=== PATIENT | female | born 1965 | race African-American/Black ===

== ENCOUNTER 2019-04-13 20:08 | Emergency (ER) | payer SELFPAY ==
[~2019-04-13] VITALS: Ht 157.5 cm; Wt 64.0 kg
[2019-04-13] MEDS ORDERED: NESINA6.25 MG PO (20:21)
[2019-04-13] MEDS ORDERED: PROCARDIA XL60 MG ORAL (20:23)
--- NOTE | 2019-04-13 20:25 | NUR ---
ED Nurse Note: PT AMBULATED TO ED C/O RIGHT FOOT, FOURTH TOE SORE. PT HAS HX OF DM 2 WITH HX OF RIGHT FOOT 5TH TOE AMPUTATION. PT DENIES PAIN, LOSS OF SENSATION. BUT STATES A MILD TINGLING IS PRESENT ON RIGHT FOOT. Addendum: 04/13/19 at 2045 by PDELEON ED Nurse Note: PT AMBULATED TO ED C/O RIGHT FOOT, 3RD TOE, SORE. PT HAS HX OF DM 2 WITH HX OF RIGHT FOOT, 5TH TOE AMPUTATION. PT DENIES PAIN, LOSS OF SENSATION. BUT STATES A MILD TINGLING IS PRESENT ON RIGHT FOOT.
[2019-04-13 20:29] VITALS: BP 131/64
[2019-04-13] MEDS ORDERED: Bacitracin Oint UD TOPIC ONE ×2 (20:43→20:45)
--- NOTE | 2019-04-13 20:49 | Emergency Room Report ---
History of Present Illness General Chief Complaint: Skin Rash/Abscess Source: Patient Present Illness HPI Patient presents with an ulcer on her right third toe. She kicked a tree. She has been checking her feet. There is an ulcer that is there. Her sister noticed it. She has had a diabetic ulcer that led to an amputation of her fifth toe. She had no pain during that episode and still has no pain during this episode. She denies any fevers or chills. The patient has retinopathy, states that she has renal disease with her renal function is 17%. She is due to have her kidney function repeated next week. She prefer not to have labs done at this time. After the amputation, research & insights executive told her she could go back to wearing high heels. The patient has not had a tetanus shot but is refusing. The patient blood sugars of been in the 120s recently. She is anxious about the lesion and what it might mean for the viability of her foot. No dysuria, other rashes, headache, chest pain, dyspnea, change in bowels, abdominal pain, joint pain. 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 Last Menstrual Period: n/a Reviewed Nursing Documentation: PMH: Agreed; PSxH: Agreed Nursing Documentation-PMH Past Medical History: No History, Except For Hx Hypertension: Yes - HTN Hx Diabetes: Yes - DIABETES Review of Systems All Other Systems: negative except mentioned in HPI Physical Exam Vital Signs Date Time Temp Pulse Resp B/P (MAP) Pulse Ox O2 Delivery O2 Flow Rate FiO2 04/13/19 20:10 97.5 96 18 131/64 (86) 99 Room Air Sp02 EP Interpretation: reviewed, normal General Appearance: well appearing, no apparent distress, GCS 15 Head: normocephalic, atraumatic Eyes: bilateral eye normal inspection, bilateral eye PERRL ENT: hearing grossly normal, normal voice, moist mucus membranes Neck: full range of motion, supple Respiratory: lungs clear, no respiratory distress, speaking full sentences Cardiovascular #1: regular rate, rhythm, no edema Cardiovascular #2: 2+ radial (R), 2+ dorsalis pedis (R) Gastrointestinal: normal inspection Musculoskeletal: no calf tenderness, other - post amputation R lateral foot/ little toe Neurologic: alert, oriented x3, motor strength/tone normal, sensory deficit - peripheral neurolopathy Psychiatric: mood/affect normal - occasionally tearful Skin: warm/dry, other - diabetic ulcer, dry without erythema Medical Decision Making Diagnostic Impression: Primary Impression: Diabetic ulcer of toe Qualified Codes: E10.621 - Type 1 diabetes mellitus with foot ulcer; L97.511 - Non-pressure chronic ulcer of other part of right foot limited to breakdown of skin ER Course Diabetic patient presents with lesion on right third toe. Differential includes cornified skin, contusion, osteomyelitis, diabetic ulcer amongst others. X-rays are indicated. Patient is requesting her labs to be done at this time and reports that her blood sugars have been well controlled. She is afebrile and nontoxic. She is refusing tetanus. Bacitracin is applied. X-rays without osteomyelitis however bony changes in adjacent toe which appear to be chronic. No gas. At this time there is no evidence of cellulitis or systemic infection. Local care is indicated. Also close outpatient follow is essential. This was discussed with the patient. She understands. Patient stable for outpatient observation and treatment. Other X-Ray Diagnostic Results Other X-Ray Diagnostic Results : X-Ray ordered: L foot # of Views/Limited Vs Complete: 3 View Indication: Other EP Interpretation: Yes Interpretation: other - STS, no osteo, change of adjacent toe Impression: Other Electronically Signed by: Electronically signed by Miguel Cooper MD Last Vital Signs Date Time Temp Pulse Resp B/P (MAP) Pulse Ox O2 Delivery O2 Flow Rate FiO2 04/13/19 21:41 97.5 98 20 127/68 100 Room Air Status: improved Disposition: HOME, SELF-CARE Condition: Improved Scripts Bacitracin (Bacitracin) 28.4 Gm Oint...g. 1 APPLIC TOPIC BID, #20 GM Prov: Miguel Cooper MD 04/13/19 Miguel Cooper MD Apr 13, 2019 20:49
--- NOTE | 2019-04-13 21:29 | NUR ---
ED Nurse Note: Xray completed
[2019-04-13] MEDS ORDERED: BACITRACIN15 GM TOPIC (21:37)
[2019-04-13 21:41] VITALS: BP 127/68
--- NOTE | 2019-04-13 21:41 | NUR ---
ER DISCHARGE NOTE: Patient is cleared to be discharged per ERMD, pt is aox4, on room air, with stable vital signs. pt was given dc and prescription instructions, pt was able to verbalize understanding, pt id band removed. pt is able to ambulate with steady gait. pt took all belongings.
--- NOTE | 2019-04-14 15:41 | Diagnostic Imaging Report ---
Indication: Osteomyelitis Technique: 3 views right foot Comparison: none Findings: Patient is status post amputation of the fifth digit at the level the mid shaft metatarsal. There is absence of the head of the fourth proximal phalanx and of the base of the fourth middle phalanx. This may be postsurgical in nature. The bones appear subluxed as a result. No acute fractures. No definite osseous erosions. There is, however, evidence of tissue loss of the tip of the first digit. No definite underlying terminal tuft abnormality demonstrated. There is a punctate radiopaque foreign body within the first toe soft tissues on the plantar side below the interphalangeal joint. Slight irregularity of the base of the second metatarsal is probably degenerative in nature. Impression: Evidence of ulceration of the tip of the first toe. No definite plain radiographic evidence of underlying osteomyelitis. Note, however, limited sensitivity of plain radiographs for such. Consider MRI or bone scan for more sensitive and specific characterization as clinically indicated. Postsurgical changes, as described Slight irregularity of the base of the second metatarsal, suspect degenerative in nature, but underlying acute abnormality also possible. Correlate with clinical findings, and likewise consider MRI to better characterize if there is high clinical suspicion of pathology in this area.
== END 2019-04-13 21:41 | disposition home or self-care (01) ==
LOC: EMR 20:54
DX: E10.621 Type 1 diabetes mellitus with foot ulcer (principal); L97.511 Non-pressure chronic ulcer of other part of right foot limited to breakdown of skin; E11.319 Type 2 diabetes mellitus with unspecified diabetic retinopathy without macular edema; Z88.6 Allergy status to analgesic agent; I12.9 Hypertensive chronic kidney disease with stage 1 through stage 4 chronic kidney disease, or unspecified chronic kidney disease; E11.22 Type 2 diabetes mellitus with diabetic chronic kidney disease; N18.9 Chronic kidney disease, unspecified
CPT/HCPCS: 99283

== ENCOUNTER 2019-07-13 11:42 | Emergency (ER) | payer MEDICAID ==
[~2019-07-13] VITALS: Ht 157.5 cm; Wt 63.0 kg
[~2019-07-13 11:42] MED LIST: BACITRACIN15 GM TOPIC; NESINA6.25 MG PO; PROCARDIA XL60 MG ORAL
[2019-07-13 12:01] VITALS: BP 120/70
--- NOTE | 2019-07-13 12:11 | NUR ---
ED Nurse Note: Pt came in due to foot edema started sunday. Pt was seen at an urgent care and was told to take more water pills but states she was not prescribed with any medication. Noted right foot open sore with no drainage at this time and pitting edema. AAO x4 and ambulatory.
[2019-07-13 13:04] LABS: HEMATOCRIT 27.5 % (37.0-47.0); HEMOGLOBIN 8.5 G/DL (12.0-16.0); MEAN CORPUSCULAR VOLUME 88 FL (80-99); PLATELET COUNT 306 K/UL (150-450); RED BLOOD COUNT 3.12 M/UL (4.20-5.40); RED CELL DISTRIBUTION WIDTH 12.6 % (11.6-14.8)
[2019-07-13 13:14] LABS: ANION GAP 15 mmol/L (5-15); BLOOD UREA NITROGEN 68 mg/dL (7-18); CALCIUM 9.3 MG/DL (8.5-10.1); CARBON DIOXIDE 17 MMOL/L (21-32); CHLORIDE 103 MMOL/L (98-107); CREATININE 5.7 MG/DL (0.55-1.30); POTASSIUM 4.2 MMOL/L (3.5-5.1); SODIUM 135 MMOL/L (136-145)
--- NOTE | 2019-07-13 13:14 | NUR ---
ED Nurse Note: Pt still unable to provide urine at this time.
[2019-07-13 13:19] LABS: ALANINE AMINOTRANSFERASE 21 U/L (12-78); ALBUMIN 3.3 G/DL (3.4-5.0); ALBUMIN/GLOBULIN RATIO 0.6 (1.0-2.7); ALKALINE PHOSPHATASE 107 U/L (46-116); ASPARTATE AMINO TRANSFERASE 22 U/L (15-37); BILIRUBIN,TOTAL 0.3 MG/DL (0.2-1.0)
[2019-07-13] MEDS ORDERED: cefTRIAXone 2 GM in NS 110 ML IV SCH (13:30)
[2019-07-13] MEDS ORDERED: Vancomycin 1 GM in NS 275 ML IV ONE (13:30)
--- NOTE | 2019-07-13 13:44 | Emergency Room Report ---
History of Present Illness General Chief Complaint: Edema Source: Patient Present Illness HPI 53-year-old female with history of CKD, type 2 diabetes currently under treatment of field spec here complaining of pain and swelling as well as pus drainage in the right third toe. Patient reports that she went to an urgent care a few days ago and was told to increase her furosemide dosage. Patient has 1 amputation of the toe on the same foot. Patient has been to the hospital multiple times for similar issue. Denies any fever and chills, rating her pain 7 out of 10 without radiation. Denies tingling numbness. Patient also recently had a twisting eye surgery due to her retinopathy. Patient denies any chest pain, shortness of breath, palpitation, abdominal pain, nausea vomiting. Patient has an extensive list of medications however is not insulin-dependent. Denies any recent fall or injury. Diabetic foot ulcers noted in the right foot with scant amount of pus drainage. Patient has normal vital signs and in no apparent distress. Allergies: Coded Allergies: ASPIRIN (Verified Allergy, Unknown, 04/13/19) Patient History Past Medical History: see triage record Past Surgical History: unable to obtain Pertinent Family History: none Immunizations: UTD Reviewed Nursing Documentation: PMH: Agreed; PSxH: Agreed Nursing Documentation-PMH Past Medical History: No History, Except For Hx Hypertension: Yes Hx Diabetes: Yes Review of Systems All Other Systems: negative except mentioned in HPI Physical Exam Vital Signs Date Time Temp Pulse Resp B/P (MAP) Pulse Ox O2 Delivery O2 Flow Rate FiO2 07/13/19 12:01 98.8 94 20 120/70 97 Room Air Sp02 EP Interpretation: reviewed, normal General Appearance: no apparent distress, alert, GCS 15, non-toxic Head: normocephalic, atraumatic Eyes: bilateral eye normal inspection, bilateral eye PERRL ENT: hearing grossly normal, normal pharynx, no angioedema, normal voice Neck: full range of motion, supple/symm/no masses Respiratory: chest non-tender, lungs clear, normal breath sounds, speaking full sentences Cardiovascular #1: regular rate, rhythm, no edema Cardiovascular #2: 2+ dorsalis pedis (R), 2+ dorsalis pedis (L) Gastrointestinal: normal bowel sounds, non tender, soft, non-distended, no guarding, no rebound Genitourinary: normal inspection, no CVA tenderness Musculoskeletal: back normal, gait/station normal, normal range of motion, non- tender, no calf tenderness, other - Right fifth toe missing due to amputation, diabetic foot ulcer with pus drainage noted over the right third toe Neurologic: alert, oriented x3, responsive, motor strength/tone normal, sensory intact, speech normal Psychiatric: judgement/insight normal, memory normal, mood/affect normal, no suicidal/homicidal ideation Skin: no rash Lymphatic: no adenopathy Medical Decision Making PA Attestation All my diagnosis and treatment plans were reviewed ad discussed with my supervising physician Dr. Laguna Diagnostic Impression: Primary Impression: Diabetic ulcer of toe ER Course 53-year-old female with history of CKD, type 2 diabetes currently under treatment of field spec here complaining of pain and swelling as well as pus drainage in the right third toe. Patient reports that she went to an urgent care a few days ago and was told to increase her furosemide dosage. Patient has 1 amputation of the toe on the same foot. Patient has been to the hospital multiple times for similar issue. Denies any fever and chills, rating her pain 7 out of 10 without radiation. Denies tingling numbness. Patient also recently had a twisting eye surgery due to her retinopathy. Patient denies any chest pain, shortness of breath, palpitation, abdominal pain, nausea vomiting. Patient has an extensive list of medications however is not insulin-dependent. Denies any recent fall or injury. Diabetic foot ulcers noted in the right foot with scant amount of pus drainage. Patient has normal vital signs and in no apparent distress. Ddx considered but are not limited to : Cellulitis, DVT, superficial infection, abscess, diabetic foot ulcer, sepsis Vital signs: are WNL, pt. is afebrile H&PE are most consistent with:diabetic foot ulcer ORDERS:sepsis work up ED INTERVENTIONS: hugo recio Patient was admitted with diagnosis of diabetic foot ulcer to [facility] under supervision of : Luz Elena pt stable at time of admission EKG Diagnostic Results Rate: normal Rhythm: NSR ST Segments: no acute changes Other Impression No acute ST changes Chest X-Ray Diagnostic Results Chest X-Ray Diagnostic Results : Chest X-Ray Ordered: Yes # of Views/Limited/Complete: 1 View Indication: Other EP Interpretation: Yes PA Xray: Interpretation reviewed, by supervising MD, and agrees with findings. Interpretation: no consolidation, no effusion, no pneumothorax Impression: No acute disease Electronically Signed by: Paul Vanegas PA-C Other X-Ray Diagnostic Results Other X-Ray Diagnostic Results : X-Ray ordered: right foot # of Views/Limited Vs Complete: 3 View Indication: Pain EP Interpretation: Yes PA Xray: Interpretation reviewed, by supervising MD, and agrees with findings. Interpretation: no dislocation, no soft tissue swelling, no fractures Impression: No acute disease Electronically Signed by: Paul Vanegas PA-C Last Vital Signs Date Time Temp Pulse Resp B/P (MAP) Pulse Ox O2 Delivery O2 Flow Rate FiO2 07/13/19 12:11 89 16 Room Air 07/13/19 12:01 98.8 120/70 (87) 97 Disposition: XFER [facility] Condition: Stable Paul Laboy Jul 13, 2019 13:44
[2019-07-13 14:30] VITALS: BP 118/73
--- NOTE | 2019-07-13 14:40 | NUR ---
ED Nurse Note: Paul/TATIANA is okay not to collect a urine sample at this time. Will start antibiotics per PA order.
[2019-07-13 14:54] LABS: CKMB 0.9 NG/ML (0.0-3.6)
[2019-07-13] MEDS ORDERED: Piperacillin/Tazobactam 3.375 GM in NS 110 ML IVPB ONE (15:00)
--- NOTE | 2019-07-13 16:06 | NUR ---
ED Nurse Note: Report given to Christine LUTZ of [facility].
--- NOTE | 2019-07-13 16:20 | NUR ---
ED Nurse Note: Endorsed Zosyn 3.37g grm to [facility] per Paul/TATIANA order. Pt is stable for transfer and all belongings sent.
[2019-07-13 16:24] VITALS: BP 125/76
--- NOTE | 2019-07-14 11:31 | Diagnostic Imaging Report ---
Indication: Chest pain Comparison: None A single view chest radiograph was obtained. Findings: Cardiomediastinal appearance is within normal limits for age. The lungs are clear. Pulmonary vascularity is appropriate. The diaphragmatic contour is smooth and costophrenic angles are sharp. No pleural effusions are identified. The bones are unremarkable. Impression: No acute findings
--- NOTE | 2019-07-14 11:32 | Diagnostic Imaging Report ---
Indication: Foot Pain Comparison: None Findings: 3 views of the right foot were obtained. Amputation of the fifth toe at the mid metatarsal level noted. There is also been amputation of the distal part of the fourth proximal phalange. No acute erosive changes or periosteal reaction identified. No soft tissue air seen. There is generalized soft tissue swelling noted. Suggestion of a osteophytes involving the proximal metatarsals and tarsal bones indicative of arthritis. IMPRESSION: No acute findings appreciated
--- NOTE | 2019-07-14 18:38 | Cardiology Report ---
APPROVED REPORT EKG Measurement Heart [id number] Normal sinus rhythm Possible Left atrial enlargement Cannot rule out Anterior infarct, age undetermined Abnormal ECG
== END 2019-07-13 16:24 | disposition short-term general hospital (02) ==
LOC: EMR 13:00
DX: E11.621 Type 2 diabetes mellitus with foot ulcer (principal); L97.519 Non-pressure chronic ulcer of other part of right foot with unspecified severity; Z88.6 Allergy status to analgesic agent; Z89.421 Acquired absence of other right toe(s); I12.9 Hypertensive chronic kidney disease with stage 1 through stage 4 chronic kidney disease, or unspecified chronic kidney disease; E11.22 Type 2 diabetes mellitus with diabetic chronic kidney disease; N18.9 Chronic kidney disease, unspecified
CPT/HCPCS: 36415; 71045; 73630; 80053; 82550; 82553; 83605; 84484; 85007; 85025; 85610; 85730; 86850; 86900; 86901; 87040; 93005; 96365; 96366; 96368; J0696; J2543; J3370; J7050; Z7502; 99284

== ENCOUNTER 2019-11-25 15:14 | Inpatient (IN) | payer MEDICAID ==
[~2019-11-25] VITALS: Ht 160 cm; Wt 64.9 kg
[2019-11-25 15:44] VITALS: BP 148/90
--- NOTE | 2019-11-25 15:45 | NUR ---
ED Nurse Note: pt walked in to ed fpr c/o sob since 11/20/19. pt sp02 is 94 % in RA. pt is alert x4.
[2019-11-25] MEDS ORDERED: Nitroglycerin Subl 0.4mg tab SL ONE (15:54)
[2019-11-25] MEDS ORDERED: Nitroglycerin Subl 0.4mg tab SL PRN (16:00)
--- NOTE | 2019-11-25 16:13 | Emergency Room Report ---
History of Present Illness General Chief Complaint: Dyspnea/Respdistress Source: Patient (Kleber Zheng MD) Present Illness HPI Patient is a 54-year-old female presents after increased difficulty with breathing. Gradual onset of symptoms. She reports having recently missed dosages of her diuretics. Prior history of renal disease but is not currently on dialysis. She does currently make urine. She had been previously on Lasix 40 mg a day. Denies any recent fever. Did have some sick contacts at home. (Kleber Zheng MD) Allergies: Coded Allergies: ASPIRIN (Verified Allergy, Unknown, 04/13/19) Patient History Past Medical History: see triage record Last Menstrual Period: none Now: No Reviewed Nursing Documentation: PMH: Agreed; PSxH: Agreed (Kleber Zheng MD) Nursing Documentation-PMH Past Medical History: No History, Except For Hx Hypertension: Yes Hx Diabetes: Yes - renal failure (Kleber Zheng MD) Review of Systems All Other Systems: negative except mentioned in HPI (Kleber Zheng MD) Physical Exam Vital Signs Date Time Temp Pulse Resp B/P (MAP) Pulse Ox O2 Delivery O2 Flow Rate FiO2 11/25/19 15:38 98.1 86 28 150/85 (106) 92 Room Air 11/25/19 16:08 35 Sp02 EP Interpretation: reviewed, normal General Appearance: normal inspection, alert, GCS 15, Chronically Ill Head: atraumatic ENT: normal ENT inspection, hearing grossly normal, normal voice Neck: normal inspection, supple, no bony tend, limited range of motion Respiratory: respiratory distress, rales Cardiovascular #1: regular rate, rhythm, no edema Gastrointestinal: normal inspection, normal bowel sounds, non tender, soft, no guarding, no hernia Genitourinary: no CVA tenderness Musculoskeletal: back normal, other - right lower extremity ulcer Neurologic: alert, fusing machine tender III-XII nml as tested, oriented x3, responsive, speech normal, normal inspection Psychiatric: normal inspection, judgement/insight normal, mood/affect normal Skin: no rash, Decubitus/Ulcer - Ulcer to the foot, pallor (Kleber Zheng MD) Procedures Critical Care Time Critical Care Time Patient had a critical medical condition which untreated could potentially result in life or limb threatening injury. Total critical care time excluding procedures approximately 45 minutes. (Kleber Zheng MD) Medical Decision Making Diagnostic Impression: Primary Impression: Fluid overload Additional Impressions: Chronic renal disease Nonadherence to medication Non-STEMI (non-ST elevated myocardial infarction) ER Course Patient is a 54-year-old female presents for increased shortness of breath. Differential diagnosis include was not limited to congestive heart failure, myocardial infarction, pneumonia, bronchitis, fluid overload among others. EKG interpreted by me showed normal sinus rhythm with a rate of [address] or T wave changes. There is no QRS widening noted. T waves do not appear to be peaking Patient given Plavix as well as started on BiPAP due to some respiratory distress. She was also given IV antibiotics due to questionable infiltrates on chest x-ray. Chest x-ray read by radiology showed bilateral patchy infiltrates which may represent pulmonary edema. Laboratory testing was notable for elevated troponin as well as evidence of chronic renal failure. Patient was started on BiPAP and had market improvement in her respiratory status after BiPAP. Patient was additionally given IV Lasix due to fluid overload. She did have some improvement after medications. Dr. Partha Lee was contacted for inpatient management Labs Test 11/25/19 16:15 White Blood Count 16.8 K/UL (4.8-10.8) Red Blood Count 2.74 M/UL (4.20-5.40) Hemoglobin 7.6 G/DL (12.0-16.0) Hematocrit 23.7 % (37.0-47.0) Mean Corpuscular Volume 86 FL (80-99) Mean Corpuscular Hemoglobin 27.8 PG (27.0-31.0) Mean Corpuscular Hemoglobin Concent 32.2 G/DL (32.0-36.0) Red Cell Distribution Width 15.2 % (11.6-14.8) Platelet Count 212 K/UL (150-450) Mean Platelet Volume 7.8 FL (6.5-10.1) Neutrophils (%) (Auto) % (45.0-75.0) Lymphocytes (%) (Auto) % (20.0-45.0) Monocytes (%) (Auto) % (1.0-10.0) Eosinophils (%) (Auto) % (0.0-3.0) Basophils (%) (Auto) % (0.0-2.0) Differential Total Cells Counted 100 Neutrophils % (Manual) 78 % (45-75) Lymphocytes % (Manual) 18 % (20-45) Monocytes % (Manual) 4 % (1-10) Eosinophils % (Manual) 0 % (0-3) Basophils % (Manual) 0 % (0-2) Band Neutrophils 0 % (0-8) Platelet Estimate Adequate Platelet Morphology Normal Polychromasia 1+ Anisocytosis 1+ (Kleber Zheng MD) ER Course Please see above note. Patient examined by me at 2315. Some improvement with some diuresis. We will attempt Ventimask and off of BiPAP. Discussed need for dialysis with patient. She understands and is agreeable at this time. Patient stable on Ventimask, but states might be more comfortable on BiPAP. Improved. (Miguel Cooper MD) EKG Diagnostic Results Rate: normal Rhythm: NSR ST Segments: no acute changes (Kleber Zheng MD) Last Vital Signs Date Time Temp Pulse Resp B/P (MAP) Pulse Ox O2 Delivery O2 Flow Rate FiO2 11/25/19 16:08 90 34 100 Facial 35 11/25/19 15:38 98.1 150/85 (106) Status: improved (Kleber Zheng MD) Status: improved (Miguel Cooper MD) Disposition: ADMITTED INPATIENT Condition: Serious Kleber Zheng MD Nov 25, 2019 16:13 Miguel Cooper MD Nov 25, 2019 22:25
--- NOTE | 2019-11-25 16:15 | NUR ---
ED Nurse Note: x ray at bedside.
[2019-11-25] MEDS ORDERED: cefTRIAXone 1 GM in NS 55 ML IVPB ONE (16:30)
--- NOTE | 2019-11-25 16:31 | Diagnostic Imaging Report ---
Indication: Shortness of breath Technique: One view of the chest Comparison: 07/13/2019 Findings: The heart is upper limits normal in size. There is suggestion of small bilateral pleural effusions. There is bilateral interstitial and patchy and nodular airspace disease. Impression: Bilateral interstitial and airspace disease, as described. Most likely represents patchy pneumonia, pulmonary edema also possible. Also given the nodular appearance of some the opacities, the possibility of neoplasm cannot be completely ruled out, although less likely given normal fairly recent chest radiograph of 07/13/2019. Recommend follow-up to resolution. Small bilateral pleural effusions Findings discussed by phone with Dr. Zheng in the emergency room at the time of interpretation
--- NOTE | 2019-11-25 16:37 | NUR ---
ED Nurse Note: blood sent down to lab
[2019-11-25 16:53] LABS: HEMATOCRIT 23.7 % (37.0-47.0); HEMOGLOBIN 7.6 G/DL (12.0-16.0); MEAN CORPUSCULAR VOLUME 86 FL (80-99); PLATELET COUNT 212 K/UL (150-450); RED BLOOD COUNT 2.74 M/UL (4.20-5.40); RED CELL DISTRIBUTION WIDTH 15.2 % (11.6-14.8); WHITE BLOOD COUNT 16.8 K/UL (4.8-10.8)
[2019-11-25 17:26] LABS: ALANINE AMINOTRANSFERASE 223 U/L (12-78); ALBUMIN 2.9 G/DL (3.4-5.0); ALBUMIN/GLOBULIN RATIO 0.5 (1.0-2.7); ALKALINE PHOSPHATASE 111 U/L (46-116); ANION GAP 19 mmol/L (5-15); ASPARTATE AMINO TRANSFERASE 276 U/L (15-37); BILIRUBIN,TOTAL 0.4 MG/DL (0.2-1.0); BLOOD UREA NITROGEN 77 mg/dL (7-18); CALCIUM 8.8 MG/DL (8.5-10.1); CARBON DIOXIDE 14 MMOL/L (21-32); CHLORIDE 102 MMOL/L (98-107); CREATININE 5.2 MG/DL (0.55-1.30); POTASSIUM 5.9 MMOL/L (3.5-5.1); SODIUM 135 MMOL/L (136-145)
[2019-11-25] MEDS ORDERED: Sodium Polystyrene Sulfonate 15gm Powder ORAL ONE (17:45)
--- NOTE | 2019-11-25 18:22 | NUR ---
ED Nurse Note: PT IM BED RESTING, NO ACUTE DISTRESS IS NOTED. VSS.
[2019-11-25 18:23] VITALS: BP 150/84
--- NOTE | 2019-11-25 18:29 | Pulmonolgy Critical Care Note ---
Critical Care - Asmt/Plan Assessment/Plan: Pulmonary Critical Care Consultation HPI Patient is a 54-year-old woman with previous history of Chronic Kidney Disease, Diabetes, Hypertension, admitted with increased difficulty with breathing. Gradual onset of symptoms. Had previously missed her diuretic doses. Not currently on dialysis. Denies any recent fever, chest pain. Had sick contacts at home. Allergies: ASPIRIN Past Medical History: Chronic Kidney Disease, Diabetes, Hypertension All Other Systems: negative except mentioned in HPI Physical Exam Vital Signs Noted Date Time Temp Pulse Resp B/P (MAP) Pulse Ox O2 Delivery O2 Flow Rate FiO2 11/25/19 15:38 98.1 86 28 150/85 (106) 92 Room Air 11/25/19 16:08 35 General Appearance: normal inspection, well appearing, no apparent distress, alert, GCS 15 Head: atraumatic ENT: normal ENT inspection, hearing grossly normal, normal voice Neck: normal inspection, full range of motion, supple, no bony tend Respiratory: normal inspection, lungs clear, normal breath sounds, no respiratory distress, no retraction, no wheezing Cardiovascular: regular rate, rhythm, HS1, HS2 normal, no edema Gastrointestinal: normal inspection, normal bowel sounds, non tender, soft, no guarding, no hernia Genitourinary: no CVA tenderness Musculoskeletal: normal inspection, back normal, normal range of motion Neurologic: alert, oriented x3, responsive, speech normal, normal inspection Impression: Fluid overload Elevated Troponin Possible Pneumonia Chronic Kidney Disease Anemia Diabetes Hypertension Plan - Diurese - IV AB - Monitor labs - O2/Bipap PRN - PPX - HEALTH UNDERWRITER Medications - Kayexalate PRN - TFN PRN - Protonix EKG: Normal sinus rhythm with a rate of [address] or T wave changes. There is no QRS widening noted. CXR: Mild cardiomegaly, interstitial and patchy infiltrates, small effusions Labs Test 11/25/19 16:15 White Blood Count 16.8 K/UL (4.8-10.8) Red Blood Count 2.74 M/UL (4.20-5.40) Hemoglobin 7.6 G/DL (12.0-16.0) Hematocrit 23.7 % (37.0-47.0) Mean Corpuscular Volume 86 FL (80-99) Mean Corpuscular Hemoglobin 27.8 PG (27.0-31.0) Mean Corpuscular Hemoglobin Concent 32.2 G/DL (32.0-36.0) Red Cell Distribution Width 15.2 % (11.6-14.8) Platelet Count 212 K/UL (150-450) Mean Platelet Volume 7.8 FL (6.5-10.1) Neutrophils (%) (Auto) % (45.0-75.0) Lymphocytes (%) (Auto) % (20.0-45.0) Monocytes (%) (Auto) % (1.0-10.0) Eosinophils (%) (Auto) % (0.0-3.0) Basophils (%) (Auto) % (0.0-2.0) Differential Total Cells Counted 100 Neutrophils % (Manual) 78 % (45-75) Lymphocytes % (Manual) 18 % (20-45) Monocytes % (Manual) 4 % (1-10) Eosinophils % (Manual) 0 % (0-3) Basophils % (Manual) 0 % (0-2) Band Neutrophils 0 % (0-8) Platelet Estimate Adequate Platelet Morphology Normal Polychromasia 1+ Anisocytosis 1+ Critical Care - Objective Last 24 Hour Vital Signs Date Time Temp Pulse Resp B/P (MAP) Pulse Ox O2 Delivery O2 Flow Rate FiO2 11/25/19 17:21 96 31 96 Facial 35 11/25/19 16:24 148/84 11/25/19 16:08 90 34 100 Facial 35 11/25/19 15:44 98.1 88 28 148/90 94 Room Air 11/25/19 15:44 88 28 Room Air 11/25/19 15:38 98.1 86 28 150/85 (106) 92 Room Air Critical Care - Subjective ROS Limited/Unobtainable: No Condition: improving EKG Rhythm: Sinus Rhythm FI02: 35 Sputum Amount: None Miguel Hamm MD Nov 25, 2019 18:29
--- NOTE | 2019-11-25 19:04 | NUR ---
ED Nurse Note: report given to BOLIVAR Wise. endorsed plan of care.
--- NOTE | 2019-11-25 19:05 | NUR ---
ED Nurse Note: Received report from Hernandez LUTZ.
[2019-11-25 19:06] VITALS: BP 148/86
[2019-11-25] MEDS ORDERED: ATORVASTATIN CA20 MG ORAL (19:54)
[2019-11-25] MEDS ORDERED: LISINOPRIL20 MG ORAL (19:54)
[2019-11-25] MEDS ORDERED: FUROSEMIDE20 M1 ORAL (19:54)
[2019-11-25] MEDS ORDERED: FERROUS SULFAT325 MG ORAL (19:54)
--- NOTE | 2019-11-25 20:30 | NUR ---
ED Nurse Note: Pt awake and alert, verbally responsive. Not in any distress. On BIPAP, tolerating well.
--- NOTE | 2019-11-25 21:45 | NUR ---
ED Nurse Note: Pt able to walk with steady gait from bed to bedside commode. On BiPAP, tolertaing well. Not in any distress. Will cont to monitor.
[2019-11-25 21:46] VITALS: BP 160/90
[2019-11-25] MEDS ORDERED: CALCIUM ACETAT667 MG PO (22:12)
--- NOTE | 2019-11-25 22:55 | NUR ---
ED Nurse Note: Report given to Brennan LUTZ.
[2019-11-25 23:00] VITALS: BP 155/91
--- NOTE | 2019-11-25 23:00 | NUR ---
TRANSFER TO FLOOR: Patient transferred to SDU. Report given to BOLIVAR Amin. Pt alert and oriented, verbally responsive. Not in any distress. No SOB. Afebrile. Sinus rhythm. 100% RA. IV line on right forearm 22g patent and intact. Med recon done. No skin issues. All belongings given to the patient. Family member aware of the transfer.
--- NOTE | 2019-11-25 23:10 | NUR ---
NURSE NOTES: Received patient from BOLIVAR Scott. Patient is aaox4, vss, with no acute distress. Pt is cooperative and well groomed. Pt on needle bar molder. IV right forearm 22g and no skin issues. Patient is on 2L NC and saturating at 93%. Bed at its lowest position, call light in reach and x3 bed rails are up.
[2019-11-25] MEDS ORDERED: HydrALAZINE 25mg tab ORAL PRN (23:30)
[2019-11-26] VITALS (15 sets, daily range): BP systolic 92–139; BP diastolic 48–89
[2019-11-26] MEDS ORDERED: HydrALAZINE 25mg tab ORAL PRN ×2 (00:15→13:39)
[2019-11-26] MEDS ORDERED: Albuterol/Ipratropium 3ml neb HHN PRN ×2 (01:30→13:39)
[2019-11-26] MEDS ORDERED: Azithromycin 500 MG in D5W 275 ML IV SCH (02:30)
[2019-11-26 05:51] LABS: HEMATOCRIT 21.1 % (37.0-47.0); MEAN CORPUSCULAR VOLUME 85 FL (80-99); PLATELET COUNT 213 K/UL (150-450); RED BLOOD COUNT 2.48 M/UL (4.20-5.40); RED CELL DISTRIBUTION WIDTH 14.5 % (11.6-14.8); WHITE BLOOD COUNT 14.2 K/UL (4.8-10.8)
[2019-11-26 06:17] LABS: HEMOGLOBIN 6.9 G/DL (12.0-16.0)
[2019-11-26] MEDS ORDERED: NovoLOG Insulin Flexpen SUBQ SCH ×2 (06:30→16:30)
[2019-11-26 06:31] LABS: ALANINE AMINOTRANSFERASE 199 U/L (12-78); ALBUMIN 2.6 G/DL (3.4-5.0); ALBUMIN/GLOBULIN RATIO 0.5 (1.0-2.7); ALKALINE PHOSPHATASE 94 U/L (46-116); ANION GAP 18 mmol/L (5-15); ASPARTATE AMINO TRANSFERASE 156 U/L (15-37); BILIRUBIN,TOTAL 0.3 MG/DL (0.2-1.0); BLOOD UREA NITROGEN 87 mg/dL (7-18); CALCIUM 8.1 MG/DL (8.5-10.1); CARBON DIOXIDE 18 MMOL/L (21-32); CHLORIDE 102 MMOL/L (98-107); CHOLESTEROL 171 MG/DL (< 200); CREATINE KINASE 712 U/L (26-308); CREATININE 5.3 MG/DL (0.55-1.30); FERRITIN 1447 NG/ML (8-388); HDL CHOLESTEROL 106 MG/DL (40-60); POTASSIUM 3.7 MMOL/L (3.5-5.1); SODIUM 138 MMOL/L (136-145); TRIGLYCERIDES 56 MG/DL (30-150)
[2019-11-26] MEDS: NovoLOG Insulin Flexpen SUBQ SCH ×4 (06:44→21:35)
[2019-11-26 06:50] LABS: % IRON SATURATION 17 % (15-50); IRON 30 ug/dL (50-175); TOTAL IRON BINDING CAPACITY 177 ug/dL (250-450)
--- NOTE | 2019-11-26 07:15 | NUR ---
NURSE NOTES: Left a message for Dr. Keene regarding Hgb 6.9 and Lactic acid of 1.3. No call back yet.
[2019-11-26 07:19] LABS: PHOSPHORUS 6.4 MG/DL (2.5-4.9)
--- NOTE | 2019-11-26 07:30 | NUR ---
HAND-OFF: Report given to BOLIVAR Chavis.
[2019-11-26] MEDS: Docusate 100mg cap ORAL SCH ×3 (09:00→18:33)
[2019-11-26] MEDS ORDERED: Heparin 5000 units/ml inj SUBQ SCH (09:00)
--- NOTE | 2019-11-26 10:20 | NUR ---
NURSE NOTES: Dr. Keene called back nurse station. Dr. Keene made aware of elevated troponin level of 3.476 elevated from 2.010. No c/o chest pain, no SOB. Dr. Keene ordered Dr. Lacey for cardiology consult and transfer to ICU for ongoing [place] for close monitoring. Charge nurse made aware. Will continue to monitor patient.
--- NOTE | 2019-11-26 10:25 | NUR ---
NURSE NOTES: Called and spoke with Dr. Lacey via telephone, informed MD of elevated troponin 3.476 elevated from 2, no SOB, no c/o chest pain. Dr. Lacey ordered to transfer to ICU. Per Dr. Lacey, Dr. Motley is covering him. Dr. Lacey gave no new orders at this time. Charge nurse made aware.
--- NOTE | 2019-11-26 12:00 | Diagnostic Imaging Report ---
Indication: Acute renal failure, abnormal renal function tests Technique: Grayscale and duplex images of the kidneys, retroperitoneum, and bladder were obtained. Comparison: none Findings: Right kidney measures 9.8 cm in length. Left kidney measures 9.7 cm in length. Both kidneys demonstrate slightly increased echogenicity. No hydronephrosis. No focal abnormality. Normal inferior vena cava. Bladder is normal. Impression: Negative for hydronephrosis Slightly increased renal echogenicity, may indicate medical renal disease.
--- NOTE | 2019-11-26 12:04 | Diagnostic Imaging Report ---
Indication: Leg pain and shortness of breath Technique: Grayscale and duplex images of the bilateral lower extremity veins Comparison: none Findings: Bilaterally, grayscale and duplex images demonstrate no evidence of intraluminal thrombus. Normal phasic Doppler waveforms, demonstrating normal augmentation response and no evidence of valvular insufficiency. Greater saphenous veins and tibial veins are patent bilaterally. Normal compressibility Impression: Negative for evidence of lower extremity deep venous thrombosis
--- NOTE | 2019-11-26 12:47 | NUR ---
TRANSFER TO FLOOR: Patient transferred to ICU [id number], per Dr. Keene. Report given to BOLIVAR lAmanza . Belongings and medications given to BOLIVAR Almanza. Family informed of transfer.
--- NOTE | 2019-11-26 13:00 | NUR ---
NURSE NOTES: PT TRANSFERRED FROM SDU REGARDING ELEVATED TROPIN. PT IN BED, CONNECTED TO MONITOR. VSS. NO C/O PAIN, SOB. A/0 X4. SR. 4L NC SATING 98%. PRN BIPAP 08/02 35%. DIET DM, RENAL REGULAR. LAST BM 11/24/2019. BG 138. SKIN- SEE ASSESSMENT. IV ACCESS RFA 22G. PT AMBULATES. STANDARD PRECAUTIONS IN PLACE. ORIENTED TO UNIT. CALL LIGHT IN REACH, BED LOCKED, IN LOW POSITION.
[2019-11-26] MEDS ORDERED: Albuterol/Ipratropium 3ml neb INH PRN (13:30)
[2019-11-26] MEDS ORDERED: Zolpidem 5mg tab ORAL PRN (13:30)
--- NOTE | 2019-11-26 14:21 | Consultation ---
Consult Note Consult Note Asked to eval for renal failure Patient is a 54-year-old female presents after increased difficulty with breathing. Gradual onset of symptoms. She reports having recently missed dosages of her diuretics. Prior history of renal disease but is not currently on dialysis. She does currently make urine. She had been previously on Lasix 40 mg a day. Denies any recent fever. Did have some sick contacts at home. Coded Allergies: ASPIRIN (Verified Allergy, Unknown, 04/13/19) Past Medical History: No History, Except For Hx Hypertension: Yes Hx Diabetes: Yes - renal failure interviewed examined data reviewed . Assessment/Plan underlying CKD ? Superimposed Acute Anemia of CKD Cardiomyopathy- 40% EjFx DM Low Folate elevated troponin- CAD Asa Allergy change diet transfuse PO folate Plavix Coreg- Norvasc- Hydralazine Joao Garcia MD Nov 26, 2019 14:21
[2019-11-26] MEDS ORDERED: Carvedilol 6.25mg Tab ORAL SCH (14:30)
--- NOTE | 2019-11-26 14:44 | Cardiac Electrophysiology PN ---
Subjective Subjective [id number] Objective Last 24 Hour Vital Signs Date Time Temp Pulse Resp B/P (MAP) Pulse Ox O2 Delivery O2 Flow Rate FiO2 11/26/19 12:00 4.0 11/26/19 12:00 96 11/26/19 12:00 98.4 94 16 133/73 (93) 95 11/26/19 12:00 Bi-pap 11/26/19 09:42 88 117/78 11/26/19 09:21 88 18 98 Full Face 35 11/26/19 08:00 98.7 92 16 117/78 (91) 100 11/26/19 08:00 4.0 11/26/19 08:00 82 11/26/19 08:00 Bi-pap 11/26/19 07:00 76 13 97 Full Face 35 11/26/19 05:05 80 21 98 Full Face 35 11/26/19 04:00 35 11/26/19 04:00 Bi-pap 11/26/19 04:00 98.5 91 24 139/89 (106) 96 11/26/19 03:00 75 20 99 Full Face 35 11/26/19 01:36 Bi-pap 11/26/19 01:28 80 20 100 Full Face 35 11/26/19 00:00 95 11/26/19 00:00 98.3 100 24 137/87 (104) 94 11/25/19 23:45 87 24 96 Full Face 35 11/25/19 23:45 78 18 Bi-Pap 35 11/25/19 23:00 98.5 97 23 155/91 100 Room Air 11/25/19 23:00 98.5 97 23 155/91 100 Room Air 11/25/19 21:53 69 33 98 Facial 35 11/25/19 21:46 98.0 86 23 160/90 99 Bi-pap 35 11/25/19 19:36 96 31 96 Facial 35 11/25/19 19:06 98.2 78 20 148/86 100 Bi-pap 35 11/25/19 18:23 98.3 85 22 150/84 99 Room Air 11/25/19 17:21 96 31 96 Facial 35 11/25/19 16:24 148/84 11/25/19 16:08 90 34 100 Facial 35 11/25/19 15:44 98.1 88 28 148/90 94 Room Air 11/25/19 15:44 88 28 Room Air 11/25/19 15:38 98.1 86 28 150/85 (106) 92 Room Air Intake and Output 11/25/19 11/26/19 19:00 07:00 Intake Total 55 ml 240 ml Balance 55 ml 240 ml Intake Oral 240 ml IV Total 55 ml # Voids 1 Laboratory Tests Test 11/25/19 16:15 11/26/19 04:50 White Blood Count 16.8 K/UL (4.8-10.8) H 14.2 K/UL (4.8-10.8) H Red Blood Count 2.74 M/UL (4.20-5.40) L 2.48 M/UL (4.20-5.40) L Hemoglobin 7.6 G/DL (12.0-16.0) L 6.9 G/DL (12.0-16.0) *L Hematocrit 23.7 % (37.0-47.0) L 21.1 % (37.0-47.0) L Mean Corpuscular Volume 86 FL (80-99) 85 FL (80-99) Mean Corpuscular Hemoglobin 27.8 PG (27.0-31.0) 27.7 PG (27.0-31.0) Mean Corpuscular Hemoglobin Concent 32.2 G/DL (32.0-36.0) 32.7 G/DL (32.0-36.0) Red Cell Distribution Width 15.2 % (11.6-14.8) H 14.5 % (11.6-14.8) Platelet Count 212 K/UL (150-450) 213 K/UL (150-450) Mean Platelet Volume 7.8 FL (6.5-10.1) 7.6 FL (6.5-10.1) Neutrophils (%) (Auto) % (45.0-75.0) % (45.0-75.0) Lymphocytes (%) (Auto) % (20.0-45.0) % (20.0-45.0) Monocytes (%) (Auto) % (1.0-10.0) % (1.0-10.0) Eosinophils (%) (Auto) % (0.0-3.0) % (0.0-3.0) Basophils (%) (Auto) % (0.0-2.0) % (0.0-2.0) Differential Total Cells Counted 100 100 Neutrophils % (Manual) 78 % (45-75) H 73 % (45-75) Lymphocytes % (Manual) 18 % (20-45) L 13 % (20-45) L Monocytes % (Manual) 4 % (1-10) 13 % (1-10) H Eosinophils % (Manual) 0 % (0-3) 1 % (0-3) Basophils % (Manual) 0 % (0-2) 0 % (0-2) Band Neutrophils 0 % (0-8) 0 % (0-8) Platelet Estimate Adequate Adequate Platelet Morphology Normal Normal Polychromasia 1+ Anisocytosis 1+ 1+ Sodium Level 135 MMOL/L (136-145) L 138 MMOL/L (136-145) Potassium Level 5.9 MMOL/L (3.5-5.1) H 3.7 MMOL/L (3.5-5.1) Chloride Level 102 MMOL/L (98-107) 102 MMOL/L (98-107) Carbon Dioxide Level 14 MMOL/L (21-32) L 18 MMOL/L (21-32) L Anion Gap 19 mmol/L (5-15) H 18 mmol/L (5-15) H Blood Urea Nitrogen 77 mg/dL (7-18) H 87 mg/dL (7-18) H Creatinine 5.2 MG/DL (0.55-1.30) H 5.3 MG/DL (0.55-1.30) H Estimat Glomerular Filtration Rate 10.3 mL/min (>60) 10.2 mL/min (>60) Glucose Level 239 MG/DL (74-106) H 203 MG/DL (74-106) H Calcium Level 8.8 MG/DL (8.5-10.1) 8.1 MG/DL (8.5-10.1) L Total Bilirubin 0.4 MG/DL (0.2-1.0) 0.3 MG/DL (0.2-1.0) Aspartate Amino Transf (AST/SGOT) 276 U/L (15-37) H 156 U/L (15-37) H Alanine Aminotransferase (ALT/SGPT) 223 U/L (12-78) H 199 U/L (12-78) H Alkaline Phosphatase 111 U/L (46-116) 94 U/L (46-116) Troponin I 2.011 ng/mL (0.000-0.056) 3.476 ng/mL (0.000-0.056) Pro-B-Type Natriuretic Peptide > 67579 pg/mL (0-125) H > 81217 pg/mL (0-125) H Total Protein 8.7 G/DL (6.4-8.2) H 7.7 G/DL (6.4-8.2) Albumin 2.9 G/DL (3.4-5.0) L 2.6 G/DL (3.4-5.0) L Globulin 5.8 g/dL 5.1 g/dL Albumin/Globulin Ratio 0.5 (1.0-2.7) L 0.5 (1.0-2.7) L Lipase 103 U/L (73-393) 110 U/L (73-393) Hypochromasia 1+ Hemoglobin A1c 6.8 % (4.3-6.0) H Lactic Acid Level 1.30 mmol/L (0.4-2.0) Uric Acid 9.8 MG/DL (2.6-7.2) H Phosphorus Level 6.4 MG/DL (2.5-4.9) H Magnesium Level 1.6 MG/DL (1.8-2.4) L Iron Level 30 ug/dL (50-175) L Total Iron Binding Capacity 177 ug/dL (250-450) L Percent Iron Saturation 17 % (15-50) Unsaturated Iron Binding 147 ug/dL (112-346) Ferritin 1447 NG/ML (8-388) H Total Creatine Kinase 712 U/L (26-308) H C-Reactive Protein, Quantitative 22.1 mg/dL (0.00-0.90) H Triglycerides Level 56 MG/DL (30-150) Cholesterol Level 171 MG/DL (< 200) LDL Cholesterol 45 mg/dL (<100) HDL Cholesterol 106 MG/DL (40-60) H Cholesterol/HDL Ratio 1.6 (3.3-4.4) L Vitamin B12 Level 1859 PG/ML (193-986) H Folate 6.8 NG/ML (8.6-58.9) L Thyroid Stimulating Hormone (TSH) 1.064 uiU/mL (0.358-3.740) Hepatitis A IgM Antibody Pending Hepatitis B Surface Antigen Pending Hepatitis B Core IgM Antibody Pending Hepatitis C Antibody Pending Jeremiah Motley MD Nov 26, 2019 14:43
--- NOTE | 2019-11-26 15:19 | Diagnostic Imaging Report ---
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 There is evidence of prior osteotomy of the fourth proximal and middle phalanges. There is evidence of prior amputation of the third distal phalanx. No acute fractures. No dislocations. No osseous erosions. The joint spaces are preserved. There is hammertoe deformity of the second through fifth digits. Impression: Postsurgical changes, as described No definite acute bony trauma graft no plain radiographic evidence of acute osseous myelitis. Note, however, limited sensitivity of plain radiographs for such. Consider MRI or bone scan for more sensitive characterization.
--- NOTE | 2019-11-26 15:47 | NUR ---
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 98.0 HR 86 RR 28 B/P 150/85 BIPAP 10/5 FIO2 30% WBC 16.8 H/H 7.6/23.7 K 5.9 IS: LASIX IV ROCEPHIN IV PLAVIX ADMITTED TO ICU ICU STATUS DCP PENDING HOSPITAL STAY
[2019-11-26] MEDS: cefTRIAXone 1 GM in D5W 55 ML IVPB SCH (15:50)
[2019-11-26] MEDS ORDERED: cefTRIAXone 1 GM in D5W 55 ML IVPB SCH (16:00)
--- NOTE | 2019-11-26 16:00 | NUR ---
NURSE NOTES: LATE ENTRY: MD FLORES HERE TO SEE PT. INFORMED OF BEDSIDE EKG AND TROPONIN 3.4. PT HAS NO C/O CHEST PAIN OR SOB AT THIS TIME. MD WILL PLACE OWN ORDERS.
--- NOTE | 2019-11-26 16:04 | Diagnostic Imaging Report ---
. Indication: Nonhealing ulcer in the right foot Technique: Grayscale duplex images of the bilateral extremity arteries Comparison: none Findings: On the right, Doppler waveforms are biphasic or triphasic with sharp systolic peaks at the level of the common femoral, profunda femoral, proximal superficial femoral arteries. In the proximal superficial femoral artery, there is sonographically visible atherosclerotic plaquing with flow velocity elevation up to 269 cm/s. There is slight dampening of the waveforms distal to this, although waveforms remain triphasic to the level of the proximal tibial vessels. The distal tibial vessel waveforms are monophasic at the level of the posterior tibial artery, but biphasic and the distal peroneal and dorsalis pedis arteries. On the left, Doppler waveforms are triphasic at all levels including distally. Systolic peaks are sharp and flow velocities are within normal limits. Impression: Borderline significant stenosis of the right proximal superficial femoral artery Negative for evidence of significant left lower extremity. Serial insufficiency.
--- NOTE | 2019-11-26 16:47 | Consultation ---
History of Present Illness General Chief Complaint: Dyspnea/Respdistress Present Illness Allergies: Coded Allergies: ASPIRIN (Verified Allergy, Unknown, 04/13/19) Medication History Scheduled Atorvastatin Calcium* (Atorvastatin Calcium*), 20 MG ORAL BEDTIME, (Reported) Bacitracin (Bacitracin), 1 APPLIC TOPIC BID Ferrous Sulfate* (Ferrous Sulfate*), 325 MG ORAL DAILY, (Reported) Furosemide* (Lasix*), 20 MG ORAL DAILY, (Reported) Lisinopril (Lisinopril*), 25 MG ORAL DAILY, (Reported) Nifedipine (Procardia Xl), 60 MG ORAL DAILY, (Reported) Miscellaneous Medications Alogliptin Benzoate (Nesina), 6.25 MG PO, (Reported) Calcium Acetate (Calcium Acetate), 667 MG PO, (Reported) Patient History Healthcare decision maker Resuscitation status Full Code Advanced Directive on File No Physical Exam Last 24 Hour Vital Signs Date Time Temp Pulse Resp B/P (MAP) Pulse Ox O2 Delivery O2 Flow Rate FiO2 11/26/19 15:48 96 133/84 11/26/19 12:00 4.0 11/26/19 12:00 96 11/26/19 12:00 98.4 94 16 133/73 (93) 95 11/26/19 12:00 Bi-pap 11/26/19 09:42 88 117/78 11/26/19 09:21 88 18 98 Full Face 35 11/26/19 08:00 98.7 92 16 117/78 (91) 100 11/26/19 08:00 4.0 11/26/19 08:00 82 11/26/19 08:00 Bi-pap 11/26/19 07:00 76 13 97 Full Face 35 11/26/19 05:05 80 21 98 Full Face 35 11/26/19 04:00 35 11/26/19 04:00 Bi-pap 11/26/19 04:00 98.5 91 24 139/89 (106) 96 11/26/19 03:00 75 20 99 Full Face 35 11/26/19 01:36 Bi-pap 11/26/19 01:28 80 20 100 Full Face 35 11/26/19 00:00 95 11/26/19 00:00 98.3 100 24 137/87 (104) 94 11/25/19 23:45 87 24 96 Full Face 35 11/25/19 23:45 78 18 Bi-Pap 35 11/25/19 23:00 98.5 97 23 155/91 100 Room Air 11/25/19 23:00 98.5 97 23 155/91 100 Room Air 11/25/19 21:53 69 33 98 Facial 35 11/25/19 21:46 98.0 86 23 160/90 99 Bi-pap 35 11/25/19 19:36 96 31 96 Facial 35 11/25/19 19:06 98.2 78 20 148/86 100 Bi-pap 35 11/25/19 18:23 98.3 85 22 150/84 99 Room Air 11/25/19 17:21 96 31 96 Facial 35 Intake and Output 11/25/19 11/26/19 19:00 07:00 Intake Total 55 ml 240 ml Balance 55 ml 240 ml Intake Oral 240 ml IV Total 55 ml # Voids 1 Laboratory Tests Test 11/26/19 04:50 White Blood Count 14.2 K/UL (4.8-10.8) H Red Blood Count 2.48 M/UL (4.20-5.40) L Hemoglobin 6.9 G/DL (12.0-16.0) *L Hematocrit 21.1 % (37.0-47.0) L Mean Corpuscular Volume 85 FL (80-99) Mean Corpuscular Hemoglobin 27.7 PG (27.0-31.0) Mean Corpuscular Hemoglobin Concent 32.7 G/DL (32.0-36.0) Red Cell Distribution Width 14.5 % (11.6-14.8) Platelet Count 213 K/UL (150-450) Mean Platelet Volume 7.6 FL (6.5-10.1) Neutrophils (%) (Auto) % (45.0-75.0) Lymphocytes (%) (Auto) % (20.0-45.0) Monocytes (%) (Auto) % (1.0-10.0) Eosinophils (%) (Auto) % (0.0-3.0) Basophils (%) (Auto) % (0.0-2.0) Differential Total Cells Counted 100 Neutrophils % (Manual) 73 % (45-75) Lymphocytes % (Manual) 13 % (20-45) L Monocytes % (Manual) 13 % (1-10) H Eosinophils % (Manual) 1 % (0-3) Basophils % (Manual) 0 % (0-2) Band Neutrophils 0 % (0-8) Platelet Estimate Adequate Platelet Morphology Normal Hypochromasia 1+ Anisocytosis 1+ Sodium Level 138 MMOL/L (136-145) Potassium Level 3.7 MMOL/L (3.5-5.1) Chloride Level 102 MMOL/L (98-107) Carbon Dioxide Level 18 MMOL/L (21-32) L Anion Gap 18 mmol/L (5-15) H Blood Urea Nitrogen 87 mg/dL (7-18) H Creatinine 5.3 MG/DL (0.55-1.30) H Estimat Glomerular Filtration Rate 10.2 mL/min (>60) Glucose Level 203 MG/DL (74-106) H Hemoglobin A1c 6.8 % (4.3-6.0) H Lactic Acid Level 1.30 mmol/L (0.4-2.0) Uric Acid 9.8 MG/DL (2.6-7.2) H Calcium Level 8.1 MG/DL (8.5-10.1) L Phosphorus Level 6.4 MG/DL (2.5-4.9) H Magnesium Level 1.6 MG/DL (1.8-2.4) L Iron Level 30 ug/dL (50-175) L Total Iron Binding Capacity 177 ug/dL (250-450) L Percent Iron Saturation 17 % (15-50) Unsaturated Iron Binding 147 ug/dL (112-346) Ferritin 1447 NG/ML (8-388) H Total Bilirubin 0.3 MG/DL (0.2-1.0) Aspartate Amino Transf (AST/SGOT) 156 U/L (15-37) H Alanine Aminotransferase (ALT/SGPT) 199 U/L (12-78) H Alkaline Phosphatase 94 U/L (46-116) Total Creatine Kinase 712 U/L (26-308) H Troponin I 3.476 ng/mL (0.000-0.056) C-Reactive Protein, Quantitative 22.1 mg/dL (0.00-0.90) H Pro-B-Type Natriuretic Peptide > 19454 pg/mL (0-125) H Total Protein 7.7 G/DL (6.4-8.2) Albumin 2.6 G/DL (3.4-5.0) L Globulin 5.1 g/dL Albumin/Globulin Ratio 0.5 (1.0-2.7) L Triglycerides Level 56 MG/DL (30-150) Cholesterol Level 171 MG/DL (< 200) LDL Cholesterol 45 mg/dL (<100) HDL Cholesterol 106 MG/DL (40-60) H Cholesterol/HDL Ratio 1.6 (3.3-4.4) L Lipase 110 U/L (73-393) Vitamin B12 Level 1859 PG/ML (193-986) H Folate 6.8 NG/ML (8.6-58.9) L Thyroid Stimulating Hormone (TSH) 1.064 uiU/mL (0.358-3.740) Hepatitis A IgM Antibody Pending Hepatitis B Surface Antigen Pending Hepatitis B Core IgM Antibody Pending Hepatitis C Antibody Pending Height (Feet): 5 Height (Inches): 3.00 Weight (Pounds): 140 Medications Current Medications Medications (Trade) Dose Ordered Sig/Yeny Route PRN Reason Start Time Stop Time Status Last Admin Dose Admin Acetaminophen (Tylenol) 500 mg Q4H PRN ORAL Mild Pain/Temp > 100.5 11/26/19 13:30 12/26/19 13:29 Albuterol/ Ipratropium (Albuterol/ Ipratropium) 3 ml Q4H PRN HHN Shortness of Breath 11/26/19 13:39 12/01/19 13:38 Amlodipine Besylate (Norvasc) 5 mg DAILY ORAL 11/27/19 09:00 12/27/19 08:59 Carvedilol (Coreg) 6.25 mg EVERY 12 HOURS ORAL 11/26/19 21:00 12/26/19 20:59 Ceftriaxone Sodium 1 gm/ Dextrose 55 ml @ 110 mls/hr Q24H IVPB 11/26/19 16:00 12/03/19 15:59 11/26/19 15:50 Clopidogrel Bisulfate (Plavix) 75 mg DAILY ORAL 11/27/19 09:00 12/26/19 08:59 Dextrose (Dextrose 50%) 25 ml Q30M PRN IV Hypoglycemia 11/26/19 14:00 12/26/19 01:29 Dextrose (Dextrose 50%) 50 ml Q30M PRN IV Hypoglycemia 11/26/19 14:00 12/26/19 01:29 Docusate Sodium (Colace) 100 mg THREE TIMES A DAY ORAL 11/26/19 18:00 12/26/19 08:59 Epoetin Jensen (Epoetin Jensen-EPBX(NON ESRD)) 10,000 unit MON-WED-SUN SUBQ 11/26/19 21:00 12/26/19 20:59 Folic Acid (Folate) 3 mg DAILY ORAL 11/26/19 14:30 12/26/19 14:29 11/26/19 15:47 Heparin Sodium (Porcine) (Heparin 5000 units/ml) 5,000 units EVERY 12 HOURS SUBQ 11/26/19 21:00 12/26/19 08:59 Hydralazine HCl (Apresoline) 10 mg Q6HR ORAL 11/26/19 18:00 12/26/19 17:59 Hydralazine HCl (Apresoline) 25 mg Q4H PRN ORAL bp over 160 syst 11/26/19 13:39 12/26/19 13:38 Insulin Aspart (NovoLOG) BEFORE MEALS AND HS SUBQ 11/26/19 16:30 12/26/19 06:29 Isosorbide Dinitrate (Isordil) 10 mg Q6HR ORAL 11/26/19 18:00 12/26/19 17:59 Metolazone (Zaroxolyn) 5 mg DAILY ORAL 11/27/19 09:00 12/27/19 08:59 Pantoprazole (Protonix) 40 mg EVERY 12 HOURS ORAL 11/26/19 21:00 12/26/19 20:59 Vancomycin HCl (Vanco rx to dose) 1 ea DAILY PRN MISC Per rx protocol 11/26/19 13:45 12/26/19 13:44 Vancomycin/Sodium Chloride 275 ml @ 137.5 mls/ hr ONCE IVPB 11/26/19 17:00 11/26/19 19:00 Zolpidem Tartrate (Ambien) 5 mg HSPRN PRN ORAL Insomnia 11/26/19 13:30 12/03/19 13:29 Assessment/Plan Assessment/Plan: Hematology Consultation REQ MD: Partha Lee RFC: Severe anemia DOS: 11/26/2019 HPI Patient is a 54-year-old female presents after increased difficulty with breathing. Gradual onset of symptoms. She reports having recently missed dosages of her diuretics. Prior history of renal disease but is not currently on dialysis. She does currently make urine. She had been previously on Lasix 40 mg a day. Denies any recent fever. Did have some sick contacts at home. Has been seen by renal, pending further workup, hgb 6.9, given blood bernice Chavis the Rn, consent to be obtained, no family noted. Transfusion pending. Seen also by cards. Allergies: Coded Allergies: ASPIRIN (Verified Allergy, Unknown, 04/13/19) Patient History Past Medical History: see triage record Last Menstrual Period: none Now: No Surgeries: 1st toe R amputation Social hx: single, 1 kid, works in [employer], hx of tobacco use but no etoh or hard drugs Review of Systems All Other Systems: negative except mentioned in HPI Physical Exam: Vitals: reviewed General Appearance: NAD HEENT: normocephalic, atraumatic Neck: non-tender, normal alignment Respiratory/Chest: normal breath sounds bilaterally Cardiovascular/Chest: normal peripheral pulses, normal rate Abdomen: normal bowel sounds, soft, nontender Extremities: normal range of motion Labs: noted Imaging: reviewed Assessment / recs: # Anemia of chronic disease due to underlying chronic medical issues, multifactorial v Gi bleed --> in this case likely kidney disease --> Anemia workup has been ordered, rule out gi bleed --> No evidence of hemolysis is noted, peripheral smear has been reviewed. --> Hgb goal >7. Transfuse prn. --> Low threshold for epogen as ferritin >1000, and severe kidney disease --> Medications have been reviewed --> low threshold for gi evaluation in case has occult + --> bone marrow biopsy is not indicated given the other more likely causes # Anemia of folic acid deficiency --> started on folate as per renal # Leukocytosis likely reactive v infection --> as per id --> trend 16-->14 --> hold off flow # Fluid overload --> diuresis as per cards/renal --> echo 2d # ИВАН on CKD --> per renal # Noncompliance # Shortness of breath # Elevated troponin --> w/u as per cards BERNICE Rn and appreciate consultation. Barber Overton MD Nov 26, 2019 16:47
[2019-11-26] MEDS ORDERED: Vancomycin 1.5gm/NS Premix q24h IVPB SCH (17:00)
--- NOTE | 2019-11-26 17:14 | Consultation ---
History of Present Illness General Date patient seen: Nov 26, 2019 Reason for Hospitalization: Dyspnea/Respdistress Present Illness HPI Patient is a 54-year-old female presents after increased difficulty with breathing. Gradual onset of symptoms. She reports having recently missed dosages of her diuretics. Prior history of renal disease but is not currently on dialysis. She does currently make urine. She had been previously on Lasix 40 mg a day. Denies any recent fever. Did have some sick contacts at home. On admission patient transferred to the intensive care unit for elevated troponins. Labs identified leukocytosis, abnormal labs, elevated LFTs. Surgery called to evaluate and assist with care. Patient seen, patient evaluated, chart reviewed. Allergies: Coded Allergies: ASPIRIN (Verified Allergy, Unknown, 04/13/19) Medication History Scheduled Atorvastatin Calcium* (Atorvastatin Calcium*), 20 MG ORAL BEDTIME, (Reported) Bacitracin (Bacitracin), 1 APPLIC TOPIC BID Ferrous Sulfate* (Ferrous Sulfate*), 325 MG ORAL DAILY, (Reported) Furosemide* (Lasix*), 20 MG ORAL DAILY, (Reported) Lisinopril (Lisinopril*), 25 MG ORAL DAILY, (Reported) Nifedipine (Procardia Xl), 60 MG ORAL DAILY, (Reported) Miscellaneous Medications Alogliptin Benzoate (Nesina), 6.25 MG PO, (Reported) Calcium Acetate (Calcium Acetate), 667 MG PO, (Reported) Patient History Healthcare decision maker Resuscitation status Full Code Advanced Directive on File No Past Medical/Surgical History Past Medical/Surgical History: (1) Fluid overload (2) Chronic renal disease (3) Nonadherence to medication (4) SOB (shortness of breath) (5) Diabetic ulcer of toe Review of Systems Review of Symptoms General ROS: no weight loss or fever Psychological ROS: no depression or mood changes, no memory loss Ophthalmic ROS: no visual changes or eye irritation ENT ROS: no nasal congestion, hearing loss, dizziness Allergy and Immunology ROS: no allergic symptoms or urticaria Hematological and Lymphatic ROS: no swollen glands, unusual bleeding or bruising Endocrine ROS: no polyuria, polydipsia, weight changes, temperature intolerance Respiratory ROS: no cough, shortness of breath, or wheezing Cardiovascular ROS: no chest pain or dyspnea on exertion Gastrointestinal ROS: denies abdominal pain, bright red blood in stool. Musculoskeletal ROS: no myalgias or arthralgias Neurological ROS: no TIA or stroke symptoms Dermatological ROS: no new or changing skin lesions, rashes or pruritis Physical Exam Physical Exam General appearance: alert, cooperative, no distress, appears stated age Head: Normocephalic, without obvious abnormality, atraumatic Eyes: conjunctivae/corneas clear. PERRL, EOM's intact. Fundi benign Throat: Lips, mucosa, and tongue normal. Teeth and gums normal Neck: supple, symmetrical, trachea midline, no adenopathy, thyroid: not enlarged, symmetric, no tenderness/mass/nodules, no carotid bruit and no JVD Lungs: clear to auscultation bilaterally Heart: regular rate and rhythm, S1, S2 normal, no murmur, click, rub or gallop Abdomen: soft, non-tender. Bowel sounds normal. No masses, no organomegaly Extremities: extremities see below Pulses: 2+ and symmetric Skin: Skin color, texture, turgor normal. No rashes or lesions Neurologic: Grossly normal Last 24 Hour Vital Signs Date Time Temp Pulse Resp B/P (MAP) Pulse Ox O2 Delivery O2 Flow Rate FiO2 11/26/19 15:48 96 133/84 11/26/19 12:00 4.0 11/26/19 12:00 96 11/26/19 12:00 98.4 94 16 133/73 (93) 95 11/26/19 12:00 Bi-pap 11/26/19 09:42 88 117/78 11/26/19 09:21 88 18 98 Full Face 35 11/26/19 08:00 98.7 92 16 117/78 (91) 100 11/26/19 08:00 4.0 11/26/19 08:00 82 11/26/19 08:00 Bi-pap 11/26/19 07:00 76 13 97 Full Face 35 11/26/19 05:05 80 21 98 Full Face 35 11/26/19 04:00 35 11/26/19 04:00 Bi-pap 11/26/19 04:00 98.5 91 24 139/89 (106) 96 11/26/19 03:00 75 20 99 Full Face 35 11/26/19 01:36 Bi-pap 11/26/19 01:28 80 20 100 Full Face 35 11/26/19 00:00 95 11/26/19 00:00 98.3 100 24 137/87 (104) 94 11/25/19 23:45 87 24 96 Full Face 35 11/25/19 23:45 78 18 Bi-Pap 35 11/25/19 23:00 98.5 97 23 155/91 100 Room Air 11/25/19 23:00 98.5 97 23 155/91 100 Room Air 11/25/19 21:53 69 33 98 Facial 35 11/25/19 21:46 98.0 86 23 160/90 99 Bi-pap 35 11/25/19 19:36 96 31 96 Facial 35 11/25/19 19:06 98.2 78 20 148/86 100 Bi-pap 35 11/25/19 18:23 98.3 85 22 150/84 99 Room Air 11/25/19 17:21 96 31 96 Facial 35 Intake and Output 11/25/19 11/26/19 19:00 07:00 Intake Total 55 ml 240 ml Balance 55 ml 240 ml Intake Oral 240 ml IV Total 55 ml # Voids 1 Laboratory Tests Test 11/26/19 04:50 White Blood Count 14.2 K/UL (4.8-10.8) H Red Blood Count 2.48 M/UL (4.20-5.40) L Hemoglobin 6.9 G/DL (12.0-16.0) *L Hematocrit 21.1 % (37.0-47.0) L Mean Corpuscular Volume 85 FL (80-99) Mean Corpuscular Hemoglobin 27.7 PG (27.0-31.0) Mean Corpuscular Hemoglobin Concent 32.7 G/DL (32.0-36.0) Red Cell Distribution Width 14.5 % (11.6-14.8) Platelet Count 213 K/UL (150-450) Mean Platelet Volume 7.6 FL (6.5-10.1) Neutrophils (%) (Auto) % (45.0-75.0) Lymphocytes (%) (Auto) % (20.0-45.0) Monocytes (%) (Auto) % (1.0-10.0) Eosinophils (%) (Auto) % (0.0-3.0) Basophils (%) (Auto) % (0.0-2.0) Differential Total Cells Counted 100 Neutrophils % (Manual) 73 % (45-75) Lymphocytes % (Manual) 13 % (20-45) L Monocytes % (Manual) 13 % (1-10) H Eosinophils % (Manual) 1 % (0-3) Basophils % (Manual) 0 % (0-2) Band Neutrophils 0 % (0-8) Platelet Estimate Adequate Platelet Morphology Normal Hypochromasia 1+ Anisocytosis 1+ Sodium Level 138 MMOL/L (136-145) Potassium Level 3.7 MMOL/L (3.5-5.1) Chloride Level 102 MMOL/L (98-107) Carbon Dioxide Level 18 MMOL/L (21-32) L Anion Gap 18 mmol/L (5-15) H Blood Urea Nitrogen 87 mg/dL (7-18) H Creatinine 5.3 MG/DL (0.55-1.30) H Estimat Glomerular Filtration Rate 10.2 mL/min (>60) Glucose Level 203 MG/DL (74-106) H Hemoglobin A1c 6.8 % (4.3-6.0) H Lactic Acid Level 1.30 mmol/L (0.4-2.0) Uric Acid 9.8 MG/DL (2.6-7.2) H Calcium Level 8.1 MG/DL (8.5-10.1) L Phosphorus Level 6.4 MG/DL (2.5-4.9) H Magnesium Level 1.6 MG/DL (1.8-2.4) L Iron Level 30 ug/dL (50-175) L Total Iron Binding Capacity 177 ug/dL (250-450) L Percent Iron Saturation 17 % (15-50) Unsaturated Iron Binding 147 ug/dL (112-346) Ferritin 1447 NG/ML (8-388) H Total Bilirubin 0.3 MG/DL (0.2-1.0) Aspartate Amino Transf (AST/SGOT) 156 U/L (15-37) H Alanine Aminotransferase (ALT/SGPT) 199 U/L (12-78) H Alkaline Phosphatase 94 U/L (46-116) Total Creatine Kinase 712 U/L (26-308) H Troponin I 3.476 ng/mL (0.000-0.056) C-Reactive Protein, Quantitative 22.1 mg/dL (0.00-0.90) H Pro-B-Type Natriuretic Peptide > 09619 pg/mL (0-125) H Total Protein 7.7 G/DL (6.4-8.2) Albumin 2.6 G/DL (3.4-5.0) L Globulin 5.1 g/dL Albumin/Globulin Ratio 0.5 (1.0-2.7) L Triglycerides Level 56 MG/DL (30-150) Cholesterol Level 171 MG/DL (< 200) LDL Cholesterol 45 mg/dL (<100) HDL Cholesterol 106 MG/DL (40-60) H Cholesterol/HDL Ratio 1.6 (3.3-4.4) L Lipase 110 U/L (73-393) Vitamin B12 Level 1859 PG/ML (193-986) H Folate 6.8 NG/ML (8.6-58.9) L Thyroid Stimulating Hormone (TSH) 1.064 uiU/mL (0.358-3.740) Hepatitis A IgM Antibody Pending Hepatitis B Surface Antigen Pending Hepatitis B Core IgM Antibody Pending Hepatitis C Antibody Pending Height (Feet): 5 Height (Inches): 3.00 Weight (Pounds): 140 Medications Current Medications Medications (Trade) Dose Ordered Sig/Yeny Route PRN Reason Start Time Stop Time Status Last Admin Dose Admin Acetaminophen (Tylenol) 500 mg Q4H PRN ORAL Mild Pain/Temp > 100.5 11/26/19 13:30 12/26/19 13:29 Albuterol/ Ipratropium (Albuterol/ Ipratropium) 3 ml Q4H PRN HHN Shortness of Breath 11/26/19 13:39 12/01/19 13:38 Amlodipine Besylate (Norvasc) 5 mg DAILY ORAL 11/27/19 09:00 12/27/19 08:59 Carvedilol (Coreg) 6.25 mg EVERY 12 HOURS ORAL 11/26/19 21:00 12/26/19 20:59 Ceftriaxone Sodium 1 gm/ Dextrose 55 ml @ 110 mls/hr Q24H IVPB 11/26/19 16:00 12/03/19 15:59 11/26/19 15:50 Clopidogrel Bisulfate (Plavix) 75 mg DAILY ORAL 11/27/19 09:00 12/26/19 08:59 Dextrose (Dextrose 50%) 25 ml Q30M PRN IV Hypoglycemia 11/26/19 14:00 12/26/19 01:29 Dextrose (Dextrose 50%) 50 ml Q30M PRN IV Hypoglycemia 11/26/19 14:00 12/26/19 01:29 Docusate Sodium (Colace) 100 mg THREE TIMES A DAY ORAL 11/26/19 18:00 12/26/19 08:59 Epoetin Jensen (Epoetin Jensen-EPBX(NON ESRD)) 10,000 unit SUN-SUN-SUN SUBQ 11/26/19 21:00 12/26/19 20:59 Folic Acid (Folate) 3 mg DAILY ORAL 11/26/19 14:30 12/26/19 14:29 11/26/19 15:47 Heparin Sodium (Porcine) (Heparin 5000 units/ml) 5,000 units EVERY 12 HOURS SUBQ 11/26/19 21:00 12/26/19 08:59 Hydralazine HCl (Apresoline) 10 mg Q6HR ORAL 11/26/19 18:00 12/26/19 17:59 Hydralazine HCl (Apresoline) 25 mg Q4H PRN ORAL bp over 160 syst 11/26/19 13:39 12/26/19 13:38 Insulin Aspart (NovoLOG) BEFORE MEALS AND HS SUBQ 11/26/19 16:30 12/26/19 06:29 11/26/19 16:59 Isosorbide Dinitrate (Isordil) 10 mg Q6HR ORAL 11/26/19 18:00 12/26/19 17:59 Metolazone (Zaroxolyn) 5 mg DAILY ORAL 11/27/19 09:00 12/27/19 08:59 Pantoprazole (Protonix) 40 mg EVERY 12 HOURS ORAL 11/26/19 21:00 12/26/19 20:59 Vancomycin HCl (Vanco rx to dose) 1 ea DAILY PRN MISC Per rx protocol 11/26/19 13:45 12/26/19 13:44 Vancomycin/Sodium Chloride 275 ml @ 137.5 mls/ hr ONCE IVPB 11/26/19 17:00 11/26/19 19:00 11/26/19 16:55 Zolpidem Tartrate (Ambien) 5 mg HSPRN PRN ORAL Insomnia 11/26/19 13:30 12/03/19 13:29 Assessment/Plan Problem List: (1) Diabetic ulcer of toe Assessment & Plan: Findings: 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 There is evidence of prior osteotomy of the fourth proximal and middle phalanges. There is evidence of prior amputation of the third distal phalanx. No acute fractures. No dislocations. No osseous erosions. The joint spaces are preserved. There is hammertoe deformity of the second through fifth digits. Impression: Postsurgical changes, as described No definite acute bony trauma graft no plain radiographic evidence of acute osseous myelitis. Note, however, limited sensitivity of plain radiographs for such. Consider MRI or bone scan for more sensitive characterization. Findings: On the right, Doppler waveforms are biphasic or triphasic with sharp systolic peaks at the level of the common femoral, profunda femoral, proximal superficial femoral arteries. In the proximal superficial femoral artery, there is sonographically visible atherosclerotic plaquing with flow velocity elevation up to 269 cm/s. There is slight dampening of the waveforms distal to this, although waveforms remain triphasic to the level of the proximal tibial vessels. The distal tibial vessel waveforms are monophasic at the level of the posterior tibial artery, but biphasic and the distal peroneal and dorsalis pedis arteries. On the left, Doppler waveforms are triphasic at all levels including distally. Systolic peaks are sharp and flow velocities are within normal limits. Impression: Borderline significant stenosis of the right proximal superficial femoral artery Negative for evidence of significant left lower extremity. Serial insufficiency. Findings: Bilaterally, grayscale and duplex images demonstrate no evidence of intraluminal thrombus. Normal phasic Doppler waveforms, demonstrating normal augmentation response and no evidence of valvular insufficiency. Greater saphenous veins and tibial veins are patent bilaterally. Normal compressibility Impression: Negative for evidence of lower extremity deep venous thrombosis ICD Codes: E11.621 - Type 2 diabetes mellitus with foot ulcer; L97.509 - Non- pressure chronic ulcer of other part of unspecified foot with unspecified severity SNOMED: 22900078, [id number], [id number] (2) SOB (shortness of breath) ICD Codes: R06.02 - Shortness of breath SNOMED: 807548153 (3) Abnormal LFTs Assessment & Plan: 54-year-old female with leukocytosis, abnormalities, anemia , diabetic toe, elevated troponins. Patient ICU currently undergoing medical care and management. Etiology of elevated LFTs and leukocytosis unknown. Ultrasound abdomen ordered Trend labs No acute surgical invention planned We will monitor and follow with serial exams Thank you let me participate in his care will follow the recommendations ICD Codes: R94.5 - Abnormal results of liver function studies SNOMED: 731018713 Wilberto Jiménez Nov 26, 2019 17:14
--- NOTE | 2019-11-26 18:00 | NUR ---
NURSE NOTES: LATE ENTRY: PT RECEIVING 1/2 UNITS PRBC. VS: 98.5 AX, 81, 111/62. EDUCATED PT ON S./S TO REPORT FOR REACTION. PT STATES UNDERSTANDING.
--- NOTE | 2019-11-26 18:15 | NUR ---
NURSE NOTES: LATE ENTRY: PT NO C/O REACTION. VS: 98.8 AX, BP 104/64, HR 84. WILL CONTINUE TO MONITOR CLOSELY.
[2019-11-26] MEDS: HydrALAZINE 10mg Tab ORAL SCH (18:33)
--- NOTE | 2019-11-26 20:10 | NUR ---
HAND-OFF: Report given to JACKEL[facility] [employer] PRBC. SNACK FOR ZEFERINO
--- NOTE | 2019-11-26 20:11 | NUR ---
NURSE NOTES: Received patient from BOLIVAR Almanza. Patient is aaox4, vss, with no acute distress. Patient is cooperative , well groomed and on air sampling and monitoring. Patient is on 3L NC. IV site is on the right forearm 20g running 1 unit PRBC at 90mL/hr and lt forearm 22g TKO. Troponin elevated and MD notified by previous RN. Bed at its lowest position, call light in reach and x3 bed rails are up. Will continue to monitor.
--- NOTE | 2019-11-26 20:30 | Consultation ---
DATE OF CONSULTATION: 11/26/2019 CARDIOLOGY CONSULTATION CONSULTING PHYSICIAN: Jeremiah Motley M.D. REFERRING PHYSICIAN: Partha Keene M.D. REASON FOR CONSULTATION: Elevated troponin and congestive heart failure. HISTORY OF PRESENT ILLNESS: The patient is a 54-year-old lady with history of hypertension, diabetes, and congestive heart failure with EF of 40%, as well as history of chronic kidney disease, who has not been dialyzed came to the emergency room with increasing shortness of breath. The patient was previously on Lasix 40 mg daily. The patient denies any coronary artery disease or prior myocardial infarction. The patient's initial troponin was 2, did increase to 3 and a Cardiology consultation was requested for further evaluation and management. The echocardiogram on this admission also showed EF of only 40%. REVIEW OF SYSTEMS: Review of systems was performed and was negative other than what was mentioned in the history of present illness. PAST MEDICAL HISTORY: As mentioned above. FAMILY HISTORY: Noncontributory. SOCIAL HISTORY: She lives at home. Does not smoke or drink alcohol. PHYSICAL EXAMINATION: VITAL SIGNS: Show blood pressure 132/73, pulse 94, respirations 18, and temperature 98.4. HEAD AND NECK: Shows mild JVD. LUNGS: Decreased breath sounds. CARDIOVASCULAR: Shows regular S1 and S2 with no gallop. ABDOMEN: Soft. EXTREMITIES: No pitting edema. She has a chronic right toe ulcer. LABORATORY AND DIAGNOSTIC DATA: Her EKG shows sinus rhythm with acute ST-T wave abnormality suggestive of lateral ischemia. Labs show white count of 14.2, hemoglobin of 6.9, hematocrit 21, and platelet count is 213. Sodium 138, potassium 3.7, BUN of 37, creatinine 5.3, and glucose of 203. Troponin is initially 2 and now 3.4. BNP is more than 35,000. ASSESSMENT AND PLAN: 1. Pjp-IS-[id number] myocardial infarction with elevated troponin to 3.4 and lateral ischemia on the EKG and epigastric pain. The troponin elevation however could be partially related to the patient's renal failure. Repeat EKG and repeat cardiac enzymes, and keep the patient on aspirin and beta-idalia and statin. 2. Volume overload due to renal failure. The patient may need hemodialysis under management of Dr. Garcia. 3. Hypertension, currently on Zaroxolyn 5 mg daily, Norvasc 5 daily, Coreg 6.25 mg b.i.d., and Isordil 10 mg every six hours. 4. End-stage renal disease, likely need hemodialysis. Further evaluation by Dr. Garcia. 5. Diabetes. Thank you very much for allowing me to participate in the care of this patient. Please do not hesitate to contact me for any questions regarding my evaluation. Jeremiah Motley M.D. DR: MIMI JOB#: [id number] CC:
[2019-11-26] MEDS ORDERED: Epoetin Alfa-EPBX (NON ESRD)10,000 unit/ml vial SUBQ SCH ×2 (21:00)
[2019-11-26] MEDS: Carvedilol 6.25mg Tab ORAL SCH (21:00)
--- NOTE | 2019-11-26 21:07 | Pulmonolgy Critical Care Note ---
Critical Care - Asmt/Plan Assessment/Plan: Pulmonary Critical Care Progress Note HPI Patient is a 54-year-old woman with previous history of Chronic Kidney Disease, Diabetes, Hypertension, admitted with increased difficulty with breathing. Gradual onset of symptoms. Had previously missed her diuretic doses. Not currently on dialysis. Denies any recent fever, chest pain. Had sick contacts at home. Anemia s/p Transfusion, Renal US negative for hydronephrosis Elevated Troponin Allergies: ASPIRIN Past Medical History: Chronic Kidney Disease, Diabetes, Hypertension All Other Systems: negative except mentioned in HPI Physical Exam Vital Signs Noted General Appearance: normal inspection, well appearing, no apparent distress, alert, GCS 15 Head: atraumatic ENT: normal ENT inspection, hearing grossly normal, normal voice Neck: normal inspection, full range of motion, supple, no bony tend Respiratory: normal inspection, lungs clear, normal breath sounds, no respiratory distress, no retraction, no wheezing Cardiovascular: regular rate, rhythm, HS1, HS2 normal, no edema Gastrointestinal: normal inspection, normal bowel sounds, non tender, soft, no guarding, no hernia Genitourinary: no CVA tenderness Musculoskeletal: normal inspection, back normal, normal range of motion Neurologic: alert, oriented x3, responsive, speech normal, normal inspection Impression: Fluid overload Elevated Troponin Possible Pneumonia Chronic Kidney Disease Anemia Diabetes Hypertension Plan - Diurese - Plavix - Cardiology following - IV AB - Monitor labs - Transfuse PRN - O2/Bipap PRN - PPX - RN OTOLARYNGOLOGY Medications - Kayexalate PRN - TFN PRN - Protonix EKG: Normal sinus rhythm with a rate of [address] or T wave changes. There is no QRS widening noted. CXR: Mild cardiomegaly, interstitial and patchy infiltrates, small effusions LE Dupplex:Negative for DVT Labs Noted Test 11/25/19 16:15 White Blood Count 16.8 K/UL (4.8-10.8) Red Blood Count 2.74 M/UL (4.20-5.40) Hemoglobin 7.6 G/DL (12.0-16.0) Hematocrit 23.7 % (37.0-47.0) Mean Corpuscular Volume 86 FL (80-99) Mean Corpuscular Hemoglobin 27.8 PG (27.0-31.0) Mean Corpuscular Hemoglobin Concent 32.2 G/DL (32.0-36.0) Red Cell Distribution Width 15.2 % (11.6-14.8) Platelet Count 212 K/UL (150-450) Mean Platelet Volume 7.8 FL (6.5-10.1) Neutrophils (%) (Auto) % (45.0-75.0) Lymphocytes (%) (Auto) % (20.0-45.0) Monocytes (%) (Auto) % (1.0-10.0) Eosinophils (%) (Auto) % (0.0-3.0) Basophils (%) (Auto) % (0.0-2.0) Differential Total Cells Counted 100 Neutrophils % (Manual) 78 % (45-75) Lymphocytes % (Manual) 18 % (20-45) Monocytes % (Manual) 4 % (1-10) Eosinophils % (Manual) 0 % (0-3) Basophils % (Manual) 0 % (0-2) Band Neutrophils 0 % (0-8) Platelet Estimate Adequate Platelet Morphology Normal Polychromasia 1+ Anisocytosis 1+ Critical Care - Objective Last 24 Hour Vital Signs Date Time Temp Pulse Resp B/P (MAP) Pulse Ox O2 Delivery O2 Flow Rate FiO2 11/26/19 20:00 Nasal Cannula 4.0 11/26/19 18:33 104/64 11/26/19 18:33 104/64 11/26/19 17:00 98.0 80 17 92/68 (76) 96 11/26/19 16:00 79 11/26/19 16:00 4.0 11/26/19 16:00 81 20 121/60 (80) 96 11/26/19 16:00 Nasal Cannula 4.0 11/26/19 15:48 96 133/84 11/26/19 15:00 96 21 133/84 (100) 99 11/26/19 14:00 97 21 122/59 (80) 93 11/26/19 13:00 96 20 128/64 (85) 93 11/26/19 12:00 4.0 11/26/19 12:00 96 11/26/19 12:00 98.4 94 16 133/73 (93) 95 11/26/19 12:00 Bi-pap 11/26/19 09:42 88 117/78 11/26/19 09:21 88 18 98 Full Face 35 11/26/19 08:00 98.7 92 16 117/78 (91) 100 11/26/19 08:00 4.0 11/26/19 08:00 82 11/26/19 08:00 Bi-pap 11/26/19 07:00 76 13 97 Full Face 35 11/26/19 05:05 80 21 98 Full Face 35 11/26/19 04:00 35 11/26/19 04:00 Bi-pap 11/26/19 04:00 98.5 91 24 139/89 (106) 96 11/26/19 03:00 75 20 99 Full Face 35 11/26/19 01:36 Bi-pap 11/26/19 01:28 80 20 100 Full Face 35 11/26/19 00:00 95 11/26/19 00:00 98.3 100 24 137/87 (104) 94 11/25/19 23:45 87 24 96 Full Face 35 11/25/19 23:45 78 18 Bi-Pap 35 11/25/19 23:00 98.5 97 23 155/91 100 Room Air 11/25/19 23:00 98.5 97 23 155/91 100 Room Air 11/25/19 21:53 69 33 98 Facial 35 11/25/19 21:46 98.0 86 23 160/90 99 Bi-pap 35 Micro: Microbiology Date/Time Source Procedure Growth Status 11/26/19 17:30 Nasal Nares - Final Complete 11/26/19 17:30 Nasal Nares - Final Complete Accucheck: 244 Critical Care - Subjective ROS Limited/Unobtainable: No FI02: 35 Vent Support Mode: BiLevel Sputum Amount: None I&O: Intake and Output 11/25/19 11/26/19 19:00 07:00 Intake Total 55 ml 240 ml Balance 55 ml 240 ml Intake Oral 240 ml IV Total 55 ml # Voids 1 Miguel Hamm MD Nov 26, 2019 21:07
[2019-11-26] MEDS: Heparin 5000 units/ml inj SUBQ SCH (21:34)
--- NOTE | 2019-11-26 22:38 | NUR ---
NURSE NOTES: Second unit of blood stared at 2222 with no adverse reaction observed. Fist unit stopped before 2158.
--- NOTE | 2019-11-26 23:30 | Consultation ---
DATE OF CONSULTATION: 11/26/2019 INFECTIOUS DISEASES CONSULTATION CONSULTING PHYSICIAN: Tip Ashford M.D. PRIMARY ATTENDING PHYSICIAN: Partha Keene M.D. REASON FOR CONSULTATION: Pneumonia and right third toe infection. HISTORY OF PRESENT ILLNESS: The patient is a 54-year-old female, admitted yesterday complaining of difficulty of breathing. She has history of chronic kidney disease and noncompliance with diuretic treatment. She was supposed to get Lasix 40 mg a day. Denies fever or any other symptoms. She has chronic ulceration in right third toe, present at least from August of last year. 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 ALLERGIES: Allergic to aspirin. MEDICATIONS: Getting Epogen, ceftriaxone, nifedipine, Lasix, heparin, Plavix, insulin, erythromycin, albuterol and ipratropium inhaler, Zofran, and hydralazine. SOCIAL HISTORY: Single. Denies alcohol, drug abuse, or smoking. REVIEW OF SYSTEMS: No fever. No chills. No shortness of breath at present time. No coughing. No nausea. No vomiting. No dysuria. No edema. PHYSICAL EXAMINATION: VITAL SIGNS: Temperature 98.4, pulse 94, and blood pressure 133/70. GENERAL APPEARANCE: Seems to be thin. HEAD AND NECK: Poor dentition. No oral lesion. HEART: Normal rate. LUNGS: Clear. Getting oxygen by nasal cannula. ABDOMEN: Soft and nontender. EXTREMITIES: No edema. SKIN: Third toe tip ulceration seems to be chronic at the present time. No discharge. Some discoloration of skin in the third toe. LABORATORY AND DIAGNOSTIC DATA: WBC at the time of admission 16.8, currently is 14.1. Hemoglobin was 7.6, currently 6.9. Hematocrit is 21.1. Platelets 213,000. Sodium 138, potassium 3.7, chloride 102, bicarb 18, BUN 87, creatinine 5.6, glucose 203. Lactic acid 6.8. AST and ALT are elevated. AST is 156, ALT 199. Troponin is elevated at 3.47. BNP is more than 35,000. Folate is low. CK level is elevated 712. Chest x-ray showed bilateral interstitial and airspace disease, most likely patchy pneumonia or pulmonary edema, some areas are nodular. Venous duplex showed no DVT of legs. Renal ultrasound showed increased renal echogenicity, may indicate medical renal disease. IMPRESSION: Pneumonia or pulmonary edema; the patient has third toe ulcer, we will try to rule out osteomyelitis; leukocytosis; severe anemia; acidosis; folate deficiency; chronic kidney disease, likely end-stage renal disease; elevated troponin; elevated transaminase; and acidosis. RECOMMENDATION: Continue with ceftriaxone, Zithromax ordered by finisher tailor apprentice. We will add IV vancomycin. We will follow up the foot x-ray. Follow up with podiatry evaluation. At the end of my exam, I thank Dr. Keene for involving me in the care of this patient. Tip Ashford M.D. DR: Crissy JOB#: [id number] CC: LAKIA
--- NOTE | 2019-11-26 23:50 | NUR ---
NURSE NOTES: RT Berhane attempted to provide Bipai tx to patient and she refused tx. Patient was educated on the Bipap and states that she understood.
[2019-11-27] VITALS (25 sets, daily range): BP systolic 95–134; BP diastolic 56–86
--- NOTE | 2019-11-27 00:15 | Consultation ---
DATE OF CONSULTATION: 11/26/2019 GASTROENTEROLOGY CONSULTATION CONSULTING PHYSICIAN: Kacie Butler M.D. REFERRING PHYSICIAN: Partha Keene M.D. CHIEF COMPLAINT: I was asked to see this patient by Dr. Partha Keene for evaluation of anemia. HISTORY OF PRESENT ILLNESS: The patient is a pleasant 54-year-old woman who was admitted to the hospital and subsequently transferred to the ICU. She was brought to the hospital due to shortness of breath. Her troponins are positive. Of note, she also has significant anemia and also has elevated transaminases. She does have a history of renal failure, followed by an outside orthodontic assistant. She states she never had an endoscopy or colonoscopy. She denies any abdominal pain or hematochezia. PAST MEDICAL HISTORY: History of renal failure, anemia, diabetes, hypertension. MEDICATIONS: See the chart list for details. FAMILY HISTORY: Negative for malignancy. SOCIAL HISTORY: The patient does not smoke, but she drinks occasionally. She is single. REVIEW OF SYSTEMS: Otherwise negative. PHYSICAL EXAMINATION: GENERAL: A pleasant woman, seen in her room. HEENT: Normocephalic and atraumatic. Sclerae anicteric. Oropharynx clear. NECK: Supple. CHEST: Clear to auscultation. CARDIOVASCULAR: Revealed regular rate. ABDOMEN: Soft, nontender. EXTREMITIES: No edema. LABORATORY DATA: Noted. ASSESSMENT: This patient presents with myocardial infarction, which is being evaluated separately by Cardiology. Her abnormal liver tests may be possibly due to infarction. She also has some degree of rhabdomyolysis with an elevated creatinine clearance. I would follow liver tests for now and hepatitis serologies have already been ordered. An abdominal ultrasound can be considered to evaluate the liver to rule out any mass, lesions. In addition, the patient has significant degree of anemia, but this could be mainly due to her renal failure. The patient should undergo an endoscopy and colonoscopy at some point in the future, but at this time since she is having significant medical problems, she can receive intravenous iron, but I will defer this to Hematology service if needed. Stool occult blood can also be checked. RECOMMENDATIONS: Per above discussion and per orders written in the chart. Thank you for asking me to participate in the care of this patient. Kacie Butler M.D. DR: ANDRA JOB#: [id number] CC: LAKIA
[2019-11-27] MEDS: HydrALAZINE 10mg Tab ORAL SCH ×4 (00:32→18:10)
--- NOTE | 2019-11-27 00:45 | Consultation ---
DATE OF CONSULTATION: 11/26/2019 VASCULAR SURGERY CONSULTATION CONSULTING PHYSICIAN: Kain Mitchell M.D. REFERRING PHYSICIAN: Partha Keene M.D. REASON FOR CONSULTATION: Right toe necrosis. HISTORY OF PRESENT ILLNESS: This is a 54-year-old female who is currently in [facility], presented with heartburn. The patient was found to have worsening troponin leak and possible myocardial infarction. Vascular Surgery was consulted for further evaluation of her lower extremities. The patient was found to have right toe ulceration. The patient currently has no other complaints. No chest pain or shortness of breath. PAST MEDICAL HISTORY: As above. History of diabetes mellitus and hypertension.. MEDICATIONS: See attached MAR. ALLERGIES: No known drug allergies. SOCIAL HISTORY: History of smoking. No alcohol or drug abuse. FAMILY HISTORY: Unremarkable. SYSTEM REVIEW: CARDIOVASCULAR: No history of chest pain or palpitations. PULMONARY: No cough or hemoptysis. GASTROINTESTINAL: No history of abdominal pain, constipation, or diarrhea. GENITOURINARY: No dysuria, frequency, or urgency. NEUROLOGICAL: No history of strokes or seizures. PHYSICAL EXAMINATION: VITAL SIGNS: The patient is afebrile 97 heart rate 80, blood pressure 116/70, and respirations 16. HEAD AND NECK: The patient has palpable radial pulses. No evidence of carotid bruit. LUNGS: Clear to auscultation. HEART: Regular rate and rhythm. ABDOMEN: Soft and nontender. EXTREMITIES: Palpable femoral pulses. Palpable popliteal. Dorsalis pedis and posterior tibial pulses are palpable. Feet are warm. Previously, she had toe amputations which are healed and there is now ulcerations wounds on right remaining toe IMPRESSION: 1. Right toe necrosis and ulceration. 2. Palpable pedal pulses with no significant arterial insufficiency. 3. Diabetes mellitus. 4. Hypertension. 5. Smoking history. 6. Troponin leak, rule out myocardial infarction. PLAN AND RECOMMENDATIONS: 1. Noninvasive duplex imaging. 2. Antibiotics per ID service. 3. Toe amputation with podiatry once cleared by Cardiology service. 4. Troponin leak and myocardial infarction per cardiology .The patient may need a cardiac catheterization. Kain Mitchell M.D. DR: ANA JOB#: [id number] CC: LAKIA
--- NOTE | 2019-11-27 01:15 | Consultation ---
DATE OF CONSULTATION: 11/26/2019 NEPHROLOGY CONSULTATION CONSULTING PHYSICIAN: Robert Pierce M.D. REFERRING PHYSICIAN: Partha Keene M.D. REASON FOR CONSULTATION: Diabetes management. HISTORY OF PRESENT ILLNESS: The patient is a 54-year-old female with history of diabetes and renal failure who presented to the hospital with increased difficulty breathing. The patient has missed doses of diuretics. The patient is not on dialysis, but currently making some urine. Previously, on Lasix 40 mg a day. Glucose was elevated. Endocrinology was consulted to be involved. PAST MEDICAL HISTORY: 1. Diabetes. 2. Chronic kidney disease. 3. Hypertension. PAST SURGICAL HISTORY: As listed. MEDICATIONS: Reviewed and reconciled. ALLERGIES TO MEDICATION: Aspirin. FAMILY HISTORY: Noncontributory. SOCIAL HISTORY: No smoking, alcohol, or drug use. PHYSICAL EXAMINATION: GENERAL: She is awake and alert. VITAL SIGNS: Blood pressure is 92/68, heart rate 80, temperature of 98, and respiratory rate 18. HEENT: Pupils are equal and reactive to light. Sclerae are anicteric. NECK: No JVD. HEART: Regular. LUNGS: Crackles. ABDOMEN: Positive bowel sounds. Soft. EXTREMITIES: No clubbing or cyanosis. Positive for edema. LABORATORY DATA: Sodium 138, potassium 3.7, chloride 102, bicarb 18, BUN 87, creatinine 5.3, and glucose of 203. A1c of 6.8. DIAGNOSES: 1. Volume overload. 2. Chronic kidney disease. 3. Diabetes. PLAN: 1. The patient is on Nesina 6.25 mg as an outpatient, which is not in formulary at [facility]. I will start the patient on Januvia 25 mg daily. 2. NovoLog sliding scale before meals and at bedtime has been ordered. 3. Diet should be a renal diabetic. 4. Further adjustment according to blood glucose values. Thank you, Dr. Keene, for the courtesy of this consultation. Robert Pierce M.D. DR: JANNETH JOB#: [id number] CC: LAKIA
--- NOTE | 2019-11-27 01:25 | NUR ---
NURSE NOTES: Patient voided and cleaned herself. Patient stated that she will bath herself.
--- NOTE | 2019-11-27 03:29 | NUR ---
NURSE NOTES: Patient completed her own bed bath and is resting comfortably with no signs of distress.
[2019-11-27 05:40] LABS: BASOPHILS % (AUTO) 0.4 % (0.0-2.0); EOSINOPHILS % (AUTO) 0.1 % (0.0-3.0); LYMPHOCYTES % (AUTO) 20.1 % (20.0-45.0); MEAN CORPUSCULAR VOLUME 84 FL (80-99); MONOCYTES % (AUTO) 10.9 % (1.0-10.0); NEUTROPHILS % (AUTO) 68.4 % (45.0-75.0); PLATELET COUNT 199 K/UL (150-450); RED CELL DISTRIBUTION WIDTH 13.2 % (11.6-14.8); WHITE BLOOD COUNT 10.8 K/UL (4.8-10.8)
[2019-11-27 05:56] LABS: ALANINE AMINOTRANSFERASE 177 U/L (12-78); ALBUMIN 2.5 G/DL (3.4-5.0); ALBUMIN/GLOBULIN RATIO 0.5 (1.0-2.7); ALKALINE PHOSPHATASE 91 U/L (46-116); ANION GAP 18 mmol/L (5-15); ASPARTATE AMINO TRANSFERASE 108 U/L (15-37); BILIRUBIN,TOTAL 0.4 MG/DL (0.2-1.0); BLOOD UREA NITROGEN 87 mg/dL (7-18); CALCIUM 7.3 MG/DL (8.5-10.1); CARBON DIOXIDE 18 MMOL/L (21-32); CHLORIDE 102 MMOL/L (98-107); CREATININE 5.6 MG/DL (0.55-1.30); POTASSIUM 2.9 MMOL/L (3.5-5.1); SODIUM 138 MMOL/L (136-145)
[2019-11-27 06:23] LABS: CHOLESTEROL 159 MG/DL (< 200); HDL CHOLESTEROL 92 MG/DL (40-60); TRIGLYCERIDES 62 MG/DL (30-150)
[2019-11-27] MEDS: NovoLOG Insulin Flexpen SUBQ SCH ×4 (06:30→20:48)
[2019-11-27] MEDS: sitaGLIPtin 25mg tab ORAL SCH (06:33)
--- NOTE | 2019-11-27 06:47 | NUR ---
NURSE NOTES: Left a message with Dr. Garcia regarding potassium 2.9. No call back yet.
--- NOTE | 2019-11-27 06:51 | General Progress Note ---
Assessment/Plan Problem List: (1) Diabetes mellitus out of control ICD Codes: E11.65 - Type 2 diabetes mellitus with hyperglycemia SNOMED: 52089877, 101529040 (2) Fluid overload ICD Codes: E87.70 - Fluid overload, unspecified SNOMED: 09035041 (3) Chronic renal disease ICD Codes: N18.9 - Chronic kidney disease, unspecified SNOMED: 038122363 (4) Nonadherence to medication ICD Codes: Z91.14 - Patient's other noncompliance with medication regimen SNOMED: 727669240 (5) Diabetic ulcer of toe ICD Codes: E11.621 - Type 2 diabetes mellitus with foot ulcer; L97.509 - Non- pressure chronic ulcer of other part of unspecified foot with unspecified severity SNOMED: 70874940, 365341919, 390354046 Assessment/Plan: continue Januvia 25 mg daily - Nesina in non formulary at [facility] continue NISS ac / hs Subjective Allergies: Coded Allergies: ASPIRIN (Verified Allergy, Unknown, 04/13/19) All Systems: reviewed and negative except above Subjective events noted Item Value Date Time Bedside Blood Glucose 244 mg/dl H 11/26/19 1659 Bedside Blood Glucose 138 mg/dl H 11/26/19 1130 Bedside Blood Glucose 153 mg/dl H 11/26/19 0644 Bedside Blood Glucose 122 mg/dl H 11/27/19 0630 Bedside Blood Glucose 228 mg/dl H 11/26/19 2135 Objective Last 24 Hour Vital Signs Date Time Temp Pulse Resp B/P (MAP) Pulse Ox O2 Delivery O2 Flow Rate FiO2 11/27/19 06:33 109/56 11/27/19 06:33 109/56 11/27/19 06:00 98.5 77 14 109/56 (73) 98 11/27/19 05:00 75 23 108/61 (77) 100 11/27/19 04:00 Nasal Cannula 2.0 11/27/19 04:00 2.0 11/27/19 04:00 98.8 77 12 124/70 (88) 99 11/27/19 04:00 98.6 77 12 99 11/27/19 04:00 78 11/27/19 03:00 79 21 126/71 (89) 99 11/27/19 02:00 98.0 81 23 110/86 (94) 99 11/27/19 01:00 77 18 114/64 (81) 98 11/27/19 00:32 125/67 11/27/19 00:32 125/67 11/27/19 00:00 98.0 77 24 125/67 (86) 100 11/27/19 00:00 Nasal Cannula 2.0 11/27/19 00:00 2.0 11/27/19 00:00 77 11/26/19 23:00 78 13 111/62 (78) 100 11/26/19 22:16 98.2 80 18 111/54 (73) 98 11/26/19 22:00 82 24 102/48 (66) 99 11/26/19 21:00 84 98/50 11/26/19 21:00 98.6 84 23 98/50 (66) 99 11/26/19 20:00 Nasal Cannula 2.0 11/26/19 20:00 84 17 121/69 (86) 99 11/26/19 20:00 Nasal Cannula 4.0 11/26/19 20:00 2.0 11/26/19 20:00 84 11/26/19 19:00 87 19 108/67 (81) 99 11/26/19 18:33 104/64 11/26/19 18:33 104/64 11/26/19 17:00 98.0 80 17 92/68 (76) 96 11/26/19 16:00 79 11/26/19 16:00 4.0 11/26/19 16:00 81 20 121/60 (80) 96 11/26/19 16:00 Nasal Cannula 4.0 11/26/19 15:48 96 133/84 11/26/19 15:00 96 21 133/84 (100) 99 11/26/19 14:00 97 21 122/59 (80) 93 11/26/19 13:00 96 20 128/64 (85) 93 11/26/19 12:00 4.0 11/26/19 12:00 96 11/26/19 12:00 98.4 94 16 133/73 (93) 95 11/26/19 12:00 Bi-pap 11/26/19 09:42 88 117/78 11/26/19 09:21 88 18 98 Full Face 35 1/29/20 08:00 98.7 92 16 117/78 (91) 100 11/26/19 08:00 4.0 11/26/19 08:00 82 11/26/19 08:00 Bi-pap 11/26/19 07:00 76 13 97 Full Face 35 Intake and Output 11/26/19 11/27/19 19:00 07:00 Intake Total 200 ml 975 ml Output Total 300 ml Balance 200 ml 675 ml Intake Oral 200 ml 475 ml Blood Product 500 ml Output Urine Total 300 ml # Voids 2 1 Laboratory Tests 11/27/19 03:10: White Blood Count 10.8, Red Blood Count 3.10L, Hemoglobin 9.0#L, Hematocrit 26.0L, Mean Corpuscular Volume 84, Mean Corpuscular Hemoglobin 29.0, Mean Corpuscular Hemoglobin Concent 34.5, Red Cell Distribution Width 13.2, Platelet Count 199, Mean Platelet Volume 8.1, Neutrophils (%) (Auto) 68.4, Lymphocytes (% ) (Auto) 20.1, Monocytes (%) (Auto) 10.9H, Eosinophils (%) (Auto) 0.1, Basophils (%) (Auto) 0.4, Sodium Level 138, Potassium Level 2.9L, Chloride Level 102, Carbon Dioxide Level 18L, Anion Gap 18H, Blood Urea Nitrogen 87H, Creatinine 5.6H, Estimat Glomerular Filtration Rate 9.6, Glucose Level 137H, Uric Acid 10.0H, Calcium Level 7.3L, Phosphorus Level 5.0H, Magnesium Level 1.6L , Total Bilirubin 0.4, Aspartate Amino Transf (AST/SGOT) 108H, Alanine Aminotransferase (ALT/SGPT) 177H, Alkaline Phosphatase 91, Troponin I 1.813H, C- Reactive Protein, Quantitative 28.7H, Pro-B-Type Natriuretic Peptide > 06003G, Total Protein 7.5, Albumin 2.5L, Globulin 5.0, Albumin/Globulin Ratio 0.5L, Triglycerides Level 62, Cholesterol Level 159, LDL Cholesterol 46, HDL Cholesterol 92H, Cholesterol/HDL Ratio 1.7L, Random Vancomycin Level 43.4 11/27/19 03:45: Urine Eosinophils None seen Height (Feet): 5 Height (Inches): 3.00 Weight (Pounds): 138 General Appearance: no apparent distress Neck: normal alignment Cardiovascular: regular rhythm Respiratory/Chest: decreased breath sounds Abdomen: normal bowel sounds Objective Current Medications Medications (Trade) Dose Ordered Sig/Yeny Route PRN Reason Start Time Stop Time Status Last Admin Dose Admin Acetaminophen (Tylenol) 500 mg Q4H PRN ORAL Mild Pain/Temp > 100.5 11/26/19 13:30 12/26/19 13:29 Albuterol/ Ipratropium (Albuterol/ Ipratropium) 3 ml Q4H PRN HHN Shortness of Breath 11/26/19 13:39 12/01/19 13:38 Amlodipine Besylate (Norvasc) 5 mg DAILY ORAL 11/27/19 09:00 12/27/19 08:59 Carvedilol (Coreg) 6.25 mg EVERY 12 HOURS ORAL 11/26/19 21:00 12/26/19 20:59 Ceftriaxone Sodium 1 gm/ Dextrose 55 ml @ 110 mls/hr Q24H IVPB 11/26/19 16:00 12/03/19 15:59 11/26/19 15:50 Clopidogrel Bisulfate (Plavix) 75 mg DAILY ORAL 11/27/19 09:00 12/26/19 08:59 Dextrose (Dextrose 50%) 25 ml Q30M PRN IV Hypoglycemia 11/26/19 14:00 12/26/19 01:29 Dextrose (Dextrose 50%) 50 ml Q30M PRN IV Hypoglycemia 11/26/19 14:00 12/26/19 01:29 Docusate Sodium (Colace) 100 mg THREE TIMES A DAY ORAL 11/26/19 18:00 12/26/19 08:59 11/26/19 18:33 Epoetin Jensen (Epoetin Jensen-EPBX(NON ESRD)) 10,000 unit SUN-WED-SUN SUBQ 11/26/19 21:00 12/26/19 20:59 11/26/19 21:37 Folic Acid (Folate) 3 mg DAILY ORAL 11/26/19 14:30 12/26/19 14:29 11/26/19 15:47 Heparin Sodium (Porcine) (Heparin 5000 units/ml) 5,000 units EVERY 12 HOURS SUBQ 11/26/19 21:00 12/26/19 08:59 11/26/19 21:34 Hydralazine HCl (Apresoline) 10 mg Q6HR ORAL 11/26/19 18:00 12/26/19 17:59 11/27/19 06:33 Hydralazine HCl (Apresoline) 25 mg Q4H PRN ORAL bp over 160 syst 11/26/19 13:39 12/26/19 13:38 Insulin Aspart (NovoLOG) BEFORE MEALS AND HS SUBQ 11/26/19 16:30 12/26/19 06:29 11/26/19 21:35 Isosorbide Dinitrate (Isordil) 10 mg Q6HR ORAL 11/26/19 18:00 12/26/19 17:59 11/27/19 06:33 Metolazone (Zaroxolyn) 5 mg DAILY ORAL 11/27/19 09:00 12/27/19 08:59 Pantoprazole (Protonix) 40 mg EVERY 12 HOURS ORAL 11/26/19 21:00 12/26/19 20:59 11/26/19 21:32 Sitagliptin Phosphate (Januvia) 25 mg ACBREAKFAST ORAL 11/27/19 06:30 12/27/19 06:29 11/27/19 06:33 Vancomycin HCl (Vanco rx to dose) 1 ea DAILY PRN MISC Per rx protocol 11/26/19 13:45 12/26/19 13:44 Zolpidem Tartrate (Ambien) 5 mg HSPRN PRN ORAL Insomnia 11/26/19 13:30 12/03/19 13:29 Robert Pierce MD Nov 27, 2019 06:51
--- NOTE | 2019-11-27 07:16 | NUR ---
HAND-OFF: Report given to BOLIVAR Almanza.
--- NOTE | 2019-11-27 07:23 | CDS Physician Query ---
Clarification is required for compliance, coding accuracy, and to reflect severity of illness for this patient Dear Dr. Tip Ashford M.D. Date: 11/27/2019 CDS: Steven Ponce The patient is a 54-year-old female, admitted yesterday complaining of difficulty of breathing. She has history of chronic kidney disease and noncompliance with diuretic treatment. She was supposed to get Lasix 40 mg a day. Denies fever or any other symptoms. She has chronic ulceration in right third toe, present at least from August of last year. IMPRESSION: Pneumonia or pulmonary edema; the patient has third toe ulcer, we will try to rule out osteomyelitis; leukocytosis WBC: 16.8--->14.2; Tx: IV VANCOMYCIN; IV CEFTRIAXONE; IV AZITHROMYCIN According to the clinical indications above, please indicate below the condition PHYSICIAN RESPONSE: Sepsis SIRS SIRS with organ dysfunction Septic Shock Not applicable Other: Present on Admission: Yes No Clinically Undetermined Physician signature Date Please also document in your Progress Notes and/or Discharge Summary and indicate if the condition was present on admission. LAKIA
[2019-11-27] MEDS: Sodium Citrate 30ml ORAL SCH ×3 (08:27→20:43)
--- NOTE | 2019-11-27 08:30 | History and Physical Report ---
DATE OF ADMISSION: 11/25/2019 HISTORY OF PRESENT ILLNESS: The patient is admitted initially to the [facility] and I transferred the patient to the ICU after I saw the patient and found that troponin was going up. The patient also has right fourth toe gangrene. She has also been complaining of shortness of breath for the past couple of days and is very weak and has severe reflux and has been admitted for acute DE and fluid overload with chronic renal insufficiency. The patient feels very weak as well. PAST MEDICAL HISTORY: Significant for hyperlipidemia, iron deficiency anemia, hypertension, chronic renal insufficiency, and GERD. PAST SURGICAL HISTORY: , right shoulder surgery, and right toe amputation. SOCIAL HISTORY: History of smoking. Denies history of drug and alcohol abuse. ALLERGIES: Aspirin. FAMILY HISTORY: Noncontributory. REVIEW OF SYSTEMS: HEENT: Denies headaches. RESPIRATORY: Denies shortness of breath. Denies cough. CARDIOVASCULAR: Denies chest pain. GASTROINTESTINAL: Denies nausea, vomiting, or diarrhea. Does have heartburn. EXTREMITIES: Denies pain. CENTRAL NERVOUS SYSTEM: Denies changes in speech pattern. Feels weak. PHYSICAL EXAMINATION: VITAL SIGNS: Temperature is 98, pulse is 80, and blood pressure is 110/60. HEENT: PERRLA. NECK: Supple. No lymphadenopathy. CHEST: Clear to auscultation. CARDIOVASCULAR: Regular rate and rhythm. No murmurs or extra sounds. GASTROINTESTINAL: Soft, nontender, and nondistended. No organomegaly. EXTREMITIES: No edema. . Reflexes on both sides. Moves all four extremities. LABORATORY DATA: WBC of 16.8, hemoglobin 7.6, and platelets of 212,000. Basically, sodium 138, potassium 3.7, BUN of 87, and creatinine 4.3. ASSESSMENT AND PLAN: DE, shortness of breath, leukocytosis, anemia, elevated LFTs, and elevated troponin, rule out DE, most likely ruled in for DE. I have asked Dr. Lacey, Dr. Mitchell, Dr. Tip Ashford, and Dr. Mendez if needed. I have asked to see the patient for the above-mentioned diagnoses and treatment. the record on the patient. Ali Sonya Keene DR: Nan JOB#: [id number] CC:
[2019-11-27] MEDS: Docusate 100mg cap ORAL SCH ×3 (08:36→18:09)
[2019-11-27] MEDS: Carvedilol 6.25mg Tab ORAL SCH (08:38)
[2019-11-27] MEDS: Heparin 5000 units/ml inj SUBQ SCH ×2 (08:44→20:47)
--- NOTE | 2019-11-27 08:50 | NUR ---
NURSE NOTES: LATE ENTRY: MD Arash KENNEDY HERE TO SEE PT. INFORMED OF WBC 10.8, TEMP 99 ORAL. NO NEW ORDERS AT THIS TIME.
--- NOTE | 2019-11-27 08:50 | Infectious Diseases Prog Note ---
Assessment/Plan Assessment/Plan IMPRESSION: Pneumonia third toe ulcer likely osteomyelitis; leukocytosis; severe anemia; acidosis; folate deficiency; chronic kidney disease, likely end-stage renal disease; Non ST elevation VA elevated transaminase DM with hyperglycemia Hyperuricemia Hypokalemia RECOMMENDATION: Continue with ceftriaxone, Zithromax & IV vancomycin. will f/u cultures Subjective ROS Limited/Unobtainable: No Constitutional: Reports: no symptoms HEENT: Reports: no symptoms Cardiovascular: Reports: no symptoms Gastrointestinal/Abdominal: Reports: no symptoms Genitourinary: Reports: no symptoms Allergies: Coded Allergies: ASPIRIN (Verified Allergy, Unknown, 04/13/19) Objective Vital Signs Last 24 Hour Vital Signs Date Time Temp Pulse Resp B/P (MAP) Pulse Ox O2 Delivery O2 Flow Rate FiO2 11/27/19 08:05 99 Nasal Cannula 3.0 32 11/27/19 07:00 77 14 113/67 (82) 100 11/27/19 06:33 109/56 11/27/19 06:33 109/56 11/27/19 06:00 98.5 77 14 109/56 (73) 98 11/27/19 05:00 75 23 108/61 (77) 100 11/27/19 04:00 Nasal Cannula 2.0 11/27/19 04:00 2.0 11/27/19 04:00 98.8 77 12 124/70 (88) 99 11/27/19 04:00 98.6 77 12 99 11/27/19 04:00 78 11/27/19 03:00 79 21 126/71 (89) 99 11/27/19 02:00 98.0 81 23 110/86 (94) 99 11/27/19 01:00 77 18 114/64 (81) 98 11/27/19 00:32 125/67 11/27/19 00:32 125/67 11/27/19 00:00 98.0 77 24 125/67 (86) 100 11/27/19 00:00 Nasal Cannula 2.0 11/27/19 00:00 2.0 11/27/19 00:00 77 11/26/19 23:00 78 13 111/62 (78) 100 11/26/19 22:16 98.2 80 18 111/54 (73) 98 11/26/19 22:00 82 24 102/48 (66) 99 11/26/19 21:00 84 98/50 11/26/19 21:00 98.6 84 23 98/50 (66) 99 11/26/19 20:00 Nasal Cannula 2.0 11/26/19 20:00 84 17 121/69 (86) 99 11/26/19 20:00 Nasal Cannula 4.0 11/26/19 20:00 2.0 11/26/19 20:00 84 11/26/19 19:00 87 19 108/67 (81) 99 11/26/19 18:33 104/64 11/26/19 18:33 104/64 11/26/19 17:00 98.0 80 17 92/68 (76) 96 11/26/19 16:00 79 11/26/19 16:00 4.0 11/26/19 16:00 81 20 121/60 (80) 96 11/26/19 16:00 Nasal Cannula 4.0 11/26/19 15:48 96 133/84 11/26/19 15:00 96 21 133/84 (100) 99 11/26/19 14:00 97 21 122/59 (80) 93 11/26/19 13:00 96 20 128/64 (85) 93 11/26/19 12:00 4.0 11/26/19 12:00 96 11/26/19 12:00 98.4 94 16 133/73 (93) 95 11/26/19 12:00 Bi-pap 11/26/19 09:42 88 117/78 11/26/19 09:21 88 18 98 Full Face 35 Height (Feet): 5 Height (Inches): 3.00 Weight (Pounds): 138 General Appearance: no acute distress HEENT: mucous membranes moist Respiratory/Chest: lungs clear Cardiovascular: normal rate Abdomen: soft, non tender Extremities: no edema Skin: ulcers, other - third toe in right side Neurologic/Psychiatric: alert, oriented x 3, responsive Microbiology Date/Time Source Procedure Growth Status 11/25/19 16:15 Blood Blood Culture - Preliminary NO GROWTH AFTER 24 HOURS Resulted 11/25/19 16:10 Blood Blood Culture - Preliminary NO GROWTH AFTER 24 HOURS Resulted 11/26/19 17:30 Nasal Nares - Final Complete 11/26/19 17:30 Nasal Nares - Final Complete Laboratory Tests Test 11/27/19 03:10 11/27/19 03:45 White Blood Count 10.8 K/UL (4.8-10.8) Red Blood Count 3.10 M/UL (4.20-5.40) L Hemoglobin 9.0 G/DL (12.0-16.0) #L Hematocrit 26.0 % (37.0-47.0) L Mean Corpuscular Volume 84 FL (80-99) Mean Corpuscular Hemoglobin 29.0 PG (27.0-31.0) Mean Corpuscular Hemoglobin Concent 34.5 G/DL (32.0-36.0) Red Cell Distribution Width 13.2 % (11.6-14.8) Platelet Count 199 K/UL (150-450) Mean Platelet Volume 8.1 FL (6.5-10.1) Neutrophils (%) (Auto) 68.4 % (45.0-75.0) Lymphocytes (%) (Auto) 20.1 % (20.0-45.0) Monocytes (%) (Auto) 10.9 % (1.0-10.0) H Eosinophils (%) (Auto) 0.1 % (0.0-3.0) Basophils (%) (Auto) 0.4 % (0.0-2.0) Sodium Level 138 MMOL/L (136-145) Potassium Level 2.9 MMOL/L (3.5-5.1) L Chloride Level 102 MMOL/L (98-107) Carbon Dioxide Level 18 MMOL/L (21-32) L Anion Gap 18 mmol/L (5-15) H Blood Urea Nitrogen 87 mg/dL (7-18) H Creatinine 5.6 MG/DL (0.55-1.30) H Estimat Glomerular Filtration Rate 9.6 mL/min (>60) Glucose Level 137 MG/DL (74-106) H Uric Acid 10.0 MG/DL (2.6-7.2) H Calcium Level 7.3 MG/DL (8.5-10.1) L Phosphorus Level 5.0 MG/DL (2.5-4.9) H Magnesium Level 1.6 MG/DL (1.8-2.4) L Total Bilirubin 0.4 MG/DL (0.2-1.0) Aspartate Amino Transf (AST/SGOT) 108 U/L (15-37) H Alanine Aminotransferase (ALT/SGPT) 177 U/L (12-78) H Alkaline Phosphatase 91 U/L (46-116) Troponin I 1.813 ng/mL (0.000-0.056) C-Reactive Protein, Quantitative 28.7 mg/dL (0.00-0.90) H Pro-B-Type Natriuretic Peptide > 66294 pg/mL (0-125) H Total Protein 7.5 G/DL (6.4-8.2) Albumin 2.5 G/DL (3.4-5.0) L Globulin 5.0 g/dL Albumin/Globulin Ratio 0.5 (1.0-2.7) L Triglycerides Level 62 MG/DL (30-150) Cholesterol Level 159 MG/DL (< 200) LDL Cholesterol 46 mg/dL (<100) HDL Cholesterol 92 MG/DL (40-60) H Cholesterol/HDL Ratio 1.7 (3.3-4.4) L Random Vancomycin Level 43.4 ug/mL Urine Eosinophils None seen (NONE SEEN) Current Medications Medications (Trade) Dose Ordered Sig/Yeny Route PRN Reason Start Time Stop Time Status Last Admin Dose Admin Acetaminophen (Tylenol) 500 mg Q4H PRN ORAL Mild Pain/Temp > 100.5 11/26/19 13:30 12/26/19 13:29 Albuterol/ Ipratropium (Albuterol/ Ipratropium) 3 ml Q4H PRN HHN Shortness of Breath 11/26/19 13:39 12/01/19 13:38 Allopurinol (allopurinoL) 300 mg DAILY ORAL 11/27/19 09:00 12/27/19 08:59 Amlodipine Besylate (Norvasc) 5 mg DAILY ORAL 11/27/19 09:00 12/27/19 08:59 Carvedilol (Coreg) 6.25 mg EVERY 12 HOURS ORAL 11/26/19 21:00 12/26/19 20:59 Ceftriaxone Sodium 1 gm/ Dextrose 55 ml @ 110 mls/hr Q24H IVPB 11/26/19 16:00 12/03/19 15:59 11/26/19 15:50 Clopidogrel Bisulfate (Plavix) 75 mg DAILY ORAL 11/27/19 09:00 12/26/19 08:59 Dextrose (Dextrose 50%) 25 ml Q30M PRN IV Hypoglycemia 11/26/19 14:00 12/26/19 01:29 Dextrose (Dextrose 50%) 50 ml Q30M PRN IV Hypoglycemia 11/26/19 14:00 12/26/19 01:29 Docusate Sodium (Colace) 100 mg THREE TIMES A DAY ORAL 11/26/19 18:00 12/26/19 08:59 11/26/19 18:33 Epoetin Jensen (Epoetin Jensen-EPBX(NON ESRD)) 10,000 unit SUN-SUN-SUN SUBQ 11/26/19 21:00 12/26/19 20:59 11/26/19 21:37 Folic Acid (Folate) 3 mg DAILY ORAL 11/26/19 14:30 12/26/19 14:29 11/26/19 15:47 Heparin Sodium (Porcine) (Heparin 5000 units/ml) 5,000 units EVERY 12 HOURS SUBQ 11/26/19 21:00 12/26/19 08:59 11/26/19 21:34 Hydralazine HCl (Apresoline) 10 mg Q6HR ORAL 11/26/19 18:00 12/26/19 17:59 11/27/19 06:33 Hydralazine HCl (Apresoline) 25 mg Q4H PRN ORAL bp over 160 syst 11/26/19 13:39 12/26/19 13:38 Insulin Aspart (NovoLOG) BEFORE MEALS AND HS SUBQ 11/26/19 16:30 12/26/19 06:29 11/26/19 21:35 Isosorbide Dinitrate (Isordil) 10 mg Q6HR ORAL 11/26/19 18:00 12/26/19 17:59 11/27/19 06:33 Magnesium Sulfate 100 ml @ 100 mls/hr Q1H IVPB 11/27/19 08:00 11/27/19 09:59 Metolazone (Zaroxolyn) 5 mg DAILY ORAL 11/27/19 09:00 12/27/19 08:59 Pantoprazole (Protonix) 40 mg EVERY 12 HOURS ORAL 11/26/19 21:00 12/26/19 20:59 11/26/19 21:32 Potassium Chloride (K-Dur) 40 meq ONCE ORAL 11/27/19 08:00 11/27/19 09:30 Sitagliptin Phosphate (Januvia) 25 mg ACBREAKFAST ORAL 11/27/19 06:30 12/27/19 06:29 11/27/19 06:33 Sodium Citrate (Bicitra) 30 ml Q6H ORAL 11/27/19 08:00 12/27/19 07:59 Vancomycin HCl (Vanco rx to dose) 1 ea DAILY PRN MISC Per rx protocol 11/26/19 13:45 12/26/19 13:44 Zolpidem Tartrate (Ambien) 5 mg HSPRN PRN ORAL Insomnia 11/26/19 13:30 12/03/19 13:29 Tip Ashford MD Nov 27, 2019 08:50
[2019-11-27] MEDS ORDERED: Pantoprazole Inj IV SCH (09:00)
--- NOTE | 2019-11-27 09:25 | NUR ---
NURSE NOTES: LATE ENTRY: MD SKINNER HERE TO SE PT. INFORMED OF K 2.9, MG 1.6, URIC ACID 10. PT VOIDS, PT ON HEPARIN SUBCUT. IN SR WITH OCCASIONAL PVC. WILL PLACE OWN ORDERS.
--- NOTE | 2019-11-27 09:28 | Nephrology Progress Note ---
Assessment/Plan Problem List: (1) Renal failure (ARF), acute on chronic (2) Cardiomyopathy (3) Anemia in chronic kidney disease (CKD) (4) Non-STEMI (non-ST elevated myocardial infarction) (5) Diabetic nephropathy (6) Diabetes mellitus out of control Assessment underlying CKD ? Superimposed Acute Anemia of CKD Cardiomyopathy- 40% EjFx DM Low Folate elevated troponin- CAD Asa Allergy Plan change diet transfuse PO folate Plavix Coreg- Norvasc- Hydralazine monitor renal parameters Subjective ROS Limited/Unobtainable: No Constitutional: Reports: other - feels better Objective Objective Last 24 Hour Vital Signs Date Time Temp Pulse Resp B/P (MAP) Pulse Ox O2 Delivery O2 Flow Rate FiO2 11/27/19 08:39 84 115/66 11/27/19 08:38 85 115/66 11/27/19 08:05 99 Nasal Cannula 3.0 32 11/27/19 07:00 77 14 113/67 (82) 100 11/27/19 06:33 109/56 11/27/19 06:33 109/56 11/27/19 06:00 98.5 77 14 109/56 (73) 98 11/27/19 05:00 75 23 108/61 (77) 100 11/27/19 04:00 Nasal Cannula 2.0 11/27/19 04:00 2.0 11/27/19 04:00 98.8 77 12 124/70 (88) 99 11/27/19 04:00 98.6 77 12 99 11/27/19 04:00 78 11/27/19 03:00 79 21 126/71 (89) 99 11/27/19 02:00 98.0 81 23 110/86 (94) 99 11/27/19 01:00 77 18 114/64 (81) 98 11/27/19 00:32 125/67 11/27/19 00:32 125/67 11/27/19 00:00 98.0 77 24 125/67 (86) 100 11/27/19 00:00 Nasal Cannula 2.0 11/27/19 00:00 2.0 11/27/19 00:00 77 11/26/19 23:00 78 13 111/62 (78) 100 11/26/19 22:16 98.2 80 18 111/54 (73) 98 11/26/19 22:00 82 24 102/48 (66) 99 11/26/19 21:00 84 98/50 11/26/19 21:00 98.6 84 23 98/50 (66) 99 11/26/19 20:00 Nasal Cannula 2.0 11/26/19 20:00 84 17 121/69 (86) 99 11/26/19 20:00 Nasal Cannula 4.0 11/26/19 20:00 2.0 11/26/19 20:00 84 11/26/19 19:00 87 19 108/67 (81) 99 11/26/19 18:33 104/64 11/26/19 18:33 104/64 11/26/19 17:00 98.0 80 17 92/68 (76) 96 11/26/19 16:00 79 11/26/19 16:00 4.0 11/26/19 16:00 81 20 121/60 (80) 96 11/26/19 16:00 Nasal Cannula 4.0 11/26/19 15:48 96 133/84 11/26/19 15:00 96 21 133/84 (100) 99 11/26/19 14:00 97 21 122/59 (80) 93 11/26/19 13:00 96 20 128/64 (85) 93 11/26/19 12:00 4.0 11/26/19 12:00 96 11/26/19 12:00 98.4 94 16 133/73 (93) 95 11/26/19 12:00 Bi-pap 11/26/19 09:42 88 117/78 Intake and Output 11/26/19 11/27/19 19:00 07:00 Intake Total 200 ml 975 ml Output Total 300 ml Balance 200 ml 675 ml Intake Oral 200 ml 475 ml Blood Product 500 ml Output Urine Total 300 ml # Voids 2 1 Laboratory Tests 11/27/19 03:10: White Blood Count 10.8, Red Blood Count 3.10L, Hemoglobin 9.0#L, Hematocrit 26.0L, Mean Corpuscular Volume 84, Mean Corpuscular Hemoglobin 29.0, Mean Corpuscular Hemoglobin Concent 34.5, Red Cell Distribution Width 13.2, Platelet Count 199, Mean Platelet Volume 8.1, Neutrophils (%) (Auto) 68.4, Lymphocytes (% ) (Auto) 20.1, Monocytes (%) (Auto) 10.9H, Eosinophils (%) (Auto) 0.1, Basophils (%) (Auto) 0.4, Sodium Level 138, Potassium Level 2.9L, Chloride Level 102, Carbon Dioxide Level 18L, Anion Gap 18H, Blood Urea Nitrogen 87H, Creatinine 5.6H, Estimat Glomerular Filtration Rate 9.6, Glucose Level 137H, Uric Acid 10.0H, Calcium Level 7.3L, Phosphorus Level 5.0H, Magnesium Level 1.6L , Total Bilirubin 0.4, Aspartate Amino Transf (AST/SGOT) 108H, Alanine Aminotransferase (ALT/SGPT) 177H, Alkaline Phosphatase 91, Troponin I 1.813H, C- Reactive Protein, Quantitative 28.7H, Pro-B-Type Natriuretic Peptide > 14732J, Total Protein 7.5, Albumin 2.5L, Globulin 5.0, Albumin/Globulin Ratio 0.5L, Triglycerides Level 62, Cholesterol Level 159, LDL Cholesterol 46, HDL Cholesterol 92H, Cholesterol/HDL Ratio 1.7L, Random Vancomycin Level 43.4 11/27/19 03:45: Urine Eosinophils None seen Height (Feet): 5 Height (Inches): 3.00 Weight (Pounds): 138 General Appearance: no apparent distress Cardiovascular: normal rate Respiratory/Chest: decreased breath sounds Abdomen: distended Joao Garcia MD Nov 27, 2019 09:28
--- NOTE | 2019-11-27 09:31 | NUR ---
NURSE NOTES: LATE ENTRY: MD AUSTIN HERE TO SEE PT. NO C/O SOB, SATING 100% ON 2LNC. RECEIVED ORDER TO WEAN OFF O2.
--- NOTE | 2019-11-27 09:31 | Pulmonolgy Critical Care Note ---
Critical Care - Asmt/Plan Assessment/Plan: Pulmonary Critical Care Progress Note HPI Patient is a 54-year-old woman with previous history of Chronic Kidney Disease, Diabetes, Hypertension, admitted with increased difficulty with breathing. Noted to be fluid overloaded, increased Troponin. Not currently on dialysis. Denies any recent fever, chest pain. Had sick contacts at home. Anemia s/p Transfusion, Hb stable, Renal US negative for hydronephrosis Elevated Troponin downtrending Allergies: ASPIRIN Past Medical History: Chronic Kidney Disease, Diabetes, Hypertension All Other Systems: negative except mentioned in HPI Physical Exam Vital Signs Noted General Appearance: normal inspection, well appearing, no apparent distress, alert, GCS 15 Head: atraumatic ENT: normal ENT inspection, hearing grossly normal, normal voice Neck: normal inspection, full range of motion, supple, no bony tend Respiratory: normal inspection, lungs clear, normal breath sounds, no respiratory distress, no retraction, no wheezing Cardiovascular: regular rate, rhythm, HS1, HS2 normal, no edema Gastrointestinal: normal inspection, normal bowel sounds, non tender, soft, no guarding, no hernia Genitourinary: no CVA tenderness Musculoskeletal: normal inspection, back normal, normal range of motion Neurologic: alert, oriented x3, responsive, speech normal, normal inspection Impression: Fluid overload Elevated Troponin downtrending Pneumonia Chronic Kidney Disease Anemia Diabetes Hypertension Plan - Renal following - Plavix - Cardiology following - IV AB per ID - Monitor labs - Transfuse PRN - O2/Bipap PRN - PPX - LACE [employer]ER Medications - Kayexalate PRN - TFN PRN - Protonix EKG: Normal sinus rhythm with a rate of [address] or T wave changes. There is no QRS widening noted. CXR: Mild cardiomegaly, interstitial and patchy infiltrates, small effusions LE Dupplex:Negative for DVT Labs Noted Critical Care - Objective Last 24 Hour Vital Signs Date Time Temp Pulse Resp B/P (MAP) Pulse Ox O2 Delivery O2 Flow Rate FiO2 11/27/19 08:39 84 115/66 11/27/19 08:38 85 115/66 11/27/19 08:05 99 Nasal Cannula 3.0 32 11/27/19 07:00 77 14 113/67 (82) 100 11/27/19 06:33 109/56 11/27/19 06:33 109/56 11/27/19 06:00 98.5 77 14 109/56 (73) 98 11/27/19 05:00 75 23 108/61 (77) 100 11/27/19 04:00 Nasal Cannula 2.0 11/27/19 04:00 2.0 11/27/19 04:00 98.8 77 12 124/70 (88) 99 11/27/19 04:00 98.6 77 12 99 11/27/19 04:00 78 11/27/19 03:00 79 21 126/71 (89) 99 11/27/19 02:00 98.0 81 23 110/86 (94) 99 11/27/19 01:00 77 18 114/64 (81) 98 11/27/19 00:32 125/67 11/27/19 00:32 125/67 11/27/19 00:00 98.0 77 24 125/67 (86) 100 11/27/19 00:00 Nasal Cannula 2.0 11/27/19 00:00 2.0 11/27/19 00:00 77 11/26/19 23:00 78 13 111/62 (78) 100 11/26/19 22:16 98.2 80 18 111/54 (73) 98 11/26/19 22:00 82 24 102/48 (66) 99 11/26/19 21:00 84 98/50 11/26/19 21:00 98.6 84 23 98/50 (66) 99 11/26/19 20:00 Nasal Cannula 2.0 11/26/19 20:00 84 17 121/69 (86) 99 11/26/19 20:00 Nasal Cannula 4.0 11/26/19 20:00 2.0 11/26/19 20:00 84 11/26/19 19:00 87 19 108/67 (81) 99 11/26/19 18:33 104/64 11/26/19 18:33 104/64 11/26/19 17:00 98.0 80 17 92/68 (76) 96 11/26/19 16:00 79 11/26/19 16:00 4.0 11/26/19 16:00 81 20 121/60 (80) 96 11/26/19 16:00 Nasal Cannula 4.0 11/26/19 15:48 96 133/84 11/26/19 15:00 96 21 133/84 (100) 99 11/26/19 14:00 97 21 122/59 (80) 93 11/26/19 13:00 96 20 128/64 (85) 93 11/26/19 12:00 4.0 11/26/19 12:00 96 11/26/19 12:00 98.4 94 16 133/73 (93) 95 11/26/19 12:00 Bi-pap 11/26/19 09:42 88 117/78 Micro: Microbiology Date/Time Source Procedure Growth Status 11/25/19 16:15 Blood Blood Culture - Preliminary NO GROWTH AFTER 24 HOURS Resulted 11/25/19 16:10 Blood Blood Culture - Preliminary NO GROWTH AFTER 24 HOURS Resulted 11/26/19 17:30 Nasal Nares - Final Complete 11/26/19 17:30 Nasal Nares - Final Complete Accucheck: 122 Critical Care - Subjective ROS Limited/Unobtainable: No FI02: 32 Vent Support Mode: BiLevel Sputum Amount: None I&O: Intake and Output 11/26/19 11/27/19 19:00 07:00 Intake Total 200 ml 975 ml Output Total 300 ml Balance 200 ml 675 ml Intake Oral 200 ml 475 ml Blood Product 500 ml Output Urine Total 300 ml # Voids 2 1 Miguel Hamm MD Nov 27, 2019 09:31
--- NOTE | 2019-11-27 10:54 | NUR ---
NURSE NOTES: MD WALTERS HERE TO SEE PT. WOUND ASSESSED AND DRESSING APPLIED BY WOUND NURSE. REVIEWED FOOT EXAM , RECEIVED ORDER TO PLACE FOR MRI OF FOOT.
--- NOTE | 2019-11-27 10:54 | NUR ---
RD ASSESSMENT & RECOMMENDATIONS SEE CARE ACTIVITY FOR COMPLETE ASSESSMENT DAILY ESTIMATED NEEDS: Needs based on Renal, DM, ulcer 60kg 25-35 kcals/kg 8868-2014 total kcals .8-1.25 g protein/kg 48-75 g total protein Fluid per MD, on diuretics NUTRITION DIAGNOSIS: Altered nutrition related lab values r/t renal dysfucntion and clinical status as evidenced by elev BUN/ creat (87/5.6), elev Phos (5.0), elev BNP, elev trop 1. CURRENT DIET: Renal/ cardiac/ [facility] MED PO DIET RECOMMENDATIONS: RENAL/ [facility] MED ADDITIONAL RECOMMENDATIONS: 1) Obtain a standing weight as able 2) Monitor lytes daily/ on diuretics 3) Wound care: add NIR BID + NEPHROVITE qdaily Rec Vit C, 250 mg daily
--- NOTE | 2019-11-27 12:00 | NUR ---
NURSE NOTES: LATE ENTRY: PT IN BED, CONNECTED TO MONITOR. VSS. NO C/O PAIN, SOB. A/0 X4. SR. DIET DM, RENAL REGULAR. BG 170. SKIN- SEE ASSESSMENT. IV ACCESS RFA 22G REPLACED. PT AMBULATES, BSC. STANDARD PRECAUTIONS IN PLACE. CALL LIGHT IN REACH, BED LOCKED, IN LOW POSITION.
--- NOTE | 2019-11-27 12:58 | NUR ---
[employer]OUCH[employer] SI: FLUID OVERLOAD,ESRD T. 99.0 HR 85 RR 18 B/P 117/66 NC 2L 99% K 2.9 TROP 1.813 BNP >3500 MG 1.6 IS: MAGNESIUM IV CEFTRIAXONE IV K-DUR PO ICU STATUS
--- NOTE | 2019-11-27 12:59 | Surgery Progress Note ---
Surgery Progress Note Subjective Symptoms: improved Additional Comments leukocytosis improved anemia improved exam stable Objective Last 24 Hour Vital Signs Date Time Temp Pulse Resp B/P (MAP) Pulse Ox O2 Delivery O2 Flow Rate FiO2 11/27/19 12:00 71 11/27/19 11:50 100/71 11/27/19 11:49 100/73 11/27/19 11:00 73 11 100/73 (82) 98 11/27/19 10:00 83 14 134/83 (100) 99 11/27/19 09:00 84 22 98 11/27/19 08:39 84 115/66 11/27/19 08:38 85 115/66 11/27/19 08:22 84 16 115/66 (82) 99 11/27/19 08:05 99 Nasal Cannula 3.0 32 11/27/19 08:00 Nasal Cannula 2.0 11/27/19 08:00 2.0 11/27/19 08:00 99.0 85 18 117/66 (83) 97 11/27/19 08:00 73 11/27/19 07:00 77 14 113/67 (82) 100 11/27/19 06:33 109/56 11/27/19 06:33 109/56 11/27/19 06:00 98.5 77 14 109/56 (73) 98 11/27/19 05:00 75 23 108/61 (77) 100 11/27/19 04:00 Nasal Cannula 2.0 11/27/19 04:00 2.0 11/27/19 04:00 98.8 77 12 124/70 (88) 99 11/27/19 04:00 98.6 77 12 99 11/27/19 04:00 78 11/27/19 03:00 79 21 126/71 (89) 99 11/27/19 02:00 98.0 81 23 110/86 (94) 99 11/27/19 01:00 77 18 114/64 (81) 98 11/27/19 00:32 125/67 11/27/19 00:32 125/67 11/27/19 00:00 98.0 77 24 125/67 (86) 100 11/27/19 00:00 Nasal Cannula 2.0 11/27/19 00:00 2.0 11/27/19 00:00 77 11/26/19 23:00 78 13 111/62 (78) 100 11/26/19 22:16 98.2 80 18 111/54 (73) 98 11/26/19 22:00 82 24 102/48 (66) 99 11/26/19 21:00 84 98/50 11/26/19 21:00 98.6 84 23 98/50 (66) 99 11/26/19 20:00 Nasal Cannula 2.0 11/26/19 20:00 84 17 121/69 (86) 99 11/26/19 20:00 Nasal Cannula 4.0 11/26/19 20:00 2.0 11/26/19 20:00 84 11/26/19 19:00 87 19 108/67 (81) 99 11/26/19 18:33 104/64 11/26/19 18:33 104/64 11/26/19 17:00 98.0 80 17 92/68 (76) 96 11/26/19 16:00 79 11/26/19 16:00 4.0 11/26/19 16:00 81 20 121/60 (80) 96 11/26/19 16:00 Nasal Cannula 4.0 11/26/19 15:48 96 133/84 11/26/19 15:00 96 21 133/84 (100) 99 11/26/19 14:00 97 21 122/59 (80) 93 11/26/19 13:00 96 20 128/64 (85) 93 I&O Intake and Output 11/26/19 11/27/19 18:59 06:59 Intake Total 170 ml 1005 ml Output Total 300 ml Balance 170 ml 705 ml Intake Oral 170 ml 505 ml Blood Product 500 ml Output Urine Total 300 ml # Voids 2 1 Dressing: other Wound: other Drains: other Cardiovascular: RSR Respiratory: decreased breath sounds Abdomen: soft, present bowel sounds Extremities: no cyanosis Laboratory Tests Test 11/27/19 03:10 11/27/19 03:45 White Blood Count 10.8 K/UL (4.8-10.8) Red Blood Count 3.10 M/UL (4.20-5.40) L Hemoglobin 9.0 G/DL (12.0-16.0) #L Hematocrit 26.0 % (37.0-47.0) L Mean Corpuscular Volume 84 FL (80-99) Mean Corpuscular Hemoglobin 29.0 PG (27.0-31.0) Mean Corpuscular Hemoglobin Concent 34.5 G/DL (32.0-36.0) Red Cell Distribution Width 13.2 % (11.6-14.8) Platelet Count 199 K/UL (150-450) Mean Platelet Volume 8.1 FL (6.5-10.1) Neutrophils (%) (Auto) 68.4 % (45.0-75.0) Lymphocytes (%) (Auto) 20.1 % (20.0-45.0) Monocytes (%) (Auto) 10.9 % (1.0-10.0) H Eosinophils (%) (Auto) 0.1 % (0.0-3.0) Basophils (%) (Auto) 0.4 % (0.0-2.0) Sodium Level 138 MMOL/L (136-145) Potassium Level 2.9 MMOL/L (3.5-5.1) L Chloride Level 102 MMOL/L (98-107) Carbon Dioxide Level 18 MMOL/L (21-32) L Anion Gap 18 mmol/L (5-15) H Blood Urea Nitrogen 87 mg/dL (7-18) H Creatinine 5.6 MG/DL (0.55-1.30) H Estimat Glomerular Filtration Rate 9.6 mL/min (>60) Glucose Level 137 MG/DL (74-106) H Uric Acid 10.0 MG/DL (2.6-7.2) H Calcium Level 7.3 MG/DL (8.5-10.1) L Phosphorus Level 5.0 MG/DL (2.5-4.9) H Magnesium Level 1.6 MG/DL (1.8-2.4) L Total Bilirubin 0.4 MG/DL (0.2-1.0) Aspartate Amino Transf (AST/SGOT) 108 U/L (15-37) H Alanine Aminotransferase (ALT/SGPT) 177 U/L (12-78) H Alkaline Phosphatase 91 U/L (46-116) Troponin I 1.813 ng/mL (0.000-0.056) C-Reactive Protein, Quantitative 28.7 mg/dL (0.00-0.90) H Pro-B-Type Natriuretic Peptide > 86403 pg/mL (0-125) H Total Protein 7.5 G/DL (6.4-8.2) Albumin 2.5 G/DL (3.4-5.0) L Globulin 5.0 g/dL Albumin/Globulin Ratio 0.5 (1.0-2.7) L Triglycerides Level 62 MG/DL (30-150) Cholesterol Level 159 MG/DL (< 200) LDL Cholesterol 46 mg/dL (<100) HDL Cholesterol 92 MG/DL (40-60) H Cholesterol/HDL Ratio 1.7 (3.3-4.4) L Random Vancomycin Level 43.4 ug/mL Urine Eosinophils None seen (NONE SEEN) Plan Problems: (1) Diabetic ulcer of toe Assessment & Plan: Findings: 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 There is evidence of prior osteotomy of the fourth proximal and middle phalanges. There is evidence of prior amputation of the third distal phalanx. No acute fractures. No dislocations. No osseous erosions. The joint spaces are preserved. There is hammertoe deformity of the second through fifth digits. Impression: Postsurgical changes, as described No definite acute bony trauma graft no plain radiographic evidence of acute osseous myelitis. Note, however, limited sensitivity of plain radiographs for such. Consider MRI or bone scan for more sensitive characterization. Findings: On the right, Doppler waveforms are biphasic or triphasic with sharp systolic peaks at the level of the common femoral, profunda femoral, proximal superficial femoral arteries. In the proximal superficial femoral artery, there is sonographically visible atherosclerotic plaquing with flow velocity elevation up to 269 cm/s. There is slight dampening of the waveforms distal to this, although waveforms remain triphasic to the level of the proximal tibial vessels. The distal tibial vessel waveforms are monophasic at the level of the posterior tibial artery, but biphasic and the distal peroneal and dorsalis pedis arteries. On the left, Doppler waveforms are triphasic at all levels including distally. Systolic peaks are sharp and flow velocities are within normal limits. Impression: Borderline significant stenosis of the right proximal superficial femoral artery Negative for evidence of significant left lower extremity. Serial insufficiency. Findings: Bilaterally, grayscale and duplex images demonstrate no evidence of intraluminal thrombus. Normal phasic Doppler waveforms, demonstrating normal augmentation response and no evidence of valvular insufficiency. Greater saphenous veins and tibial veins are patent bilaterally. Normal compressibility Impression: Negative for evidence of lower extremity deep venous thrombosis vascular input appreciated (2) SOB (shortness of breath) (3) Abnormal LFTs Assessment & Plan: 54-year-old female with leukocytosis, abnormalities, anemia , diabetic toe, elevated troponins. Patient ICU currently undergoing medical care and management. Etiology of elevated LFTs and leukocytosis unknown. Ultrasound abdomen ordered Trend labs No acute surgical invention planned We will monitor and follow with serial exams Thank you let me participate in his care will follow the recommendations Wilberto Jiménez Nov 27, 2019 12:59
[2019-11-27] MEDS ORDERED: D5W 275ml ONE (15:06)
--- NOTE | 2019-11-27 15:43 | Hematology/Onc Progress Note ---
Assessment/Plan Assessment/Plan Assessment / recs: # Anemia of chronic disease due to underlying chronic medical issues, multifactorial v Gi bleed --> in this case likely kidney disease --> Anemia workup has been ordered, rule out gi bleed --> No evidence of hemolysis is noted, peripheral smear has been reviewed. --> Hgb goal >7. Transfuse prn. --> Low threshold for epogen as ferritin >1000, and severe kidney disease --> Medications have been reviewed --> low threshold for gi evaluation in case has occult + --> bone marrow biopsy is not indicated given the other more likely causes --> hgb trend: 6.9-->9 --> blood: 2 units prbc 11/27, # Anemia of folic acid deficiency --> started on folate as per renal # Leukocytosis likely reactive v infection --> monitor for improvement --> as per id --> trend 16-->14-->10.8 --> hold off flow --> abx: vanc # Fluid overload --> diuresis as per cards/renal --> echo 2d # ИВАН on CKD --> per renal # Noncompliance # Shortness of breath # Elevated troponin --> w/u as per cards DW Rn and appreciate consultation. Subjective Allergies: Coded Allergies: ASPIRIN (Verified Allergy, Unknown, 04/13/19) Subjective 11/27: icu, s/p 2 units prbc, hgb improved to 9, on abx Objective Objective Current Medications Medications (Trade) Dose Ordered Sig/Yeny Route PRN Reason Start Time Stop Time Status Last Admin Dose Admin Acetaminophen (Tylenol) 500 mg Q4H PRN ORAL Mild Pain/Temp > 100.5 11/26/19 13:30 12/26/19 13:29 Albuterol/ Ipratropium (Albuterol/ Ipratropium) 3 ml Q4H PRN HHN Shortness of Breath 11/26/19 13:39 12/01/19 13:38 Allopurinol (allopurinoL) 300 mg DAILY ORAL 11/27/19 09:00 12/27/19 08:59 11/27/19 08:36 Amlodipine Besylate (Norvasc) 5 mg DAILY ORAL 11/27/19 09:00 12/27/19 08:59 11/27/19 08:39 Carvedilol (Coreg) 6.25 mg EVERY 12 HOURS ORAL 11/26/19 21:00 12/26/19 20:59 11/27/19 08:38 Ceftriaxone Sodium 1 gm/ Dextrose 55 ml @ 110 mls/hr Q24H IVPB 11/26/19 16:00 12/03/19 15:59 11/26/19 15:50 Clopidogrel Bisulfate (Plavix) 75 mg DAILY ORAL 11/27/19 09:00 12/26/19 08:59 11/27/19 08:40 Dextrose (Dextrose 50%) 25 ml Q30M PRN IV Hypoglycemia 11/26/19 14:00 12/26/19 01:29 Dextrose (Dextrose 50%) 50 ml Q30M PRN IV Hypoglycemia 11/26/19 14:00 12/26/19 01:29 Docusate Sodium (Colace) 100 mg THREE TIMES A DAY ORAL 11/26/19 18:00 12/26/19 08:59 11/27/19 14:53 Epoetin Jensen (Epoetin Jensen-EPBX(NON ESRD)) 10,000 unit SUN-SUN-SUN SUBQ 11/26/19 21:00 12/26/19 20:59 11/26/19 21:37 Folic Acid (Folate) 3 mg DAILY ORAL 11/26/19 14:30 12/26/19 14:29 11/27/19 08:36 Heparin Sodium (Porcine) (Heparin 5000 units/ml) 5,000 units EVERY 12 HOURS SUBQ 11/26/19 21:00 12/26/19 08:59 11/27/19 08:44 Hydralazine HCl (Apresoline) 10 mg Q6HR ORAL 11/26/19 18:00 12/26/19 17:59 11/27/19 11:49 Hydralazine HCl (Apresoline) 25 mg Q4H PRN ORAL bp over 160 syst 11/26/19 13:39 12/26/19 13:38 Insulin Aspart (NovoLOG) BEFORE MEALS AND HS SUBQ 11/26/19 16:30 12/26/19 06:29 11/27/19 11:53 Isosorbide Dinitrate (Isordil) 10 mg Q6HR ORAL 11/26/19 18:00 12/26/19 17:59 11/27/19 11:50 Metolazone (Zaroxolyn) 5 mg DAILY ORAL 11/27/19 09:00 12/27/19 08:59 11/27/19 08:37 Pantoprazole (Protonix) 40 mg EVERY 12 HOURS ORAL 11/26/19 21:00 12/26/19 20:59 11/27/19 08:37 Potassium Chloride (K-Dur) 40 meq ONCE ORAL 11/27/19 17:00 11/27/19 18:30 Sitagliptin Phosphate (Januvia) 25 mg ACBREAKFAST ORAL 11/27/19 06:30 12/27/19 06:29 11/27/19 06:33 Sodium Citrate (Bicitra) 30 ml Q6H ORAL 11/27/19 08:00 12/27/19 07:59 11/27/19 14:53 Vancomycin HCl (Vanco rx to dose) 1 ea DAILY PRN MISC Per rx protocol 11/26/19 13:45 12/26/19 13:44 Zolpidem Tartrate (Ambien) 5 mg HSPRN PRN ORAL Insomnia 11/26/19 13:30 12/03/19 13:29 Last 24 Hour Vital Signs Date Time Temp Pulse Resp B/P (MAP) Pulse Ox O2 Delivery O2 Flow Rate FiO2 11/27/19 15:00 75 19 109/59 (76) 93 11/27/19 14:00 76 18 104/64 (77) 95 11/27/19 13:00 74 18 105/72 (83) 100 11/27/19 12:00 97.7 71 12 110/66 (81) 100 11/27/19 12:00 71 11/27/19 11:50 100/71 11/27/19 11:49 100/73 11/27/19 11:00 73 11 100/73 (82) 98 11/27/19 10:00 83 14 134/83 (100) 99 11/27/19 09:00 84 22 98 11/27/19 08:39 84 115/66 11/27/19 08:38 85 115/66 11/27/19 08:22 84 16 115/66 (82) 99 11/27/19 08:05 99 Nasal Cannula 3.0 32 11/27/19 08:00 Nasal Cannula 2.0 11/27/19 08:00 2.0 11/27/19 08:00 99.0 85 18 117/66 (83) 97 11/27/19 08:00 73 11/27/19 07:00 77 14 113/67 (82) 100 11/27/19 06:33 109/56 11/27/19 06:33 109/56 11/27/19 06:00 98.5 77 14 109/56 (73) 98 11/27/19 05:00 75 23 108/61 (77) 100 11/27/19 04:00 Nasal Cannula 2.0 11/27/19 04:00 2.0 11/27/19 04:00 98.8 77 12 124/70 (88) 99 11/27/19 04:00 98.6 77 12 99 11/27/19 04:00 78 11/27/19 03:00 79 21 126/71 (89) 99 11/27/19 02:00 98.0 81 23 110/86 (94) 99 11/27/19 01:00 77 18 114/64 (81) 98 11/27/19 00:32 125/67 11/27/19 00:32 125/67 11/27/19 00:00 98.0 77 24 125/67 (86) 100 11/27/19 00:00 Nasal Cannula 2.0 11/27/19 00:00 2.0 11/27/19 00:00 77 11/26/19 23:00 78 13 111/62 (78) 100 11/26/19 22:16 98.2 80 18 111/54 (73) 98 11/26/19 22:00 82 24 102/48 (66) 99 11/26/19 21:00 84 98/50 11/26/19 21:00 98.6 84 23 98/50 (66) 99 11/26/19 20:00 Nasal Cannula 2.0 11/26/19 20:00 84 17 121/69 (86) 99 11/26/19 20:00 Nasal Cannula 4.0 11/26/19 20:00 2.0 11/26/19 20:00 84 11/26/19 19:00 87 19 108/67 (81) 99 11/26/19 18:33 104/64 11/26/19 18:33 104/64 11/26/19 17:00 98.0 80 17 92/68 (76) 96 11/26/19 16:00 79 11/26/19 16:00 4.0 11/26/19 16:00 81 20 121/60 (80) 96 11/26/19 16:00 Nasal Cannula 4.0 11/26/19 15:48 96 133/84 11/26/19 15:00 96 21 133/84 (100) 99 11/26/19 14:00 97 21 122/59 (80) 93 11/26/19 13:00 96 20 128/64 (85) 93 11/26/19 12:00 4.0 11/26/19 12:00 96 11/26/19 12:00 98.4 94 16 133/73 (93) 95 11/26/19 12:00 Bi-pap 11/26/19 09:42 88 117/78 11/26/19 09:21 88 18 98 Full Face 35 11/26/19 08:00 98.7 92 16 117/78 (91) 100 11/26/19 08:00 4.0 11/26/19 08:00 82 11/26/19 08:00 Bi-pap 11/26/19 07:00 76 13 97 Full Face 35 11/26/19 05:05 80 21 98 Full Face 35 11/26/19 04:00 35 11/26/19 04:00 Bi-pap 11/26/19 04:00 98.5 91 24 139/89 (106) 96 11/26/19 03:00 75 20 99 Full Face 35 11/26/19 01:36 Bi-pap 11/26/19 01:28 80 20 100 Full Face 35 11/26/19 00:00 95 11/26/19 00:00 98.3 100 24 137/87 (104) 94 11/25/19 23:45 87 24 96 Full Face 35 11/25/19 23:45 78 18 Bi-Pap 35 11/25/19 23:00 98.5 97 23 155/91 100 Room Air 11/25/19 23:00 98.5 97 23 155/91 100 Room Air 11/25/19 21:53 69 33 98 Facial 35 11/25/19 21:46 98.0 86 23 160/90 99 Bi-pap 35 11/25/19 19:36 96 31 96 Facial 35 11/25/19 19:06 98.2 78 20 148/86 100 Bi-pap 35 11/25/19 18:23 98.3 85 22 150/84 99 Room Air 11/25/19 17:21 96 31 96 Facial 35 11/25/19 16:24 148/84 11/25/19 16:08 90 34 100 Facial 35 11/25/19 15:44 98.1 88 28 148/90 94 Room Air 11/25/19 15:44 88 28 Room Air Intake and Output 11/26/19 11/27/19 19:00 07:00 Intake Total 200 ml 975 ml Output Total 300 ml Balance 200 ml 675 ml Intake Oral 200 ml 475 ml Blood Product 500 ml Output Urine Total 300 ml # Voids 2 1 Labs Test 11/25/19 16:15 11/26/19 04:50 11/27/19 03:10 11/27/19 03:45 White Blood Count 16.8 K/UL (4.8-10.8) 14.2 K/UL (4.8-10.8) 10.8 K/UL (4.8-10.8) Red Blood Count 2.74 M/UL (4.20-5.40) 2.48 M/UL (4.20-5.40) 3.10 M/UL (4.20-5.40) Hemoglobin 7.6 G/DL (12.0-16.0) 6.9 G/DL (12.0-16.0) 9.0 G/DL (12.0-16.0) Hematocrit 23.7 % (37.0-47.0) 21.1 % (37.0-47.0) 26.0 % (37.0-47.0) Mean Corpuscular Volume 86 FL (80-99) 85 FL (80-99) 84 FL (80-99) Mean Corpuscular Hemoglobin 27.8 PG (27.0-31.0) 27.7 PG (27.0-31.0) 29.0 PG (27.0-31.0) Mean Corpuscular Hemoglobin Concent 32.2 G/DL (32.0-36.0) 32.7 G/DL (32.0-36.0) 34.5 G/DL (32.0-36.0) Red Cell Distribution Width 15.2 % (11.6-14.8) 14.5 % (11.6-14.8) 13.2 % (11.6-14.8) Platelet Count 212 K/UL (150-450) 213 K/UL (150-450) 199 K/UL (150-450) Mean Platelet Volume 7.8 FL (6.5-10.1) 7.6 FL (6.5-10.1) 8.1 FL (6.5-10.1) Neutrophils (%) (Auto) % (45.0-75.0) % (45.0-75.0) 68.4 % (45.0-75.0) Lymphocytes (%) (Auto) % (20.0-45.0) % (20.0-45.0) 20.1 % (20.0-45.0) Monocytes (%) (Auto) % (1.0-10.0) % (1.0-10.0) 10.9 % (1.0-10.0) Eosinophils (%) (Auto) % (0.0-3.0) % (0.0-3.0) 0.1 % (0.0-3.0) Basophils (%) (Auto) % (0.0-2.0) % (0.0-2.0) 0.4 % (0.0-2.0) Differential Total Cells Counted 100 100 Neutrophils % (Manual) 78 % (45-75) 73 % (45-75) Lymphocytes % (Manual) 18 % (20-45) 13 % (20-45) Monocytes % (Manual) 4 % (1-10) 13 % (1-10) Eosinophils % (Manual) 0 % (0-3) 1 % (0-3) Basophils % (Manual) 0 % (0-2) 0 % (0-2) Band Neutrophils 0 % (0-8) 0 % (0-8) Platelet Estimate Adequate Adequate Platelet Morphology Normal Normal Polychromasia 1+ Anisocytosis 1+ 1+ Sodium Level 135 MMOL/L (136-145) 138 MMOL/L (136-145) 138 MMOL/L (136-145) Potassium Level 5.9 MMOL/L (3.5-5.1) 3.7 MMOL/L (3.5-5.1) 2.9 MMOL/L (3.5-5.1) Chloride Level 102 MMOL/L (98-107) 102 MMOL/L (98-107) 102 MMOL/L (98-107) Carbon Dioxide Level 14 MMOL/L (21-32) 18 MMOL/L (21-32) 18 MMOL/L (21-32) Anion Gap 19 mmol/L (5-15) 18 mmol/L (5-15) 18 mmol/L (5-15) Blood Urea Nitrogen 77 mg/dL (7-18) 87 mg/dL (7-18) 87 mg/dL (7-18) Creatinine 5.2 MG/DL (0.55-1.30) 5.3 MG/DL (0.55-1.30) 5.6 MG/DL (0.55-1.30) Estimat Glomerular Filtration Rate 10.3 mL/min (>60) 10.2 mL/min (>60) 9.6 mL/min (>60) Glucose Level 239 MG/DL (74-106) 203 MG/DL (74-106) 137 MG/DL (74-106) Calcium Level 8.8 MG/DL (8.5-10.1) 8.1 MG/DL (8.5-10.1) 7.3 MG/DL (8.5-10.1) Total Bilirubin 0.4 MG/DL (0.2-1.0) 0.3 MG/DL (0.2-1.0) 0.4 MG/DL (0.2-1.0) Aspartate Amino Transf (AST/SGOT) 276 U/L (15-37) 156 U/L (15-37) 108 U/L (15-37) Alanine Aminotransferase (ALT/SGPT) 223 U/L (12-78) 199 U/L (12-78) 177 U/L (12-78) Alkaline Phosphatase 111 U/L (46-116) 94 U/L (46-116) 91 U/L (46-116) Troponin I 2.011 ng/mL (0.000-0.056) 3.476 ng/mL (0.000-0.056) 1.813 ng/mL (0.000-0.056) Pro-B-Type Natriuretic Peptide > 35864 pg/mL (0-125) > 56734 pg/mL (0-125) > 55915 pg/mL (0-125) Total Protein 8.7 G/DL (6.4-8.2) 7.7 G/DL (6.4-8.2) 7.5 G/DL (6.4-8.2) Albumin 2.9 G/DL (3.4-5.0) 2.6 G/DL (3.4-5.0) 2.5 G/DL (3.4-5.0) Globulin 5.8 g/dL 5.1 g/dL 5.0 g/dL Albumin/Globulin Ratio 0.5 (1.0-2.7) 0.5 (1.0-2.7) 0.5 (1.0-2.7) Lipase 103 U/L (73-393) 110 U/L (73-393) Hypochromasia 1+ Hemoglobin A1c 6.8 % (4.3-6.0) Lactic Acid Level 1.30 mmol/L (0.4-2.0) Uric Acid 9.8 MG/DL (2.6-7.2) 10.0 MG/DL (2.6-7.2) Phosphorus Level 6.4 MG/DL (2.5-4.9) 5.0 MG/DL (2.5-4.9) Magnesium Level 1.6 MG/DL (1.8-2.4) 1.6 MG/DL (1.8-2.4) Iron Level 30 ug/dL (50-175) Total Iron Binding Capacity 177 ug/dL (250-450) Percent Iron Saturation 17 % (15-50) Unsaturated Iron Binding 147 ug/dL (112-346) Ferritin 1447 NG/ML (8-388) Total Creatine Kinase 712 U/L (26-308) C-Reactive Protein, Quantitative 22.1 mg/dL (0.00-0.90) 28.7 mg/dL (0.00-0.90) Triglycerides Level 56 MG/DL (30-150) 62 MG/DL (30-150) Cholesterol Level 171 MG/DL (< 200) 159 MG/DL (< 200) LDL Cholesterol 45 mg/dL (<100) 46 mg/dL (<100) HDL Cholesterol 106 MG/DL (40-60) 92 MG/DL (40-60) Cholesterol/HDL Ratio 1.6 (3.3-4.4) 1.7 (3.3-4.4) Vitamin B12 Level 1859 PG/ML (193-986) Folate 6.8 NG/ML (8.6-58.9) Thyroid Stimulating Hormone (TSH) 1.064 uiU/mL (0.358-3.740) Hepatitis A IgM Antibody Negative (Negative) Hepatitis B Surface Antigen Negative (Negative) Hepatitis B Core IgM Antibody Negative (Negative) Hepatitis C Antibody 0.1 s/co ratio (0.0-0.9) Random Vancomycin Level 43.4 ug/mL Urine Eosinophils None seen (NONE SEEN) Micro Microbiology Date/Time Source Procedure Growth Status 11/26/19 17:30 Nasal Nares - Final Complete 11/26/19 17:30 Nasal Nares - Final Complete Height (Feet): 5 Height (Inches): 3.00 Weight (Pounds): 138 Objective Physical Exam: Vitals: reviewed General Appearance: NAD HEENT: normocephalic, atraumatic Neck: non-tender, normal alignment Respiratory/Chest: normal breath sounds bilaterally Cardiovascular/Chest: normal peripheral pulses, normal rate Abdomen: normal bowel sounds, soft, nontender Extremities: normal range of motion Barber Overton MD Nov 27, 2019 15:43
--- NOTE | 2019-11-27 17:02 | Cardiac Electrophysiology PN ---
Assessment/Plan Assessment/Plan 1. [id number] myocardial infarction with elevated troponin to 3.4 and lateral ischemia on the EKG and epigastric pain. The troponin elevation however could be partially related to the patient's renal failure. Troponin is down to 1.8 and no CP. Continue on aspirin and beta- idalia and statin. 2. Volume overload due to renal failure and CHF EF 40%. The patient may need hemodialysis under management of Dr. Garcia. 3. Hypertension, currently on Zaroxolyn 5 mg daily. DC Norvasc Coreg 6.25 mg b.i.d., Hydralazine 10 q 6 and Isordil 10 mg every six hours. Increase Coreg to 12.5 bid 4. End-stage renal disease, likely need hemodialysis. Further evaluation by Dr. Garcia. 5. Diabetes. Subjective Subjective Alert in NAD. No CP or SOB in ICU. Objective Last 24 Hour Vital Signs Date Time Temp Pulse Resp B/P (MAP) Pulse Ox O2 Delivery O2 Flow Rate FiO2 11/27/19 16:00 80 11/27/19 15:00 75 19 109/59 (76) 93 11/27/19 14:00 76 18 104/64 (77) 95 11/27/19 13:00 74 18 105/72 (83) 100 11/27/19 12:00 97.7 71 12 110/66 (81) 100 11/27/19 12:00 71 11/27/19 11:50 100/71 11/27/19 11:49 100/73 11/27/19 11:00 73 11 100/73 (82) 98 11/27/19 10:00 83 14 134/83 (100) 99 11/27/19 09:00 84 22 98 11/27/19 08:39 84 115/66 11/27/19 08:38 85 115/66 11/27/19 08:22 84 16 115/66 (82) 99 11/27/19 08:05 99 Nasal Cannula 3.0 32 11/27/19 08:00 Nasal Cannula 2.0 11/27/19 08:00 2.0 11/27/19 08:00 99.0 85 18 117/66 (83) 97 11/27/19 08:00 73 11/27/19 07:00 77 14 113/67 (82) 100 11/27/19 06:33 109/56 11/27/19 06:33 109/56 11/27/19 06:00 98.5 77 14 109/56 (73) 98 11/27/19 05:00 75 23 108/61 (77) 100 11/27/19 04:00 Nasal Cannula 2.0 11/27/19 04:00 2.0 11/27/19 04:00 98.8 77 12 124/70 (88) 99 11/27/19 04:00 98.6 77 12 99 11/27/19 04:00 78 11/27/19 03:00 79 21 126/71 (89) 99 11/27/19 02:00 98.0 81 23 110/86 (94) 99 11/27/19 01:00 77 18 114/64 (81) 98 11/27/19 00:32 125/67 11/27/19 00:32 125/67 11/27/19 00:00 98.0 77 24 125/67 (86) 100 11/27/19 00:00 Nasal Cannula 2.0 11/27/19 00:00 2.0 11/27/19 00:00 77 11/26/19 23:00 78 13 111/62 (78) 100 11/26/19 22:16 98.2 80 18 111/54 (73) 98 11/26/19 22:00 82 24 102/48 (66) 99 11/26/19 21:00 84 98/50 11/26/19 21:00 98.6 84 23 98/50 (66) 99 11/26/19 20:00 Nasal Cannula 2.0 11/26/19 20:00 84 17 121/69 (86) 99 11/26/19 20:00 Nasal Cannula 4.0 11/26/19 20:00 2.0 11/26/19 20:00 84 11/26/19 19:00 87 19 108/67 (81) 99 11/26/19 18:33 104/64 11/26/19 18:33 104/64 11/26/19 17:00 98.0 80 17 92/68 (76) 96 Intake and Output 11/26/19 11/27/19 19:00 07:00 Intake Total 200 ml 975 ml Output Total 300 ml Balance 200 ml 675 ml Intake Oral 200 ml 475 ml Blood Product 500 ml Output Urine Total 300 ml # Voids 2 1 Laboratory Tests Test 11/27/19 03:10 11/27/19 03:45 White Blood Count 10.8 K/UL (4.8-10.8) Red Blood Count 3.10 M/UL (4.20-5.40) L Hemoglobin 9.0 G/DL (12.0-16.0) #L Hematocrit 26.0 % (37.0-47.0) L Mean Corpuscular Volume 84 FL (80-99) Mean Corpuscular Hemoglobin 29.0 PG (27.0-31.0) Mean Corpuscular Hemoglobin Concent 34.5 G/DL (32.0-36.0) Red Cell Distribution Width 13.2 % (11.6-14.8) Platelet Count 199 K/UL (150-450) Mean Platelet Volume 8.1 FL (6.5-10.1) Neutrophils (%) (Auto) 68.4 % (45.0-75.0) Lymphocytes (%) (Auto) 20.1 % (20.0-45.0) Monocytes (%) (Auto) 10.9 % (1.0-10.0) H Eosinophils (%) (Auto) 0.1 % (0.0-3.0) Basophils (%) (Auto) 0.4 % (0.0-2.0) Sodium Level 138 MMOL/L (136-145) Potassium Level 2.9 MMOL/L (3.5-5.1) L Chloride Level 102 MMOL/L (98-107) Carbon Dioxide Level 18 MMOL/L (21-32) L Anion Gap 18 mmol/L (5-15) H Blood Urea Nitrogen 87 mg/dL (7-18) H Creatinine 5.6 MG/DL (0.55-1.30) H Estimat Glomerular Filtration Rate 9.6 mL/min (>60) Glucose Level 137 MG/DL (74-106) H Uric Acid 10.0 MG/DL (2.6-7.2) H Calcium Level 7.3 MG/DL (8.5-10.1) L Phosphorus Level 5.0 MG/DL (2.5-4.9) H Magnesium Level 1.6 MG/DL (1.8-2.4) L Total Bilirubin 0.4 MG/DL (0.2-1.0) Aspartate Amino Transf (AST/SGOT) 108 U/L (15-37) H Alanine Aminotransferase (ALT/SGPT) 177 U/L (12-78) H Alkaline Phosphatase 91 U/L (46-116) Troponin I 1.813 ng/mL (0.000-0.056) C-Reactive Protein, Quantitative 28.7 mg/dL (0.00-0.90) H Pro-B-Type Natriuretic Peptide > 30463 pg/mL (0-125) H Total Protein 7.5 G/DL (6.4-8.2) Albumin 2.5 G/DL (3.4-5.0) L Globulin 5.0 g/dL Albumin/Globulin Ratio 0.5 (1.0-2.7) L Triglycerides Level 62 MG/DL (30-150) Cholesterol Level 159 MG/DL (< 200) LDL Cholesterol 46 mg/dL (<100) HDL Cholesterol 92 MG/DL (40-60) H Cholesterol/HDL Ratio 1.7 (3.3-4.4) L Random Vancomycin Level 43.4 ug/mL Urine Eosinophils None seen (NONE SEEN) Microbiology Date/Time Source Procedure Growth Status 11/25/19 16:15 Blood Blood Culture - Preliminary NO GROWTH AFTER 24 HOURS Resulted 11/25/19 16:10 Blood Blood Culture - Preliminary NO GROWTH AFTER 24 HOURS Resulted 11/26/19 17:30 Nasal Nares - Final Complete 11/26/19 17:30 Nasal Nares - Final Complete Objective HEAD AND NECK: Shows mild JVD. LUNGS: Decreased breath sounds. CARDIOVASCULAR: Shows regular S1 and S2 with no gallop. ABDOMEN: Soft. EXTREMITIES: No pitting edema. She has a chronic right toe ulcer. Jeremiah Motley MD Nov 27, 2019 17:02
--- NOTE | 2019-11-27 17:07 | NUR ---
NURSE NOTES: LATE ENTRY: MD FLORES HERE TO SEE PT. INFORMED K 2.9, MG 1.6 REPLACEMENTS GIVEN. SR W/ OCCASIONAL PVC'S, BP WNL
[2019-11-27] MEDS: cefTRIAXone 1 GM in D5W 55 ML IVPB SCH (17:21)
--- NOTE | 2019-11-27 19:30 | NUR ---
NURSE NOTES: Received report from Joel RN. patient in bed awake,alert oriented x4. able to verbalize needs to staff. No fever. no n/v. no SOB. satting 96% room air. Instructed patient to use call light for assistance. bed alarm on. bed lock and in low position. will continue plan of care.
--- NOTE | 2019-11-27 19:37 | NUR ---
HAND-OFF: Report given to EMILY Fortune PT IN NO ACUTE DISTRESS.
[2019-11-27] MEDS: Carvedilol 12.5mg tab ORAL SCH (20:44)
--- NOTE | 2019-11-27 21:14 | General Progress Note ---
Assessment/Plan Assessment/Plan: Assessment - Anemia - Renal failure - NSTEMI - abnormal LFT - possibly due to IN, Hep serologies neg, will check US - DM - HTN Recommendations - Monitor CBC - check OB - follow LFT - Check CPK - abdominal ultrasound - Eventual EGD / Colon at later date Subjective Allergies: Coded Allergies: ASPIRIN (Verified Allergy, Unknown, 04/13/19) Subjective Above noted seen in ICU no abdominal complaints Objective Last 24 Hour Vital Signs Date Time Temp Pulse Resp B/P (MAP) Pulse Ox O2 Delivery O2 Flow Rate FiO2 11/27/19 20:44 82 120/71 11/27/19 20:42 85 18 120/71 (87) 99 11/27/19 20:00 98.0 82 18 119/64 (82) 98 11/27/19 20:00 Room Air 11/27/19 19:32 95 Room Air 21 11/27/19 19:00 80 21 95/77 (83) 94 11/27/19 18:10 114/70 11/27/19 18:09 114/70 11/27/19 18:00 83 18 114/70 (85) 93 11/27/19 17:00 79 20 116/57 (76) 95 11/27/19 16:00 Room Air 11/27/19 16:00 97.9 80 23 113/67 (82) 95 11/27/19 16:00 80 11/27/19 15:00 75 19 109/59 (76) 93 11/27/19 14:00 76 18 104/64 (77) 95 11/27/19 13:00 74 18 105/72 (83) 100 11/27/19 12:00 Room Air 11/27/19 12:00 97.7 71 12 110/66 (81) 100 11/27/19 12:00 71 11/27/19 11:50 100/71 11/27/19 11:49 100/73 11/27/19 11:00 73 11 100/73 (82) 98 11/27/19 10:00 83 14 134/83 (100) 99 11/27/19 09:00 84 22 98 11/27/19 08:39 84 115/66 11/27/19 08:38 85 115/66 11/27/19 08:22 84 16 115/66 (82) 99 11/27/19 08:05 99 Nasal Cannula 3.0 32 11/27/19 08:00 Nasal Cannula 2.0 11/27/19 08:00 2.0 11/27/19 08:00 99.0 85 18 117/66 (83) 97 11/27/19 08:00 73 11/27/19 07:00 77 14 113/67 (82) 100 11/27/19 06:33 109/56 11/27/19 06:33 109/56 11/27/19 06:00 98.5 77 14 109/56 (73) 98 11/27/19 05:00 75 23 108/61 (77) 100 11/27/19 04:00 Nasal Cannula 2.0 11/27/19 04:00 2.0 11/27/19 04:00 98.8 77 12 124/70 (88) 99 11/27/19 04:00 98.6 77 12 99 11/27/19 04:00 78 11/27/19 03:00 79 21 126/71 (89) 99 11/27/19 02:00 98.0 81 23 110/86 (94) 99 11/27/19 01:00 77 18 114/64 (81) 98 11/27/19 00:32 125/67 11/27/19 00:32 125/67 11/27/19 00:00 98.0 77 24 125/67 (86) 100 11/27/19 00:00 Nasal Cannula 2.0 11/27/19 00:00 2.0 11/27/19 00:00 77 11/26/19 23:00 78 13 111/62 (78) 100 11/26/19 22:16 98.2 80 18 111/54 (73) 98 11/26/19 22:00 82 24 102/48 (66) 99 Intake and Output 11/26/19 11/27/19 19:00 07:00 Intake Total 200 ml 975 ml Output Total 300 ml Balance 200 ml 675 ml Intake Oral 200 ml 475 ml Blood Product 500 ml Output Urine Total 300 ml # Voids 2 1 Laboratory Tests 11/27/19 03:10: White Blood Count 10.8, Red Blood Count 3.10L, Hemoglobin 9.0#L, Hematocrit 26.0L, Mean Corpuscular Volume 84, Mean Corpuscular Hemoglobin 29.0, Mean Corpuscular Hemoglobin Concent 34.5, Red Cell Distribution Width 13.2, Platelet Count 199, Mean Platelet Volume 8.1, Neutrophils (%) (Auto) 68.4, Lymphocytes (% ) (Auto) 20.1, Monocytes (%) (Auto) 10.9H, Eosinophils (%) (Auto) 0.1, Basophils (%) (Auto) 0.4, Sodium Level 138, Potassium Level 2.9L, Chloride Level 102, Carbon Dioxide Level 18L, Anion Gap 18H, Blood Urea Nitrogen 87H, Creatinine 5.6H, Estimat Glomerular Filtration Rate 9.6, Glucose Level 137H, Uric Acid 10.0H, Calcium Level 7.3L, Phosphorus Level 5.0H, Magnesium Level 1.6L , Total Bilirubin 0.4, Aspartate Amino Transf (AST/SGOT) 108H, Alanine Aminotransferase (ALT/SGPT) 177H, Alkaline Phosphatase 91, Troponin I 1.813H, C- Reactive Protein, Quantitative 28.7H, Pro-B-Type Natriuretic Peptide > 22410F, Total Protein 7.5, Albumin 2.5L, Globulin 5.0, Albumin/Globulin Ratio 0.5L, Triglycerides Level 62, Cholesterol Level 159, LDL Cholesterol 46, HDL Cholesterol 92H, Cholesterol/HDL Ratio 1.7L, Random Vancomycin Level 43.4 11/27/19 03:45: Urine Eosinophils None seen Height (Feet): 5 Height (Inches): 3.00 Weight (Pounds): 138 Objective WDWN AA woman NCAT supple CTA RRR Abd soft NT ND no edema Kacie Butler MD Nov 27, 2019 21:14
--- NOTE | 2019-11-27 21:30 | NUR ---
NURSE NOTES: Son at bedside.
--- NOTE | 2019-11-27 21:45 | General Progress Note ---
Assessment/Plan Problem List: (1) Non-STEMI (non-ST elevated myocardial infarction) ICD Codes: I21.4 - Non-ST elevation (NSTEMI) myocardial infarction SNOMED: 10444736 (2) Abnormal LFTs ICD Codes: R94.5 - Abnormal results of liver function studies SNOMED: 235641302 (3) Diabetic ulcer of toe ICD Codes: E11.621 - Type 2 diabetes mellitus with foot ulcer; L97.509 - Non- pressure chronic ulcer of other part of unspecified foot with unspecified severity SNOMED: 99788352, 799606648, 014815726 (4) Chronic renal disease ICD Codes: N18.9 - Chronic kidney disease, unspecified SNOMED: 345405130 (5) Nonadherence to medication ICD Codes: Z91.14 - Patient's other noncompliance with medication regimen SNOMED: 941462131 (6) Diabetes mellitus out of control ICD Codes: E11.65 - Type 2 diabetes mellitus with hyperglycemia SNOMED: 96123746, 080940837 (7) Diabetic nephropathy ICD Codes: E11.21 - Type 2 diabetes mellitus with diabetic nephropathy SNOMED: 514873747 (8) Renal failure (ARF), acute on chronic ICD Codes: N17.9 - Acute kidney failure, unspecified; N18.9 - Chronic kidney disease, unspecified SNOMED: 116964980 (9) Anemia in chronic kidney disease (CKD) ICD Codes: N18.9 - Chronic kidney disease, unspecified; D63.1 - Anemia in chronic kidney disease SNOMED: 535477766 Status: unchanged Assessment/Plan: anemia increasing trop niddm elevated sugar nephrobapthy arf as well due to hypotension Subjective ROS Limited/Unobtainable: Yes Allergies: Coded Allergies: ASPIRIN (Verified Allergy, Unknown, 04/13/19) Objective Last 24 Hour Vital Signs Date Time Temp Pulse Resp B/P (MAP) Pulse Ox O2 Delivery O2 Flow Rate FiO2 11/27/19 20:44 82 120/71 11/27/19 20:42 85 18 120/71 (87) 99 11/27/19 20:00 98.0 82 18 119/64 (82) 98 11/27/19 20:00 Room Air 11/27/19 19:32 95 Room Air 21 11/27/19 19:00 80 21 95/77 (83) 94 11/27/19 18:10 114/70 11/27/19 18:09 114/70 11/27/19 18:00 83 18 114/70 (85) 93 11/27/19 17:00 79 20 116/57 (76) 95 11/27/19 16:00 Room Air 11/27/19 16:00 97.9 80 23 113/67 (82) 95 11/27/19 16:00 80 11/27/19 15:00 75 19 109/59 (76) 93 11/27/19 14:00 76 18 104/64 (77) 95 11/27/19 13:00 74 18 105/72 (83) 100 11/27/19 12:00 Room Air 11/27/19 12:00 97.7 71 12 110/66 (81) 100 11/27/19 12:00 71 11/27/19 11:50 100/71 11/27/19 11:49 100/73 11/27/19 11:00 73 11 100/73 (82) 98 11/27/19 10:00 83 14 134/83 (100) 99 11/27/19 09:00 84 22 98 11/27/19 08:39 84 115/66 11/27/19 08:38 85 115/66 11/27/19 08:22 84 16 115/66 (82) 99 11/27/19 08:05 99 Nasal Cannula 3.0 32 11/27/19 08:00 Nasal Cannula 2.0 11/27/19 08:00 2.0 11/27/19 08:00 99.0 85 18 117/66 (83) 97 11/27/19 08:00 73 11/27/19 07:00 77 14 113/67 (82) 100 11/27/19 06:33 109/56 11/27/19 06:33 109/56 11/27/19 06:00 98.5 77 14 109/56 (73) 98 11/27/19 05:00 75 23 108/61 (77) 100 11/27/19 04:00 Nasal Cannula 2.0 11/27/19 04:00 2.0 11/27/19 04:00 98.8 77 12 124/70 (88) 99 11/27/19 04:00 98.6 77 12 99 11/27/19 04:00 78 1/30/20 03:00 79 21 126/71 (89) 99 11/27/19 02:00 98.0 81 23 110/86 (94) 99 11/27/19 01:00 77 18 114/64 (81) 98 11/27/19 00:32 125/67 11/27/19 00:32 125/67 11/27/19 00:00 98.0 77 24 125/67 (86) 100 11/27/19 00:00 Nasal Cannula 2.0 11/27/19 00:00 2.0 11/27/19 00:00 77 11/26/19 23:00 78 13 111/62 (78) 100 11/26/19 22:16 98.2 80 18 111/54 (73) 98 11/26/19 22:00 82 24 102/48 (66) 99 Intake and Output 11/26/19 11/27/19 19:00 07:00 Intake Total 200 ml 975 ml Output Total 300 ml Balance 200 ml 675 ml Intake Oral 200 ml 475 ml Blood Product 500 ml Output Urine Total 300 ml # Voids 2 1 Laboratory Tests 11/27/19 03:10: White Blood Count 10.8, Red Blood Count 3.10L, Hemoglobin 9.0#L, Hematocrit 26.0L, Mean Corpuscular Volume 84, Mean Corpuscular Hemoglobin 29.0, Mean Corpuscular Hemoglobin Concent 34.5, Red Cell Distribution Width 13.2, Platelet Count 199, Mean Platelet Volume 8.1, Neutrophils (%) (Auto) 68.4, Lymphocytes (% ) (Auto) 20.1, Monocytes (%) (Auto) 10.9H, Eosinophils (%) (Auto) 0.1, Basophils (%) (Auto) 0.4, Sodium Level 138, Potassium Level 2.9L, Chloride Level 102, Carbon Dioxide Level 18L, Anion Gap 18H, Blood Urea Nitrogen 87H, Creatinine 5.6H, Estimat Glomerular Filtration Rate 9.6, Glucose Level 137H, Uric Acid 10.0H, Calcium Level 7.3L, Phosphorus Level 5.0H, Magnesium Level 1.6L , Total Bilirubin 0.4, Aspartate Amino Transf (AST/SGOT) 108H, Alanine Aminotransferase (ALT/SGPT) 177H, Alkaline Phosphatase 91, Troponin I 1.813H, C- Reactive Protein, Quantitative 28.7H, Pro-B-Type Natriuretic Peptide > 99462C, Total Protein 7.5, Albumin 2.5L, Globulin 5.0, Albumin/Globulin Ratio 0.5L, Triglycerides Level 62, Cholesterol Level 159, LDL Cholesterol 46, HDL Cholesterol 92H, Cholesterol/HDL Ratio 1.7L, Random Vancomycin Level 43.4 11/27/19 03:45: Urine Eosinophils None seen Height (Feet): 5 Height (Inches): 3.00 Weight (Pounds): 138 Neck: supple Cardiovascular: normal rate Respiratory/Chest: lungs clear Abdomen: soft Partha Keene MD Nov 27, 2019 21:45
--- NOTE | 2019-11-27 22:15 | Consultation ---
DATE OF CONSULTATION: 11/27/2019 CONSULTING PHYSICIAN: Partha Keene M.D. REASON FOR CONSULTATION: Ulceration to the right foot. HISTORY OF PRESENT ILLNESS: This is a 54-year-old patient who was seen in the ICU with ulceration to the right toe. The patient was admitted to [facility] for evaluation and treatment. At this time, the patient is in ICU for management. PAST MEDICAL HISTORY: Per Dr. Keene. PODIATRY EXAMINATION: VASCULAR: Dorsalis pedis and posterior tibial artery are nonpalpable. Capillary refilling time is noted to be 5 seconds. There is edema to the right foot. NEUROLOGICAL: Sharp and dull proprioception, protected threshold noted to be diminished consistent with peripheral neuropathy. MUSCULOSKELETAL: There is an amputation site to the right fifth toe area from previous amputation of the fifth toe. The surgical site is noted to be well healed. DERMATOLOGICAL: Attention was directed to the right third digit. The ulceration is noted at the tip of the toe. The toe is noted to be swollen open wound probing to bone. No drainage or discharge can be appreciated. No purulent matter. Clinically, it is noted to be consistent with underlying osteomyelitis. ASSESSMENT AND PLAN: The patient with peripheral neuropathy and ulceration to the right third toe with clinical osteomyelitis. X-ray is negative for bone erosion. Order was written for MRI of the right foot to rule out osteomyelitis of the third toe. Continue application of Xeroform daily. The patient will be followed. Miguel Mendez D.P.M DR: Lori JOB#: [id number] CC: LAKIA
--- NOTE | 2019-11-27 23:30 | NUR ---
NURSE NOTES: Patient assisted to bedside commode. patient able to clean self. patient able to verbalize needs to staff. Denies any pain or discomfort at this time. no s/s of acute distress noted. SR with PVC HR 80. no s/s of hypo/hyperglycemia. call light within easy reach.
[2019-11-28] VITALS (20 sets, daily range): BP systolic 100–159; BP diastolic 46–120
[2019-11-28] MEDS: Acetaminophen 500mg (ES) tab ORAL PRN ×2 (00:24→11:00)
[2019-11-28] MEDS: HydrALAZINE 10mg Tab ORAL SCH ×4 (00:25→18:10)
--- NOTE | 2019-11-28 01:30 | NUR ---
NURSE NOTES: Patient complain of 5/10 back pain repositioned in bed, talk therapy provided and pillow support not effective Tylenol given effective. will continue plan of care.
[2019-11-28] MEDS: Sodium Citrate 30ml ORAL SCH ×4 (02:59→18:09)
--- NOTE | 2019-11-28 03:30 | NUR ---
NURSE NOTES: Patient in bed sleeping comfortably. denies any pain or discomfort. no s/s of hypo/hyperglycemia. bed alarm on. bed lock and in low position. will continue plan of care.
--- NOTE | 2019-11-28 05:30 | NUR ---
NURSE NOTES: AM care done. all linen changed. pt assisted to bedside commode urinate 300cc. kept clean and dry. blood glucose 110mg/dl.
[2019-11-28] MEDS: sitaGLIPtin 25mg tab ORAL SCH (05:58)
[2019-11-28] MEDS: NovoLOG Insulin Flexpen SUBQ SCH ×4 (05:59→21:00)
[2019-11-28 06:10] LABS: HEMATOCRIT 25.6 % (37.0-47.0); HEMOGLOBIN 8.6 G/DL (12.0-16.0); LYMPHOCYTES % (AUTO) 23.4 % (20.0-45.0); MEAN CORPUSCULAR VOLUME 84 FL (80-99); MONOCYTES % (AUTO) 12.4 % (1.0-10.0); NEUTROPHILS % (AUTO) 62.2 % (45.0-75.0); PLATELET COUNT 202 K/UL (150-450); RED BLOOD COUNT 3.04 M/UL (4.20-5.40); RED CELL DISTRIBUTION WIDTH 13.1 % (11.6-14.8); WHITE BLOOD COUNT 9.6 K/UL (4.8-10.8)
[2019-11-28 06:29] LABS: CREATINE KINASE 214 U/L (26-308)
[2019-11-28 06:30] LABS: ALANINE AMINOTRANSFERASE 133 U/L (12-78); ALBUMIN 2.3 G/DL (3.4-5.0); ALBUMIN/GLOBULIN RATIO 0.5 (1.0-2.7); ALKALINE PHOSPHATASE 88 U/L (46-116); ANION GAP 14 mmol/L (5-15); ASPARTATE AMINO TRANSFERASE 48 U/L (15-37); BILIRUBIN,TOTAL 0.2 MG/DL (0.2-1.0); BLOOD UREA NITROGEN 85 mg/dL (7-18); CALCIUM 7.3 MG/DL (8.5-10.1); CARBON DIOXIDE 21 MMOL/L (21-32); CHLORIDE 105 MMOL/L (98-107); POTASSIUM 3.3 MMOL/L (3.5-5.1); SODIUM 140 MMOL/L (136-145)
--- NOTE | 2019-11-28 06:31 | Hematology/Onc Progress Note ---
Assessment/Plan Assessment/Plan Assessment / recs: # Anemia of chronic disease due to underlying chronic medical issues, multifactorial v Gi bleed --> in this case likely kidney disease --> Anemia workup has been ordered, rule out gi bleed --> No evidence of hemolysis is noted, peripheral smear has been reviewed. --> Hgb goal >7. Transfuse prn. --> Low threshold for epogen as ferritin >1000, and severe kidney disease --> Medications have been reviewed --> low threshold for gi evaluation in case has occult + --> bone marrow biopsy is not indicated given the other more likely causes --> hgb trend: 6.9-->9 --> blood: 2 units prbc 11/27, # Anemia of folic acid deficiency --> started on folate as per renal --> trend h/h as needed # Leukocytosis likely reactive v infection --> monitor for improvement --> as per id --> trend 16-->14-->10.8 --> hold off flow --> abx: vanc # Fluid overload --> diuresis as per cards/renal --> echo 2d # ИВАН on CKD --> per renal # Noncompliance # Shortness of breath # Elevated troponin --> w/u as per cards DW Rn and appreciate consultation. Subjective Constitutional: Denies: no symptoms, chills, fever, malaise, weakness, other HEENT: Denies: no symptoms, eye pain, blurred vision, tearing, double vision, ear pain, ear discharge, nose pain, nose congestion, throat pain, throat swelling, mouth pain, mouth swelling, other Cardiovascular: Denies: no symptoms, chest pain, edema, irregular heart rate, lightheadedness, palpitations, syncope, other Respiratory: Denies: no symptoms, cough, shortness of breath, SOB with excertion, SOB at rest, sputum, wheezing, other Gastrointestinal/Abdominal: Denies: no symptoms, abdomen distended, abdominal pain, black stools, tarry stools, blood in stool, constipated, diarrhea, difficulty swallowing, nausea, poor appetite, poor fluid intake, rectal bleeding , vomiting, other Genitourinary: Denies: no symptoms, burning, discharge, frequency, flank pain, hematuria, incontinence, pain, urgency, other Neurologic/Psychiatric: Denies: no symptoms, anxiety, depressed, emotional problems, headache, numbness, paresthesia, pre-existing deficit, seizure, tingling, tremors, weakness, other Allergies: Coded Allergies: ASPIRIN (Verified Allergy, Unknown, 04/13/19) Subjective 11/27: icu, s/p 2 units prbc, hgb improved to 9, on abx 11/28: complaining of back pain, with 3rd toe osteo, no bleeding or chills Objective Objective Current Medications Medications (Trade) Dose Ordered Sig/Yeny Route PRN Reason Start Time Stop Time Status Last Admin Dose Admin Acetaminophen (Tylenol) 500 mg Q4H PRN ORAL Mild Pain/Temp > 100.5 11/26/19 13:30 12/26/19 13:29 11/28/19 00:24 Albuterol/ Ipratropium (Albuterol/ Ipratropium) 3 ml Q4H PRN HHN Shortness of Breath 11/26/19 13:39 12/01/19 13:38 Allopurinol (allopurinoL) 300 mg DAILY ORAL 11/27/19 09:00 12/27/19 08:59 11/27/19 08:36 Carvedilol (Coreg) 12.5 mg EVERY 12 HOURS ORAL 11/27/19 21:00 12/26/19 20:59 11/27/19 20:44 Ceftriaxone Sodium 1 gm/ Dextrose 55 ml @ 110 mls/hr Q24H IVPB 11/26/19 16:00 12/03/19 15:59 11/27/19 17:21 Clopidogrel Bisulfate (Plavix) 75 mg DAILY ORAL 11/27/19 09:00 12/26/19 08:59 11/27/19 08:40 Dextrose (Dextrose 50%) 25 ml Q30M PRN IV Hypoglycemia 11/26/19 14:00 12/26/19 01:29 Dextrose (Dextrose 50%) 50 ml Q30M PRN IV Hypoglycemia 11/26/19 14:00 12/26/19 01:29 Docusate Sodium (Colace) 100 mg THREE TIMES A DAY ORAL 11/26/19 18:00 12/26/19 08:59 11/27/19 18:09 Epoetin Jensen (Epoetin Jensen-EPBX(NON ESRD)) 10,000 unit SUN-SUN-FRI SUBQ 11/26/19 21:00 12/26/19 20:59 11/26/19 21:37 Folic Acid (Folate) 3 mg DAILY ORAL 11/26/19 14:30 12/26/19 14:29 11/27/19 08:36 Heparin Sodium (Porcine) (Heparin 5000 units/ml) 5,000 units EVERY 12 HOURS SUBQ 11/26/19 21:00 12/26/19 08:59 11/27/19 20:47 Hydralazine HCl (Apresoline) 10 mg Q6HR ORAL 11/26/19 18:00 12/26/19 17:59 11/28/19 05:59 Hydralazine HCl (Apresoline) 25 mg Q4H PRN ORAL bp over 160 syst 11/26/19 13:39 12/26/19 13:38 Insulin Aspart (NovoLOG) BEFORE MEALS AND HS SUBQ 11/26/19 16:30 12/26/19 06:29 11/27/19 20:48 Isosorbide Dinitrate (Isordil) 10 mg Q6HR ORAL 11/26/19 18:00 12/26/19 17:59 11/28/19 05:59 Metolazone (Zaroxolyn) 5 mg DAILY ORAL 11/27/19 09:00 12/27/19 08:59 11/27/19 08:37 Pantoprazole (Protonix) 40 mg EVERY 12 HOURS ORAL 11/26/19 21:00 12/26/19 20:59 11/27/19 20:44 Sitagliptin Phosphate (Januvia) 25 mg ACBREAKFAST ORAL 11/27/19 06:30 12/27/19 06:29 11/28/19 05:58 Sodium Citrate (Bicitra) 30 ml Q6H ORAL 11/27/19 08:00 12/27/19 07:59 11/28/19 02:59 Vancomycin HCl (Vanco rx to dose) 1 ea DAILY PRN MISC Per rx protocol 11/26/19 13:45 12/26/19 13:44 Zolpidem Tartrate (Ambien) 5 mg HSPRN PRN ORAL Insomnia 11/26/19 13:30 12/03/19 13:29 Last 24 Hour Vital Signs Date Time Temp Pulse Resp B/P (MAP) Pulse Ox O2 Delivery O2 Flow Rate FiO2 11/28/19 05:59 122/70 11/28/19 05:59 122/70 11/28/19 05:00 70 11 122/70 (87) 96 11/28/19 04:00 Room Air 11/28/19 04:00 98.0 71 12 110/62 (78) 96 11/28/19 04:00 71 11/28/19 03:00 76 15 113/69 (84) 96 11/28/19 02:00 72 11 114/66 (82) 98 11/28/19 01:00 75 16 100/46 (64) 96 11/28/19 00:54 98.0 11/28/19 00:25 121/69 11/28/19 00:23 121/69 11/28/19 00:18 79 18 121/69 (86) 94 11/28/19 00:00 78 11/28/19 00:00 Room Air 11/28/19 00:00 97.9 80 20 109/70 (83) 93 11/27/19 23:00 82 18 117/65 (82) 97 11/27/19 22:00 85 19 119/71 (87) 99 11/27/19 21:00 87 14 122/64 (83) 96 11/27/19 20:44 82 120/71 11/27/19 20:42 85 18 120/71 (87) 99 11/27/19 20:00 80 11/27/19 20:00 98.0 82 18 119/64 (82) 98 11/27/19 20:00 Room Air 11/27/19 19:32 95 Room Air 21 11/27/19 19:00 80 21 95/77 (83) 94 11/27/19 18:10 114/70 11/27/19 18:09 114/70 11/27/19 18:00 83 18 114/70 (85) 93 11/27/19 17:00 79 20 116/57 (76) 95 11/27/19 16:00 Room Air 11/27/19 16:00 97.9 80 23 113/67 (82) 95 11/27/19 16:00 80 11/27/19 15:00 75 19 109/59 (76) 93 11/27/19 14:00 76 18 104/64 (77) 95 11/27/19 13:00 74 18 105/72 (83) 100 11/27/19 12:00 Room Air 11/27/19 12:00 97.7 71 12 110/66 (81) 100 11/27/19 12:00 71 11/27/19 11:50 100/71 11/27/19 11:49 100/73 11/27/19 11:00 73 11 100/73 (82) 98 11/27/19 10:00 83 14 134/83 (100) 99 11/27/19 09:00 84 22 98 11/27/19 08:39 84 115/66 11/27/19 08:38 85 115/66 11/27/19 08:22 84 16 115/66 (82) 99 11/27/19 08:05 99 Nasal Cannula 3.0 32 11/27/19 08:00 Nasal Cannula 2.0 11/27/19 08:00 2.0 11/27/19 08:00 99.0 85 18 117/66 (83) 97 11/27/19 08:00 73 11/27/19 07:00 77 14 113/67 (82) 100 11/27/19 06:33 109/56 11/27/19 06:33 109/56 11/27/19 06:00 98.5 77 14 109/56 (73) 98 11/27/19 05:00 75 23 108/61 (77) 100 11/27/19 04:00 Nasal Cannula 2.0 11/27/19 04:00 2.0 11/27/19 04:00 98.8 77 12 124/70 (88) 99 11/27/19 04:00 98.6 77 12 99 11/27/19 04:00 78 11/27/19 03:00 79 21 126/71 (89) 99 11/27/19 02:00 98.0 81 23 110/86 (94) 99 11/27/19 01:00 77 18 114/64 (81) 98 11/27/19 00:32 125/67 11/27/19 00:32 125/67 11/27/19 00:00 98.0 77 24 125/67 (86) 100 11/27/19 00:00 Nasal Cannula 2.0 11/27/19 00:00 2.0 11/27/19 00:00 77 11/26/19 23:00 78 13 111/62 (78) 100 11/26/19 22:16 98.2 80 18 111/54 (73) 98 11/26/19 22:00 82 24 102/48 (66) 99 11/26/19 21:00 84 98/50 11/26/19 21:00 98.6 84 23 98/50 (66) 99 11/26/19 20:00 Nasal Cannula 2.0 11/26/19 20:00 84 17 121/69 (86) 99 11/26/19 20:00 Nasal Cannula 4.0 11/26/19 20:00 2.0 11/26/19 20:00 84 11/26/19 19:00 87 19 108/67 (81) 99 11/26/19 18:33 104/64 11/26/19 18:33 104/64 11/26/19 17:00 98.0 80 17 92/68 (76) 96 11/26/19 16:00 79 11/26/19 16:00 4.0 11/26/19 16:00 81 20 121/60 (80) 96 11/26/19 16:00 Nasal Cannula 4.0 11/26/19 15:48 96 133/84 11/26/19 15:00 96 21 133/84 (100) 99 11/26/19 14:00 97 21 122/59 (80) 93 11/26/19 13:00 96 20 128/64 (85) 93 11/26/19 12:00 4.0 11/26/19 12:00 96 11/26/19 12:00 98.4 94 16 133/73 (93) 95 11/26/19 12:00 Bi-pap 11/26/19 09:42 88 117/78 11/26/19 09:21 88 18 98 Full Face 35 11/26/19 08:00 98.7 92 16 117/78 (91) 100 11/26/19 08:00 4.0 11/26/19 08:00 82 11/26/19 08:00 Bi-pap 11/26/19 07:00 76 13 97 Full Face 35 Intake and Output 11/27/19 11/28/19 19:00 07:00 Intake Total 410 ml 250 ml Output Total 1 ml Balance 409 ml 250 ml Intake Oral 300 ml 250 ml IV Total 110 ml Output Urine Total 1 ml # Voids 3 2 # Bowel Movements 2 Labs Test 11/25/19 16:15 11/26/19 04:50 11/27/19 03:10 11/27/19 03:45 White Blood Count 16.8 K/UL (4.8-10.8) 14.2 K/UL (4.8-10.8) 10.8 K/UL (4.8-10.8) Red Blood Count 2.74 M/UL (4.20-5.40) 2.48 M/UL (4.20-5.40) 3.10 M/UL (4.20-5.40) Hemoglobin 7.6 G/DL (12.0-16.0) 6.9 G/DL (12.0-16.0) 9.0 G/DL (12.0-16.0) Hematocrit 23.7 % (37.0-47.0) 21.1 % (37.0-47.0) 26.0 % (37.0-47.0) Mean Corpuscular Volume 86 FL (80-99) 85 FL (80-99) 84 FL (80-99) Mean Corpuscular Hemoglobin 27.8 PG (27.0-31.0) 27.7 PG (27.0-31.0) 29.0 PG (27.0-31.0) Mean Corpuscular Hemoglobin Concent 32.2 G/DL (32.0-36.0) 32.7 G/DL (32.0-36.0) 34.5 G/DL (32.0-36.0) Red Cell Distribution Width 15.2 % (11.6-14.8) 14.5 % (11.6-14.8) 13.2 % (11.6-14.8) Platelet Count 212 K/UL (150-450) 213 K/UL (150-450) 199 K/UL (150-450) Mean Platelet Volume 7.8 FL (6.5-10.1) 7.6 FL (6.5-10.1) 8.1 FL (6.5-10.1) Neutrophils (%) (Auto) % (45.0-75.0) % (45.0-75.0) 68.4 % (45.0-75.0) Lymphocytes (%) (Auto) % (20.0-45.0) % (20.0-45.0) 20.1 % (20.0-45.0) Monocytes (%) (Auto) % (1.0-10.0) % (1.0-10.0) 10.9 % (1.0-10.0) Eosinophils (%) (Auto) % (0.0-3.0) % (0.0-3.0) 0.1 % (0.0-3.0) Basophils (%) (Auto) % (0.0-2.0) % (0.0-2.0) 0.4 % (0.0-2.0) Differential Total Cells Counted 100 100 Neutrophils % (Manual) 78 % (45-75) 73 % (45-75) Lymphocytes % (Manual) 18 % (20-45) 13 % (20-45) Monocytes % (Manual) 4 % (1-10) 13 % (1-10) Eosinophils % (Manual) 0 % (0-3) 1 % (0-3) Basophils % (Manual) 0 % (0-2) 0 % (0-2) Band Neutrophils 0 % (0-8) 0 % (0-8) Platelet Estimate Adequate Adequate Platelet Morphology Normal Normal Polychromasia 1+ Anisocytosis 1+ 1+ Sodium Level 135 MMOL/L (136-145) 138 MMOL/L (136-145) 138 MMOL/L (136-145) Potassium Level 5.9 MMOL/L (3.5-5.1) 3.7 MMOL/L (3.5-5.1) 2.9 MMOL/L (3.5-5.1) Chloride Level 102 MMOL/L (98-107) 102 MMOL/L (98-107) 102 MMOL/L (98-107) Carbon Dioxide Level 14 MMOL/L (21-32) 18 MMOL/L (21-32) 18 MMOL/L (21-32) Anion Gap 19 mmol/L (5-15) 18 mmol/L (5-15) 18 mmol/L (5-15) Blood Urea Nitrogen 77 mg/dL (7-18) 87 mg/dL (7-18) 87 mg/dL (7-18) Creatinine 5.2 MG/DL (0.55-1.30) 5.3 MG/DL (0.55-1.30) 5.6 MG/DL (0.55-1.30) Estimat Glomerular Filtration Rate 10.3 mL/min (>60) 10.2 mL/min (>60) 9.6 mL/min (>60) Glucose Level 239 MG/DL (74-106) 203 MG/DL (74-106) 137 MG/DL (74-106) Calcium Level 8.8 MG/DL (8.5-10.1) 8.1 MG/DL (8.5-10.1) 7.3 MG/DL (8.5-10.1) Total Bilirubin 0.4 MG/DL (0.2-1.0) 0.3 MG/DL (0.2-1.0) 0.4 MG/DL (0.2-1.0) Aspartate Amino Transf (AST/SGOT) 276 U/L (15-37) 156 U/L (15-37) 108 U/L (15-37) Alanine Aminotransferase (ALT/SGPT) 223 U/L (12-78) 199 U/L (12-78) 177 U/L (12-78) Alkaline Phosphatase 111 U/L (46-116) 94 U/L (46-116) 91 U/L (46-116) Troponin I 2.011 ng/mL (0.000-0.056) 3.476 ng/mL (0.000-0.056) 1.813 ng/mL (0.000-0.056) Pro-B-Type Natriuretic Peptide > 25919 pg/mL (0-125) > 85843 pg/mL (0-125) > 17472 pg/mL (0-125) Total Protein 8.7 G/DL (6.4-8.2) 7.7 G/DL (6.4-8.2) 7.5 G/DL (6.4-8.2) Albumin 2.9 G/DL (3.4-5.0) 2.6 G/DL (3.4-5.0) 2.5 G/DL (3.4-5.0) Globulin 5.8 g/dL 5.1 g/dL 5.0 g/dL Albumin/Globulin Ratio 0.5 (1.0-2.7) 0.5 (1.0-2.7) 0.5 (1.0-2.7) Lipase 103 U/L (73-393) 110 U/L (73-393) Hypochromasia 1+ Hemoglobin A1c 6.8 % (4.3-6.0) Lactic Acid Level 1.30 mmol/L (0.4-2.0) Uric Acid 9.8 MG/DL (2.6-7.2) 10.0 MG/DL (2.6-7.2) Phosphorus Level 6.4 MG/DL (2.5-4.9) 5.0 MG/DL (2.5-4.9) Magnesium Level 1.6 MG/DL (1.8-2.4) 1.6 MG/DL (1.8-2.4) Iron Level 30 ug/dL (50-175) Total Iron Binding Capacity 177 ug/dL (250-450) Percent Iron Saturation 17 % (15-50) Unsaturated Iron Binding 147 ug/dL (112-346) Ferritin 1447 NG/ML (8-388) Total Creatine Kinase 712 U/L (26-308) C-Reactive Protein, Quantitative 22.1 mg/dL (0.00-0.90) 28.7 mg/dL (0.00-0.90) Triglycerides Level 56 MG/DL (30-150) 62 MG/DL (30-150) Cholesterol Level 171 MG/DL (< 200) 159 MG/DL (< 200) LDL Cholesterol 45 mg/dL (<100) 46 mg/dL (<100) HDL Cholesterol 106 MG/DL (40-60) 92 MG/DL (40-60) Cholesterol/HDL Ratio 1.6 (3.3-4.4) 1.7 (3.3-4.4) Vitamin B12 Level 1859 PG/ML (193-986) Folate 6.8 NG/ML (8.6-58.9) Thyroid Stimulating Hormone (TSH) 1.064 uiU/mL (0.358-3.740) Hepatitis A IgM Antibody Negative (Negative) Hepatitis B Surface Antigen Negative (Negative) Hepatitis B Core IgM Antibody Negative (Negative) Hepatitis C Antibody 0.1 s/co ratio (0.0-0.9) Random Vancomycin Level 43.4 ug/mL Urine Eosinophils None seen (NONE SEEN) Test 11/28/19 03:00 11/28/19 05:25 White Blood Count 9.6 K/UL (4.8-10.8) Red Blood Count 3.04 M/UL (4.20-5.40) Hemoglobin 8.6 G/DL (12.0-16.0) Hematocrit 25.6 % (37.0-47.0) Mean Corpuscular Volume 84 FL (80-99) Mean Corpuscular Hemoglobin 28.2 PG (27.0-31.0) Mean Corpuscular Hemoglobin Concent 33.5 G/DL (32.0-36.0) Red Cell Distribution Width 13.1 % (11.6-14.8) Platelet Count 202 K/UL (150-450) Mean Platelet Volume 7.5 FL (6.5-10.1) Neutrophils (%) (Auto) 62.2 % (45.0-75.0) Lymphocytes (%) (Auto) 23.4 % (20.0-45.0) Monocytes (%) (Auto) 12.4 % (1.0-10.0) Eosinophils (%) (Auto) 1.0 % (0.0-3.0) Basophils (%) (Auto) 1.0 % (0.0-2.0) Height (Feet): 5 Height (Inches): 3.00 Weight (Pounds): 138 Objective Physical Exam: Vitals: reviewed General Appearance: NAD HEENT: normocephalic, atraumatic Neck: non-tender, normal alignment Respiratory/Chest: normal breath sounds bilaterally Cardiovascular/Chest: normal peripheral pulses, normal rate Abdomen: normal bowel sounds, soft, nontender Extremities: normal range of motion Barber Overton MD Nov 28, 2019 06:31
[2019-11-28 06:40] LABS: PHOSPHORUS 4.1 MG/DL (2.5-4.9)
--- NOTE | 2019-11-28 07:03 | General Progress Note ---
Assessment/Plan Problem List: (1) Diabetes mellitus out of control ICD Codes: E11.65 - Type 2 diabetes mellitus with hyperglycemia SNOMED: 34506268, 835846051 (2) Fluid overload ICD Codes: E87.70 - Fluid overload, unspecified SNOMED: 51124414 (3) Chronic renal disease ICD Codes: N18.9 - Chronic kidney disease, unspecified SNOMED: 968144491 (4) Nonadherence to medication ICD Codes: Z91.14 - Patient's other noncompliance with medication regimen SNOMED: 129684136 (5) Diabetic ulcer of toe ICD Codes: E11.621 - Type 2 diabetes mellitus with foot ulcer; L97.509 - Non- pressure chronic ulcer of other part of unspecified foot with unspecified severity SNOMED: 79815581, 319167854, 453581638 Status: unchanged Assessment/Plan: continue Januvia 25 mg daily - N[place] in non formulary at [facility] continue NISS ac / hs Subjective Allergies: Coded Allergies: ASPIRIN (Verified Allergy, Unknown, 04/13/19) Subjective events noted glucose values are stable Item Value Date Time Bedside Blood Glucose 110 mg/dl 11/28/19 0559 Bedside Blood Glucose 155 mg/dl H 11/27/19 2048 Bedside Blood Glucose 160 mg/dl H 11/27/19 1721 Bedside Blood Glucose 170 mg/dl H 11/27/19 1153 Bedside Blood Glucose 122 mg/dl H 11/27/19 0630 Objective Last 24 Hour Vital Signs Date Time Temp Pulse Resp B/P (MAP) Pulse Ox O2 Delivery O2 Flow Rate FiO2 11/28/19 05:59 122/70 11/28/19 05:59 122/70 11/28/19 05:00 70 11 122/70 (87) 96 11/28/19 04:00 Room Air 11/28/19 04:00 98.0 71 12 110/62 (78) 96 11/28/19 04:00 71 11/28/19 03:00 76 15 113/69 (84) 96 11/28/19 02:00 72 11 114/66 (82) 98 11/28/19 01:00 75 16 100/46 (64) 96 11/28/19 00:54 98.0 11/28/19 00:25 121/69 11/28/19 00:23 121/69 11/28/19 00:18 79 18 121/69 (86) 94 11/28/19 00:00 78 11/28/19 00:00 Room Air 11/28/19 00:00 97.9 80 20 109/70 (83) 93 11/27/19 23:00 82 18 117/65 (82) 97 11/27/19 22:00 85 19 119/71 (87) 99 11/27/19 21:00 87 14 122/64 (83) 96 11/27/19 20:44 82 120/71 11/27/19 20:42 85 18 120/71 (87) 99 11/27/19 20:00 80 11/27/19 20:00 98.0 82 18 119/64 (82) 98 11/27/19 20:00 Room Air 11/27/19 19:32 95 Room Air 21 11/27/19 19:00 80 21 95/77 (83) 94 11/27/19 18:10 114/70 11/27/19 18:09 114/70 11/27/19 18:00 83 18 114/70 (85) 93 11/27/19 17:00 79 20 116/57 (76) 95 11/27/19 16:00 Room Air 11/27/19 16:00 97.9 80 23 113/67 (82) 95 11/27/19 16:00 80 11/27/19 15:00 75 19 109/59 (76) 93 11/27/19 14:00 76 18 104/64 (77) 95 11/27/19 13:00 74 18 105/72 (83) 100 11/27/19 12:00 Room Air 11/27/19 12:00 97.7 71 12 110/66 (81) 100 11/27/19 12:00 71 11/27/19 11:50 100/71 11/27/19 11:49 100/73 11/27/19 11:00 73 11 100/73 (82) 98 11/27/19 10:00 83 14 134/83 (100) 99 11/27/19 09:00 84 22 98 11/27/19 08:39 84 115/66 11/27/19 08:38 85 115/66 11/27/19 08:22 84 16 115/66 (82) 99 11/27/19 08:05 99 Nasal Cannula 3.0 32 11/27/19 08:00 Nasal Cannula 2.0 11/27/19 08:00 2.0 11/27/19 08:00 99.0 85 18 117/66 (83) 97 11/27/19 08:00 73 Intake and Output 11/27/19 11/28/19 19:00 07:00 Intake Total 410 ml 250 ml Output Total 1 ml Balance 409 ml 250 ml Intake Oral 300 ml 250 ml IV Total 110 ml Output Urine Total 1 ml # Voids 3 2 # Bowel Movements 2 Laboratory Tests 11/28/19 03:00: Stool Occult Blood [Pending] 11/28/19 05:25: White Blood Count 9.6, Red Blood Count 3.04L, Hemoglobin 8.6L, Hematocrit 25.6L , Mean Corpuscular Volume 84, Mean Corpuscular Hemoglobin 28.2, Mean Corpuscular Hemoglobin Concent 33.5, Red Cell Distribution Width 13.1, Platelet Count 202, Mean Platelet Volume 7.5, Neutrophils (%) (Auto) 62.2, Lymphocytes (% ) (Auto) 23.4, Monocytes (%) (Auto) 12.4H, Eosinophils (%) (Auto) 1.0, Basophils (%) (Auto) 1.0, Sodium Level 140, Potassium Level 3.3L, Chloride Level 105, Carbon Dioxide Level 21, Anion Gap 14, Blood Urea Nitrogen 85H, Creatinine 6.0H, Estimat Glomerular Filtration Rate 8.8, Glucose Level 119H, Uric Acid 9.8H, Calcium Level 7.3L, Phosphorus Level 4.1, Magnesium Level 2.3, Total Bilirubin 0.2, Aspartate Amino Transf (AST/SGOT) 48H, Alanine Aminotransferase (ALT/SGPT) 133H, Alkaline Phosphatase 88, Total Creatine Kinase 214, C-Reactive Protein, Quantitative 15.6H, Pro-B-Type Natriuretic Peptide > 77553R, Total Protein 7.2, Albumin 2.3L, Globulin 4.9, Albumin/ Globulin Ratio 0.5L, Random Vancomycin Level 21.2 Height (Feet): 5 Height (Inches): 3.00 Weight (Pounds): 138 General Appearance: no apparent distress Neck: normal alignment Cardiovascular: normal rate Respiratory/Chest: lungs clear Objective Current Medications Medications (Trade) Dose Ordered Sig/Yeny Route PRN Reason Start Time Stop Time Status Last Admin Dose Admin Acetaminophen (Tylenol) 500 mg Q4H PRN ORAL Mild Pain/Temp > 100.5 11/26/19 13:30 12/26/19 13:29 11/28/19 00:24 Albuterol/ Ipratropium (Albuterol/ Ipratropium) 3 ml Q4H PRN HHN Shortness of Breath 11/26/19 13:39 12/01/19 13:38 Allopurinol (allopurinoL) 300 mg DAILY ORAL 11/27/19 09:00 12/27/19 08:59 11/27/19 08:36 Carvedilol (Coreg) 12.5 mg EVERY 12 HOURS ORAL 11/27/19 21:00 12/26/19 20:59 11/27/19 20:44 Ceftriaxone Sodium 1 gm/ Dextrose 55 ml @ 110 mls/hr Q24H IVPB 11/26/19 16:00 12/03/19 15:59 11/27/19 17:21 Clopidogrel Bisulfate (Plavix) 75 mg DAILY ORAL 11/27/19 09:00 12/26/19 08:59 11/27/19 08:40 Dextrose (Dextrose 50%) 25 ml Q30M PRN IV Hypoglycemia 11/26/19 14:00 12/26/19 01:29 Dextrose (Dextrose 50%) 50 ml Q30M PRN IV Hypoglycemia 11/26/19 14:00 12/26/19 01:29 Docusate Sodium (Colace) 100 mg THREE TIMES A DAY ORAL 11/26/19 18:00 12/26/19 08:59 11/27/19 18:09 Epoetin Jensen (Epoetin Jensen-EPBX(NON ESRD)) 10,000 unit SUN-SUN-SUN SUBQ 11/26/19 21:00 12/26/19 20:59 11/26/19 21:37 Folic Acid (Folate) 3 mg DAILY ORAL 11/26/19 14:30 12/26/19 14:29 11/27/19 08:36 Heparin Sodium (Porcine) (Heparin 5000 units/ml) 5,000 units EVERY 12 HOURS SUBQ 11/26/19 21:00 12/26/19 08:59 11/27/19 20:47 Hydralazine HCl (Apresoline) 10 mg Q6HR ORAL 11/26/19 18:00 12/26/19 17:59 11/28/19 05:59 Hydralazine HCl (Apresoline) 25 mg Q4H PRN ORAL bp over 160 syst 11/26/19 13:39 12/26/19 13:38 Insulin Aspart (NovoLOG) BEFORE MEALS AND HS SUBQ 11/26/19 16:30 12/26/19 06:29 11/27/19 20:48 Isosorbide Dinitrate (Isordil) 10 mg Q6HR ORAL 11/26/19 18:00 12/26/19 17:59 11/28/19 05:59 Metolazone (Zaroxolyn) 5 mg DAILY ORAL 11/27/19 09:00 12/27/19 08:59 11/27/19 08:37 Pantoprazole (Protonix) 40 mg EVERY 12 HOURS ORAL 11/26/19 21:00 12/26/19 20:59 11/27/19 20:44 Sitagliptin Phosphate (Januvia) 25 mg ACBREAKFAST ORAL 11/27/19 06:30 12/27/19 06:29 11/28/19 05:58 Sodium Citrate (Bicitra) 30 ml Q6H ORAL 11/27/19 08:00 12/27/19 07:59 11/28/19 02:59 Vancomycin HCl (Vanco rx to dose) 1 ea DAILY PRN MISC Per rx protocol 11/26/19 13:45 12/26/19 13:44 Zolpidem Tartrate (Ambien) 5 mg HSPRN PRN ORAL Insomnia 11/26/19 13:30 12/03/19 13:29 Robert Pierce MD Nov 28, 2019 07:03
--- NOTE | 2019-11-28 07:25 | NUR ---
HAND-OFF: Report given to Jayson LUTZ.
--- NOTE | 2019-11-28 07:26 | NUR ---
NURSE NOTES: Received patient from Linda LUTZ. Patient is asleep, easily awaken by name, alert and oriented x4. Sinus Rhythm on the Heart Monitor, HR 70. IV site is right forearm 22g patent and intact. Bed is locked, placed in lowest position, side rails up x3, bed alarm on, call light within reach. Will continue to monitor.
[2019-11-28] MEDS: Carvedilol 12.5mg tab ORAL SCH ×2 (08:46→21:53)
[2019-11-28] MEDS: Docusate 100mg cap ORAL SCH ×3 (09:00→18:00)
--- NOTE | 2019-11-28 10:06 | Pulmonolgy Critical Care Note ---
Critical Care - Asmt/Plan Assessment/Plan: Pulmonary Critical Care Progress Note HPI Patient is a 54-year-old woman with previous history of Chronic Kidney Disease, Diabetes, Hypertension, admitted with increased difficulty with breathing. Noted to be fluid overloaded, increased Troponin. Not currently on dialysis. Denies any recent fever, chest pain. Anemia s/p Transfusion, Hb stable, Renal US negative for hydronephrosis Elevated Troponin downtrending No new complaints Allergies: ASPIRIN Past Medical History: Chronic Kidney Disease, Diabetes, Hypertension All Other Systems: negative except mentioned in HPI Physical Exam Vital Signs Noted General Appearance: normal inspection, well appearing, no apparent distress, alert, GCS 15 Head: atraumatic ENT: normal ENT inspection, hearing grossly normal, normal voice Neck: normal inspection, full range of motion, supple, no bony tend Respiratory: normal inspection, lungs clear, normal breath sounds, no respiratory distress, no retraction, no wheezing Cardiovascular: regular rate, rhythm, HS1, HS2 normal, no edema Gastrointestinal: normal inspection, normal bowel sounds, non tender, soft, no guarding, no hernia Genitourinary: no CVA tenderness Musculoskeletal: normal inspection, back normal, normal range of motion Neurologic: alert, oriented x3, responsive, speech normal, normal inspection Impression: Fluid overload Elevated Troponin downtrending Pneumonia Chronic Kidney Disease Anemia Diabetes Hypertension Plan - Renal following - Plavix - Cardiology following - IV AB per ID - Monitor labs - Transfuse PRN - O2/Bipap PRN - PPX - [employer] Medications - Kayexalate PRN - TFN PRN - Protonix EKG: Normal sinus rhythm with a rate of [address] or T wave changes. There is no QRS widening noted. CXR: Mild cardiomegaly, interstitial and patchy infiltrates, small effusions LE Dupplex:Negative for DVT Labs Noted Critical Care - Objective Last 24 Hour Vital Signs Date Time Temp Pulse Resp B/P (MAP) Pulse Ox O2 Delivery O2 Flow Rate FiO2 11/28/19 08:46 74 129/74 11/28/19 07:15 96 Room Air 21 11/28/19 07:00 73 21 111/64 (80) 96 11/28/19 06:30 73 19 97 11/28/19 06:00 72 17 115/62 (79) 96 11/28/19 05:59 122/70 1/31/20 05:59 122/70 11/28/19 05:30 73 16 96 11/28/19 05:00 70 11 122/70 (87) 96 11/28/19 04:00 Room Air 11/28/19 04:00 98.0 71 12 110/62 (78) 96 11/28/19 04:00 71 11/28/19 03:00 76 15 113/69 (84) 96 11/28/19 02:00 72 11 114/66 (82) 98 11/28/19 01:00 75 16 100/46 (64) 96 11/28/19 00:54 98.0 11/28/19 00:25 121/69 11/28/19 00:23 121/69 11/28/19 00:18 79 18 121/69 (86) 94 11/28/19 00:00 78 11/28/19 00:00 Room Air 11/28/19 00:00 97.9 80 20 109/70 (83) 93 11/27/19 23:00 82 18 117/65 (82) 97 11/27/19 22:00 85 19 119/71 (87) 99 11/27/19 21:00 87 14 122/64 (83) 96 11/27/19 20:44 82 120/71 11/27/19 20:42 85 18 120/71 (87) 99 11/27/19 20:00 80 11/27/19 20:00 98.0 82 18 119/64 (82) 98 11/27/19 20:00 Room Air 11/27/19 19:32 95 Room Air 21 11/27/19 19:00 80 21 95/77 (83) 94 11/27/19 18:10 114/70 11/27/19 18:09 114/70 11/27/19 18:00 83 18 114/70 (85) 93 11/27/19 17:00 79 20 116/57 (76) 95 11/27/19 16:00 Room Air 11/27/19 16:00 97.9 80 23 113/67 (82) 95 11/27/19 16:00 80 11/27/19 15:00 75 19 109/59 (76) 93 11/27/19 14:00 76 18 104/64 (77) 95 11/27/19 13:00 74 18 105/72 (83) 100 11/27/19 12:00 Room Air 11/27/19 12:00 97.7 71 12 110/66 (81) 100 11/27/19 12:00 71 11/27/19 11:50 100/71 11/27/19 11:49 100/73 11/27/19 11:00 73 11 100/73 (82) 98 Micro: Microbiology Date/Time Source Procedure Growth Status 11/25/19 16:15 Blood Blood Culture - Preliminary NO GROWTH AFTER 48 HOURS Resulted 11/25/19 16:10 Blood Blood Culture - Preliminary NO GROWTH AFTER 48 HOURS Resulted 11/26/19 17:30 Nasal Nares - Final Complete 11/26/19 17:30 Nasal Nares - Final Complete Accucheck: 110 Critical Care - Subjective ROS Limited/Unobtainable: No FI02: 21 Vent Support Mode: BiLevel Sputum Amount: None I&O: Intake and Output 11/27/19 11/28/19 19:00 07:00 Intake Total 410 ml 250 ml Output Total 1 ml 200 ml Balance 409 ml 50 ml Intake Oral 300 ml 250 ml IV Total 110 ml Output Urine Total 1 ml 200 ml # Voids 3 2 # Bowel Movements 2 Miguel Hamm MD Nov 28, 2019 10:06
--- NOTE | 2019-11-28 11:06 | NUR ---
MRI RIGHT FOOT COMPLETED.
--- NOTE | 2019-11-28 11:22 | Diagnostic Imaging Report ---
Indication: Abdominal pain Technique: Grayscale and duplex Doppler imaging of the abdomen performed. Comparison: None Findings: Trace bilateral pleural effusions are present. The liver is unremarkable. Doppler interrogation of the main portal vein shows patency with hepatopedal, monophasic flow. There is no biliary ductal dilatation identified. Gallbladder is unremarkable. CBD is 4 mm. There demonstrated part of the pancreas, aorta and IVC show no definite abnormalities. Both kidneys appear increased in cortical echogenicity. There is no hydronephrosis. IMPRESSION: Suspected medical renal disease. Small bilateral pleural effusions No acute findings
--- NOTE | 2019-11-28 11:24 | Cardiac Electrophysiology PN ---
Assessment/Plan Assessment/Plan 1. NSTEMI with elevated troponin to 3.4 and lateral ischemia on the EKG and epigastric pain. Could be partially related to the patient's renal failure and creatinine of 6. Troponin is down to 1.8 and no CP. Continue on aspirin and beta-idalia and statin. 2. Volume overload due to renal failure and CHF EF 40%. On Zaroxolyn 5 mg daily. Coreg 12.5 mg b.i.d., Hydralazine 10 q 6 and Isordil 10 mg every six hours. The patient may need hemodialysis under management of Dr. Garcia. 3. Hypertension 4. End-stage renal disease, likely need hemodialysis. Further evaluation by Dr. Garcia. 5. Diabetes. DW RN Subjective Subjective Alert in NAD. No CP or SOB in ICU.In SR with no arrhythmias. Objective Last 24 Hour Vital Signs Date Time Temp Pulse Resp B/P (MAP) Pulse Ox O2 Delivery O2 Flow Rate FiO2 11/28/19 08:46 74 129/74 11/28/19 07:15 96 Room Air 21 11/28/19 07:00 73 21 111/64 (80) 96 11/28/19 06:30 73 19 97 11/28/19 06:00 72 17 115/62 (79) 96 11/28/19 05:59 122/70 11/28/19 05:59 122/70 11/28/19 05:30 73 16 96 11/28/19 05:00 70 11 122/70 (87) 96 11/28/19 04:00 Room Air 11/28/19 04:00 98.0 71 12 110/62 (78) 96 11/28/19 04:00 71 11/28/19 03:00 76 15 113/69 (84) 96 11/28/19 02:00 72 11 114/66 (82) 98 11/28/19 01:00 75 16 100/46 (64) 96 11/28/19 00:54 98.0 11/28/19 00:25 121/69 11/28/19 00:23 121/69 11/28/19 00:18 79 18 121/69 (86) 94 11/28/19 00:00 78 11/28/19 00:00 Room Air 11/28/19 00:00 97.9 80 20 109/70 (83) 93 11/27/19 23:00 82 18 117/65 (82) 97 11/27/19 22:00 85 19 119/71 (87) 99 11/27/19 21:00 87 14 122/64 (83) 96 11/27/19 20:44 82 120/71 11/27/19 20:42 85 18 120/71 (87) 99 11/27/19 20:00 80 11/27/19 20:00 98.0 82 18 119/64 (82) 98 11/27/19 20:00 Room Air 11/27/19 19:32 95 Room Air 21 11/27/19 19:00 80 21 95/77 (83) 94 11/27/19 18:10 114/70 11/27/19 18:09 114/70 11/27/19 18:00 83 18 114/70 (85) 93 11/27/19 17:00 79 20 116/57 (76) 95 11/27/19 16:00 Room Air 11/27/19 16:00 97.9 80 23 113/67 (82) 95 11/27/19 16:00 80 11/27/19 15:00 75 19 109/59 (76) 93 11/27/19 14:00 76 18 104/64 (77) 95 11/27/19 13:00 74 18 105/72 (83) 100 11/27/19 12:00 Room Air 11/27/19 12:00 97.7 71 12 110/66 (81) 100 11/27/19 12:00 71 11/27/19 11:50 100/71 11/27/19 11:49 100/73 Intake and Output 11/27/19 11/28/19 19:00 07:00 Intake Total 410 ml 250 ml Output Total 1 ml 200 ml Balance 409 ml 50 ml Intake Oral 300 ml 250 ml IV Total 110 ml Output Urine Total 1 ml 200 ml # Voids 3 2 # Bowel Movements 2 Laboratory Tests Test 11/28/19 03:00 11/28/19 05:25 Stool Occult Blood Pending White Blood Count 9.6 K/UL (4.8-10.8) Red Blood Count 3.04 M/UL (4.20-5.40) L Hemoglobin 8.6 G/DL (12.0-16.0) L Hematocrit 25.6 % (37.0-47.0) L Mean Corpuscular Volume 84 FL (80-99) Mean Corpuscular Hemoglobin 28.2 PG (27.0-31.0) Mean Corpuscular Hemoglobin Concent 33.5 G/DL (32.0-36.0) Red Cell Distribution Width 13.1 % (11.6-14.8) Platelet Count 202 K/UL (150-450) Mean Platelet Volume 7.5 FL (6.5-10.1) Neutrophils (%) (Auto) 62.2 % (45.0-75.0) Lymphocytes (%) (Auto) 23.4 % (20.0-45.0) Monocytes (%) (Auto) 12.4 % (1.0-10.0) H Eosinophils (%) (Auto) 1.0 % (0.0-3.0) Basophils (%) (Auto) 1.0 % (0.0-2.0) Sodium Level 140 MMOL/L (136-145) Potassium Level 3.3 MMOL/L (3.5-5.1) L Chloride Level 105 MMOL/L (98-107) Carbon Dioxide Level 21 MMOL/L (21-32) Anion Gap 14 mmol/L (5-15) Blood Urea Nitrogen 85 mg/dL (7-18) H Creatinine 6.0 MG/DL (0.55-1.30) H Estimat Glomerular Filtration Rate 8.8 mL/min (>60) Glucose Level 119 MG/DL (74-106) H Uric Acid 9.8 MG/DL (2.6-7.2) H Calcium Level 7.3 MG/DL (8.5-10.1) L Phosphorus Level 4.1 MG/DL (2.5-4.9) Magnesium Level 2.3 MG/DL (1.8-2.4) Total Bilirubin 0.2 MG/DL (0.2-1.0) Aspartate Amino Transf (AST/SGOT) 48 U/L (15-37) H Alanine Aminotransferase (ALT/SGPT) 133 U/L (12-78) H Alkaline Phosphatase 88 U/L (46-116) Total Creatine Kinase 214 U/L (26-308) C-Reactive Protein, Quantitative 15.6 mg/dL (0.00-0.90) H Pro-B-Type Natriuretic Peptide > 56071 pg/mL (0-125) H Total Protein 7.2 G/DL (6.4-8.2) Albumin 2.3 G/DL (3.4-5.0) L Globulin 4.9 g/dL Albumin/Globulin Ratio 0.5 (1.0-2.7) L Random Vancomycin Level 21.2 ug/mL Microbiology Date/Time Source Procedure Growth Status 11/25/19 16:15 Blood Blood Culture - Preliminary NO GROWTH AFTER 48 HOURS Resulted 11/25/19 16:10 Blood Blood Culture - Preliminary NO GROWTH AFTER 48 HOURS Resulted 11/26/19 17:30 Nasal Nares - Final Complete 11/26/19 17:30 Nasal Nares - Final Complete Objective HEAD AND NECK: Shows mild JVD. LUNGS: Decreased breath sounds. CARDIOVASCULAR: Shows regular S1 and S2 with no gallop. ABDOMEN: Soft. EXTREMITIES: No pitting edema. She has a chronic right toe ulcer. Jeremiah Motley MD Nov 28, 2019 11:24
[2019-11-28] MEDS: Heparin 5000 units/ml inj SUBQ SCH ×2 (11:28→22:03)
--- NOTE | 2019-11-28 11:38 | Infectious Diseases Prog Note ---
Assessment/Plan Assessment/Plan IMPRESSION: Pneumonia third toe ulcer likely osteomyelitis; leukocytosis; severe anemia; acidosis; folate deficiency; chronic kidney disease, likely end-stage renal disease; Non ST elevation IA elevated transaminase DM with hyperglycemia Hyperuricemia Hypokalemia RECOMMENDATION: Continue with ceftriaxone, Zithromax & IV vancomycin. will f/u MRI report Subjective ROS Limited/Unobtainable: No Constitutional: Reports: no symptoms Respiratory: Reports: no symptoms Gastrointestinal/Abdominal: Reports: no symptoms Musculoskeletal: Reports: pain, other - back Allergies: Coded Allergies: ASPIRIN (Verified Allergy, Unknown, 04/13/19) Objective Vital Signs Last 24 Hour Vital Signs Date Time Temp Pulse Resp B/P (MAP) Pulse Ox O2 Delivery O2 Flow Rate FiO2 11/28/19 08:46 74 129/74 11/28/19 07:15 96 Room Air 21 11/28/19 07:00 73 21 111/64 (80) 96 11/28/19 06:30 73 19 97 11/28/19 06:00 72 17 115/62 (79) 96 11/28/19 05:59 122/70 11/28/19 05:59 122/70 11/28/19 05:30 73 16 96 11/28/19 05:00 70 11 122/70 (87) 96 11/28/19 04:00 Room Air 11/28/19 04:00 98.0 71 12 110/62 (78) 96 11/28/19 04:00 71 11/28/19 03:00 76 15 113/69 (84) 96 11/28/19 02:00 72 11 114/66 (82) 98 11/28/19 01:00 75 16 100/46 (64) 96 11/28/19 00:54 98.0 11/28/19 00:25 121/69 11/28/19 00:23 121/69 11/28/19 00:18 79 18 121/69 (86) 94 11/28/19 00:00 78 11/28/19 00:00 Room Air 11/28/19 00:00 97.9 80 20 109/70 (83) 93 11/27/19 23:00 82 18 117/65 (82) 97 11/27/19 22:00 85 19 119/71 (87) 99 11/27/19 21:00 87 14 122/64 (83) 96 11/27/19 20:44 82 120/71 11/27/19 20:42 85 18 120/71 (87) 99 11/27/19 20:00 80 11/27/19 20:00 98.0 82 18 119/64 (82) 98 11/27/19 20:00 Room Air 11/27/19 19:32 95 Room Air 21 11/27/19 19:00 80 21 95/77 (83) 94 11/27/19 18:10 114/70 11/27/19 18:09 114/70 11/27/19 18:00 83 18 114/70 (85) 93 11/27/19 17:00 79 20 116/57 (76) 95 11/27/19 16:00 Room Air 11/27/19 16:00 97.9 80 23 113/67 (82) 95 11/27/19 16:00 80 11/27/19 15:00 75 19 109/59 (76) 93 11/27/19 14:00 76 18 104/64 (77) 95 11/27/19 13:00 74 18 105/72 (83) 100 11/27/19 12:00 Room Air 11/27/19 12:00 97.7 71 12 110/66 (81) 100 11/27/19 12:00 71 11/27/19 11:50 100/71 11/27/19 11:49 100/73 Height (Feet): 5 Height (Inches): 3.00 Weight (Pounds): 138 General Appearance: no acute distress HEENT: mucous membranes moist Respiratory/Chest: lungs clear Cardiovascular: normal rate Abdomen: soft, non tender Extremities: no edema Skin: ulcers, other - R tird toe Neurologic/Psychiatric: alert, oriented x 3, responsive Microbiology Date/Time Source Procedure Growth Status 11/25/19 16:15 Blood Blood Culture - Preliminary NO GROWTH AFTER 48 HOURS Resulted 11/25/19 16:10 Blood Blood Culture - Preliminary NO GROWTH AFTER 48 HOURS Resulted 11/26/19 17:30 Nasal Nares - Final Complete 11/26/19 17:30 Nasal Nares - Final Complete Laboratory Tests Test 11/28/19 03:00 11/28/19 05:25 Stool Occult Blood Pending White Blood Count 9.6 K/UL (4.8-10.8) Red Blood Count 3.04 M/UL (4.20-5.40) L Hemoglobin 8.6 G/DL (12.0-16.0) L Hematocrit 25.6 % (37.0-47.0) L Mean Corpuscular Volume 84 FL (80-99) Mean Corpuscular Hemoglobin 28.2 PG (27.0-31.0) Mean Corpuscular Hemoglobin Concent 33.5 G/DL (32.0-36.0) Red Cell Distribution Width 13.1 % (11.6-14.8) Platelet Count 202 K/UL (150-450) Mean Platelet Volume 7.5 FL (6.5-10.1) Neutrophils (%) (Auto) 62.2 % (45.0-75.0) Lymphocytes (%) (Auto) 23.4 % (20.0-45.0) Monocytes (%) (Auto) 12.4 % (1.0-10.0) H Eosinophils (%) (Auto) 1.0 % (0.0-3.0) Basophils (%) (Auto) 1.0 % (0.0-2.0) Sodium Level 140 MMOL/L (136-145) Potassium Level 3.3 MMOL/L (3.5-5.1) L Chloride Level 105 MMOL/L (98-107) Carbon Dioxide Level 21 MMOL/L (21-32) Anion Gap 14 mmol/L (5-15) Blood Urea Nitrogen 85 mg/dL (7-18) H Creatinine 6.0 MG/DL (0.55-1.30) H Estimat Glomerular Filtration Rate 8.8 mL/min (>60) Glucose Level 119 MG/DL (74-106) H Uric Acid 9.8 MG/DL (2.6-7.2) H Calcium Level 7.3 MG/DL (8.5-10.1) L Phosphorus Level 4.1 MG/DL (2.5-4.9) Magnesium Level 2.3 MG/DL (1.8-2.4) Total Bilirubin 0.2 MG/DL (0.2-1.0) Aspartate Amino Transf (AST/SGOT) 48 U/L (15-37) H Alanine Aminotransferase (ALT/SGPT) 133 U/L (12-78) H Alkaline Phosphatase 88 U/L (46-116) Total Creatine Kinase 214 U/L (26-308) C-Reactive Protein, Quantitative 15.6 mg/dL (0.00-0.90) H Pro-B-Type Natriuretic Peptide > 58630 pg/mL (0-125) H Total Protein 7.2 G/DL (6.4-8.2) Albumin 2.3 G/DL (3.4-5.0) L Globulin 4.9 g/dL Albumin/Globulin Ratio 0.5 (1.0-2.7) L Random Vancomycin Level 21.2 ug/mL Current Medications Medications (Trade) Dose Ordered Sig/Yeny Route PRN Reason Start Time Stop Time Status Last Admin Dose Admin Acetaminophen (Tylenol) 500 mg Q4H PRN ORAL Mild Pain/Temp > 100.5 11/26/19 13:30 12/26/19 13:29 11/28/19 11:00 Albuterol/ Ipratropium (Albuterol/ Ipratropium) 3 ml Q4H PRN HHN Shortness of Breath 11/26/19 13:39 12/01/19 13:38 Allopurinol (allopurinoL) 300 mg DAILY ORAL 11/27/19 09:00 12/27/19 08:59 11/28/19 08:46 Carvedilol (Coreg) 12.5 mg EVERY 12 HOURS ORAL 11/27/19 21:00 12/26/19 20:59 11/28/19 08:46 Ceftriaxone Sodium 1 gm/ Dextrose 55 ml @ 110 mls/hr Q24H IVPB 11/26/19 16:00 12/03/19 15:59 11/27/19 17:21 Clopidogrel Bisulfate (Plavix) 75 mg DAILY ORAL 11/27/19 09:00 12/26/19 08:59 11/28/19 11:27 Dextrose (Dextrose 50%) 25 ml Q30M PRN IV Hypoglycemia 11/26/19 14:00 12/26/19 01:29 Dextrose (Dextrose 50%) 50 ml Q30M PRN IV Hypoglycemia 11/26/19 14:00 12/26/19 01:29 Docusate Sodium (Colace) 100 mg THREE TIMES A DAY ORAL 11/26/19 18:00 12/26/19 08:59 11/27/19 18:09 Epoetin Jensen (Epoetin Jensen-EPBX(NON ESRD)) 10,000 unit SUN-SUN-SUN SUBQ 11/26/19 21:00 12/26/19 20:59 11/26/19 21:37 Folic Acid (Folate) 3 mg DAILY ORAL 11/26/19 14:30 12/26/19 14:29 11/28/19 08:46 Heparin Sodium (Porcine) (Heparin 5000 units/ml) 5,000 units EVERY 12 HOURS SUBQ 11/26/19 21:00 12/26/19 08:59 11/28/19 11:28 Hydralazine HCl (Apresoline) 10 mg Q6HR ORAL 11/26/19 18:00 12/26/19 17:59 11/28/19 05:59 Hydralazine HCl (Apresoline) 25 mg Q4H PRN ORAL bp over 160 syst 11/26/19 13:39 12/26/19 13:38 Insulin Aspart (NovoLOG) BEFORE MEALS AND HS SUBQ 11/26/19 16:30 12/26/19 06:29 11/27/19 20:48 Isosorbide Dinitrate (Isordil) 10 mg Q6HR ORAL 11/26/19 18:00 12/26/19 17:59 11/28/19 05:59 Metolazone (Zaroxolyn) 5 mg DAILY ORAL 11/27/19 09:00 12/27/19 08:59 11/28/19 08:47 Pantoprazole (Protonix) 40 mg EVERY 12 HOURS ORAL 11/26/19 21:00 12/26/19 20:59 11/28/19 08:46 Sevelamer Carbonate (Renvela) 800 mg THREE TIMES A DAY ORAL 11/28/19 09:15 12/28/19 09:14 11/28/19 11:27 Sitagliptin Phosphate (Januvia) 25 mg ACBREAKFAST ORAL 11/27/19 06:30 12/27/19 06:29 11/28/19 05:58 Sodium Citrate (Bicitra) 30 ml BID ORAL 11/28/19 09:15 12/27/19 09:14 Vancomycin HCl (Vanco rx to dose) 1 ea DAILY PRN MISC Per rx protocol 11/26/19 13:45 12/26/19 13:44 Zolpidem Tartrate (Ambien) 5 mg HSPRN PRN ORAL Insomnia 11/26/19 13:30 12/03/19 13:29 Tip Ashford MD Nov 28, 2019 11:38
--- NOTE | 2019-11-28 12:42 | Diagnostic Imaging Report ---
Indication: Ulceration infection necrosis third toe Technique: Right foot imaging utilizing multiplanar T1 fast spin-echo, proton and T2 fast spin-echo with fat saturation, and STIR. Comparison: None Findings: There is ulceration at the tip of the third toe. The distal phalange is largely destroyed with the residual T1 hypointense/T2 hyperintense signal presumably within a portion of the bone that is still present. The architecture of the bone and cortical margins are absent. Abnormal signal is also demonstrated within the middle phalange and the distal part of the proximal phalange of the third toe. Findings are consistent with acute ostial myelitis. Cellulitis with subcutaneous expansion and edema noted. There is chronic erosion or sclerosis with low signal and deformity of the fourth proximal phalange. There is disassociation between the proximal phalange and the remainder of the middle and distal fourth phalanges. There is no evidence of acute osteomyelitis involving the fourth digit. Amputation at the level of the fifth metatarsal midshaft noted. IMPRESSION: Acute osteomyelitis of the third toe with involvement of the middle and distal phalange and the distal aspect of the proximal phalange.
--- NOTE | 2019-11-28 12:50 | Nephrology Progress Note ---
Assessment/Plan Problem List: (1) Renal failure (ARF), acute on chronic (2) Cardiomyopathy (3) Anemia in chronic kidney disease (CKD) (4) Non-STEMI (non-ST elevated myocardial infarction) (5) Diabetic nephropathy (6) Diabetes mellitus out of control Assessment underlying CKD ? Superimposed Acute Anemia of CKD Cardiomyopathy- 40% EjFx DM Low Folate elevated troponin- CAD Asa Allergy Plan change diet transfuse PO folate Plavix Coreg- Norvasc- Hydralazine monitor renal parameters Subjective ROS Limited/Unobtainable: No Constitutional: Reports: malaise Objective Objective Last 24 Hour Vital Signs Date Time Temp Pulse Resp B/P (MAP) Pulse Ox O2 Delivery O2 Flow Rate FiO2 11/28/19 12:00 Room Air 11/28/19 12:00 97.6 73 15 142/120 (127) 99 11/28/19 11:56 72 11/28/19 11:55 125/73 11/28/19 11:54 125/73 11/28/19 11:00 74 21 125/73 (90) 99 11/28/19 09:00 71 17 125/63 (83) 97 11/28/19 08:46 74 129/74 11/28/19 08:00 69 11 116/69 (85) 95 11/28/19 08:00 Room Air 11/28/19 07:53 73 11/28/19 07:15 96 Room Air 21 11/28/19 07:00 73 21 111/64 (80) 96 11/28/19 06:30 73 19 97 11/28/19 06:00 72 17 115/62 (79) 96 11/28/19 05:59 122/70 11/28/19 05:59 122/70 11/28/19 05:30 73 16 96 11/28/19 05:00 70 11 122/70 (87) 96 11/28/19 04:00 Room Air 11/28/19 04:00 98.0 71 12 110/62 (78) 96 11/28/19 04:00 71 11/28/19 03:00 76 15 113/69 (84) 96 11/28/19 02:00 72 11 114/66 (82) 98 11/28/19 01:00 75 16 100/46 (64) 96 11/28/19 00:54 98.0 11/28/19 00:25 121/69 11/28/19 00:23 121/69 11/28/19 00:18 79 18 121/69 (86) 94 11/28/19 00:00 78 11/28/19 00:00 Room Air 11/28/19 00:00 97.9 80 20 109/70 (83) 93 11/27/19 23:00 82 18 117/65 (82) 97 11/27/19 22:00 85 19 119/71 (87) 99 11/27/19 21:00 87 14 122/64 (83) 96 11/27/19 20:44 82 120/71 11/27/19 20:42 85 18 120/71 (87) 99 11/27/19 20:00 80 11/27/19 20:00 98.0 82 18 119/64 (82) 98 11/27/19 20:00 Room Air 11/27/19 19:32 95 Room Air 21 11/27/19 19:00 80 21 95/77 (83) 94 11/27/19 18:10 114/70 11/27/19 18:09 114/70 11/27/19 18:00 83 18 114/70 (85) 93 11/27/19 17:00 79 20 116/57 (76) 95 11/27/19 16:00 Room Air 11/27/19 16:00 97.9 80 23 113/67 (82) 95 11/27/19 16:00 80 11/27/19 15:00 75 19 109/59 (76) 93 11/27/19 14:00 76 18 104/64 (77) 95 11/27/19 13:00 74 18 105/72 (83) 100 Intake and Output 11/27/19 11/28/19 19:00 07:00 Intake Total 410 ml 250 ml Output Total 1 ml 200 ml Balance 409 ml 50 ml Intake Oral 300 ml 250 ml IV Total 110 ml Output Urine Total 1 ml 200 ml # Voids 3 2 # Bowel Movements 2 Current Medications Medications (Trade) Dose Ordered Sig/Yeny Route PRN Reason Start Time Stop Time Status Last Admin Dose Admin Acetaminophen (Tylenol) 500 mg Q4H PRN ORAL Mild Pain/Temp > 100.5 11/26/19 13:30 12/26/19 13:29 11/28/19 11:00 Albuterol/ Ipratropium (Albuterol/ Ipratropium) 3 ml Q4H PRN HHN Shortness of Breath 11/26/19 13:39 12/01/19 13:38 Allopurinol (allopurinoL) 300 mg DAILY ORAL 11/27/19 09:00 12/27/19 08:59 11/28/19 08:46 Carvedilol (Coreg) 12.5 mg EVERY 12 HOURS ORAL 11/27/19 21:00 12/26/19 20:59 11/28/19 08:46 Ceftriaxone Sodium 1 gm/ Dextrose 55 ml @ 110 mls/hr Q24H IVPB 11/26/19 16:00 12/03/19 15:59 11/27/19 17:21 Clopidogrel Bisulfate (Plavix) 75 mg DAILY ORAL 11/27/19 09:00 12/26/19 08:59 11/28/19 11:27 Dextrose (Dextrose 50%) 25 ml Q30M PRN IV Hypoglycemia 11/26/19 14:00 12/26/19 01:29 Dextrose (Dextrose 50%) 50 ml Q30M PRN IV Hypoglycemia 11/26/19 14:00 12/26/19 01:29 Docusate Sodium (Colace) 100 mg THREE TIMES A DAY ORAL 11/26/19 18:00 12/26/19 08:59 11/27/19 18:09 Epoetin Jensen (Epoetin Jensen-EPBX(NON ESRD)) 10,000 unit SUN-SUN-SUN SUBQ 11/26/19 21:00 12/26/19 20:59 11/26/19 21:37 Folic Acid (Folate) 3 mg DAILY ORAL 11/26/19 14:30 12/26/19 14:29 11/28/19 08:46 Heparin Sodium (Porcine) (Heparin 5000 units/ml) 5,000 units EVERY 12 HOURS SUBQ 11/26/19 21:00 12/26/19 08:59 11/28/19 11:28 Hydralazine HCl (Apresoline) 10 mg Q6HR ORAL 11/26/19 18:00 12/26/19 17:59 11/28/19 11:54 Hydralazine HCl (Apresoline) 25 mg Q4H PRN ORAL bp over 160 syst 11/26/19 13:39 2/28/20 13:38 Insulin Aspart (NovoLOG) BEFORE MEALS AND HS SUBQ 11/26/19 16:30 12/26/19 06:29 11/28/19 11:56 Isosorbide Dinitrate (Isordil) 10 mg Q6HR ORAL 11/26/19 18:00 12/26/19 17:59 11/28/19 11:55 Metolazone (Zaroxolyn) 5 mg DAILY ORAL 11/27/19 09:00 12/27/19 08:59 11/28/19 08:47 Pantoprazole (Protonix) 40 mg EVERY 12 HOURS ORAL 11/26/19 21:00 12/26/19 20:59 11/28/19 08:46 Sevelamer Carbonate (Renvela) 800 mg THREE TIMES A DAY ORAL 11/28/19 09:15 12/28/19 09:14 11/28/19 11:27 Sitagliptin Phosphate (Januvia) 25 mg ACBREAKFAST ORAL 11/27/19 06:30 12/27/19 06:29 11/28/19 05:58 Sodium Citrate (Bicitra) 30 ml BID ORAL 11/28/19 09:15 12/27/19 09:14 Vancomycin HCl (Vanco rx to dose) 1 ea DAILY PRN MISC Per rx protocol 11/26/19 13:45 12/26/19 13:44 Zolpidem Tartrate (Ambien) 5 mg HSPRN PRN ORAL Insomnia 11/26/19 13:30 12/03/19 13:29 Laboratory Tests 11/28/19 03:00: Stool Occult Blood Negative 11/28/19 05:25: White Blood Count 9.6, Red Blood Count 3.04L, Hemoglobin 8.6L, Hematocrit 25.6L , Mean Corpuscular Volume 84, Mean Corpuscular Hemoglobin 28.2, Mean Corpuscular Hemoglobin Concent 33.5, Red Cell Distribution Width 13.1, Platelet Count 202, Mean Platelet Volume 7.5, Neutrophils (%) (Auto) 62.2, Lymphocytes (% ) (Auto) 23.4, Monocytes (%) (Auto) 12.4H, Eosinophils (%) (Auto) 1.0, Basophils (%) (Auto) 1.0, Sodium Level 140, Potassium Level 3.3L, Chloride Level 105, Carbon Dioxide Level 21, Anion Gap 14, Blood Urea Nitrogen 85H, Creatinine 6.0H, Estimat Glomerular Filtration Rate 8.8, Glucose Level 119H, Uric Acid 9.8H, Calcium Level 7.3L, Phosphorus Level 4.1, Magnesium Level 2.3, Total Bilirubin 0.2, Aspartate Amino Transf (AST/SGOT) 48H, Alanine Aminotransferase (ALT/SGPT) 133H, Alkaline Phosphatase 88, Total Creatine Kinase 214, C-Reactive Protein, Quantitative 15.6H, Pro-B-Type Natriuretic Peptide > 60226J, Total Protein 7.2, Albumin 2.3L, Globulin 4.9, Albumin/ Globulin Ratio 0.5L, Random Vancomycin Level 21.2 Height (Feet): 5 Height (Inches): 3.00 Weight (Pounds): 138 General Appearance: no apparent distress Cardiovascular: normal rate Respiratory/Chest: decreased breath sounds Abdomen: soft Joao Garcia MD Nov 28, 2019 12:50
--- NOTE | 2019-11-28 13:44 | NUR ---
NURSE NOTES: Late note: Patient went down for MRI with RN at 0940. Patient returned approximately at 1040, patient complained of back pain, prescribed Tylenol PRN was given. After reassessment patient reported a pain of 0/10. Will continue to monitor.
--- NOTE | 2019-11-28 13:59 | NUR ---
NURSE NOTES: Left message to Dr. Mitchell office regarding MRI results.
--- NOTE | 2019-11-28 14:46 | NUR ---
NURSE NOTES: Patient seen and assessed by Dr. Jiménez.
--- NOTE | 2019-11-28 15:04 | Surgery Progress Note ---
Surgery Progress Note Subjective Additional Comments leukocytosis resolved MRI noted improving comfortable no complaints Objective Last 24 Hour Vital Signs Date Time Temp Pulse Resp B/P (MAP) Pulse Ox O2 Delivery O2 Flow Rate FiO2 11/28/19 14:00 74 17 122/71 (88) 98 11/28/19 13:00 74 18 126/84 (98) 99 11/28/19 12:00 Room Air 11/28/19 12:00 97.6 73 15 142/120 (127) 99 11/28/19 11:56 72 11/28/19 11:55 125/73 11/28/19 11:54 125/73 11/28/19 11:00 74 21 125/73 (90) 99 11/28/19 09:00 71 17 125/63 (83) 97 11/28/19 08:46 74 129/74 11/28/19 08:00 69 11 116/69 (85) 95 11/28/19 08:00 Room Air 11/28/19 07:53 73 11/28/19 07:15 96 Room Air 21 11/28/19 07:00 73 21 111/64 (80) 96 11/28/19 06:30 73 19 97 11/28/19 06:00 72 17 115/62 (79) 96 11/28/19 05:59 122/70 11/28/19 05:59 122/70 11/28/19 05:30 73 16 96 11/28/19 05:00 70 11 122/70 (87) 96 11/28/19 04:00 Room Air 11/28/19 04:00 98.0 71 12 110/62 (78) 96 11/28/19 04:00 71 11/28/19 03:00 76 15 113/69 (84) 96 11/28/19 02:00 72 11 114/66 (82) 98 11/28/19 01:00 75 16 100/46 (64) 96 11/28/19 00:54 98.0 11/28/19 00:25 121/69 11/28/19 00:23 121/69 11/28/19 00:18 79 18 121/69 (86) 94 11/28/19 00:00 78 11/28/19 00:00 Room Air 11/28/19 00:00 97.9 80 20 109/70 (83) 93 11/27/19 23:00 82 18 117/65 (82) 97 11/27/19 22:00 85 19 119/71 (87) 99 11/27/19 21:00 87 14 122/64 (83) 96 11/27/19 20:44 82 120/71 11/27/19 20:42 85 18 120/71 (87) 99 11/27/19 20:00 80 11/27/19 20:00 98.0 82 18 119/64 (82) 98 11/27/19 20:00 Room Air 11/27/19 19:32 95 Room Air 21 11/27/19 19:00 80 21 95/77 (83) 94 11/27/19 18:10 114/70 11/27/19 18:09 114/70 11/27/19 18:00 83 18 114/70 (85) 93 11/27/19 17:00 79 20 116/57 (76) 95 11/27/19 16:00 Room Air 11/27/19 16:00 97.9 80 23 113/67 (82) 95 11/27/19 16:00 80 I&O Intake and Output 11/27/19 11/28/19 19:00 07:00 Intake Total 410 ml 250 ml Output Total 1 ml 200 ml Balance 409 ml 50 ml Intake Oral 300 ml 250 ml IV Total 110 ml Output Urine Total 1 ml 200 ml # Voids 3 2 # Bowel Movements 2 Dressing: saturated Wound: other Drains: other Cardiovascular: RSR Respiratory: decreased breath sounds Abdomen: soft, present bowel sounds Extremities: no cyanosis, other Laboratory Tests Test 11/28/19 03:00 11/28/19 05:25 11/28/19 12:00 Stool Occult Blood Negative (NEGATIVE) Pending White Blood Count 9.6 K/UL (4.8-10.8) Red Blood Count 3.04 M/UL (4.20-5.40) L Hemoglobin 8.6 G/DL (12.0-16.0) L Hematocrit 25.6 % (37.0-47.0) L Mean Corpuscular Volume 84 FL (80-99) Mean Corpuscular Hemoglobin 28.2 PG (27.0-31.0) Mean Corpuscular Hemoglobin Concent 33.5 G/DL (32.0-36.0) Red Cell Distribution Width 13.1 % (11.6-14.8) Platelet Count 202 K/UL (150-450) Mean Platelet Volume 7.5 FL (6.5-10.1) Neutrophils (%) (Auto) 62.2 % (45.0-75.0) Lymphocytes (%) (Auto) 23.4 % (20.0-45.0) Monocytes (%) (Auto) 12.4 % (1.0-10.0) H Eosinophils (%) (Auto) 1.0 % (0.0-3.0) Basophils (%) (Auto) 1.0 % (0.0-2.0) Sodium Level 140 MMOL/L (136-145) Potassium Level 3.3 MMOL/L (3.5-5.1) L Chloride Level 105 MMOL/L (98-107) Carbon Dioxide Level 21 MMOL/L (21-32) Anion Gap 14 mmol/L (5-15) Blood Urea Nitrogen 85 mg/dL (7-18) H Creatinine 6.0 MG/DL (0.55-1.30) H Estimat Glomerular Filtration Rate 8.8 mL/min (>60) Glucose Level 119 MG/DL (74-106) H Uric Acid 9.8 MG/DL (2.6-7.2) H Calcium Level 7.3 MG/DL (8.5-10.1) L Phosphorus Level 4.1 MG/DL (2.5-4.9) Magnesium Level 2.3 MG/DL (1.8-2.4) Total Bilirubin 0.2 MG/DL (0.2-1.0) Aspartate Amino Transf (AST/SGOT) 48 U/L (15-37) H Alanine Aminotransferase (ALT/SGPT) 133 U/L (12-78) H Alkaline Phosphatase 88 U/L (46-116) Total Creatine Kinase 214 U/L (26-308) C-Reactive Protein, Quantitative 15.6 mg/dL (0.00-0.90) H Pro-B-Type Natriuretic Peptide > 32483 pg/mL (0-125) H Total Protein 7.2 G/DL (6.4-8.2) Albumin 2.3 G/DL (3.4-5.0) L Globulin 4.9 g/dL Albumin/Globulin Ratio 0.5 (1.0-2.7) L Random Vancomycin Level 21.2 ug/mL Plan Problems: (1) Diabetic ulcer of toe Assessment & Plan: Findings: 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 There is evidence of prior osteotomy of the fourth proximal and middle phalanges. There is evidence of prior amputation of the third distal phalanx. No acute fractures. No dislocations. No osseous erosions. The joint spaces are preserved. There is hammertoe deformity of the second through fifth digits. Impression: Postsurgical changes, as described No definite acute bony trauma graft no plain radiographic evidence of acute osseous myelitis. Note, however, limited sensitivity of plain radiographs for such. Consider MRI or bone scan for more sensitive characterization. Findings: On the right, Doppler waveforms are biphasic or triphasic with sharp systolic peaks at the level of the common femoral, profunda femoral, proximal superficial femoral arteries. In the proximal superficial femoral artery, there is sonographically visible atherosclerotic plaquing with flow velocity elevation up to 269 cm/s. There is slight dampening of the waveforms distal to this, although waveforms remain triphasic to the level of the proximal tibial vessels. The distal tibial vessel waveforms are monophasic at the level of the posterior tibial artery, but biphasic and the distal peroneal and dorsalis pedis arteries. On the left, Doppler waveforms are triphasic at all levels including distally. Systolic peaks are sharp and flow velocities are within normal limits. Impression: Borderline significant stenosis of the right proximal superficial femoral artery Negative for evidence of significant left lower extremity. Serial insufficiency. Findings: Bilaterally, grayscale and duplex images demonstrate no evidence of intraluminal thrombus. Normal phasic Doppler waveforms, demonstrating normal augmentation response and no evidence of valvular insufficiency. Greater saphenous veins and tibial veins are patent bilaterally. Normal compressibility Impression: Negative for evidence of lower extremity deep venous thrombosis vascular input appreciated IMPRESSION: Acute osteomyelitis of the third toe with involvement of the middle and distal phalange and the distal aspect of the proximal phalange. (2) SOB (shortness of breath) (3) Abnormal LFTs Assessment & Plan: 54-year-old female with leukocytosis, abnormalities, anemia , diabetic toe, elevated troponins. Patient ICU currently undergoing medical care and management. Etiology of elevated LFTs and leukocytosis unknown. Ultrasound abdomen ordered Trend labs No acute surgical invention planned We will monitor and follow with serial exams Thank you let me participate in his care will follow the recommendations Wilberto Jiménez Nov 28, 2019 15:04
--- NOTE | 2019-11-28 15:20 | NUR ---
CASE MANAGEMENT: REVIEW 11/28/2019 SI:FLUID OVERLOAD,ESRD 97.6 73 15 142/120 99% RA HGB 8.6 HCT 25.6 K 3.3 BUN 86 CREAT 6.0 URIC ACID 9.8 CRP 15.6 BNP >35,000 ALB 2.3 IS:ROCEPHIN IV Q24H SS INSULIN APRESOLINE PO Q6H BICITRA PO BID ISORDIL PO Q6H RENVELA PO TID `COREG PO Q12H PROTONIX PO Q12H EPOETIN MWF SUBQ HEPARIN SUBQ Q12H JANUVIA PO QD ALLOPURINOL PO QD PLAVIX PO QD ZAROXOLYN PO QD NEB TX Q4H PRN MRI FOOT~ ACUTE OSTEOMYELITIS ABD US~ SUSPECTED MEDICAL RENAL DISEASE,SMALL BILATERAL EFFUSIONS ~~~ICU STATUS
--- NOTE | 2019-11-28 15:52 | General Progress Note ---
Assessment/Plan Status: unchanged Assessment/Plan: Assessment - Anemia - OB (-) - Renal failure - NSTEMI - abnormal LFT - possibly due to MT, Hep serologies neg, will check US - DM - HTN Recommendations - Monitor CBC - check OB - neg - follow LFT - Check CPK - now normal - abdominal ultrasound - neg - Eventual EGD / Colon at later date Subjective Allergies: Coded Allergies: ASPIRIN (Verified Allergy, Unknown, 04/13/19) Subjective Above noted seen in ICU no abdominal complaints Objective Last 24 Hour Vital Signs Date Time Temp Pulse Resp B/P (MAP) Pulse Ox O2 Delivery O2 Flow Rate FiO2 11/28/19 15:00 74 18 138/81 (100) 98 11/28/19 14:00 74 17 122/71 (88) 98 11/28/19 13:00 74 18 126/84 (98) 99 11/28/19 12:00 Room Air 11/28/19 12:00 97.6 73 15 142/120 (127) 99 11/28/19 11:56 72 11/28/19 11:55 125/73 11/28/19 11:54 125/73 11/28/19 11:00 74 21 125/73 (90) 99 11/28/19 09:00 71 17 125/63 (83) 97 11/28/19 08:46 74 129/74 11/28/19 08:00 69 11 116/69 (85) 95 11/28/19 08:00 Room Air 11/28/19 07:53 73 11/28/19 07:15 96 Room Air 21 11/28/19 07:00 73 21 111/64 (80) 96 11/28/19 06:30 73 19 97 11/28/19 06:00 72 17 115/62 (79) 96 11/28/19 05:59 122/70 11/28/19 05:59 122/70 11/28/19 05:30 73 16 96 11/28/19 05:00 70 11 122/70 (87) 96 11/28/19 04:00 Room Air 11/28/19 04:00 98.0 71 12 110/62 (78) 96 11/28/19 04:00 71 11/28/19 03:00 76 15 113/69 (84) 96 11/28/19 02:00 72 11 114/66 (82) 98 11/28/19 01:00 75 16 100/46 (64) 96 11/28/19 00:54 98.0 11/28/19 00:25 121/69 11/28/19 00:23 121/69 11/28/19 00:18 79 18 121/69 (86) 94 11/28/19 00:00 78 11/28/19 00:00 Room Air 11/28/19 00:00 97.9 80 20 109/70 (83) 93 11/27/19 23:00 82 18 117/65 (82) 97 11/27/19 22:00 85 19 119/71 (87) 99 11/27/19 21:00 87 14 122/64 (83) 96 11/27/19 20:44 82 120/71 11/27/19 20:42 85 18 120/71 (87) 99 11/27/19 20:00 80 11/27/19 20:00 98.0 82 18 119/64 (82) 98 11/27/19 20:00 Room Air 11/27/19 19:32 95 Room Air 21 11/27/19 19:00 80 21 95/77 (83) 94 11/27/19 18:10 114/70 11/27/19 18:09 114/70 11/27/19 18:00 83 18 114/70 (85) 93 11/27/19 17:00 79 20 116/57 (76) 95 11/27/19 16:00 Room Air 11/27/19 16:00 97.9 80 23 113/67 (82) 95 11/27/19 16:00 80 Intake and Output 11/27/19 11/28/19 19:00 07:00 Intake Total 410 ml 250 ml Output Total 1 ml 200 ml Balance 409 ml 50 ml Intake Oral 300 ml 250 ml IV Total 110 ml Output Urine Total 1 ml 200 ml # Voids 3 2 # Bowel Movements 2 Laboratory Tests 11/28/19 03:00: Stool Occult Blood Negative 11/28/19 05:25: White Blood Count 9.6, Red Blood Count 3.04L, Hemoglobin 8.6L, Hematocrit 25.6L , Mean Corpuscular Volume 84, Mean Corpuscular Hemoglobin 28.2, Mean Corpuscular Hemoglobin Concent 33.5, Red Cell Distribution Width 13.1, Platelet Count 202, Mean Platelet Volume 7.5, Neutrophils (%) (Auto) 62.2, Lymphocytes (% ) (Auto) 23.4, Monocytes (%) (Auto) 12.4H, Eosinophils (%) (Auto) 1.0, Basophils (%) (Auto) 1.0, Sodium Level 140, Potassium Level 3.3L, Chloride Level 105, Carbon Dioxide Level 21, Anion Gap 14, Blood Urea Nitrogen 85H, Creatinine 6.0H, Estimat Glomerular Filtration Rate 8.8, Glucose Level 119H, Uric Acid 9.8H, Calcium Level 7.3L, Phosphorus Level 4.1, Magnesium Level 2.3, Total Bilirubin 0.2, Aspartate Amino Transf (AST/SGOT) 48H, Alanine Aminotransferase (ALT/SGPT) 133H, Alkaline Phosphatase 88, Total Creatine Kinase 214, C-Reactive Protein, Quantitative 15.6H, Pro-B-Type Natriuretic Peptide > 46552S, Total Protein 7.2, Albumin 2.3L, Globulin 4.9, Albumin/ Globulin Ratio 0.5L, Random Vancomycin Level 21.2 11/28/19 12:00: Stool Occult Blood [Pending] Height (Feet): 5 Height (Inches): 3.00 Weight (Pounds): 138 Objective WDWN AA woman NCAT supple CTA RRR Abd soft NT ND no edema Kacie Butler MD Nov 28, 2019 15:52
[2019-11-28] MEDS: cefTRIAXone 1 GM in D5W 55 ML IVPB SCH (16:31)
--- NOTE | 2019-11-28 17:44 | NUR ---
NURSE NOTES: Patient is resting comfortably in bed, denies any pain, no signs of acute distress. Will continue to monitor.
--- NOTE | 2019-11-28 18:58 | NUR ---
TRANSFER TO FLOOR: Patient transferred to Telemetry, per Dr. Motley. Report given to Manny LUTZ. Belongings and medications given to patient. Family and or S/O informed of transfer.
--- NOTE | 2019-11-28 19:16 | NUR ---
NURSE NOTES: Received pt from [facility] at 1850, Pt is alert and orient x4. pt is in RA, no SOB or acute respiratory distress noted. pt has intact iv access RFA 22G SL. Pt is on continues heart monitoring. all belongings are with pt and pt has some meds and refused to show RN and asked to keep it, RN endorsed her she can't have med in the room and we keep it in the pharmacy and will return to her upon D/C, but pt refused to give it to RN, RN endorsed to BOLIVAR GRIFFITH to F/U. All needs attended, bed is locked and is in the lowest position, call light within easy reach. will continue to monitor. Endorsed to B[facility]IV[facility] GRIFFITH.
--- NOTE | 2019-11-28 20:00 | NUR ---
NURSE NOTES: RECEIVED PATIENT LYING IN BED, AWAKE, ALERT/ORIENTED X4, DENIES PAIN. NO SIGNS AND SYMPTOMS OF ACUTE CARDIO RESPIRATORY DISTRESS/SHORTNESS OF BREATH, DENIES CHEST PAIN, NO PERIPHERAL EDEMA NOTED. 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 ABDOMEN SOFT/NON DISTENDED, NON TENDER ON PALPATION, AUDIBLE BOWEL SOUNDS. SIDE RAILS UP X3, BED IN LOWEST POSITION FOR SAFETY, ENCOURAGED PATIENT TO UTILIZE CALL LIGHT FOR ASSISTANCE, VERBALIZED UNDERSTANDING. NAD.
[2019-11-28] MEDS ORDERED: HydrALAZINE 25mg tab ORAL PRN (21:45)
[2019-11-28] MEDS ORDERED: Albuterol/Ipratropium 3ml neb HHN PRN (21:45)
--- NOTE | 2019-11-28 21:48 | General Progress Note ---
Assessment/Plan Problem List: (1) Non-STEMI (non-ST elevated myocardial infarction) ICD Codes: I21.4 - Non-ST elevation (NSTEMI) myocardial infarction SNOMED: 35562044 (2) Abnormal LFTs ICD Codes: R94.5 - Abnormal results of liver function studies SNOMED: 960092467 (3) Diabetic ulcer of toe ICD Codes: E11.621 - Type 2 diabetes mellitus with foot ulcer; L97.509 - Non- pressure chronic ulcer of other part of unspecified foot with unspecified severity SNOMED: 32089805, 750576731, 466081802 (4) Chronic renal disease ICD Codes: N18.9 - Chronic kidney disease, unspecified SNOMED: 390568020 (5) Nonadherence to medication ICD Codes: Z91.14 - Patient's other noncompliance with medication regimen SNOMED: 670482127 (6) Diabetes mellitus out of control ICD Codes: E11.65 - Type 2 diabetes mellitus with hyperglycemia SNOMED: 52653254, 637145803 (7) Diabetic nephropathy ICD Codes: E11.21 - Type 2 diabetes mellitus with diabetic nephropathy SNOMED: 052087162 (8) Renal failure (ARF), acute on chronic ICD Codes: N17.9 - Acute kidney failure, unspecified; N18.9 - Chronic kidney disease, unspecified SNOMED: 375675674 (9) Anemia in chronic kidney disease (CKD) ICD Codes: N18.9 - Chronic kidney disease, unspecified; D63.1 - Anemia in chronic kidney disease SNOMED: 356717377 Status: progressing, unchanged Assessment/Plan: anemia increasing trop niddm htn nstemi no cp diabetic toe ulcer arf lyte abnormality no cp Subjective ROS Limited/Unobtainable: Yes Allergies: Coded Allergies: ASPIRIN (Verified Allergy, Unknown, 04/13/19) Objective Last 24 Hour Vital Signs Date Time Temp Pulse Resp B/P (MAP) Pulse Ox O2 Delivery O2 Flow Rate FiO2 11/28/19 18:10 148/97 11/28/19 18:10 148/97 11/28/19 18:00 80 18 159/81 (107) 99 11/28/19 17:00 76 17 144/75 (98) 96 11/28/19 16:00 97.8 73 20 152/79 (103) 99 11/28/19 16:00 Room Air 11/28/19 15:48 74 11/28/19 15:00 74 18 138/81 (100) 98 11/28/19 14:00 74 17 122/71 (88) 98 11/28/19 13:00 74 18 126/84 (98) 99 11/28/19 12:00 Room Air 11/28/19 12:00 97.6 73 15 142/120 (127) 99 11/28/19 11:56 72 11/28/19 11:55 125/73 11/28/19 11:54 125/73 11/28/19 11:00 74 21 125/73 (90) 99 11/28/19 09:00 71 17 125/63 (83) 97 11/28/19 08:46 74 129/74 11/28/19 08:00 69 11 116/69 (85) 95 11/28/19 08:00 Room Air 11/28/19 07:53 73 11/28/19 07:15 96 Room Air 21 11/28/19 07:00 73 21 111/64 (80) 96 11/28/19 06:30 73 19 97 11/28/19 06:00 72 17 115/62 (79) 96 11/28/19 05:59 122/70 11/28/19 05:59 122/70 11/28/19 05:30 73 16 96 11/28/19 05:00 70 11 122/70 (87) 96 11/28/19 04:00 Room Air 11/28/19 04:00 98.0 71 12 110/62 (78) 96 11/28/19 04:00 71 11/28/19 03:00 76 15 113/69 (84) 96 11/28/19 02:00 72 11 114/66 (82) 98 11/28/19 01:00 75 16 100/46 (64) 96 11/28/19 00:54 98.0 11/28/19 00:25 121/69 11/28/19 00:23 121/69 11/28/19 00:18 79 18 121/69 (86) 94 11/28/19 00:00 78 11/28/19 00:00 Room Air 11/28/19 00:00 97.9 80 20 109/70 (83) 93 11/27/19 23:00 82 18 117/65 (82) 97 11/27/19 22:00 85 19 119/71 (87) 99 Intake and Output 11/27/19 11/28/19 19:00 07:00 Intake Total 410 ml 250 ml Output Total 1 ml 200 ml Balance 409 ml 50 ml Intake Oral 300 ml 250 ml IV Total 110 ml Output Urine Total 1 ml 200 ml # Voids 3 2 # Bowel Movements 2 Laboratory Tests 11/28/19 03:00: Stool Occult Blood Negative 11/28/19 05:25: White Blood Count 9.6, Red Blood Count 3.04L, Hemoglobin 8.6L, Hematocrit 25.6L , Mean Corpuscular Volume 84, Mean Corpuscular Hemoglobin 28.2, Mean Corpuscular Hemoglobin Concent 33.5, Red Cell Distribution Width 13.1, Platelet Count 202, Mean Platelet Volume 7.5, Neutrophils (%) (Auto) 62.2, Lymphocytes (% ) (Auto) 23.4, Monocytes (%) (Auto) 12.4H, Eosinophils (%) (Auto) 1.0, Basophils (%) (Auto) 1.0, Sodium Level 140, Potassium Level 3.3L, Chloride Level 105, Carbon Dioxide Level 21, Anion Gap 14, Blood Urea Nitrogen 85H, Creatinine 6.0H, Estimat Glomerular Filtration Rate 8.8, Glucose Level 119H, Uric Acid 9.8H, Calcium Level 7.3L, Phosphorus Level 4.1, Magnesium Level 2.3, Total Bilirubin 0.2, Aspartate Amino Transf (AST/SGOT) 48H, Alanine Aminotransferase (ALT/SGPT) 133H, Alkaline Phosphatase 88, Total Creatine Kinase 214, C-Reactive Protein, Quantitative 15.6H, Pro-B-Type Natriuretic Peptide > 30299W, Total Protein 7.2, Albumin 2.3L, Globulin 4.9, Albumin/ Globulin Ratio 0.5L, Random Vancomycin Level 21.2 11/28/19 12:00: Stool Occult Blood [Pending] Height (Feet): 5 Height (Inches): 3.00 Weight (Pounds): 138 Neck: supple Cardiovascular: normal rate Respiratory/Chest: lungs clear Partha Keene MD Nov 28, 2019 21:47
[2019-11-28] MEDS: Epoetin Alfa-EPBX (NON ESRD)10,000 unit/ml vial SUBQ SCH (21:56)
[2019-11-29] VITALS: BP 147/77
[2019-11-29] MEDS: HydrALAZINE 10mg Tab ORAL SCH ×3 (00:22→12:18)
[2019-11-29 04:00] VITALS: BP 138/71
[2019-11-29] MEDS: NovoLOG Insulin Flexpen SUBQ SCH ×4 (06:30→21:06)
[2019-11-29] MEDS: sitaGLIPtin 25mg tab ORAL SCH (06:39)
[2019-11-29 07:23] LABS: EOSINOPHILS % (AUTO) 2.3 % (0.0-3.0); HEMATOCRIT 26.4 % (37.0-47.0); HEMOGLOBIN 8.7 G/DL (12.0-16.0); LYMPHOCYTES % (AUTO) 20.2 % (20.0-45.0); MEAN CORPUSCULAR VOLUME 85 FL (80-99); MONOCYTES % (AUTO) 11.3 % (1.0-10.0); NEUTROPHILS % (AUTO) 64.8 % (45.0-75.0); PLATELET COUNT 227 K/UL (150-450); RED CELL DISTRIBUTION WIDTH 13.6 % (11.6-14.8); WHITE BLOOD COUNT 10.8 K/UL (4.8-10.8)
[2019-11-29 07:24] LABS: BASOPHILS % (AUTO) 1.3 % (0.0-2.0)
--- NOTE | 2019-11-29 07:30 | NUR ---
NURSE NOTES: Nurse report given by MOISÉS Cuevas. Patient's awake and sitting in bed semi-burleson, AO x 4, denies pain, no s/s of distress or SOB. Bed low an locked, call light within reach, induction heating equipment setter rails x 2, bed alarm is armed, diagnostic cardiac sonographer is on. IV is saline locked, call light within reach. Right 5th toe amputation noted, 3rd toe ulcer noted with clean dressing. Will continue to monitor.
--- NOTE | 2019-11-29 07:34 | NUR ---
HAND-OFF: Report given to BOLIVAR QUILES.
[2019-11-29 07:37] LABS: ALANINE AMINOTRANSFERASE 99 U/L (12-78); ALBUMIN 2.4 G/DL (3.4-5.0); ALBUMIN/GLOBULIN RATIO 0.5 (1.0-2.7); ALKALINE PHOSPHATASE 85 U/L (46-116); ANION GAP 15 mmol/L (5-15); ASPARTATE AMINO TRANSFERASE 28 U/L (15-37); BILIRUBIN,TOTAL 0.3 MG/DL (0.2-1.0); BLOOD UREA NITROGEN 78 mg/dL (7-18); CALCIUM 8.1 MG/DL (8.5-10.1); CARBON DIOXIDE 21 MMOL/L (21-32); CHLORIDE 105 MMOL/L (98-107); CREATININE 5.5 MG/DL (0.55-1.30); POTASSIUM 3.4 MMOL/L (3.5-5.1); SODIUM 141 MMOL/L (136-145)
[2019-11-29 07:43] LABS: PHOSPHORUS 4.1 MG/DL (2.5-4.9)
[2019-11-29 08:00] VITALS: BP 145/79
[2019-11-29] MEDS ORDERED: Sodium Citrate 30ml ORAL SCH (09:00)
[2019-11-29] MEDS: Heparin 5000 units/ml inj SUBQ SCH ×2 (09:03→21:04)
[2019-11-29] MEDS: Docusate 100mg cap ORAL SCH ×3 (09:04→17:11)
[2019-11-29] MEDS: Carvedilol 12.5mg tab ORAL SCH ×2 (09:04→21:03)
--- NOTE | 2019-11-29 09:56 | Pulmonolgy Critical Care Note ---
Critical Care - Asmt/Plan Assessment/Plan: Pulmonary Critical Care Progress Note HPI Patient is a 54-year-old woman with previous history of Chronic Kidney Disease, Diabetes, Hypertension, admitted with increased difficulty with breathing. Noted to be fluid overloaded, increased Troponin. Not currently on dialysis. Denies any recent fever, chest pain. Anemia s/p Transfusion, Hb stable, Renal US negative for hydronephrosis Elevated Troponin downtrending No new complaints, on floor Allergies: ASPIRIN Past Medical History: Chronic Kidney Disease, Diabetes, Hypertension All Other Systems: negative except mentioned in HPI Physical Exam Vital Signs Noted General Appearance: normal inspection, well appearing, no apparent distress, alert, GCS 15 Head: atraumatic ENT: normal ENT inspection, hearing grossly normal, normal voice Neck: normal inspection, full range of motion, supple, no bony tend Respiratory: normal inspection, lungs clear, normal breath sounds, no respiratory distress, no retraction, no wheezing Cardiovascular: regular rate, rhythm, HS1, HS2 normal, no edema Gastrointestinal: normal inspection, normal bowel sounds, non tender, soft, no guarding, no hernia Genitourinary: no CVA tenderness Musculoskeletal: normal inspection, back normal, normal range of motion Neurologic: alert, oriented x3, responsive, speech normal, normal inspection Impression: Fluid overload Elevated Troponin downtrending Pneumonia Chronic Kidney Disease Anemia Diabetes Hypertension Plan - Renal following - Plavix - Cardiology following - IV AB per ID - Monitor labs - Transfuse PRN - O2/Bipap PRN - PPX - [employer] Medications - Kayexalate PRN - TFN PRN - Protonix EKG: Normal sinus rhythm with a rate of [address] or T wave changes. There is no QRS widening noted. CXR: Mild cardiomegaly, interstitial and patchy infiltrates, small effusions LE Dupplex:Negative for DVT Labs Noted Critical Care - Objective Last 24 Hour Vital Signs Date Time Temp Pulse Resp B/P (MAP) Pulse Ox O2 Delivery O2 Flow Rate FiO2 11/29/19 09:04 77 145/79 11/29/19 08:10 99 Room Air 21 11/29/19 08:00 97.7 77 17 145/79 (101) 92 11/29/19 06:40 138/72 11/29/19 06:39 138/72 11/29/19 04:00 72 11/29/19 04:00 98.1 73 16 138/71 (93) 100 11/29/19 00:23 145/77 11/29/19 00:22 145/77 11/29/19 00:00 98.1 86 16 147/77 (100) 98 11/29/19 00:00 86 11/28/19 21:53 90 159/85 11/28/19 20:06 97 Room Air 21 11/28/19 20:00 97.3 79 16 141/87 (105) 97 11/28/19 20:00 89 11/28/19 20:00 Room Air 11/28/19 18:10 148/97 11/28/19 18:10 148/97 11/28/19 18:00 80 18 159/81 (107) 99 11/28/19 17:00 76 17 144/75 (98) 96 11/28/19 16:00 97.8 73 20 152/79 (103) 99 11/28/19 16:00 Room Air 11/28/19 15:48 74 11/28/19 15:00 74 18 138/81 (100) 98 11/28/19 14:00 74 17 122/71 (88) 98 11/28/19 13:00 74 18 126/84 (98) 99 11/28/19 12:00 Room Air 11/28/19 12:00 97.6 73 15 142/120 (127) 99 11/28/19 11:56 72 11/28/19 11:55 125/73 11/28/19 11:54 125/73 11/28/19 11:00 74 21 125/73 (90) 99 Micro: Microbiology Date/Time Source Procedure Growth Status 11/26/19 17:30 Nasal Nares - Final Complete 11/26/19 17:30 Nasal Nares - Final Complete Accucheck: 100 Critical Care - Subjective ROS Limited/Unobtainable: No Condition: improving IV Access: peripheral FI02: 21 Vent Support Mode: BiLevel Sputum Amount: None I&O: Intake and Output 11/28/19 11/29/19 19:00 07:00 Intake Total 895 ml 240 ml Balance 895 ml 240 ml Intake Oral 840 ml 240 ml IV Total 55 ml # Bowel Movements 4 Miguel Hamm MD Nov 29, 2019 09:56
[2019-11-29] MEDS ORDERED: Vancomycin 1gm/D5W 275ml IVPB ONE ×2 (10:00)
[2019-11-29 12:00] VITALS: BP 133/77
--- NOTE | 2019-11-29 12:29 | Cardiac Electrophysiology PN ---
Assessment/Plan Assessment/Plan 1. NSTEMI with elevated troponin to 3.4 and lateral ischemia on the EKG and epigastric pain. Could be partially related to the patient's renal failure and creatinine of 6. Troponin is down to 1.8 and no CP. Continue aspirin, Coreg and statin. 2. Volume overload due to renal failure and CHF EF 40%. On Zaroxolyn 5 mg daily. Coreg 12.5 mg b.i.d., Hydralazine 10 q 6 and Isordil 10 mg every six hours. The patient may need hemodialysis under management of Dr. Garcia. 3. Hypertension 4. End-stage renal disease, likely need hemodialysis. Further evaluation by Dr. Garcia. 5. Diabetes. TAYLOR RN Subjective Subjective Alert in NAD. No CP or SOB.In SR with no arrhythmias. Transferred to tele Objective Last 24 Hour Vital Signs Date Time Temp Pulse Resp B/P (MAP) Pulse Ox O2 Delivery O2 Flow Rate FiO2 11/29/19 12:18 133/77 11/29/19 12:18 133/77 11/29/19 09:04 77 145/79 11/29/19 09:00 Room Air 11/29/19 08:10 99 Room Air 21 11/29/19 08:00 78 11/29/19 08:00 97.7 77 17 145/79 (101) 92 11/29/19 06:40 138/72 11/29/19 06:39 138/72 11/29/19 04:00 72 11/29/19 04:00 98.1 73 16 138/71 (93) 100 11/29/19 00:23 145/77 11/29/19 00:22 145/77 11/29/19 00:00 98.1 86 16 147/77 (100) 98 11/29/19 00:00 86 11/28/19 21:53 90 159/85 11/28/19 20:06 97 Room Air 21 11/28/19 20:00 97.3 79 16 141/87 (105) 97 11/28/19 20:00 89 11/28/19 20:00 Room Air 11/28/19 18:10 148/97 11/28/19 18:10 148/97 11/28/19 18:00 80 18 159/81 (107) 99 11/28/19 17:00 76 17 144/75 (98) 96 11/28/19 16:00 97.8 73 20 152/79 (103) 99 11/28/19 16:00 Room Air 11/28/19 15:48 74 11/28/19 15:00 74 18 138/81 (100) 98 11/28/19 14:00 74 17 122/71 (88) 98 11/28/19 13:00 74 18 126/84 (98) 99 Intake and Output 11/28/19 11/29/19 19:00 07:00 Intake Total 895 ml 240 ml Balance 895 ml 240 ml Intake Oral 840 ml 240 ml IV Total 55 ml # Bowel Movements 4 Laboratory Tests Test 11/29/19 05:32 White Blood Count 10.8 K/UL (4.8-10.8) Red Blood Count 3.10 M/UL (4.20-5.40) L Hemoglobin 8.7 G/DL (12.0-16.0) L Hematocrit 26.4 % (37.0-47.0) L Mean Corpuscular Volume 85 FL (80-99) Mean Corpuscular Hemoglobin 27.9 PG (27.0-31.0) Mean Corpuscular Hemoglobin Concent 32.8 G/DL (32.0-36.0) Red Cell Distribution Width 13.6 % (11.6-14.8) Platelet Count 227 K/UL (150-450) Mean Platelet Volume 7.4 FL (6.5-10.1) Neutrophils (%) (Auto) 64.8 % (45.0-75.0) Lymphocytes (%) (Auto) 20.2 % (20.0-45.0) Monocytes (%) (Auto) 11.3 % (1.0-10.0) H Eosinophils (%) (Auto) 2.3 % (0.0-3.0) Basophils (%) (Auto) 1.3 % (0.0-2.0) Sodium Level 141 MMOL/L (136-145) Potassium Level 3.4 MMOL/L (3.5-5.1) L Chloride Level 105 MMOL/L (98-107) Carbon Dioxide Level 21 MMOL/L (21-32) Anion Gap 15 mmol/L (5-15) Blood Urea Nitrogen 78 mg/dL (7-18) H Creatinine 5.5 MG/DL (0.55-1.30) H Estimat Glomerular Filtration Rate 9.7 mL/min (>60) Glucose Level 97 MG/DL (74-106) Uric Acid 8.4 MG/DL (2.6-7.2) H Calcium Level 8.1 MG/DL (8.5-10.1) L Phosphorus Level 4.1 MG/DL (2.5-4.9) Magnesium Level 2.0 MG/DL (1.8-2.4) Total Bilirubin 0.3 MG/DL (0.2-1.0) Aspartate Amino Transf (AST/SGOT) 28 U/L (15-37) Alanine Aminotransferase (ALT/SGPT) 99 U/L (12-78) H Alkaline Phosphatase 85 U/L (46-116) Troponin I 0.459 ng/mL (0.000-0.056) C-Reactive Protein, Quantitative 11.7 mg/dL (0.00-0.90) H Pro-B-Type Natriuretic Peptide > 81541 pg/mL (0-125) H Total Protein 7.3 G/DL (6.4-8.2) Albumin 2.4 G/DL (3.4-5.0) L Globulin 4.9 g/dL Albumin/Globulin Ratio 0.5 (1.0-2.7) L Random Vancomycin Level 17.5 ug/mL Microbiology Date/Time Source Procedure Growth Status 11/26/19 17:30 Nasal Nares - Final Complete 11/26/19 17:30 Nasal Nares - Final Complete Objective HEAD AND NECK: mild JVD. LUNGS: Decreased breath sounds. CARDIOVASCULAR: regular S1 and S2 with no gallop. ABDOMEN: Soft. EXTREMITIES: No pitting edema. She has a chronic right toe ulcer. Jeremiah Motley MD Nov 29, 2019 12:29
--- NOTE | 2019-11-29 12:34 | Nephrology Progress Note ---
Assessment/Plan Problem List: (1) Renal failure (ARF), acute on chronic (2) Cardiomyopathy (3) Anemia in chronic kidney disease (CKD) (4) Non-STEMI (non-ST elevated myocardial infarction) (5) Diabetic nephropathy (6) Diabetes mellitus out of control Assessment underlying CKD ? Superimposed Acute Anemia of CKD Cardiomyopathy- 40% EjFx DM Low Folate elevated troponin- CAD Asa Allergy Plan change diet transfuse PO folate Plavix Coreg- Norvasc- Hydralazine monitor renal parameters Subjective ROS Limited/Unobtainable: No Constitutional: Reports: malaise Objective Objective Last 24 Hour Vital Signs Date Time Temp Pulse Resp B/P (MAP) Pulse Ox O2 Delivery O2 Flow Rate FiO2 11/29/19 12:18 133/77 11/29/19 12:18 133/77 11/29/19 09:04 77 145/79 11/29/19 09:00 Room Air 11/29/19 08:10 99 Room Air 21 11/29/19 08:00 78 11/29/19 08:00 97.7 77 17 145/79 (101) 92 11/29/19 06:40 138/72 11/29/19 06:39 138/72 11/29/19 04:00 72 11/29/19 04:00 98.1 73 16 138/71 (93) 100 11/29/19 00:23 145/77 11/29/19 00:22 145/77 11/29/19 00:00 98.1 86 16 147/77 (100) 98 11/29/19 00:00 86 11/28/19 21:53 90 159/85 11/28/19 20:06 97 Room Air 21 11/28/19 20:00 97.3 79 16 141/87 (105) 97 11/28/19 20:00 89 11/28/19 20:00 Room Air 11/28/19 18:10 148/97 11/28/19 18:10 148/97 11/28/19 18:00 80 18 159/81 (107) 99 11/28/19 17:00 76 17 144/75 (98) 96 11/28/19 16:00 97.8 73 20 152/79 (103) 99 11/28/19 16:00 Room Air 11/28/19 15:48 74 11/28/19 15:00 74 18 138/81 (100) 98 11/28/19 14:00 74 17 122/71 (88) 98 11/28/19 13:00 74 18 126/84 (98) 99 Intake and Output 11/28/19 11/29/19 19:00 07:00 Intake Total 895 ml 240 ml Balance 895 ml 240 ml Intake Oral 840 ml 240 ml IV Total 55 ml # Bowel Movements 4 Laboratory Tests 11/29/19 05:32: White Blood Count 10.8, Red Blood Count 3.10L, Hemoglobin 8.7L, Hematocrit 26.4L , Mean Corpuscular Volume 85, Mean Corpuscular Hemoglobin 27.9, Mean Corpuscular Hemoglobin Concent 32.8, Red Cell Distribution Width 13.6, Platelet Count 227, Mean Platelet Volume 7.4, Neutrophils (%) (Auto) 64.8, Lymphocytes (% ) (Auto) 20.2, Monocytes (%) (Auto) 11.3H, Eosinophils (%) (Auto) 2.3, Basophils (%) (Auto) 1.3, Sodium Level 141, Potassium Level 3.4L, Chloride Level 105, Carbon Dioxide Level 21, Anion Gap 15, Blood Urea Nitrogen 78H, Creatinine 5.5H, Estimat Glomerular Filtration Rate 9.7, Glucose Level 97, Uric Acid 8.4H, Calcium Level 8.1L, Phosphorus Level 4.1, Magnesium Level 2.0, Total Bilirubin 0.3, Aspartate Amino Transf (AST/SGOT) 28, Alanine Aminotransferase ( ALT/SGPT) 99H, Alkaline Phosphatase 85, Troponin I 0.459H, C-Reactive Protein, Quantitative 11.7H, Pro-B-Type Natriuretic Peptide > 83916Z, Total Protein 7.3, Albumin 2.4L, Globulin 4.9, Albumin/Globulin Ratio 0.5L, Random Vancomycin Level 17.5 Height (Feet): 5 Height (Inches): 3.00 Weight (Pounds): 138 General Appearance: no apparent distress Cardiovascular: normal rate Respiratory/Chest: decreased breath sounds Joao Garcia MD Nov 29, 2019 12:34
[2019-11-29] MEDS ORDERED: Imdur 30mg tab ORAL SCH (12:45)
--- NOTE | 2019-11-29 13:12 | Surgery Progress Note ---
Surgery Progress Note Subjective Symptoms: improved, pain absent, tolerating diet, voiding well, passing flatus , BM Objective Last 24 Hour Vital Signs Date Time Temp Pulse Resp B/P (MAP) Pulse Ox O2 Delivery O2 Flow Rate FiO2 11/29/19 12:18 133/77 11/29/19 12:18 133/77 11/29/19 09:04 77 145/79 11/29/19 09:00 Room Air 11/29/19 08:10 99 Room Air 21 11/29/19 08:00 78 11/29/19 08:00 97.7 77 17 145/79 (101) 92 11/29/19 06:40 138/72 11/29/19 06:39 138/72 11/29/19 04:00 72 11/29/19 04:00 98.1 73 16 138/71 (93) 100 11/29/19 00:23 145/77 11/29/19 00:22 145/77 11/29/19 00:00 98.1 86 16 147/77 (100) 98 11/29/19 00:00 86 11/28/19 21:53 90 159/85 11/28/19 20:06 97 Room Air 21 11/28/19 20:00 97.3 79 16 141/87 (105) 97 11/28/19 20:00 89 11/28/19 20:00 Room Air 11/28/19 18:10 148/97 11/28/19 18:10 148/97 11/28/19 18:00 80 18 159/81 (107) 99 11/28/19 17:00 76 17 144/75 (98) 96 11/28/19 16:00 97.8 73 20 152/79 (103) 99 11/28/19 16:00 Room Air 11/28/19 15:48 74 11/28/19 15:00 74 18 138/81 (100) 98 11/28/19 14:00 74 17 122/71 (88) 98 I&O Intake and Output 11/28/19 11/29/19 19:00 07:00 Intake Total 895 ml 240 ml Balance 895 ml 240 ml Intake Oral 840 ml 240 ml IV Total 55 ml # Bowel Movements 4 Dressing: dry Wound: clean Cardiovascular: RSR Respiratory: clear Abdomen: soft, non-tender, present bowel sounds Extremities: no cyanosis, other Laboratory Tests Test 11/29/19 05:32 White Blood Count 10.8 K/UL (4.8-10.8) Red Blood Count 3.10 M/UL (4.20-5.40) L Hemoglobin 8.7 G/DL (12.0-16.0) L Hematocrit 26.4 % (37.0-47.0) L Mean Corpuscular Volume 85 FL (80-99) Mean Corpuscular Hemoglobin 27.9 PG (27.0-31.0) Mean Corpuscular Hemoglobin Concent 32.8 G/DL (32.0-36.0) Red Cell Distribution Width 13.6 % (11.6-14.8) Platelet Count 227 K/UL (150-450) Mean Platelet Volume 7.4 FL (6.5-10.1) Neutrophils (%) (Auto) 64.8 % (45.0-75.0) Lymphocytes (%) (Auto) 20.2 % (20.0-45.0) Monocytes (%) (Auto) 11.3 % (1.0-10.0) H Eosinophils (%) (Auto) 2.3 % (0.0-3.0) Basophils (%) (Auto) 1.3 % (0.0-2.0) Sodium Level 141 MMOL/L (136-145) Potassium Level 3.4 MMOL/L (3.5-5.1) L Chloride Level 105 MMOL/L (98-107) Carbon Dioxide Level 21 MMOL/L (21-32) Anion Gap 15 mmol/L (5-15) Blood Urea Nitrogen 78 mg/dL (7-18) H Creatinine 5.5 MG/DL (0.55-1.30) H Estimat Glomerular Filtration Rate 9.7 mL/min (>60) Glucose Level 97 MG/DL (74-106) Uric Acid 8.4 MG/DL (2.6-7.2) H Calcium Level 8.1 MG/DL (8.5-10.1) L Phosphorus Level 4.1 MG/DL (2.5-4.9) Magnesium Level 2.0 MG/DL (1.8-2.4) Total Bilirubin 0.3 MG/DL (0.2-1.0) Aspartate Amino Transf (AST/SGOT) 28 U/L (15-37) Alanine Aminotransferase (ALT/SGPT) 99 U/L (12-78) H Alkaline Phosphatase 85 U/L (46-116) Troponin I 0.459 ng/mL (0.000-0.056) C-Reactive Protein, Quantitative 11.7 mg/dL (0.00-0.90) H Pro-B-Type Natriuretic Peptide > 16906 pg/mL (0-125) H Total Protein 7.3 G/DL (6.4-8.2) Albumin 2.4 G/DL (3.4-5.0) L Globulin 4.9 g/dL Albumin/Globulin Ratio 0.5 (1.0-2.7) L Random Vancomycin Level 17.5 ug/mL Plan Problems: (1) Diabetic ulcer of toe Assessment & Plan: Findings: 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 There is evidence of prior osteotomy of the fourth proximal and middle phalanges. There is evidence of prior amputation of the third distal phalanx. No acute fractures. No dislocations. No osseous erosions. The joint spaces are preserved. There is hammertoe deformity of the second through fifth digits. Impression: Postsurgical changes, as described No definite acute bony trauma graft no plain radiographic evidence of acute osseous myelitis. Note, however, limited sensitivity of plain radiographs for such. Consider MRI or bone scan for more sensitive characterization. Findings: On the right, Doppler waveforms are biphasic or triphasic with sharp systolic peaks at the level of the common femoral, profunda femoral, proximal superficial femoral arteries. In the proximal superficial femoral artery, there is sonographically visible atherosclerotic plaquing with flow velocity elevation up to 269 cm/s. There is slight dampening of the waveforms distal to this, although waveforms remain triphasic to the level of the proximal tibial vessels. The distal tibial vessel waveforms are monophasic at the level of the posterior tibial artery, but biphasic and the distal peroneal and dorsalis pedis arteries. On the left, Doppler waveforms are triphasic at all levels including distally. Systolic peaks are sharp and flow velocities are within normal limits. Impression: Borderline significant stenosis of the right proximal superficial femoral artery Negative for evidence of significant left lower extremity. Serial insufficiency. Findings: Bilaterally, grayscale and duplex images demonstrate no evidence of intraluminal thrombus. Normal phasic Doppler waveforms, demonstrating normal augmentation response and no evidence of valvular insufficiency. Greater saphenous veins and tibial veins are patent bilaterally. Normal compressibility Impression: Negative for evidence of lower extremity deep venous thrombosis vascular input appreciated IMPRESSION: Acute osteomyelitis of the third toe with involvement of the middle and distal phalange and the distal aspect of the proximal phalange. (2) SOB (shortness of breath) (3) Abnormal LFTs Assessment & Plan: 54-year-old female with leukocytosis, abnormalities, anemia , diabetic toe, elevated troponins. downgraded improving Trend labs No acute surgical invention planned We will monitor and follow with serial exams okay to d/c from surgical standpoint Thank you let me participate in his care will follow the recommendations Wilberto Jiménez Nov 29, 2019 13:12
--- NOTE | 2019-11-29 13:17 | General Progress Note ---
Assessment/Plan Problem List: (1) Diabetes mellitus out of control ICD Codes: E11.65 - Type 2 diabetes mellitus with hyperglycemia SNOMED: 23660888, 936405427 (2) Fluid overload ICD Codes: E87.70 - Fluid overload, unspecified SNOMED: 48315786 (3) Chronic renal disease ICD Codes: N18.9 - Chronic kidney disease, unspecified SNOMED: 129625866 (4) Nonadherence to medication ICD Codes: Z91.14 - Patient's other noncompliance with medication regimen SNOMED: 983294409 (5) Diabetic ulcer of toe ICD Codes: E11.621 - Type 2 diabetes mellitus with foot ulcer; L97.509 - Non- pressure chronic ulcer of other part of unspecified foot with unspecified severity SNOMED: 78621939, 447245368, 621012637 Status: progressing, unchanged Assessment/Plan: continue Januvia 25 mg daily - N[place] in non formulary at [facility] continue NISS ac / hs Subjective Allergies: Coded Allergies: ASPIRIN (Verified Allergy, Unknown, 04/13/19) All Systems: reviewed and negative except above Subjective events noted glucose values are stable Item Value Date Time Bedside Blood Glucose 171 mg/dl H 11/29/19 1220 Bedside Blood Glucose 100 mg/dl 11/29/19 0641 Bedside Blood Glucose 106 mg/dl 11/28/19 2100 Bedside Blood Glucose 208 mg/dl H 11/28/19 1632 Bedside Blood Glucose 173 mg/dl H 11/28/19 1156 Objective Last 24 Hour Vital Signs Date Time Temp Pulse Resp B/P (MAP) Pulse Ox O2 Delivery O2 Flow Rate FiO2 11/29/19 12:18 133/77 11/29/19 12:18 133/77 11/29/19 09:04 77 145/79 11/29/19 09:00 Room Air 11/29/19 08:10 99 Room Air 21 11/29/19 08:00 78 11/29/19 08:00 97.7 77 17 145/79 (101) 92 11/29/19 06:40 138/72 11/29/19 06:39 138/72 11/29/19 04:00 72 11/29/19 04:00 98.1 73 16 138/71 (93) 100 11/29/19 00:23 145/77 2/1/20 00:22 145/77 11/29/19 00:00 98.1 86 16 147/77 (100) 98 11/29/19 00:00 86 11/28/19 21:53 90 159/85 11/28/19 20:06 97 Room Air 21 11/28/19 20:00 97.3 79 16 141/87 (105) 97 11/28/19 20:00 89 11/28/19 20:00 Room Air 11/28/19 18:10 148/97 11/28/19 18:10 148/97 11/28/19 18:00 80 18 159/81 (107) 99 11/28/19 17:00 76 17 144/75 (98) 96 11/28/19 16:00 97.8 73 20 152/79 (103) 99 11/28/19 16:00 Room Air 11/28/19 15:48 74 11/28/19 15:00 74 18 138/81 (100) 98 11/28/19 14:00 74 17 122/71 (88) 98 Intake and Output 11/28/19 11/29/19 18:59 06:59 Intake Total 895 ml 240 ml Balance 895 ml 240 ml Intake Oral 840 ml 240 ml IV Total 55 ml # Bowel Movements 4 Laboratory Tests 11/29/19 05:32: White Blood Count 10.8, Red Blood Count 3.10L, Hemoglobin 8.7L, Hematocrit 26.4L , Mean Corpuscular Volume 85, Mean Corpuscular Hemoglobin 27.9, Mean Corpuscular Hemoglobin Concent 32.8, Red Cell Distribution Width 13.6, Platelet Count 227, Mean Platelet Volume 7.4, Neutrophils (%) (Auto) 64.8, Lymphocytes (% ) (Auto) 20.2, Monocytes (%) (Auto) 11.3H, Eosinophils (%) (Auto) 2.3, Basophils (%) (Auto) 1.3, Sodium Level 141, Potassium Level 3.4L, Chloride Level 105, Carbon Dioxide Level 21, Anion Gap 15, Blood Urea Nitrogen 78H, Creatinine 5.5H, Estimat Glomerular Filtration Rate 9.7, Glucose Level 97, Uric Acid 8.4H, Calcium Level 8.1L, Phosphorus Level 4.1, Magnesium Level 2.0, Total Bilirubin 0.3, Aspartate Amino Transf (AST/SGOT) 28, Alanine Aminotransferase ( ALT/SGPT) 99H, Alkaline Phosphatase 85, Troponin I 0.459H, C-Reactive Protein, Quantitative 11.7H, Pro-B-Type Natriuretic Peptide > 61292B, Total Protein 7.3, Albumin 2.4L, Globulin 4.9, Albumin/Globulin Ratio 0.5L, Random Vancomycin Level 17.5 Height (Feet): 5 Height (Inches): 3.00 Weight (Pounds): 138 General Appearance: no apparent distress Neck: normal alignment Cardiovascular: normal rate Respiratory/Chest: lungs clear Abdomen: normal bowel sounds Edema: no edema noted Arm (L), no edema noted Arm (R), no edema noted Leg (L), no edema noted Leg (R), no edema noted Pedal (L), no edema noted Pedal (R), no edema noted Generalized Objective Current Medications Medications (Trade) Dose Ordered Sig/Yeny Route PRN Reason Start Time Stop Time Status Last Admin Dose Admin Acetaminophen (Tylenol) 500 mg Q4H PRN ORAL Mild Pain/Temp > 100.5 11/28/19 21:30 12/26/19 13:29 Albuterol/ Ipratropium (Albuterol/ Ipratropium) 3 ml Q4H PRN HHN Shortness of Breath 11/28/19 21:45 12/01/19 13:38 Allopurinol (allopurinoL) 300 mg DAILY ORAL 11/29/19 09:00 12/27/19 08:59 11/29/19 09:04 Carvedilol (Coreg) 12.5 mg EVERY 12 HOURS ORAL 11/28/19 21:00 12/26/19 20:59 11/29/19 09:04 Ceftriaxone Sodium 1 gm/ Dextrose 55 ml @ 110 mls/hr Q24H IVPB 11/29/19 16:00 12/03/19 15:59 Clopidogrel Bisulfate (Plavix) 75 mg DAILY ORAL 11/29/19 09:00 12/26/19 08:59 11/29/19 09:04 Dextrose (Dextrose 50%) 25 ml Q30M PRN IV Hypoglycemia 11/28/19 19:30 12/26/19 01:29 Dextrose (Dextrose 50%) 50 ml Q30M PRN IV Hypoglycemia 11/28/19 19:30 12/26/19 01:29 Docusate Sodium (Colace) 100 mg THREE TIMES A DAY ORAL 11/29/19 09:00 12/26/19 08:59 11/29/19 12:18 Epoetin Jensen (Epoetin Jensen-EPBX(NON ESRD)) 10,000 unit SUN-SUN-SUN SUBQ 11/28/19 21:00 12/26/19 20:59 11/28/19 21:56 Folic Acid (Folate) 3 mg DAILY ORAL 11/29/19 09:00 12/26/19 14:29 11/29/19 09:05 Heparin Sodium (Porcine) (Heparin 5000 units/ml) 5,000 units EVERY 12 HOURS SUBQ 11/28/19 21:00 12/26/19 08:59 11/29/19 09:03 Hydralazine HCl (Apresoline) 25 mg Q4H PRN ORAL bp over 160 syst 11/28/19 21:45 12/26/19 13:38 Hydralazine HCl (Apresoline) 25 mg Q8HR ORAL 11/29/19 14:00 12/26/19 17:59 Insulin Aspart (NovoLOG) BEFORE MEALS AND HS SUBQ 11/28/19 21:00 12/26/19 06:29 11/29/19 12:20 Isosorbide Mononitrate (Imdur) 30 mg DAILY ORAL 11/30/19 09:00 12/30/19 08:59 Isosorbide Mononitrate (Imdur) 30 mg ONCE ORAL 11/29/19 12:45 11/29/19 14:00 Metolazone (Zaroxolyn) 5 mg DAILY ORAL 11/29/19 09:00 12/27/19 08:59 11/29/19 09:04 Pantoprazole (Protonix) 40 mg EVERY 12 HOURS ORAL 11/28/19 21:00 12/26/19 20:59 11/29/19 09:04 Sevelamer Carbonate (Renvela) 800 mg THREE TIMES A DAY ORAL 11/29/19 09:00 12/28/19 09:14 11/29/19 12:18 Sitagliptin Phosphate (Januvia) 25 mg ACBREAKFAST ORAL 11/29/19 06:30 12/27/19 06:29 11/29/19 06:39 Vancomycin HCl (Vanco rx to dose) 1 ea DAILY PRN MISC Per rx protocol 11/29/19 09:00 12/26/19 13:44 Zolpidem Tartrate (Ambien) 5 mg HSPRN PRN ORAL Insomnia 11/29/19 13:30 12/03/19 13:29 Robert Pierce MD Nov 29, 2019 13:17
[2019-11-29] MEDS ORDERED: Zolpidem 5mg tab ORAL PRN (13:30)
[2019-11-29] MEDS: HydrALAZINE 25mg tab ORAL SCH ×2 (13:56→22:56)
--- NOTE | 2019-11-29 13:57 | NUR ---
NURSE NOTES: spoke to [facility] pharmacist regarding patient already took hydralazine 10mg at [address] Motley ordered another 25mg at 1400. Pharmacist stated to give the medication for the patient d/t parameter is to hold if <100sbp. Rechecked current blood pressure is 121/70,LA 68. Patient denied of chest pain, denied blurry vision or dizziness. Hydralazine is given as scheduled.
[2019-11-29] MEDS ORDERED: NS 275ml ONE (14:19)
[2019-11-29 16:00] VITALS: BP 108/73
[2019-11-29] MEDS ORDERED: cefTRIAXone 1 GM in D5W 55 ML IVPB SCH (16:00)
--- NOTE | 2019-11-29 16:08 | General Progress Note ---
Assessment/Plan Status: progressing, unchanged Assessment/Plan: Assessment - Anemia - OB (-) - Renal failure - NSTEMI - abnormal LFT - possibly due to LA, Hep serologies neg, will check US - DM - HTN Recommendations - Monitor CBC - check OB - neg - follow LFT - Check CPK - now normal - abdominal ultrasound - neg - Eventual EGD / Colon at later date - patient to arrange as outpatient Subjective Allergies: Coded Allergies: ASPIRIN (Verified Allergy, Unknown, 04/13/19) Subjective Above noted Out of ICU no abdominal complaints Objective Last 24 Hour Vital Signs Date Time Temp Pulse Resp B/P (MAP) Pulse Ox O2 Delivery O2 Flow Rate FiO2 11/29/19 13:56 120/70 11/29/19 13:56 121/70 11/29/19 12:18 133/77 11/29/19 12:18 133/77 11/29/19 12:00 69 11/29/19 12:00 97.5 71 20 133/77 (95) 93 11/29/19 09:04 77 145/79 11/29/19 09:00 Room Air 11/29/19 08:10 99 Room Air 21 11/29/19 08:00 78 11/29/19 08:00 97.7 77 17 145/79 (101) 92 11/29/19 06:40 138/72 11/29/19 06:39 138/72 11/29/19 04:00 72 11/29/19 04:00 98.1 73 16 138/71 (93) 100 11/29/19 00:23 145/77 11/29/19 00:22 145/77 11/29/19 00:00 98.1 86 16 147/77 (100) 98 11/29/19 00:00 86 11/28/19 21:53 90 159/85 11/28/19 20:06 97 Room Air 21 11/28/19 20:00 97.3 79 16 141/87 (105) 97 11/28/19 20:00 89 11/28/19 20:00 Room Air 11/28/19 18:10 148/97 11/28/19 18:10 148/97 11/28/19 18:00 80 18 159/81 (107) 99 11/28/19 17:00 76 17 144/75 (98) 96 Intake and Output 11/28/19 11/29/19 19:00 07:00 Intake Total 895 ml 240 ml Balance 895 ml 240 ml Intake Oral 840 ml 240 ml IV Total 55 ml # Bowel Movements 4 Laboratory Tests 11/29/19 05:32: White Blood Count 10.8, Red Blood Count 3.10L, Hemoglobin 8.7L, Hematocrit 26.4L , Mean Corpuscular Volume 85, Mean Corpuscular Hemoglobin 27.9, Mean Corpuscular Hemoglobin Concent 32.8, Red Cell Distribution Width 13.6, Platelet Count 227, Mean Platelet Volume 7.4, Neutrophils (%) (Auto) 64.8, Lymphocytes (% ) (Auto) 20.2, Monocytes (%) (Auto) 11.3H, Eosinophils (%) (Auto) 2.3, Basophils (%) (Auto) 1.3, Sodium Level 141, Potassium Level 3.4L, Chloride Level 105, Carbon Dioxide Level 21, Anion Gap 15, Blood Urea Nitrogen 78H, Creatinine 5.5H, Estimat Glomerular Filtration Rate 9.7, Glucose Level 97, Uric Acid 8.4H, Calcium Level 8.1L, Phosphorus Level 4.1, Magnesium Level 2.0, Total Bilirubin 0.3, Aspartate Amino Transf (AST/SGOT) 28, Alanine Aminotransferase ( ALT/SGPT) 99H, Alkaline Phosphatase 85, Troponin I 0.459H, C-Reactive Protein, Quantitative 11.7H, Pro-B-Type Natriuretic Peptide > 69205H, Total Protein 7.3, Albumin 2.4L, Globulin 4.9, Albumin/Globulin Ratio 0.5L, Random Vancomycin Level 17.5 Height (Feet): 5 Height (Inches): 3.00 Weight (Pounds): 138 Objective WDWN AA woman NCAT supple CTA RRR Abd soft NT ND no edema Kacie Butler MD Nov 29, 2019 16:08
--- NOTE | 2019-11-29 19:34 | NUR ---
HAND-OFF: Report given to MOISÉS Cuevas. Patient's stable, plan of care endorsed.
[2019-11-29 20:00] VITALS: BP 148/89
--- NOTE | 2019-11-29 20:00 | NUR ---
NURSE NOTES: RECEIVED PATIENT LYING IN BED, AWAKE, ALERT/ORIENTED X4, VERBALLY RESPONSIVE, DENIES PAIN. NO SIGNS AND SYMPTOMS OF ACUTE CARDIO RESPIRATORY DISTRESS/SHORTNESS OF BREATH, DENIES CHEST PAIN, NO PERIPHERAL EDEMA NOTED. ABDOMEN SOFT/NON DISTENDED/NON TENDER, BOWEL SOUNDS HYPERACTIVE. IV INTACT TO RIGHT FOREARM/GAUGE 20, NO REDNESS/SWELLING NOTED. DRESSING DRY AND INTACT TO RIGHT FOOT, ENCOURAGED PATIENT TO ELEVATE EXTREMITY ON TWO PILLOWS PER MD ORDER. NO COMPLAINTS OF GI DISTRESS. SIDE RAILS UP X2 FOR MOBILITY, BED IN LOWEST POSITION FOR SAFETY, ENCOURAGED PATIENT TO UTILIZE CALL LIGHT FOR ASSISTANCE, VERBALIZED UNDERSTANDING. NAD.
--- NOTE | 2019-11-29 22:24 | General Progress Note ---
Assessment/Plan Problem List: (1) Non-STEMI (non-ST elevated myocardial infarction) ICD Codes: I21.4 - Non-ST elevation (NSTEMI) myocardial infarction SNOMED: 26708521 (2) Abnormal LFTs ICD Codes: R94.5 - Abnormal results of liver function studies SNOMED: 255216128 (3) Diabetic ulcer of toe ICD Codes: E11.621 - Type 2 diabetes mellitus with foot ulcer; L97.509 - Non- pressure chronic ulcer of other part of unspecified foot with unspecified severity SNOMED: 27310560, 840564151, 374489014 (4) Chronic renal disease ICD Codes: N18.9 - Chronic kidney disease, unspecified SNOMED: 738667760 (5) Nonadherence to medication ICD Codes: Z91.14 - Patient's other noncompliance with medication regimen SNOMED: 207197828 (6) Diabetes mellitus out of control ICD Codes: E11.65 - Type 2 diabetes mellitus with hyperglycemia SNOMED: 41748819, 561415291 (7) Diabetic nephropathy ICD Codes: E11.21 - Type 2 diabetes mellitus with diabetic nephropathy SNOMED: 295742095 (8) Renal failure (ARF), acute on chronic ICD Codes: N17.9 - Acute kidney failure, unspecified; N18.9 - Chronic kidney disease, unspecified SNOMED: 207306657 (9) Anemia in chronic kidney disease (CKD) ICD Codes: N18.9 - Chronic kidney disease, unspecified; D63.1 - Anemia in chronic kidney disease SNOMED: 864728787 Status: progressing, unchanged Assessment/Plan: check trop afebrile check sugar no sob niddm htn nstemi no cp diabetic toe ulcer arf lyte abnormality Subjective ROS Limited/Unobtainable: Yes Allergies: Coded Allergies: ASPIRIN (Verified Allergy, Unknown, 04/13/19) Objective Last 24 Hour Vital Signs Date Time Temp Pulse Resp B/P (MAP) Pulse Ox O2 Delivery O2 Flow Rate FiO2 11/29/19 21:03 73 150/85 11/29/19 20:00 97.9 71 18 148/89 (108) 98 11/29/19 16:00 97.7 74 20 108/73 (85) 93 11/29/19 16:00 79 11/29/19 13:56 120/70 11/29/19 13:56 121/70 2/1/20 12:18 133/77 11/29/19 12:18 133/77 11/29/19 12:00 69 11/29/19 12:00 97.5 71 20 133/77 (95) 93 11/29/19 09:04 77 145/79 11/29/19 09:00 Room Air 11/29/19 08:10 99 Room Air 21 11/29/19 08:00 78 11/29/19 08:00 97.7 77 17 145/79 (101) 92 11/29/19 06:40 138/72 11/29/19 06:39 138/72 11/29/19 04:00 72 11/29/19 04:00 98.1 73 16 138/71 (93) 100 11/29/19 00:23 145/77 11/29/19 00:22 145/77 11/29/19 00:00 98.1 86 16 147/77 (100) 98 11/29/19 00:00 86 Intake and Output 11/28/19 11/29/19 19:00 07:00 Intake Total 895 ml 240 ml Balance 895 ml 240 ml Intake Oral 840 ml 240 ml IV Total 55 ml # Bowel Movements 4 Laboratory Tests 11/29/19 05:32: White Blood Count 10.8, Red Blood Count 3.10L, Hemoglobin 8.7L, Hematocrit 26.4L , Mean Corpuscular Volume 85, Mean Corpuscular Hemoglobin 27.9, Mean Corpuscular Hemoglobin Concent 32.8, Red Cell Distribution Width 13.6, Platelet Count 227, Mean Platelet Volume 7.4, Neutrophils (%) (Auto) 64.8, Lymphocytes (% ) (Auto) 20.2, Monocytes (%) (Auto) 11.3H, Eosinophils (%) (Auto) 2.3, Basophils (%) (Auto) 1.3, Sodium Level 141, Potassium Level 3.4L, Chloride Level 105, Carbon Dioxide Level 21, Anion Gap 15, Blood Urea Nitrogen 78H, Creatinine 5.5H, Estimat Glomerular Filtration Rate 9.7, Glucose Level 97, Uric Acid 8.4H, Calcium Level 8.1L, Phosphorus Level 4.1, Magnesium Level 2.0, Total Bilirubin 0.3, Aspartate Amino Transf (AST/SGOT) 28, Alanine Aminotransferase ( ALT/SGPT) 99H, Alkaline Phosphatase 85, Troponin I 0.459H, C-Reactive Protein, Quantitative 11.7H, Pro-B-Type Natriuretic Peptide > 37173B, Total Protein 7.3, Albumin 2.4L, Globulin 4.9, Albumin/Globulin Ratio 0.5L, Random Vancomycin Level 17.5 Height (Feet): 5 Height (Inches): 3.00 Weight (Pounds): 138 Cardiovascular: normal rate Respiratory/Chest: lungs clear Abdomen: soft Partha Keene MD Nov 29, 2019 22:24
[2019-11-30] VITALS: BP 116/66
[2019-11-30 04:00] VITALS: BP 138/73
[2019-11-30] MEDS: sitaGLIPtin 25mg tab ORAL SCH (06:20)
[2019-11-30] MEDS: HydrALAZINE 25mg tab ORAL SCH ×3 (06:20→22:12)
[2019-11-30] MEDS: NovoLOG Insulin Flexpen SUBQ SCH ×4 (06:21→20:51)
--- NOTE | 2019-11-30 07:11 | General Progress Note ---
Assessment/Plan Problem List: (1) Diabetes mellitus out of control ICD Codes: E11.65 - Type 2 diabetes mellitus with hyperglycemia SNOMED: 10006177, 782956170 (2) Fluid overload ICD Codes: E87.70 - Fluid overload, unspecified SNOMED: 62494367 (3) Chronic renal disease ICD Codes: N18.9 - Chronic kidney disease, unspecified SNOMED: 145385553 (4) Nonadherence to medication ICD Codes: Z91.14 - Patient's other noncompliance with medication regimen SNOMED: 499363547 (5) Diabetic ulcer of toe ICD Codes: E11.621 - Type 2 diabetes mellitus with foot ulcer; L97.509 - Non- pressure chronic ulcer of other part of unspecified foot with unspecified severity SNOMED: 27280074, 226602901, 449127909 Status: progressing, unchanged Assessment/Plan: continue Januvia 25 mg daily continue NISS ac / hs hypoglycemia protocol in order Subjective Allergies: Coded Allergies: ASPIRIN (Verified Allergy, Unknown, 04/13/19) All Systems: reviewed and negative except above Subjective events noted glucose values are stable without hypoglycemia Item Value Date Time Bedside Blood Glucose 74 mg/dl 11/30/19 0621 Bedside Blood Glucose 167 mg/dl H 11/29/19 2106 Bedside Blood Glucose 107 mg/dl 11/29/19 1630 Bedside Blood Glucose 171 mg/dl H 11/29/19 1220 Bedside Blood Glucose 100 mg/dl 11/29/19 0641 Objective Last 24 Hour Vital Signs Date Time Temp Pulse Resp B/P (MAP) Pulse Ox O2 Delivery O2 Flow Rate FiO2 11/30/19 06:20 138/73 11/30/19 04:00 74 11/30/19 04:00 98.2 72 18 138/73 (94) 96 11/30/19 00:00 70 11/30/19 00:00 97.7 70 18 116/66 (83) 96 11/29/19 22:56 127/74 11/29/19 21:03 73 150/85 11/29/19 21:00 Room Air 11/29/19 20:00 77 11/29/19 20:00 97.9 71 18 148/89 (108) 98 11/29/19 19:56 98 Room Air 21 11/29/19 16:00 97.7 74 20 108/73 (85) 93 11/29/19 16:00 79 11/29/19 13:56 120/70 11/29/19 13:56 121/70 11/29/19 12:18 133/77 11/29/19 12:18 133/77 11/29/19 12:00 69 11/29/19 12:00 97.5 71 20 133/77 (95) 93 11/29/19 09:04 77 145/79 11/29/19 09:00 Room Air 11/29/19 08:10 99 Room Air 21 11/29/19 08:00 78 11/29/19 08:00 97.7 77 17 145/79 (101) 92 Intake and Output 11/29/19 11/30/19 19:00 07:00 Intake Total 180 ml Balance 180 ml Intake Oral 180 ml # Voids 1 Height (Feet): 5 Height (Inches): 3.00 Weight (Pounds): 141 General Appearance: no apparent distress Neck: non-tender Cardiovascular: normal rate Respiratory/Chest: lungs clear Abdomen: normal bowel sounds Objective Current Medications Medications (Trade) Dose Ordered Sig/Yeny Route PRN Reason Start Time Stop Time Status Last Admin Dose Admin Acetaminophen (Tylenol) 500 mg Q4H PRN ORAL Mild Pain/Temp > 100.5 11/28/19 21:30 12/26/19 13:29 Albuterol/ Ipratropium (Albuterol/ Ipratropium) 3 ml Q4H PRN HHN Shortness of Breath 11/28/19 21:45 12/01/19 13:38 Allopurinol (allopurinoL) 300 mg DAILY ORAL 11/29/19 09:00 12/27/19 08:59 11/29/19 09:04 Carvedilol (Coreg) 12.5 mg EVERY 12 HOURS ORAL 11/28/19 21:00 12/26/19 20:59 11/29/19 21:03 Ceftriaxone Sodium 1 gm/ Dextrose 55 ml @ 110 mls/hr Q24H IVPB 11/29/19 16:00 12/03/19 15:59 11/29/19 17:11 Clopidogrel Bisulfate (Plavix) 75 mg DAILY ORAL 11/29/19 09:00 12/26/19 08:59 11/29/19 09:04 Dextrose (Dextrose 50%) 25 ml Q30M PRN IV Hypoglycemia 11/28/19 19:30 12/26/19 01:29 Dextrose (Dextrose 50%) 50 ml Q30M PRN IV Hypoglycemia 11/28/19 19:30 12/26/19 01:29 Docusate Sodium (Colace) 100 mg THREE TIMES A DAY ORAL 11/29/19 09:00 12/26/19 08:59 11/29/19 17:11 Epoetin Jensen (Epoetin Jensen-EPBX(NON ESRD)) 10,000 unit SUN-SUN-SUN SUBQ 11/28/19 21:00 12/26/19 20:59 11/28/19 21:56 Folic Acid (Folate) 3 mg DAILY ORAL 11/29/19 09:00 12/26/19 14:29 11/29/19 09:05 Heparin Sodium (Porcine) (Heparin 5000 units/ml) 5,000 units EVERY 12 HOURS SUBQ 11/28/19 21:00 12/26/19 08:59 11/29/19 21:04 Hydralazine HCl (Apresoline) 25 mg Q4H PRN ORAL bp over 160 syst 11/28/19 21:45 12/26/19 13:38 Hydralazine HCl (Apresoline) 25 mg Q8HR ORAL 11/29/19 14:00 12/26/19 17:59 11/30/19 06:20 Insulin Aspart (NovoLOG) BEFORE MEALS AND HS SUBQ 11/28/19 21:00 12/26/19 06:29 11/29/19 21:06 Isosorbide Mononitrate (Imdur) 30 mg DAILY ORAL 11/30/19 09:00 12/30/19 08:59 Metolazone (Zaroxolyn) 5 mg DAILY ORAL 11/29/19 09:00 12/27/19 08:59 11/29/19 09:04 Pantoprazole (Protonix) 40 mg EVERY 12 HOURS ORAL 11/28/19 21:00 12/26/19 20:59 11/29/19 21:03 Sevelamer Carbonate (Renvela) 800 mg THREE TIMES A DAY ORAL 11/29/19 09:00 12/28/19 09:14 11/29/19 17:11 Sitagliptin Phosphate (Januvia) 25 mg ACBREAKFAST ORAL 11/29/19 06:30 12/27/19 06:29 11/30/19 06:20 Vancomycin HCl (Vanco rx to dose) 1 ea DAILY PRN MISC Per rx protocol 11/29/19 09:00 12/26/19 13:44 Zolpidem Tartrate (Ambien) 5 mg HSPRN PRN ORAL Insomnia 11/29/19 13:30 12/03/19 13:29 Robert Pierce MD Nov 30, 2019 07:11
--- NOTE | 2019-11-30 07:30 | NUR ---
HAND-OFF: Report given to BOLIVAR MONTES.
[2019-11-30 08:00] VITALS: BP 137/71
[2019-11-30 08:07] LABS: EOSINOPHILS % (AUTO) 2.7 % (0.0-3.0); HEMOGLOBIN 8.3 G/DL (12.0-16.0); LYMPHOCYTES % (AUTO) 26.6 % (20.0-45.0); MEAN CORPUSCULAR VOLUME 85 FL (80-99); MONOCYTES % (AUTO) 11.8 % (1.0-10.0); NEUTROPHILS % (AUTO) 57.9 % (45.0-75.0); PLATELET COUNT 234 K/UL (150-450); RED BLOOD COUNT 2.96 M/UL (4.20-5.40); RED CELL DISTRIBUTION WIDTH 13.3 % (11.6-14.8); WHITE BLOOD COUNT 8.8 K/UL (4.8-10.8)
[2019-11-30 08:56] LABS: ALANINE AMINOTRANSFERASE 69 U/L (12-78); ALBUMIN 2.3 G/DL (3.4-5.0); ALBUMIN/GLOBULIN RATIO 0.5 (1.0-2.7); ALKALINE PHOSPHATASE 78 U/L (46-116); ANION GAP 11 mmol/L (5-15); ASPARTATE AMINO TRANSFERASE 17 U/L (15-37); BILIRUBIN,TOTAL 0.3 MG/DL (0.2-1.0); BLOOD UREA NITROGEN 68 mg/dL (7-18); CALCIUM 7.9 MG/DL (8.5-10.1); CARBON DIOXIDE 24 MMOL/L (21-32); CHLORIDE 105 MMOL/L (98-107); CREATININE 5.2 MG/DL (0.55-1.30); PHOSPHORUS 4.2 MG/DL (2.5-4.9); POTASSIUM 3.4 MMOL/L (3.5-5.1); SODIUM 140 MMOL/L (136-145)
[2019-11-30] MEDS: Docusate 100mg cap ORAL SCH ×3 (09:40→16:41)
[2019-11-30] MEDS: Imdur 30mg tab ORAL SCH (09:41)
[2019-11-30] MEDS: Carvedilol 12.5mg tab ORAL SCH ×2 (09:41→20:49)
[2019-11-30] MEDS: Heparin 5000 units/ml inj SUBQ SCH ×2 (09:46→20:52)
--- NOTE | 2019-11-30 10:45 | Pulmonolgy Critical Care Note ---
Critical Care - Asmt/Plan Assessment/Plan: Pulmonary Critical Care Progress Note HPI Patient is a 54-year-old woman with previous history of Chronic Kidney Disease, Diabetes, Hypertension, admitted with increased difficulty with breathing. Noted to be fluid overloaded, increased Troponin. Not currently on dialysis. Denies any recent fever, chest pain. Anemia s/p Transfusion, Hb stable, Renal US negative for hydronephrosis Elevated Troponin downtrending No new complaints, on floor Toe osteomyelitis noted on MRI Allergies: ASPIRIN Past Medical History: Chronic Kidney Disease, Diabetes, Hypertension All Other Systems: negative except mentioned in HPI Physical Exam Vital Signs Noted General Appearance: normal inspection, well appearing, no apparent distress, alert, GCS 15 Head: atraumatic ENT: normal ENT inspection, hearing grossly normal, normal voice Neck: normal inspection, full range of motion, supple, no bony tend Respiratory: normal inspection, lungs clear, normal breath sounds, no respiratory distress, no retraction, no wheezing Cardiovascular: regular rate, rhythm, HS1, HS2 normal, no edema Gastrointestinal: normal inspection, normal bowel sounds, non tender, soft, no guarding, no hernia Genitourinary: no CVA tenderness Musculoskeletal: normal inspection, back normal, normal range of motion Neurologic: alert, oriented x3, responsive, speech normal, normal inspection Impression: Fluid overload Elevated Troponin downtrending Pneumonia Chronic Kidney Disease Anemia Diabetes Hypertension Plan - Renal following - Plavix - Cardiology following - IV AB per ID - Monitor labs - Transfuse PRN - O2/Bipap PRN - PPX - [employer] Medications - Kayexalate PRN - TFN PRN - Protonix EKG: Normal sinus rhythm with a rate of [address] or T wave changes. There is no QRS widening noted. CXR: Mild cardiomegaly, interstitial and patchy infiltrates, small effusions LE Dupplex:Negative for DVT MRI foot: Acute osteomyelitis of the third toe with involvement of the middle and distal phalange and the distal aspect of the proximal phalange. Labs Noted Critical Care - Objective Last 24 Hour Vital Signs Date Time Temp Pulse Resp B/P (MAP) Pulse Ox O2 Delivery O2 Flow Rate FiO2 11/30/19 09:41 138/73 11/30/19 09:41 74 138/73 11/30/19 08:45 Room Air 11/30/19 06:20 138/73 2/2/20 04:00 74 11/30/19 04:00 98.2 72 18 138/73 (94) 96 11/30/19 00:00 70 11/30/19 00:00 97.7 70 18 116/66 (83) 96 11/29/19 22:56 127/74 11/29/19 21:03 73 150/85 11/29/19 21:00 Room Air 11/29/19 20:00 77 11/29/19 20:00 97.9 71 18 148/89 (108) 98 11/29/19 19:56 98 Room Air 21 11/29/19 16:00 97.7 74 20 108/73 (85) 93 11/29/19 16:00 79 11/29/19 13:56 120/70 11/29/19 13:56 121/70 11/29/19 12:18 133/77 11/29/19 12:18 133/77 11/29/19 12:00 69 11/29/19 12:00 97.5 71 20 133/77 (95) 93 Accucheck: 74 Critical Care - Subjective ROS Limited/Unobtainable: No Condition: improving FI02: 21 Vent Support Mode: BiLevel Sputum Amount: None I&O: Intake and Output 11/29/19 11/30/19 19:00 07:00 Intake Total 180 ml Balance 180 ml Intake Oral 180 ml # Voids 1 Miguel Hamm MD Nov 30, 2019 10:45
--- NOTE | 2019-11-30 11:13 | Surgery Progress Note ---
Surgery Progress Note Subjective Additional Comments no acute events Objective Last 24 Hour Vital Signs Date Time Temp Pulse Resp B/P (MAP) Pulse Ox O2 Delivery O2 Flow Rate FiO2 11/30/19 09:41 138/73 11/30/19 09:41 74 138/73 11/30/19 08:45 Room Air 11/30/19 06:20 138/73 11/30/19 04:00 74 11/30/19 04:00 98.2 72 18 138/73 (94) 96 11/30/19 00:00 70 11/30/19 00:00 97.7 70 18 116/66 (83) 96 11/29/19 22:56 127/74 11/29/19 21:03 73 150/85 11/29/19 21:00 Room Air 11/29/19 20:00 77 11/29/19 20:00 97.9 71 18 148/89 (108) 98 11/29/19 19:56 98 Room Air 21 11/29/19 16:00 97.7 74 20 108/73 (85) 93 11/29/19 16:00 79 11/29/19 13:56 120/70 11/29/19 13:56 121/70 11/29/19 12:18 133/77 11/29/19 12:18 133/77 11/29/19 12:00 69 11/29/19 12:00 97.5 71 20 133/77 (95) 93 I&O Intake and Output 11/29/19 11/30/19 19:00 07:00 Intake Total 180 ml Balance 180 ml Intake Oral 180 ml # Voids 1 Dressing: other Wound: other Drains: other Cardiovascular: RSR Respiratory: decreased breath sounds Abdomen: soft, present bowel sounds Extremities: no edema, no tenderness, no cyanosis, other Laboratory Tests Test 11/30/19 06:15 White Blood Count 8.8 K/UL (4.8-10.8) Red Blood Count 2.96 M/UL (4.20-5.40) L Hemoglobin 8.3 G/DL (12.0-16.0) L Hematocrit 25.0 % (37.0-47.0) L Mean Corpuscular Volume 85 FL (80-99) Mean Corpuscular Hemoglobin 28.0 PG (27.0-31.0) Mean Corpuscular Hemoglobin Concent 33.1 G/DL (32.0-36.0) Red Cell Distribution Width 13.3 % (11.6-14.8) Platelet Count 234 K/UL (150-450) Mean Platelet Volume 7.4 FL (6.5-10.1) Neutrophils (%) (Auto) 57.9 % (45.0-75.0) Lymphocytes (%) (Auto) 26.6 % (20.0-45.0) Monocytes (%) (Auto) 11.8 % (1.0-10.0) H Eosinophils (%) (Auto) 2.7 % (0.0-3.0) Basophils (%) (Auto) 1.0 % (0.0-2.0) Sodium Level 140 MMOL/L (136-145) Potassium Level 3.4 MMOL/L (3.5-5.1) L Chloride Level 105 MMOL/L (98-107) Carbon Dioxide Level 24 MMOL/L (21-32) Anion Gap 11 mmol/L (5-15) Blood Urea Nitrogen 68 mg/dL (7-18) H Creatinine 5.2 MG/DL (0.55-1.30) H Estimat Glomerular Filtration Rate 10.3 mL/min (>60) Glucose Level 75 MG/DL (74-106) Uric Acid 7.8 MG/DL (2.6-7.2) H Calcium Level 7.9 MG/DL (8.5-10.1) L Phosphorus Level 4.2 MG/DL (2.5-4.9) Magnesium Level 1.9 MG/DL (1.8-2.4) Total Bilirubin 0.3 MG/DL (0.2-1.0) Aspartate Amino Transf (AST/SGOT) 17 U/L (15-37) Alanine Aminotransferase (ALT/SGPT) 69 U/L (12-78) Alkaline Phosphatase 78 U/L (46-116) C-Reactive Protein, Quantitative 9.0 mg/dL (0.00-0.90) H Pro-B-Type Natriuretic Peptide > 66348 pg/mL (0-125) H Total Protein 7.0 G/DL (6.4-8.2) Albumin 2.3 G/DL (3.4-5.0) L Globulin 4.7 g/dL Albumin/Globulin Ratio 0.5 (1.0-2.7) L Plan Problems: (1) Diabetic ulcer of toe Assessment & Plan: Findings: 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 There is evidence of prior osteotomy of the fourth proximal and middle phalanges. There is evidence of prior amputation of the third distal phalanx. No acute fractures. No dislocations. No osseous erosions. The joint spaces are preserved. There is hammertoe deformity of the second through fifth digits. Impression: Postsurgical changes, as described No definite acute bony trauma graft no plain radiographic evidence of acute osseous myelitis. Note, however, limited sensitivity of plain radiographs for such. Consider MRI or bone scan for more sensitive characterization. Findings: On the right, Doppler waveforms are biphasic or triphasic with sharp systolic peaks at the level of the common femoral, profunda femoral, proximal superficial femoral arteries. In the proximal superficial femoral artery, there is sonographically visible atherosclerotic plaquing with flow velocity elevation up to 269 cm/s. There is slight dampening of the waveforms distal to this, although waveforms remain triphasic to the level of the proximal tibial vessels. The distal tibial vessel waveforms are monophasic at the level of the posterior tibial artery, but biphasic and the distal peroneal and dorsalis pedis arteries. On the left, Doppler waveforms are triphasic at all levels including distally. Systolic peaks are sharp and flow velocities are within normal limits. Impression: Borderline significant stenosis of the right proximal superficial femoral artery Negative for evidence of significant left lower extremity. Serial insufficiency. Findings: Bilaterally, grayscale and duplex images demonstrate no evidence of intraluminal thrombus. Normal phasic Doppler waveforms, demonstrating normal augmentation response and no evidence of valvular insufficiency. Greater saphenous veins and tibial veins are patent bilaterally. Normal compressibility Impression: Negative for evidence of lower extremity deep venous thrombosis vascular input appreciated IMPRESSION: Acute osteomyelitis of the third toe with involvement of the middle and distal phalange and the distal aspect of the proximal phalange. (2) SOB (shortness of breath) (3) Abnormal LFTs Assessment & Plan: 54-year-old female with leukocytosis, abnormalities, anemia , diabetic toe, elevated troponins. downgraded improving Trend labs No acute surgical invention planned We will monitor and follow with serial exams okay to d/c from surgical standpoint Thank you let me participate in his care will follow the recommendations Wilberto Jiménez Nov 30, 2019 11:13
[2019-11-30 12:00] VITALS: BP 134/78
--- NOTE | 2019-11-30 12:16 | Nephrology Progress Note ---
Assessment/Plan Problem List: (1) Renal failure (ARF), acute on chronic (2) Cardiomyopathy (3) Anemia in chronic kidney disease (CKD) (4) Non-STEMI (non-ST elevated myocardial infarction) (5) Diabetic nephropathy (6) Diabetes mellitus out of control Assessment underlying CKD ? Superimposed Acute Anemia of CKD Cardiomyopathy- 40% EjFx DM Low Folate elevated troponin- CAD Asa Allergy Plan change diet transfuse PO folate Plavix Coreg- Norvasc- Hydralazine monitor renal parameters Subjective ROS Limited/Unobtainable: No Objective Objective Last 24 Hour Vital Signs Date Time Temp Pulse Resp B/P (MAP) Pulse Ox O2 Delivery O2 Flow Rate FiO2 11/30/19 09:41 138/73 11/30/19 09:41 74 138/73 11/30/19 08:45 Room Air 11/30/19 08:00 97.5 75 20 137/71 (93) 96 11/30/19 06:20 138/73 11/30/19 04:00 74 11/30/19 04:00 98.2 72 18 138/73 (94) 96 11/30/19 00:00 70 11/30/19 00:00 97.7 70 18 116/66 (83) 96 11/29/19 22:56 127/74 11/29/19 21:03 73 150/85 11/29/19 21:00 Room Air 11/29/19 20:00 77 11/29/19 20:00 97.9 71 18 148/89 (108) 98 11/29/19 19:56 98 Room Air 21 11/29/19 16:00 97.7 74 20 108/73 (85) 93 11/29/19 16:00 79 11/29/19 13:56 120/70 11/29/19 13:56 121/70 11/29/19 12:18 133/77 11/29/19 12:18 133/77 Intake and Output 11/29/19 11/30/19 19:00 07:00 Intake Total 180 ml Balance 180 ml Intake Oral 180 ml # Voids 1 Current Medications Medications (Trade) Dose Ordered Sig/Yeny Route PRN Reason Start Time Stop Time Status Last Admin Dose Admin Acetaminophen (Tylenol) 500 mg Q4H PRN ORAL Mild Pain/Temp > 100.5 11/28/19 21:30 12/26/19 13:29 Albuterol/ Ipratropium (Albuterol/ Ipratropium) 3 ml Q4H PRN HHN Shortness of Breath 11/28/19 21:45 12/01/19 13:38 Allopurinol (allopurinoL) 300 mg DAILY ORAL 11/29/19 09:00 12/27/19 08:59 11/30/19 09:42 Carvedilol (Coreg) 12.5 mg EVERY 12 HOURS ORAL 11/28/19 21:00 12/26/19 20:59 11/30/19 09:41 Ceftriaxone Sodium 1 gm/ Sodium Chloride 55 ml @ 110 mls/hr Q24H IVPB 11/30/19 16:00 11/30/19 16:29 Clopidogrel Bisulfate (Plavix) 75 mg DAILY ORAL 11/29/19 09:00 12/26/19 08:59 11/30/19 09:42 Dextrose (Dextrose 50%) 25 ml Q30M PRN IV Hypoglycemia 11/28/19 19:30 12/26/19 01:29 Dextrose (Dextrose 50%) 50 ml Q30M PRN IV Hypoglycemia 11/28/19 19:30 12/26/19 01:29 Docusate Sodium (Colace) 100 mg THREE TIMES A DAY ORAL 11/29/19 09:00 12/26/19 08:59 11/30/19 09:40 Epoetin Jensen (Epoetin Jensen-EPBX(NON ESRD)) 10,000 unit SUN-SUN-SUN SUBQ 11/28/19 21:00 12/26/19 20:59 11/28/19 21:56 Folic Acid (Folate) 3 mg DAILY ORAL 11/29/19 09:00 12/26/19 14:29 11/30/19 09:41 Heparin Sodium (Porcine) (Heparin 5000 units/ml) 5,000 units EVERY 12 HOURS SUBQ 11/28/19 21:00 12/26/19 08:59 11/30/19 09:46 Hydralazine HCl (Apresoline) 25 mg Q4H PRN ORAL bp over 160 syst 11/28/19 21:45 12/26/19 13:38 Hydralazine HCl (Apresoline) 25 mg Q8HR ORAL 11/29/19 14:00 12/26/19 17:59 11/30/19 06:20 Insulin Aspart (NovoLOG) BEFORE MEALS AND HS SUBQ 11/28/19 21:00 12/26/19 06:29 11/29/19 21:06 Isosorbide Mononitrate (Imdur) 30 mg DAILY ORAL 11/30/19 09:00 12/30/19 08:59 11/30/19 09:41 Metolazone (Zaroxolyn) 5 mg DAILY ORAL 11/29/19 09:00 12/27/19 08:59 11/30/19 09:41 Pantoprazole (Protonix) 40 mg EVERY 12 HOURS ORAL 11/28/19 21:00 12/26/19 20:59 11/30/19 09:40 Sevelamer Carbonate (Renvela) 800 mg THREE TIMES A DAY ORAL 11/29/19 09:00 12/28/19 09:14 11/30/19 09:40 Sitagliptin Phosphate (Januvia) 25 mg ACBREAKFAST ORAL 11/29/19 06:30 12/27/19 06:29 11/30/19 06:20 Vancomycin HCl (Vanco rx to dose) 1 ea DAILY PRN MISC Per rx protocol 11/29/19 09:00 12/26/19 13:44 Zolpidem Tartrate (Ambien) 5 mg HSPRN PRN ORAL Insomnia 11/29/19 13:30 12/03/19 13:29 Laboratory Tests 11/30/19 06:15: White Blood Count 8.8, Red Blood Count 2.96L, Hemoglobin 8.3L, Hematocrit 25.0L , Mean Corpuscular Volume 85, Mean Corpuscular Hemoglobin 28.0, Mean Corpuscular Hemoglobin Concent 33.1, Red Cell Distribution Width 13.3, Platelet Count 234, Mean Platelet Volume 7.4, Neutrophils (%) (Auto) 57.9, Lymphocytes (% ) (Auto) 26.6, Monocytes (%) (Auto) 11.8H, Eosinophils (%) (Auto) 2.7, Basophils (%) (Auto) 1.0, Sodium Level 140, Potassium Level 3.4L, Chloride Level 105, Carbon Dioxide Level 24, Anion Gap 11, Blood Urea Nitrogen 68H, Creatinine 5.2H, Estimat Glomerular Filtration Rate 10.3, Glucose Level 75, Uric Acid 7.8H, Calcium Level 7.9L, Phosphorus Level 4.2, Magnesium Level 1.9, Total Bilirubin 0.3, Aspartate Amino Transf (AST/SGOT) 17, Alanine Aminotransferase (ALT/SGPT) 69, Alkaline Phosphatase 78, C-Reactive Protein, Quantitative 9.0H, Pro-B-Type Natriuretic Peptide > 93202W, Total Protein 7.0, Albumin 2.3L, Globulin 4.7, Albumin/Globulin Ratio 0.5L Height (Feet): 5 Height (Inches): 3.00 Weight (Pounds): 140 General Appearance: no apparent distress Cardiovascular: normal rate Respiratory/Chest: lungs clear Abdomen: soft Objective no change Joao Garcia MD Nov 30, 2019 12:15
--- NOTE | 2019-11-30 13:27 | Infectious Diseases Prog Note ---
Assessment/Plan Assessment/Plan IMPRESSION: Pneumonia third toe osteomyelitis; leukocytosis; severe anemia; acidosis; folate deficiency; chronic kidney disease, likely end-stage renal disease; Non ST elevation AL elevated transaminase DM with hyperglycemia Hyperuricemia Hypokalemia RECOMMENDATION: Continue with ceftriaxone & IV vancomycin. will discuss with respiratory care practitioner Subjective ROS Limited/Unobtainable: No Constitutional: Reports: no symptoms Respiratory: Reports: no symptoms Cardiovascular: Reports: no symptoms Gastrointestinal/Abdominal: Reports: no symptoms Genitourinary: Reports: no symptoms Musculoskeletal: Denies: pain Allergies: Coded Allergies: ASPIRIN (Verified Allergy, Unknown, 04/13/19) Objective Vital Signs Last 24 Hour Vital Signs Date Time Temp Pulse Resp B/P (MAP) Pulse Ox O2 Delivery O2 Flow Rate FiO2 11/30/19 09:41 138/73 11/30/19 09:41 74 138/73 11/30/19 08:45 Room Air 11/30/19 08:00 97.5 75 20 137/71 (93) 96 11/30/19 06:20 138/73 11/30/19 04:00 74 11/30/19 04:00 98.2 72 18 138/73 (94) 96 11/30/19 00:00 70 11/30/19 00:00 97.7 70 18 116/66 (83) 96 11/29/19 22:56 127/74 11/29/19 21:03 73 150/85 11/29/19 21:00 Room Air 11/29/19 20:00 77 11/29/19 20:00 97.9 71 18 148/89 (108) 98 11/29/19 19:56 98 Room Air 21 11/29/19 16:00 97.7 74 20 108/73 (85) 93 11/29/19 16:00 79 11/29/19 13:56 120/70 11/29/19 13:56 121/70 Height (Feet): 5 Height (Inches): 3.00 Weight (Pounds): 140 General Appearance: no acute distress HEENT: mucous membranes moist Respiratory/Chest: lungs clear Cardiovascular: normal rate Abdomen: soft, non tender Extremities: no edema Skin: ulcers, other - R third toe Neurologic/Psychiatric: alert, oriented x 3, responsive Laboratory Tests Test 11/30/19 06:15 White Blood Count 8.8 K/UL (4.8-10.8) Red Blood Count 2.96 M/UL (4.20-5.40) L Hemoglobin 8.3 G/DL (12.0-16.0) L Hematocrit 25.0 % (37.0-47.0) L Mean Corpuscular Volume 85 FL (80-99) Mean Corpuscular Hemoglobin 28.0 PG (27.0-31.0) Mean Corpuscular Hemoglobin Concent 33.1 G/DL (32.0-36.0) Red Cell Distribution Width 13.3 % (11.6-14.8) Platelet Count 234 K/UL (150-450) Mean Platelet Volume 7.4 FL (6.5-10.1) Neutrophils (%) (Auto) 57.9 % (45.0-75.0) Lymphocytes (%) (Auto) 26.6 % (20.0-45.0) Monocytes (%) (Auto) 11.8 % (1.0-10.0) H Eosinophils (%) (Auto) 2.7 % (0.0-3.0) Basophils (%) (Auto) 1.0 % (0.0-2.0) Sodium Level 140 MMOL/L (136-145) Potassium Level 3.4 MMOL/L (3.5-5.1) L Chloride Level 105 MMOL/L (98-107) Carbon Dioxide Level 24 MMOL/L (21-32) Anion Gap 11 mmol/L (5-15) Blood Urea Nitrogen 68 mg/dL (7-18) H Creatinine 5.2 MG/DL (0.55-1.30) H Estimat Glomerular Filtration Rate 10.3 mL/min (>60) Glucose Level 75 MG/DL (74-106) Uric Acid 7.8 MG/DL (2.6-7.2) H Calcium Level 7.9 MG/DL (8.5-10.1) L Phosphorus Level 4.2 MG/DL (2.5-4.9) Magnesium Level 1.9 MG/DL (1.8-2.4) Total Bilirubin 0.3 MG/DL (0.2-1.0) Aspartate Amino Transf (AST/SGOT) 17 U/L (15-37) Alanine Aminotransferase (ALT/SGPT) 69 U/L (12-78) Alkaline Phosphatase 78 U/L (46-116) C-Reactive Protein, Quantitative 9.0 mg/dL (0.00-0.90) H Pro-B-Type Natriuretic Peptide > 90019 pg/mL (0-125) H Total Protein 7.0 G/DL (6.4-8.2) Albumin 2.3 G/DL (3.4-5.0) L Globulin 4.7 g/dL Albumin/Globulin Ratio 0.5 (1.0-2.7) L Current Medications Medications (Trade) Dose Ordered Sig/Yeny Route PRN Reason Start Time Stop Time Status Last Admin Dose Admin Acetaminophen (Tylenol) 500 mg Q4H PRN ORAL Mild Pain/Temp > 100.5 11/28/19 21:30 12/26/19 13:29 Albuterol/ Ipratropium (Albuterol/ Ipratropium) 3 ml Q4H PRN HHN Shortness of Breath 11/28/19 21:45 12/01/19 13:38 Allopurinol (allopurinoL) 300 mg DAILY ORAL 11/29/19 09:00 12/27/19 08:59 11/30/19 09:42 Carvedilol (Coreg) 12.5 mg EVERY 12 HOURS ORAL 11/28/19 21:00 12/26/19 20:59 11/30/19 09:41 Ceftriaxone Sodium 1 gm/ Sodium Chloride 55 ml @ 110 mls/hr Q24H IVPB 11/30/19 16:00 11/30/19 16:29 Clopidogrel Bisulfate (Plavix) 75 mg DAILY ORAL 11/29/19 09:00 12/26/19 08:59 11/30/19 09:42 Dextrose (Dextrose 50%) 25 ml Q30M PRN IV Hypoglycemia 11/28/19 19:30 12/26/19 01:29 Dextrose (Dextrose 50%) 50 ml Q30M PRN IV Hypoglycemia 11/28/19 19:30 12/26/19 01:29 Docusate Sodium (Colace) 100 mg THREE TIMES A DAY ORAL 11/29/19 09:00 12/26/19 08:59 11/30/19 09:40 Epoetin Jensen (Epoetin Jensen-EPBX(NON ESRD)) 10,000 unit SUN-SUN-SUN SUBQ 11/28/19 21:00 12/26/19 20:59 11/28/19 21:56 Folic Acid (Folate) 3 mg DAILY ORAL 11/29/19 09:00 12/26/19 14:29 11/30/19 09:41 Heparin Sodium (Porcine) (Heparin 5000 units/ml) 5,000 units EVERY 12 HOURS SUBQ 11/28/19 21:00 12/26/19 08:59 11/30/19 09:46 Hydralazine HCl (Apresoline) 25 mg Q4H PRN ORAL bp over 160 syst 11/28/19 21:45 12/26/19 13:38 Hydralazine HCl (Apresoline) 25 mg Q8HR ORAL 11/29/19 14:00 12/26/19 17:59 11/30/19 06:20 Insulin Aspart (NovoLOG) BEFORE MEALS AND HS SUBQ 11/28/19 21:00 12/26/19 06:29 11/29/19 21:06 Isosorbide Mononitrate (Imdur) 30 mg DAILY ORAL 11/30/19 09:00 12/30/19 08:59 11/30/19 09:41 Metolazone (Zaroxolyn) 5 mg DAILY ORAL 11/29/19 09:00 12/27/19 08:59 11/30/19 09:41 Pantoprazole (Protonix) 40 mg EVERY 12 HOURS ORAL 11/28/19 21:00 12/26/19 20:59 11/30/19 09:40 Sevelamer Carbonate (Renvela) 800 mg THREE TIMES A DAY ORAL 11/29/19 09:00 12/28/19 09:14 11/30/19 09:40 Sitagliptin Phosphate (Januvia) 25 mg ACBREAKFAST ORAL 11/29/19 06:30 12/27/19 06:29 11/30/19 06:20 Vancomycin HCl (Vanco rx to dose) 1 ea DAILY PRN MISC Per rx protocol 11/29/19 09:00 12/26/19 13:44 Zolpidem Tartrate (Ambien) 5 mg HSPRN PRN ORAL Insomnia 11/29/19 13:30 12/03/19 13:29 Tip Ashford MD Nov 30, 2019 13:27
--- NOTE | 2019-11-30 15:02 | General Progress Note ---
Assessment/Plan Status: progressing, unchanged Assessment/Plan: Assessment - Anemia - OB (-) - Renal failure - NSTEMI - abnormal LFT - possibly due to TN, Hep serologies neg, will check US - DM - HTN Recommendations - Monitor CBC - check OB - neg - follow LFT - Check CPK - now normal - abdominal ultrasound - neg - Eventual EGD / Colon at later date - patient to arrange as outpatient Subjective Allergies: Coded Allergies: ASPIRIN (Verified Allergy, Unknown, 04/13/19) Subjective Above noted Out of ICU no abdominal complaints Objective Last 24 Hour Vital Signs Date Time Temp Pulse Resp B/P (MAP) Pulse Ox O2 Delivery O2 Flow Rate FiO2 11/30/19 13:47 138/73 11/30/19 12:00 97.9 70 20 134/78 (96) 96 11/30/19 12:00 70 11/30/19 09:41 138/73 11/30/19 09:41 74 138/73 11/30/19 08:45 Room Air 11/30/19 08:00 97.5 75 20 137/71 (93) 96 11/30/19 08:00 75 11/30/19 06:20 138/73 11/30/19 04:00 74 11/30/19 04:00 98.2 72 18 138/73 (94) 96 11/30/19 00:00 70 11/30/19 00:00 97.7 70 18 116/66 (83) 96 11/29/19 22:56 127/74 11/29/19 21:03 73 150/85 11/29/19 21:00 Room Air 11/29/19 20:00 77 11/29/19 20:00 97.9 71 18 148/89 (108) 98 11/29/19 19:56 98 Room Air 21 11/29/19 16:00 97.7 74 20 108/73 (85) 93 11/29/19 16:00 79 Intake and Output 11/29/19 11/30/19 19:00 07:00 Intake Total 180 ml Balance 180 ml Intake Oral 180 ml # Voids 1 Laboratory Tests 11/30/19 06:15: White Blood Count 8.8, Red Blood Count 2.96L, Hemoglobin 8.3L, Hematocrit 25.0L , Mean Corpuscular Volume 85, Mean Corpuscular Hemoglobin 28.0, Mean Corpuscular Hemoglobin Concent 33.1, Red Cell Distribution Width 13.3, Platelet Count 234, Mean Platelet Volume 7.4, Neutrophils (%) (Auto) 57.9, Lymphocytes (% ) (Auto) 26.6, Monocytes (%) (Auto) 11.8H, Eosinophils (%) (Auto) 2.7, Basophils (%) (Auto) 1.0, Sodium Level 140, Potassium Level 3.4L, Chloride Level 105, Carbon Dioxide Level 24, Anion Gap 11, Blood Urea Nitrogen 68H, Creatinine 5.2H, Estimat Glomerular Filtration Rate 10.3, Glucose Level 75, Uric Acid 7.8H, Calcium Level 7.9L, Phosphorus Level 4.2, Magnesium Level 1.9, Total Bilirubin 0.3, Aspartate Amino Transf (AST/SGOT) 17, Alanine Aminotransferase (ALT/SGPT) 69, Alkaline Phosphatase 78, C-Reactive Protein, Quantitative 9.0H, Pro-B-Type Natriuretic Peptide > 51425C, Total Protein 7.0, Albumin 2.3L, Globulin 4.7, Albumin/Globulin Ratio 0.5L Height (Feet): 5 Height (Inches): 3.00 Weight (Pounds): 140 Objective WDWN AA woman NCAT supple CTA RRR Abd soft NT ND no edema Kacie Butler MD Nov 30, 2019 15:02
[2019-11-30 16:00] VITALS: BP 128/72
[2019-11-30] MEDS ORDERED: cefTRIAXone 1 GM in NS 55 ML IVPB SCH (16:00)
[2019-11-30 20:00] VITALS: BP 125/70
--- NOTE | 2019-11-30 20:00 | NUR ---
NURSE NOTES: RECEIVED PATIENT LYING IN BED, AWAKE, ALERT/ORIENTED X4, VERBALLY RESPONSIVE, DENIES PAIN. NO SIGNS AND SYMPTOMS OF ACUTE CARDIO RESPIRATORY DISTRESS/SHORTNESS OF BREATH, DENIES CHEST PAIN. NO PERIPHERAL EDEMA NOTED. SINUS RHYTHM ON TEACHER EMOTIONALLY IMPAIRED. IV INTACT TO RIGHT FOREARM/GAUGE 20,NO REDNESS/SWELLING NOTED. DENIES GI DISCOMFORT, NO N/V/D. SIDE RAILS UP X2 FOR MOBILITY, BED IN LOWEST POSITION FOR SAFETY, ENCOURAGED PATIENT TO UTILIZE CALL LIGHT FOR ASSISTANCE. CONTINUE WITH CURRENT PLAN OF CARE. NAD.
--- NOTE | 2019-11-30 20:07 | Hematology/Onc Progress Note ---
Assessment/Plan Assessment/Plan Assessment / recs: # Anemia of chronic disease due to underlying chronic medical issues, multifactorial v Gi bleed --> in this case likely kidney disease --> Anemia workup has been ordered, rule out gi bleed --> No evidence of hemolysis is noted, peripheral smear has been reviewed. --> Hgb goal >7. Transfuse prn. --> Low threshold for epogen as ferritin >1000, and severe kidney disease --> Medications have been reviewed --> started on epogen --> low threshold for gi evaluation in case has occult + --> bone marrow biopsy is not indicated given the other more likely causes --> hgb trend: 6.9-->9-->8.3 --> blood: 2 units prbc 11/27, # Anemia of folic acid deficiency --> started on folate as per renal --> trend h/h as needed # Leukocytosis likely reactive v infection --> monitor for improvement --> as per id --> trend 16-->14-->10.8 --> hold off flow --> abx: vanc # Fluid overload --> diuresis as per cards/renal --> echo 2d # ИВАН on CKD --> per renal # Noncompliance # Shortness of breath # Elevated troponin --> w/u as per cards DW Rn and appreciate consultation. Subjective Allergies: Coded Allergies: ASPIRIN (Verified Allergy, Unknown, 04/13/19) Subjective 11/27: icu, s/p 2 units prbc, hgb improved to 9, on abx 11/28: complaining of back pain, with 3rd toe osteo, no bleeding or chills 11/30: on tele, no acute events, h/h stable, on vanc Objective Objective Current Medications Medications (Trade) Dose Ordered Sig/Yeny Route PRN Reason Start Time Stop Time Status Last Admin Dose Admin Acetaminophen (Tylenol) 500 mg Q4H PRN ORAL Mild Pain/Temp > 100.5 11/28/19 21:30 12/26/19 13:29 Albuterol/ Ipratropium (Albuterol/ Ipratropium) 3 ml Q4H PRN HHN Shortness of Breath 11/28/19 21:45 12/01/19 13:38 Allopurinol (allopurinoL) 300 mg DAILY ORAL 11/29/19 09:00 12/27/19 08:59 11/30/19 09:42 Carvedilol (Coreg) 12.5 mg EVERY 12 HOURS ORAL 11/28/19 21:00 12/26/19 20:59 11/30/19 09:41 Clopidogrel Bisulfate (Plavix) 75 mg DAILY ORAL 11/29/19 09:00 12/26/19 08:59 11/30/19 09:42 Dextrose (Dextrose 50%) 25 ml Q30M PRN IV Hypoglycemia 11/28/19 19:30 12/26/19 01:29 Dextrose (Dextrose 50%) 50 ml Q30M PRN IV Hypoglycemia 11/28/19 19:30 12/26/19 01:29 Docusate Sodium (Colace) 100 mg THREE TIMES A DAY ORAL 11/29/19 09:00 12/26/19 08:59 11/30/19 09:40 Epoetin Jensen (Epoetin Jensen-EPBX(NON ESRD)) 10,000 unit SUN-SUN-SUN SUBQ 11/28/19 21:00 12/26/19 20:59 11/28/19 21:56 Folic Acid (Folate) 3 mg DAILY ORAL 11/29/19 09:00 12/26/19 14:29 11/30/19 09:41 Heparin Sodium (Porcine) (Heparin 5000 units/ml) 5,000 units EVERY 12 HOURS SUBQ 11/28/19 21:00 12/26/19 08:59 11/30/19 09:46 Hydralazine HCl (Apresoline) 25 mg Q4H PRN ORAL bp over 160 syst 11/28/19 21:45 12/26/19 13:38 Hydralazine HCl (Apresoline) 25 mg Q8HR ORAL 11/29/19 14:00 12/26/19 17:59 11/30/19 13:47 Insulin Aspart (NovoLOG) BEFORE MEALS AND HS SUBQ 11/28/19 21:00 12/26/19 06:29 11/29/19 21:06 Isosorbide Mononitrate (Imdur) 30 mg DAILY ORAL 11/30/19 09:00 12/30/19 08:59 11/30/19 09:41 Metolazone (Zaroxolyn) 5 mg DAILY ORAL 11/29/19 09:00 12/27/19 08:59 11/30/19 09:41 Pantoprazole (Protonix) 40 mg EVERY 12 HOURS ORAL 11/28/19 21:00 12/26/19 20:59 11/30/19 09:40 Sevelamer Carbonate (Renvela) 800 mg THREE TIMES A DAY ORAL 11/29/19 09:00 12/28/19 09:14 11/30/19 17:54 Sitagliptin Phosphate (Januvia) 25 mg ACBREAKFAST ORAL 11/29/19 06:30 12/27/19 06:29 11/30/19 06:20 Vancomycin HCl (Vanco rx to dose) 1 ea DAILY PRN MISC Per rx protocol 11/29/19 09:00 12/26/19 13:44 Zolpidem Tartrate (Ambien) 5 mg HSPRN PRN ORAL Insomnia 11/29/19 13:30 12/03/19 13:29 Last 24 Hour Vital Signs Date Time Temp Pulse Resp B/P (MAP) Pulse Ox O2 Delivery O2 Flow Rate FiO2 11/30/19 16:00 97.9 73 20 128/72 (90) 97 11/30/19 16:00 73 11/30/19 13:47 138/73 11/30/19 12:00 97.9 70 20 134/78 (96) 96 11/30/19 12:00 70 11/30/19 09:41 138/73 11/30/19 09:41 74 138/73 11/30/19 08:45 Room Air 11/30/19 08:00 97.5 75 20 137/71 (93) 96 11/30/19 08:00 75 11/30/19 06:20 138/73 11/30/19 04:00 74 11/30/19 04:00 98.2 72 18 138/73 (94) 96 11/30/19 00:00 70 11/30/19 00:00 97.7 70 18 116/66 (83) 96 11/29/19 22:56 127/74 11/29/19 21:03 73 150/85 11/29/19 21:00 Room Air 11/29/19 20:00 77 11/29/19 20:00 97.9 71 18 148/89 (108) 98 11/29/19 19:56 98 Room Air 21 11/29/19 16:00 97.7 74 20 108/73 (85) 93 11/29/19 16:00 79 11/29/19 13:56 120/70 11/29/19 13:56 121/70 11/29/19 12:18 133/77 11/29/19 12:18 133/77 11/29/19 12:00 69 11/29/19 12:00 97.5 71 20 133/77 (95) 93 11/29/19 09:04 77 145/79 11/29/19 09:00 Room Air 11/29/19 08:10 99 Room Air 21 11/29/19 08:00 78 11/29/19 08:00 97.7 77 17 145/79 (101) 92 11/29/19 06:40 138/72 11/29/19 06:39 138/72 11/29/19 04:00 72 11/29/19 04:00 98.1 73 16 138/71 (93) 100 11/29/19 00:23 145/77 11/29/19 00:22 145/77 11/29/19 00:00 98.1 86 16 147/77 (100) 98 11/29/19 00:00 86 11/28/19 21:53 90 159/85 11/28/19 20:06 97 Room Air 21 Intake and Output 11/29/19 11/30/19 19:00 07:00 Intake Total 180 ml Balance 180 ml Intake Oral 180 ml # Voids 1 Labs Test 11/28/19 03:00 11/28/19 05:25 11/28/19 12:00 11/29/19 05:32 Stool Occult Blood Negative (NEGATIVE) Negative (NEGATIVE) White Blood Count 9.6 K/UL (4.8-10.8) 10.8 K/UL (4.8-10.8) Red Blood Count 3.04 M/UL (4.20-5.40) 3.10 M/UL (4.20-5.40) Hemoglobin 8.6 G/DL (12.0-16.0) 8.7 G/DL (12.0-16.0) Hematocrit 25.6 % (37.0-47.0) 26.4 % (37.0-47.0) Mean Corpuscular Volume 84 FL (80-99) 85 FL (80-99) Mean Corpuscular Hemoglobin 28.2 PG (27.0-31.0) 27.9 PG (27.0-31.0) Mean Corpuscular Hemoglobin Concent 33.5 G/DL (32.0-36.0) 32.8 G/DL (32.0-36.0) Red Cell Distribution Width 13.1 % (11.6-14.8) 13.6 % (11.6-14.8) Platelet Count 202 K/UL (150-450) 227 K/UL (150-450) Mean Platelet Volume 7.5 FL (6.5-10.1) 7.4 FL (6.5-10.1) Neutrophils (%) (Auto) 62.2 % (45.0-75.0) 64.8 % (45.0-75.0) Lymphocytes (%) (Auto) 23.4 % (20.0-45.0) 20.2 % (20.0-45.0) Monocytes (%) (Auto) 12.4 % (1.0-10.0) 11.3 % (1.0-10.0) Eosinophils (%) (Auto) 1.0 % (0.0-3.0) 2.3 % (0.0-3.0) Basophils (%) (Auto) 1.0 % (0.0-2.0) 1.3 % (0.0-2.0) Sodium Level 140 MMOL/L (136-145) 141 MMOL/L (136-145) Potassium Level 3.3 MMOL/L (3.5-5.1) 3.4 MMOL/L (3.5-5.1) Chloride Level 105 MMOL/L (98-107) 105 MMOL/L (98-107) Carbon Dioxide Level 21 MMOL/L (21-32) 21 MMOL/L (21-32) Anion Gap 14 mmol/L (5-15) 15 mmol/L (5-15) Blood Urea Nitrogen 85 mg/dL (7-18) 78 mg/dL (7-18) Creatinine 6.0 MG/DL (0.55-1.30) 5.5 MG/DL (0.55-1.30) Estimat Glomerular Filtration Rate 8.8 mL/min (>60) 9.7 mL/min (>60) Glucose Level 119 MG/DL (74-106) 97 MG/DL (74-106) Uric Acid 9.8 MG/DL (2.6-7.2) 8.4 MG/DL (2.6-7.2) Calcium Level 7.3 MG/DL (8.5-10.1) 8.1 MG/DL (8.5-10.1) Phosphorus Level 4.1 MG/DL (2.5-4.9) 4.1 MG/DL (2.5-4.9) Magnesium Level 2.3 MG/DL (1.8-2.4) 2.0 MG/DL (1.8-2.4) Total Bilirubin 0.2 MG/DL (0.2-1.0) 0.3 MG/DL (0.2-1.0) Aspartate Amino Transf (AST/SGOT) 48 U/L (15-37) 28 U/L (15-37) Alanine Aminotransferase (ALT/SGPT) 133 U/L (12-78) 99 U/L (12-78) Alkaline Phosphatase 88 U/L (46-116) 85 U/L (46-116) Total Creatine Kinase 214 U/L (26-308) C-Reactive Protein, Quantitative 15.6 mg/dL (0.00-0.90) 11.7 mg/dL (0.00-0.90) Pro-B-Type Natriuretic Peptide > 68049 pg/mL (0-125) > 39670 pg/mL (0-125) Total Protein 7.2 G/DL (6.4-8.2) 7.3 G/DL (6.4-8.2) Albumin 2.3 G/DL (3.4-5.0) 2.4 G/DL (3.4-5.0) Globulin 4.9 g/dL 4.9 g/dL Albumin/Globulin Ratio 0.5 (1.0-2.7) 0.5 (1.0-2.7) Random Vancomycin Level 21.2 ug/mL 17.5 ug/mL Troponin I 0.459 ng/mL (0.000-0.056) Test 11/30/19 06:15 White Blood Count 8.8 K/UL (4.8-10.8) Red Blood Count 2.96 M/UL (4.20-5.40) Hemoglobin 8.3 G/DL (12.0-16.0) Hematocrit 25.0 % (37.0-47.0) Mean Corpuscular Volume 85 FL (80-99) Mean Corpuscular Hemoglobin 28.0 PG (27.0-31.0) Mean Corpuscular Hemoglobin Concent 33.1 G/DL (32.0-36.0) Red Cell Distribution Width 13.3 % (11.6-14.8) Platelet Count 234 K/UL (150-450) Mean Platelet Volume 7.4 FL (6.5-10.1) Neutrophils (%) (Auto) 57.9 % (45.0-75.0) Lymphocytes (%) (Auto) 26.6 % (20.0-45.0) Monocytes (%) (Auto) 11.8 % (1.0-10.0) Eosinophils (%) (Auto) 2.7 % (0.0-3.0) Basophils (%) (Auto) 1.0 % (0.0-2.0) Sodium Level 140 MMOL/L (136-145) Potassium Level 3.4 MMOL/L (3.5-5.1) Chloride Level 105 MMOL/L (98-107) Carbon Dioxide Level 24 MMOL/L (21-32) Anion Gap 11 mmol/L (5-15) Blood Urea Nitrogen 68 mg/dL (7-18) Creatinine 5.2 MG/DL (0.55-1.30) Estimat Glomerular Filtration Rate 10.3 mL/min (>60) Glucose Level 75 MG/DL (74-106) Uric Acid 7.8 MG/DL (2.6-7.2) Calcium Level 7.9 MG/DL (8.5-10.1) Phosphorus Level 4.2 MG/DL (2.5-4.9) Magnesium Level 1.9 MG/DL (1.8-2.4) Total Bilirubin 0.3 MG/DL (0.2-1.0) Aspartate Amino Transf (AST/SGOT) 17 U/L (15-37) Alanine Aminotransferase (ALT/SGPT) 69 U/L (12-78) Alkaline Phosphatase 78 U/L (46-116) C-Reactive Protein, Quantitative 9.0 mg/dL (0.00-0.90) Pro-B-Type Natriuretic Peptide > 45063 pg/mL (0-125) Total Protein 7.0 G/DL (6.4-8.2) Albumin 2.3 G/DL (3.4-5.0) Globulin 4.7 g/dL Albumin/Globulin Ratio 0.5 (1.0-2.7) Height (Feet): 5 Height (Inches): 3.00 Weight (Pounds): 140 Objective Physical Exam: Vitals: reviewed General Appearance: NAD HEENT: normocephalic, atraumatic Neck: non-tender, normal alignment Respiratory/Chest: normal breath sounds bilaterally Cardiovascular/Chest: normal peripheral pulses, normal rate Abdomen: normal bowel sounds, soft, nontender Extremities: normal range of motion Barber Overton MD Nov 30, 2019 20:06
[2019-11-30] MEDS: Acetaminophen 500mg (ES) tab ORAL PRN (20:57)
--- NOTE | 2019-11-30 21:28 | General Progress Note ---
Assessment/Plan Problem List: (1) Non-STEMI (non-ST elevated myocardial infarction) ICD Codes: I21.4 - Non-ST elevation (NSTEMI) myocardial infarction SNOMED: 56692122 (2) Abnormal LFTs ICD Codes: R94.5 - Abnormal results of liver function studies SNOMED: 219028495 (3) Diabetic ulcer of toe ICD Codes: E11.621 - Type 2 diabetes mellitus with foot ulcer; L97.509 - Non- pressure chronic ulcer of other part of unspecified foot with unspecified severity SNOMED: 44909346, 116394676, 756534103 (4) Chronic renal disease ICD Codes: N18.9 - Chronic kidney disease, unspecified SNOMED: 801392171 (5) Nonadherence to medication ICD Codes: Z91.14 - Patient's other noncompliance with medication regimen SNOMED: 164138767 (6) Diabetes mellitus out of control ICD Codes: E11.65 - Type 2 diabetes mellitus with hyperglycemia SNOMED: 32003264, 816398917 (7) Diabetic nephropathy ICD Codes: E11.21 - Type 2 diabetes mellitus with diabetic nephropathy SNOMED: 579068652 (8) Renal failure (ARF), acute on chronic ICD Codes: N17.9 - Acute kidney failure, unspecified; N18.9 - Chronic kidney disease, unspecified SNOMED: 933016025 (9) Anemia in chronic kidney disease (CKD) ICD Codes: N18.9 - Chronic kidney disease, unspecified; D63.1 - Anemia in chronic kidney disease SNOMED: 701049517 Status: progressing, unchanged Assessment/Plan: recheck trop in am cri dc if cleared by cardiology and renal niddm htn nstemi no cp diabe Subjective ROS Limited/Unobtainable: Yes Allergies: Coded Allergies: ASPIRIN (Verified Allergy, Unknown, 04/13/19) Objective Last 24 Hour Vital Signs Date Time Temp Pulse Resp B/P (MAP) Pulse Ox O2 Delivery O2 Flow Rate FiO2 11/30/19 21:00 Room Air 11/30/19 20:49 74 130/72 11/30/19 16:00 97.9 73 20 128/72 (90) 97 11/30/19 16:00 73 11/30/19 13:47 138/73 11/30/19 12:00 97.9 70 20 134/78 (96) 96 11/30/19 12:00 70 11/30/19 09:41 138/73 11/30/19 09:41 74 138/73 11/30/19 08:45 Room Air 11/30/19 08:00 97.5 75 20 137/71 (93) 96 11/30/19 08:00 75 11/30/19 06:20 138/73 11/30/19 04:00 74 11/30/19 04:00 98.2 72 18 138/73 (94) 96 11/30/19 00:00 70 11/30/19 00:00 97.7 70 18 116/66 (83) 96 11/29/19 22:56 127/74 Intake and Output 11/29/19 11/30/19 19:00 07:00 Intake Total 180 ml Balance 180 ml Intake Oral 180 ml # Voids 1 Laboratory Tests 11/30/19 06:15: White Blood Count 8.8, Red Blood Count 2.96L, Hemoglobin 8.3L, Hematocrit 25.0L , Mean Corpuscular Volume 85, Mean Corpuscular Hemoglobin 28.0, Mean Corpuscular Hemoglobin Concent 33.1, Red Cell Distribution Width 13.3, Platelet Count 234, Mean Platelet Volume 7.4, Neutrophils (%) (Auto) 57.9, Lymphocytes (% ) (Auto) 26.6, Monocytes (%) (Auto) 11.8H, Eosinophils (%) (Auto) 2.7, Basophils (%) (Auto) 1.0, Sodium Level 140, Potassium Level 3.4L, Chloride Level 105, Carbon Dioxide Level 24, Anion Gap 11, Blood Urea Nitrogen 68H, Creatinine 5.2H, Estimat Glomerular Filtration Rate 10.3, Glucose Level 75, Uric Acid 7.8H, Calcium Level 7.9L, Phosphorus Level 4.2, Magnesium Level 1.9, Total Bilirubin 0.3, Aspartate Amino Transf (AST/SGOT) 17, Alanine Aminotransferase (ALT/SGPT) 69, Alkaline Phosphatase 78, C-Reactive Protein, Quantitative 9.0H, Pro-B-Type Natriuretic Peptide > 15546R, Total Protein 7.0, Albumin 2.3L, Globulin 4.7, Albumin/Globulin Ratio 0.5L Height (Feet): 5 Height (Inches): 3.00 Weight (Pounds): 140 Neck: supple Cardiovascular: normal rate Respiratory/Chest: lungs clear Partha Keene MD Nov 30, 2019 21:28
[2019-12-01] VITALS: BP 122/67
[2019-12-01 04:00] VITALS: BP 118/61
[2019-12-01] MEDS: sitaGLIPtin 25mg tab ORAL SCH (06:05)
[2019-12-01] MEDS: NovoLOG Insulin Flexpen SUBQ SCH ×4 (06:05→21:00)
[2019-12-01] MEDS: HydrALAZINE 25mg tab ORAL SCH ×3 (06:05→23:07)
--- NOTE | 2019-12-01 06:28 | NUR ---
NURSE NOTES: BLOOD GLUCOSE LEVEL MONITORED VIA GLUCOMETER WITH RESULT 97MG/DL, ASSESSED FOR SIGNS AND SYMPTOMS OF HYPOGLYCEMIA, NONE NOTED. NO INSULIN COVERAGE.
--- NOTE | 2019-12-01 06:53 | General Progress Note ---
Assessment/Plan Problem List: (1) Diabetes mellitus out of control ICD Codes: E11.65 - Type 2 diabetes mellitus with hyperglycemia SNOMED: 24238553, 291180245 (2) Fluid overload ICD Codes: E87.70 - Fluid overload, unspecified SNOMED: 48448839 (3) Chronic renal disease ICD Codes: N18.9 - Chronic kidney disease, unspecified SNOMED: 252554997 (4) Nonadherence to medication ICD Codes: Z91.14 - Patient's other noncompliance with medication regimen SNOMED: 137350091 (5) Diabetic ulcer of toe ICD Codes: E11.621 - Type 2 diabetes mellitus with foot ulcer; L97.509 - Non- pressure chronic ulcer of other part of unspecified foot with unspecified severity SNOMED: 65788107, 104347151, 594448820 Status: progressing, unchanged Assessment/Plan: continue Januvia 25 mg daily continue NISS ac / hs hypoglycemia protocol in order Subjective Allergies: Coded Allergies: ASPIRIN (Verified Allergy, Unknown, 04/13/19) Subjective events noted glucose values are stable without hypoglycemia Item Value Date Time Bedside Blood Glucose 74 mg/dl 11/30/19 0621 Bedside Blood Glucose 167 mg/dl H 11/29/19 2106 Bedside Blood Glucose 107 mg/dl 11/29/19 1630 Bedside Blood Glucose 171 mg/dl H 11/29/19 1220 Bedside Blood Glucose 100 mg/dl 11/29/19 0641 Bedside Blood Glucose 97 mg/dl 12/01/19 0628 Bedside Blood Glucose 152 mg/dl H 11/30/19 2100 Bedside Blood Glucose 126 mg/dl H 11/30/19 1639 Bedside Blood Glucose 114 mg/dl 11/30/19 1130 Objective Last 24 Hour Vital Signs Date Time Temp Pulse Resp B/P (MAP) Pulse Ox O2 Delivery O2 Flow Rate FiO2 12/01/19 06:05 122/65 12/01/19 04:00 98.0 61 20 118/61 (80) 94 12/01/19 04:00 67 12/01/19 00:00 98.8 70 18 122/67 (85) 95 11/30/19 22:33 73 11/30/19 22:12 126/63 11/30/19 21:27 97.9 11/30/19 21:00 76 11/30/19 21:00 Room Air 11/30/19 20:49 74 130/72 11/30/19 20:30 81 19 Nasal Cannula 21 11/30/19 20:30 97 Room Air 21 11/30/19 20:00 98.4 76 17 125/70 (88) 96 11/30/19 16:00 97.9 73 20 128/72 (90) 97 11/30/19 16:00 73 11/30/19 13:47 138/73 11/30/19 12:00 97.9 70 20 134/78 (96) 96 11/30/19 12:00 70 11/30/19 09:41 138/73 11/30/19 09:41 74 138/73 11/30/19 08:45 Room Air 11/30/19 08:00 97.5 75 20 137/71 (93) 96 11/30/19 08:00 75 Intake and Output 11/30/19 12/01/19 19:00 07:00 Intake Total 120 ml 420 ml Balance 120 ml 420 ml Intake Oral 120 ml 420 ml # Voids 2 1 Height (Feet): 5 Height (Inches): 3.00 Weight (Pounds): 140 General Appearance: no apparent distress Neck: normal alignment Cardiovascular: normal rate Respiratory/Chest: lungs clear Abdomen: normal bowel sounds Pelvis: normal external exam Objective Current Medications Medications (Trade) Dose Ordered Sig/Yeny Route PRN Reason Start Time Stop Time Status Last Admin Dose Admin Acetaminophen (Tylenol) 500 mg Q4H PRN ORAL Mild Pain/Temp > 100.5 11/28/19 21:30 12/26/19 13:29 11/30/19 20:57 Albuterol/ Ipratropium (Albuterol/ Ipratropium) 3 ml Q4H PRN HHN Shortness of Breath 11/28/19 21:45 12/01/19 13:38 Allopurinol (allopurinoL) 300 mg DAILY ORAL 11/29/19 09:00 12/27/19 08:59 11/30/19 09:42 Carvedilol (Coreg) 12.5 mg EVERY 12 HOURS ORAL 11/28/19 21:00 12/26/19 20:59 11/30/19 20:49 Clopidogrel Bisulfate (Plavix) 75 mg DAILY ORAL 11/29/19 09:00 12/26/19 08:59 11/30/19 09:42 Dextrose (Dextrose 50%) 25 ml Q30M PRN IV Hypoglycemia 11/28/19 19:30 12/26/19 01:29 Dextrose (Dextrose 50%) 50 ml Q30M PRN IV Hypoglycemia 11/28/19 19:30 12/26/19 01:29 Docusate Sodium (Colace) 100 mg THREE TIMES A DAY ORAL 11/29/19 09:00 12/26/19 08:59 11/30/19 09:40 Epoetin Jensen (Epoetin Jensen-EPBX(NON ESRD)) 10,000 unit SUN-SUN-SUN SUBQ 11/28/19 21:00 12/26/19 20:59 11/28/19 21:56 Folic Acid (Folate) 3 mg DAILY ORAL 11/29/19 09:00 12/26/19 14:29 11/30/19 09:41 Heparin Sodium (Porcine) (Heparin 5000 units/ml) 5,000 units EVERY 12 HOURS SUBQ 11/28/19 21:00 12/26/19 08:59 11/30/19 20:52 Hydralazine HCl (Apresoline) 25 mg Q4H PRN ORAL bp over 160 syst 11/28/19 21:45 12/26/19 13:38 Hydralazine HCl (Apresoline) 25 mg Q8HR ORAL 11/29/19 14:00 12/26/19 17:59 12/01/19 06:05 Insulin Aspart (NovoLOG) BEFORE MEALS AND HS SUBQ 11/28/19 21:00 12/26/19 06:29 11/30/19 20:51 Isosorbide Mononitrate (Imdur) 30 mg DAILY ORAL 11/30/19 09:00 12/30/19 08:59 11/30/19 09:41 Metolazone (Zaroxolyn) 5 mg DAILY ORAL 11/29/19 09:00 12/27/19 08:59 11/30/19 09:41 Pantoprazole (Protonix) 40 mg EVERY 12 HOURS ORAL 11/28/19 21:00 12/26/19 20:59 11/30/19 20:49 Sevelamer Carbonate (Renvela) 800 mg THREE TIMES A DAY ORAL 11/29/19 09:00 12/28/19 09:14 11/30/19 17:54 Sitagliptin Phosphate (Januvia) 25 mg ACBREAKFAST ORAL 11/29/19 06:30 12/27/19 06:29 12/01/19 06:05 Vancomycin HCl (Vanco rx to dose) 1 ea DAILY PRN MISC Per rx protocol 11/29/19 09:00 12/26/19 13:44 Zolpidem Tartrate (Ambien) 5 mg HSPRN PRN ORAL Insomnia 11/29/19 13:30 12/03/19 13:29 Robert Pierce MD Dec 01, 2019 06:53
--- NOTE | 2019-12-01 07:16 | NUR ---
HAND-OFF: Report given to BOLIVAR MONTES.
--- NOTE | 2019-12-01 07:45 | Cardiac Electrophysiology PN ---
Assessment/Plan Assessment/Plan 1. NSTEMI with elevated troponin to 3.4 and lateral ischemia on the EKG and epigastric pain. Could be due to renal failure and creatinine of 6. Troponin is down to 1.8 and no CP. Continue aspirin, Coreg and statin. 2. Volume overload due to renal failure and CHF EF 40%. On Zaroxolyn 5 mg daily, Coreg 12.5 mg b.i.d., Hydralazine 25 tid and Imdur 30 daily Likely need hemodialysis under management of Dr. Garcia. 3. Hypertension 4. End-stage renal disease, likely need hemodialysis. FU by Dr. Garcia. Cr down to 5.2 5. Diabetes. DW RN Subjective Subjective Alert in NAD. No CP or SOB.In SR with no arrhythmias. Upset about the neighbor patient. HB down to 8.3 Objective Last 24 Hour Vital Signs Date Time Temp Pulse Resp B/P (MAP) Pulse Ox O2 Delivery O2 Flow Rate FiO2 12/01/19 06:05 122/65 12/01/19 04:00 98.0 61 20 118/61 (80) 94 12/01/19 04:00 67 12/01/19 00:00 98.8 70 18 122/67 (85) 95 11/30/19 22:33 73 11/30/19 22:12 126/63 11/30/19 21:27 97.9 11/30/19 21:00 76 11/30/19 21:00 Room Air 11/30/19 20:49 74 130/72 11/30/19 20:30 81 19 Nasal Cannula 21 11/30/19 20:30 97 Room Air 21 11/30/19 20:00 98.4 76 17 125/70 (88) 96 11/30/19 16:00 97.9 73 20 128/72 (90) 97 11/30/19 16:00 73 11/30/19 13:47 138/73 11/30/19 12:00 97.9 70 20 134/78 (96) 96 11/30/19 12:00 70 11/30/19 09:41 138/73 11/30/19 09:41 74 138/73 11/30/19 08:45 Room Air 11/30/19 08:00 97.5 75 20 137/71 (93) 96 11/30/19 08:00 75 Intake and Output 11/30/19 12/01/19 19:00 07:00 Intake Total 120 ml 420 ml Balance 120 ml 420 ml Intake Oral 120 ml 420 ml # Voids 2 1 Laboratory Tests Test 12/01/19 07:00 Troponin I Pending Random Vancomycin Level Pending Objective HEAD AND NECK: mild JVD. LUNGS: Decreased breath sounds. CARDIOVASCULAR: regular S1 and S2 with no gallop. ABDOMEN: Soft. EXTREMITIES: No pitting edema. Chronic right toe ulcer. Jeremiah Motley MD Dec 01, 2019 07:45
[2019-12-01 08:00] VITALS: BP 133/65
--- NOTE | 2019-12-01 08:42 | Hematology/Onc Progress Note ---
Assessment/Plan Assessment/Plan Assessment / recs: # Anemia of chronic disease due to underlying chronic medical issues, multifactorial v Gi bleed --> in this case likely kidney disease --> Anemia workup has been ordered, rule out gi bleed --> No evidence of hemolysis is noted, peripheral smear has been reviewed. --> Hgb goal >7. Transfuse prn. --> Low threshold for epogen as ferritin >1000, and severe kidney disease --> Medications have been reviewed --> started on epogen --> low threshold for gi evaluation in case has occult + --> bone marrow biopsy is not indicated given the other more likely causes --> hgb trend: 6.9-->9-->8.3 --> blood: 2 units prbc 11/27, # Anemia of folic acid deficiency --> started on folate as per renal --> trend h/h as needed # Leukocytosis likely reactive v infection --> monitor for improvement --> as per id --> trend 16-->14-->10.8 --> hold off flow --> abx: vanc # Fluid overload --> diuresis as per cards/renal --> echo 2d # ИВАН on CKD --> per renal # Noncompliance # Shortness of breath # Elevated troponin --> w/u as per cards TAYLOR Rn and appreciate consultation. Subjective Constitutional: Denies: no symptoms, chills, fever, malaise, weakness, other Cardiovascular: Denies: no symptoms, chest pain, edema, irregular heart rate, lightheadedness, palpitations, syncope, other Respiratory: Denies: no symptoms, cough, shortness of breath, SOB with excertion, SOB at rest, sputum, wheezing, other Genitourinary: Denies: no symptoms, burning, discharge, frequency, flank pain, hematuria, incontinence, pain, urgency, other Neurologic/Psychiatric: Denies: no symptoms, anxiety, depressed, emotional problems, headache, numbness, paresthesia, pre-existing deficit, seizure, tingling, tremors, weakness, other Endocrine: Denies: no symptoms, excessive sweating, flushing, intolerance to cold, intolerance to heat, increased hunger, increased thirst, increased urine, unexplained weight gain, unexplained weight loss, other Hematologic/Lymphatic: Denies: no symptoms, anemia, easy bleeding, easy bruising, adenopathy, other Allergies: Coded Allergies: ASPIRIN (Verified Allergy, Unknown, 04/13/19) Subjective 11/27: icu, s/p 2 units prbc, hgb improved to 9, on abx 11/28: complaining of back pain, with 3rd toe osteo, no bleeding or chills 11/30: on tele, no acute events, h/h stable, on vanc 12/01: no events, no bleeding, no f/c, on hd as per renal Objective Objective Current Medications Medications (Trade) Dose Ordered Sig/Yeny Route PRN Reason Start Time Stop Time Status Last Admin Dose Admin Acetaminophen (Tylenol) 500 mg Q4H PRN ORAL Mild Pain/Temp > 100.5 11/28/19 21:30 12/26/19 13:29 11/30/19 20:57 Albuterol/ Ipratropium (Albuterol/ Ipratropium) 3 ml Q4H PRN HHN Shortness of Breath 11/28/19 21:45 12/01/19 13:38 Allopurinol (allopurinoL) 300 mg DAILY ORAL 11/29/19 09:00 12/27/19 08:59 11/30/19 09:42 Carvedilol (Coreg) 12.5 mg EVERY 12 HOURS ORAL 11/28/19 21:00 12/26/19 20:59 11/30/19 20:49 Clopidogrel Bisulfate (Plavix) 75 mg DAILY ORAL 11/29/19 09:00 12/26/19 08:59 11/30/19 09:42 Dextrose (Dextrose 50%) 25 ml Q30M PRN IV Hypoglycemia 11/28/19 19:30 12/26/19 01:29 Dextrose (Dextrose 50%) 50 ml Q30M PRN IV Hypoglycemia 11/28/19 19:30 12/26/19 01:29 Docusate Sodium (Colace) 100 mg THREE TIMES A DAY ORAL 11/29/19 09:00 12/26/19 08:59 11/30/19 09:40 Epoetin Jensen (Epoetin Jensen-EPBX(NON ESRD)) 10,000 unit MON-WED-SUN SUBQ 11/28/19 21:00 12/26/19 20:59 11/28/19 21:56 Folic Acid (Folate) 3 mg DAILY ORAL 11/29/19 09:00 12/26/19 14:29 11/30/19 09:41 Heparin Sodium (Porcine) (Heparin 5000 units/ml) 5,000 units EVERY 12 HOURS SUBQ 11/28/19 21:00 12/26/19 08:59 11/30/19 20:52 Hydralazine HCl (Apresoline) 25 mg Q4H PRN ORAL bp over 160 syst 11/28/19 21:45 12/26/19 13:38 Hydralazine HCl (Apresoline) 25 mg Q8HR ORAL 11/29/19 14:00 12/26/19 17:59 12/01/19 06:05 Insulin Aspart (NovoLOG) BEFORE MEALS AND HS SUBQ 11/28/19 21:00 12/26/19 06:29 11/30/19 20:51 Isosorbide Mononitrate (Imdur) 30 mg DAILY ORAL 11/30/19 09:00 12/30/19 08:59 11/30/19 09:41 Metolazone (Zaroxolyn) 5 mg DAILY ORAL 11/29/19 09:00 12/27/19 08:59 11/30/19 09:41 Pantoprazole (Protonix) 40 mg EVERY 12 HOURS ORAL 11/28/19 21:00 12/26/19 20:59 11/30/19 20:49 Sevelamer Carbonate (Renvela) 800 mg THREE TIMES A DAY ORAL 11/29/19 09:00 12/28/19 09:14 11/30/19 17:54 Sitagliptin Phosphate (Januvia) 25 mg ACBREAKFAST ORAL 11/29/19 06:30 12/27/19 06:29 12/01/19 06:05 Vancomycin HCl (Vanco rx to dose) 1 ea DAILY PRN MISC Per rx protocol 11/29/19 09:00 12/26/19 13:44 Vancomycin HCl 750 mg/Sodium Chloride 275 ml @ 183.333 mls/hr ONCE ONCE IVPB 12/02/19 12:00 12/02/19 13:29 Zolpidem Tartrate (Ambien) 5 mg HSPRN PRN ORAL Insomnia 11/29/19 13:30 12/03/19 13:29 Last 24 Hour Vital Signs Date Time Temp Pulse Resp B/P (MAP) Pulse Ox O2 Delivery O2 Flow Rate FiO2 12/01/19 06:05 122/65 12/01/19 04:00 98.0 61 20 118/61 (80) 94 12/01/19 04:00 67 12/01/19 00:00 98.8 70 18 122/67 (85) 95 11/30/19 22:33 73 11/30/19 22:12 126/63 11/30/19 21:27 97.9 11/30/19 21:00 76 11/30/19 21:00 Room Air 11/30/19 20:49 74 130/72 11/30/19 20:30 81 19 Nasal Cannula 21 11/30/19 20:30 97 Room Air 21 11/30/19 20:00 98.4 76 17 125/70 (88) 96 11/30/19 16:00 97.9 73 20 128/72 (90) 97 11/30/19 16:00 73 11/30/19 13:47 138/73 11/30/19 12:00 97.9 70 20 134/78 (96) 96 11/30/19 12:00 70 11/30/19 09:41 138/73 11/30/19 09:41 74 138/73 11/30/19 08:45 Room Air 11/30/19 08:00 97.5 75 20 137/71 (93) 96 11/30/19 08:00 75 11/30/19 06:20 138/73 11/30/19 04:00 74 11/30/19 04:00 98.2 72 18 138/73 (94) 96 11/30/19 00:00 70 11/30/19 00:00 97.7 70 18 116/66 (83) 96 11/29/19 22:56 127/74 11/29/19 21:03 73 150/85 11/29/19 21:00 Room Air 11/29/19 20:00 77 11/29/19 20:00 97.9 71 18 148/89 (108) 98 11/29/19 19:56 98 Room Air 21 11/29/19 16:00 97.7 74 20 108/73 (85) 93 11/29/19 16:00 79 11/29/19 13:56 120/70 11/29/19 13:56 121/70 11/29/19 12:18 133/77 11/29/19 12:18 133/77 11/29/19 12:00 69 11/29/19 12:00 97.5 71 20 133/77 (95) 93 11/29/19 09:04 77 145/79 11/29/19 09:00 Room Air Intake and Output 11/30/19 12/01/19 19:00 07:00 Intake Total 120 ml 420 ml Balance 120 ml 420 ml Intake Oral 120 ml 420 ml # Voids 2 1 Labs Test 11/28/19 12:00 11/29/19 05:32 11/30/19 06:15 12/01/19 07:00 Stool Occult Blood Negative (NEGATIVE) White Blood Count 10.8 K/UL (4.8-10.8) 8.8 K/UL (4.8-10.8) Red Blood Count 3.10 M/UL (4.20-5.40) 2.96 M/UL (4.20-5.40) Hemoglobin 8.7 G/DL (12.0-16.0) 8.3 G/DL (12.0-16.0) Hematocrit 26.4 % (37.0-47.0) 25.0 % (37.0-47.0) Mean Corpuscular Volume 85 FL (80-99) 85 FL (80-99) Mean Corpuscular Hemoglobin 27.9 PG (27.0-31.0) 28.0 PG (27.0-31.0) Mean Corpuscular Hemoglobin Concent 32.8 G/DL (32.0-36.0) 33.1 G/DL (32.0-36.0) Red Cell Distribution Width 13.6 % (11.6-14.8) 13.3 % (11.6-14.8) Platelet Count 227 K/UL (150-450) 234 K/UL (150-450) Mean Platelet Volume 7.4 FL (6.5-10.1) 7.4 FL (6.5-10.1) Neutrophils (%) (Auto) 64.8 % (45.0-75.0) 57.9 % (45.0-75.0) Lymphocytes (%) (Auto) 20.2 % (20.0-45.0) 26.6 % (20.0-45.0) Monocytes (%) (Auto) 11.3 % (1.0-10.0) 11.8 % (1.0-10.0) Eosinophils (%) (Auto) 2.3 % (0.0-3.0) 2.7 % (0.0-3.0) Basophils (%) (Auto) 1.3 % (0.0-2.0) 1.0 % (0.0-2.0) Sodium Level 141 MMOL/L (136-145) 140 MMOL/L (136-145) Potassium Level 3.4 MMOL/L (3.5-5.1) 3.4 MMOL/L (3.5-5.1) Chloride Level 105 MMOL/L (98-107) 105 MMOL/L (98-107) Carbon Dioxide Level 21 MMOL/L (21-32) 24 MMOL/L (21-32) Anion Gap 15 mmol/L (5-15) 11 mmol/L (5-15) Blood Urea Nitrogen 78 mg/dL (7-18) 68 mg/dL (7-18) Creatinine 5.5 MG/DL (0.55-1.30) 5.2 MG/DL (0.55-1.30) Estimat Glomerular Filtration Rate 9.7 mL/min (>60) 10.3 mL/min (>60) Glucose Level 97 MG/DL (74-106) 75 MG/DL (74-106) Uric Acid 8.4 MG/DL (2.6-7.2) 7.8 MG/DL (2.6-7.2) Calcium Level 8.1 MG/DL (8.5-10.1) 7.9 MG/DL (8.5-10.1) Phosphorus Level 4.1 MG/DL (2.5-4.9) 4.2 MG/DL (2.5-4.9) Magnesium Level 2.0 MG/DL (1.8-2.4) 1.9 MG/DL (1.8-2.4) Total Bilirubin 0.3 MG/DL (0.2-1.0) 0.3 MG/DL (0.2-1.0) Aspartate Amino Transf (AST/SGOT) 28 U/L (15-37) 17 U/L (15-37) Alanine Aminotransferase (ALT/SGPT) 99 U/L (12-78) 69 U/L (12-78) Alkaline Phosphatase 85 U/L (46-116) 78 U/L (46-116) Troponin I 0.459 ng/mL (0.000-0.056) 0.079 ng/mL (0.000-0.056) C-Reactive Protein, Quantitative 11.7 mg/dL (0.00-0.90) 9.0 mg/dL (0.00-0.90) Pro-B-Type Natriuretic Peptide > 22401 pg/mL (0-125) > 84871 pg/mL (0-125) Total Protein 7.3 G/DL (6.4-8.2) 7.0 G/DL (6.4-8.2) Albumin 2.4 G/DL (3.4-5.0) 2.3 G/DL (3.4-5.0) Globulin 4.9 g/dL 4.7 g/dL Albumin/Globulin Ratio 0.5 (1.0-2.7) 0.5 (1.0-2.7) Random Vancomycin Level 17.5 ug/mL 21.7 ug/mL Height (Feet): 5 Height (Inches): 3.00 Weight (Pounds): 140 Objective Vitals: reviewed General Appearance: NAD HEENT: normocephalic, atraumatic Neck: non-tender, normal alignment Respiratory/Chest: normal breath sounds bilaterally Cardiovascular/Chest: rrr, normal rate Abdomen: normal bowel sounds, soft, nontender Extremities: normal range of motion Barber Overton MD Dec 01, 2019 08:42
[2019-12-01] MEDS: Docusate 100mg cap ORAL SCH ×3 (09:00→16:58)
[2019-12-01] MEDS: Imdur 30mg tab ORAL SCH (09:36)
[2019-12-01] MEDS: Carvedilol 12.5mg tab ORAL SCH ×2 (09:37→20:57)
[2019-12-01] MEDS: Heparin 5000 units/ml inj SUBQ SCH ×2 (09:38→20:58)
--- NOTE | 2019-12-01 09:48 | NUR ---
CASE MANAGEMENT:REVIEW 12/01/19 SI: NSTEMI. AC/CHR RENAL FAILURE 98.0 61 20 122/65 94% ON RA TROPONIN(+) 0.079 IS: IV VANCOMYCIN X1 IV ROCEPHIN Q24 IMDUR PO QD HYDRALAZINE PO Q8HRS PLAVIX PO QD ZAROXOLYN PO QD COREG PO Q12HRS HEPARIN SQ Q12 : TELEMETRY STATUS DCP: FROM HOME
--- NOTE | 2019-12-01 09:52 | NUR ---
*-* INSURANCE *-* ALL AVAILABLE CLINICALS AND REVIEWS HAVE BEEN FAXED TO: [employer] [place] REF# [id number] P: [phone] F: [phone]
--- NOTE | 2019-12-01 10:05 | Nephrology Progress Note ---
Assessment/Plan Problem List: (1) Renal failure (ARF), acute on chronic (2) Cardiomyopathy (3) Anemia in chronic kidney disease (CKD) (4) Non-STEMI (non-ST elevated myocardial infarction) (5) Diabetic nephropathy (6) Diabetes mellitus out of control Assessment underlying CKD ? Superimposed Acute Anemia of CKD Cardiomyopathy- 40% EjFx DM Low Folate elevated troponin- CAD Asa Allergy Plan OK to DC from renal stand AND FOLLOW UP WITH CLARIFICATION OPERATOR OUT PATIENT WITHIN 3 DAYS previously: change diet transfuse PO folate Plavix Coreg- Norvasc- Hydralazine monitor renal parameters Subjective ROS Limited/Unobtainable: No Constitutional: Reports: malaise Objective Objective Last 24 Hour Vital Signs Date Time Temp Pulse Resp B/P (MAP) Pulse Ox O2 Delivery O2 Flow Rate FiO2 12/01/19 09:37 67 122/65 12/01/19 09:36 122/65 12/01/19 06:05 122/65 12/01/19 04:00 98.0 61 20 118/61 (80) 94 12/01/19 04:00 67 12/01/19 00:00 98.8 70 18 122/67 (85) 95 11/30/19 22:33 73 11/30/19 22:12 126/63 11/30/19 21:27 97.9 11/30/19 21:00 76 11/30/19 21:00 Room Air 11/30/19 20:49 74 130/72 11/30/19 20:30 81 19 Nasal Cannula 21 11/30/19 20:30 97 Room Air 21 11/30/19 20:00 98.4 76 17 125/70 (88) 96 11/30/19 16:00 97.9 73 20 128/72 (90) 97 11/30/19 16:00 73 11/30/19 13:47 138/73 11/30/19 12:00 97.9 70 20 134/78 (96) 96 11/30/19 12:00 70 Intake and Output 11/30/19 12/01/19 19:00 07:00 Intake Total 120 ml 420 ml Balance 120 ml 420 ml Intake Oral 120 ml 420 ml # Voids 2 1 Current Medications Medications (Trade) Dose Ordered Sig/Yeny Route PRN Reason Start Time Stop Time Status Last Admin Dose Admin Acetaminophen (Tylenol) 500 mg Q4H PRN ORAL Mild Pain/Temp > 100.5 11/28/19 21:30 12/26/19 13:29 11/30/19 20:57 Albuterol/ Ipratropium (Albuterol/ Ipratropium) 3 ml Q4H PRN HHN Shortness of Breath 11/28/19 21:45 12/01/19 13:38 Allopurinol (allopurinoL) 300 mg DAILY ORAL 11/29/19 09:00 12/27/19 08:59 12/01/19 09:36 Carvedilol (Coreg) 12.5 mg EVERY 12 HOURS ORAL 11/28/19 21:00 12/26/19 20:59 12/01/19 09:37 Ceftriaxone Sodium 1 gm/ Sodium Chloride 55 ml @ 110 mls/hr Q24H IVPB 12/01/19 11:00 12/02/19 11:29 Clopidogrel Bisulfate (Plavix) 75 mg DAILY ORAL 11/29/19 09:00 12/26/19 08:59 12/01/19 09:36 Dextrose (Dextrose 50%) 25 ml Q30M PRN IV Hypoglycemia 11/28/19 19:30 12/26/19 01:29 Dextrose (Dextrose 50%) 50 ml Q30M PRN IV Hypoglycemia 11/28/19 19:30 12/26/19 01:29 Docusate Sodium (Colace) 100 mg THREE TIMES A DAY ORAL 11/29/19 09:00 12/26/19 08:59 11/30/19 09:40 Epoetin Jensen (Epoetin Jensen-EPBX(NON ESRD)) 10,000 unit SUN-SUN-SUN SUBQ 11/28/19 21:00 12/26/19 20:59 11/28/19 21:56 Folic Acid (Folate) 3 mg DAILY ORAL 11/29/19 09:00 12/26/19 14:29 12/01/19 09:36 Heparin Sodium (Porcine) (Heparin 5000 units/ml) 5,000 units EVERY 12 HOURS SUBQ 11/28/19 21:00 12/26/19 08:59 12/01/19 09:38 Hydralazine HCl (Apresoline) 25 mg Q4H PRN ORAL bp over 160 syst 11/28/19 21:45 12/26/19 13:38 Hydralazine HCl (Apresoline) 25 mg Q8HR ORAL 11/29/19 14:00 12/26/19 17:59 12/01/19 06:05 Insulin Aspart (NovoLOG) BEFORE MEALS AND HS SUBQ 11/28/19 21:00 12/26/19 06:29 11/30/19 20:51 Isosorbide Mononitrate (Imdur) 30 mg DAILY ORAL 11/30/19 09:00 12/30/19 08:59 12/01/19 09:36 Metolazone (Zaroxolyn) 5 mg DAILY ORAL 11/29/19 09:00 12/27/19 08:59 12/01/19 09:36 Pantoprazole (Protonix) 40 mg EVERY 12 HOURS ORAL 11/28/19 21:00 12/26/19 20:59 12/01/19 09:37 Sevelamer Carbonate (Renvela) 800 mg THREE TIMES A DAY ORAL 11/29/19 09:00 12/28/19 09:14 12/01/19 09:36 Sitagliptin Phosphate (Januvia) 25 mg ACBREAKFAST ORAL 11/29/19 06:30 12/27/19 06:29 12/01/19 06:05 Vancomycin HCl (Vanco rx to dose) 1 ea DAILY PRN MISC Per rx protocol 11/29/19 09:00 12/26/19 13:44 Vancomycin HCl 750 mg/Sodium Chloride 275 ml @ 183.333 mls/hr ONCE ONCE IVPB 12/02/19 12:00 12/02/19 13:29 Zolpidem Tartrate (Ambien) 5 mg HSPRN PRN ORAL Insomnia 11/29/19 13:30 12/03/19 13:29 Laboratory Tests 12/01/19 07:00: Troponin I 0.079H, Random Vancomycin Level 21.7 Height (Feet): 5 Height (Inches): 3.00 Weight (Pounds): 140 General Appearance: no apparent distress Objective no change Joao Garcia MD Dec 01, 2019 10:05
[2019-12-01] MEDS ORDERED: cefTRIAXone 1 GM in NS 55 ML IVPB SCH (11:00)
--- NOTE | 2019-12-01 11:00 | Surgery Progress Note ---
Surgery Progress Note Subjective Additional Comments no acute events states she is upset and just wants to go home no n/v/f/c labs stable exam stable dressings removed and discussed care plan with patient Objective Last 24 Hour Vital Signs Date Time Temp Pulse Resp B/P (MAP) Pulse Ox O2 Delivery O2 Flow Rate FiO2 12/01/19 09:37 67 122/65 12/01/19 09:36 122/65 12/01/19 06:05 122/65 12/01/19 04:00 98.0 61 20 118/61 (80) 94 12/01/19 04:00 67 12/01/19 00:00 98.8 70 18 122/67 (85) 95 11/30/19 22:33 73 11/30/19 22:12 126/63 11/30/19 21:27 97.9 11/30/19 21:00 76 11/30/19 21:00 Room Air 11/30/19 20:49 74 130/72 11/30/19 20:30 81 19 Nasal Cannula 21 11/30/19 20:30 97 Room Air 21 11/30/19 20:00 98.4 76 17 125/70 (88) 96 11/30/19 16:00 97.9 73 20 128/72 (90) 97 11/30/19 16:00 73 11/30/19 13:47 138/73 11/30/19 12:00 97.9 70 20 134/78 (96) 96 11/30/19 12:00 70 I&O Intake and Output 11/30/19 12/01/19 19:00 07:00 Intake Total 120 ml 420 ml Balance 120 ml 420 ml Intake Oral 120 ml 420 ml # Voids 2 1 Dressing: dry Wound: clean Cardiovascular: RSR Respiratory: clear Abdomen: soft, non-tender, present bowel sounds, non-distended Extremities: no edema, no tenderness, no cyanosis, other Laboratory Tests Test 12/01/19 07:00 Troponin I 0.079 ng/mL (0.000-0.056) Random Vancomycin Level 21.7 ug/mL Plan Problems: (1) Diabetic ulcer of toe Assessment & Plan: Findings: 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 There is evidence of prior osteotomy of the fourth proximal and middle phalanges. There is evidence of prior amputation of the third distal phalanx. No acute fractures. No dislocations. No osseous erosions. The joint spaces are preserved. There is hammertoe deformity of the second through fifth digits. Impression: Postsurgical changes, as described No definite acute bony trauma graft no plain radiographic evidence of acute osseous myelitis. Note, however, limited sensitivity of plain radiographs for such. Consider MRI or bone scan for more sensitive characterization. Findings: On the right, Doppler waveforms are biphasic or triphasic with sharp systolic peaks at the level of the common femoral, profunda femoral, proximal superficial femoral arteries. In the proximal superficial femoral artery, there is sonographically visible atherosclerotic plaquing with flow velocity elevation up to 269 cm/s. There is slight dampening of the waveforms distal to this, although waveforms remain triphasic to the level of the proximal tibial vessels. The distal tibial vessel waveforms are monophasic at the level of the posterior tibial artery, but biphasic and the distal peroneal and dorsalis pedis arteries. On the left, Doppler waveforms are triphasic at all levels including distally. Systolic peaks are sharp and flow velocities are within normal limits. Impression: Borderline significant stenosis of the right proximal superficial femoral artery Negative for evidence of significant left lower extremity. Serial insufficiency. Findings: Bilaterally, grayscale and duplex images demonstrate no evidence of intraluminal thrombus. Normal phasic Doppler waveforms, demonstrating normal augmentation response and no evidence of valvular insufficiency. Greater saphenous veins and tibial veins are patent bilaterally. Normal compressibility Impression: Negative for evidence of lower extremity deep venous thrombosis vascular input appreciated podiatry input appreciated podiatry follow up IMPRESSION: Acute osteomyelitis of the third toe with involvement of the middle and distal phalange and the distal aspect of the proximal phalange. (2) SOB (shortness of breath) (3) Abnormal LFTs Assessment & Plan: 54-year-old female with leukocytosis, abnormalities, anemia , diabetic toe, elevated troponins. downgraded improving Trend labs No acute surgical invention planned We will monitor and follow with serial exams okay to d/c from surgical standpoint outpatient follow up with her kiln placer who has been managing her care abx as per ID Thank you let me participate in his care will follow the recommendations Wilberto Jiménez Dec 01, 2019 11:00
--- NOTE | 2019-12-01 11:50 | Infectious Diseases Prog Note ---
Assessment/Plan Assessment/Plan IMPRESSION: Pneumonia third toe osteomyelitis; leukocytosis; severe anemia; acidosis; folate deficiency; chronic kidney disease, likely end-stage renal disease; Non ST elevation TX elevated transaminase DM with hyperglycemia Hyperuricemia Hypokalemia RECOMMENDATION: Continue with ceftriaxone & IV vancomycin. waiting for customer marketing assistant imput Subjective ROS Limited/Unobtainable: No Constitutional: Reports: no symptoms Respiratory: Reports: no symptoms Cardiovascular: Reports: no symptoms Gastrointestinal/Abdominal: Reports: no symptoms Allergies: Coded Allergies: ASPIRIN (Verified Allergy, Unknown, 04/13/19) Objective Vital Signs Last 24 Hour Vital Signs Date Time Temp Pulse Resp B/P (MAP) Pulse Ox O2 Delivery O2 Flow Rate FiO2 12/01/19 09:37 67 122/65 12/01/19 09:36 122/65 12/01/19 07:03 72 18 98 Nasal Cannula 21 12/01/19 07:03 98 Room Air 21 12/01/19 06:05 122/65 12/01/19 04:00 98.0 61 20 118/61 (80) 94 12/01/19 04:00 67 12/01/19 00:00 98.8 70 18 122/67 (85) 95 11/30/19 22:33 73 11/30/19 22:12 126/63 11/30/19 21:27 97.9 11/30/19 21:00 76 11/30/19 21:00 Room Air 11/30/19 20:49 74 130/72 11/30/19 20:30 81 19 Nasal Cannula 21 11/30/19 20:30 97 Room Air 21 11/30/19 20:00 98.4 76 17 125/70 (88) 96 11/30/19 16:00 97.9 73 20 128/72 (90) 97 11/30/19 16:00 73 11/30/19 13:47 138/73 11/30/19 12:00 97.9 70 20 134/78 (96) 96 11/30/19 12:00 70 Height (Feet): 5 Height (Inches): 3.00 Weight (Pounds): 140 HEENT: mucous membranes moist Respiratory/Chest: lungs clear Cardiovascular: normal rate Abdomen: soft, non tender Extremities: no edema Skin: ulcers, other - R thied toe Laboratory Tests Test 12/01/19 07:00 Troponin I 0.079 ng/mL (0.000-0.056) Random Vancomycin Level 21.7 ug/mL Current Medications Medications (Trade) Dose Ordered Sig/Yeny Route PRN Reason Start Time Stop Time Status Last Admin Dose Admin Acetaminophen (Tylenol) 500 mg Q4H PRN ORAL Mild Pain/Temp > 100.5 11/28/19 21:30 12/26/19 13:29 11/30/19 20:57 Albuterol/ Ipratropium (Albuterol/ Ipratropium) 3 ml Q4H PRN HHN Shortness of Breath 11/28/19 21:45 12/01/19 13:38 Allopurinol (allopurinoL) 300 mg DAILY ORAL 11/29/19 09:00 12/27/19 08:59 12/01/19 09:36 Carvedilol (Coreg) 12.5 mg EVERY 12 HOURS ORAL 11/28/19 21:00 12/26/19 20:59 12/01/19 09:37 Ceftriaxone Sodium 1 gm/ Sodium Chloride 55 ml @ 110 mls/hr Q24H IVPB 12/01/19 11:00 12/02/19 11:29 12/01/19 11:00 Clopidogrel Bisulfate (Plavix) 75 mg DAILY ORAL 11/29/19 09:00 12/26/19 08:59 12/01/19 09:36 Dextrose (Dextrose 50%) 25 ml Q30M PRN IV Hypoglycemia 11/28/19 19:30 12/26/19 01:29 Dextrose (Dextrose 50%) 50 ml Q30M PRN IV Hypoglycemia 11/28/19 19:30 12/26/19 01:29 Docusate Sodium (Colace) 100 mg THREE TIMES A DAY ORAL 11/29/19 09:00 12/26/19 08:59 11/30/19 09:40 Epoetin Jensen (Epoetin Jensen-EPBX(NON ESRD)) 10,000 unit SUN-SUN-SUN SUBQ 11/28/19 21:00 12/26/19 20:59 11/28/19 21:56 Folic Acid (Folate) 3 mg DAILY ORAL 11/29/19 09:00 12/26/19 14:29 12/01/19 09:36 Heparin Sodium (Porcine) (Heparin 5000 units/ml) 5,000 units EVERY 12 HOURS SUBQ 11/28/19 21:00 12/26/19 08:59 12/01/19 09:38 Hydralazine HCl (Apresoline) 25 mg Q4H PRN ORAL bp over 160 syst 11/28/19 21:45 12/26/19 13:38 Hydralazine HCl (Apresoline) 25 mg Q8HR ORAL 11/29/19 14:00 12/26/19 17:59 12/01/19 06:05 Insulin Aspart (NovoLOG) BEFORE MEALS AND HS SUBQ 11/28/19 21:00 12/26/19 06:29 11/30/19 20:51 Isosorbide Mononitrate (Imdur) 30 mg DAILY ORAL 11/30/19 09:00 12/30/19 08:59 12/01/19 09:36 Metolazone (Zaroxolyn) 5 mg DAILY ORAL 11/29/19 09:00 12/27/19 08:59 12/01/19 09:36 Pantoprazole (Protonix) 40 mg EVERY 12 HOURS ORAL 11/28/19 21:00 12/26/19 20:59 12/01/19 09:37 Sevelamer Carbonate (Renvela) 800 mg THREE TIMES A DAY ORAL 11/29/19 09:00 12/28/19 09:14 12/01/19 09:36 Sitagliptin Phosphate (Januvia) 25 mg ACBREAKFAST ORAL 11/29/19 06:30 12/27/19 06:29 12/01/19 06:05 Vancomycin HCl (Vanco rx to dose) 1 ea DAILY PRN MISC Per rx protocol 11/29/19 09:00 12/26/19 13:44 Vancomycin HCl 750 mg/Sodium Chloride 275 ml @ 183.333 mls/hr ONCE ONCE IVPB 12/02/19 12:00 12/02/19 13:29 Zolpidem Tartrate (Ambien) 5 mg HSPRN PRN ORAL Insomnia 11/29/19 13:30 12/03/19 13:29 Tip Ashford MD Dec 01, 2019 11:50
[2019-12-01 12:00] VITALS: BP 138/72
--- NOTE | 2019-12-01 14:02 | NUR ---
NURSE NOTES: message left to dr schneider and spoke to Codi, regarding clearance for discharge.
[2019-12-01] MEDS: Acetaminophen 500mg (ES) tab ORAL PRN (14:05)
[2019-12-01] MEDS ORDERED: Tubing IV Secondary IV ONE (14:17)
--- NOTE | 2019-12-01 15:07 | Pulmonolgy Critical Care Note ---
Critical Care - Asmt/Plan Assessment/Plan: Pulmonary Critical Care Progress Note HPI Patient is a 54-year-old woman with previous history of Chronic Kidney Disease, Diabetes, Hypertension, admitted with increased difficulty with breathing. Noted to be fluid overloaded, increased Troponin. Not currently on dialysis. Denies any recent fever, chest pain. Anemia s/p Transfusion, Hb stable, Renal US negative for hydronephrosis Elevated Troponin downtrending No new complaints, on floor Toe osteomyelitis noted on MRI Allergies: ASPIRIN Past Medical History: Chronic Kidney Disease, Diabetes, Hypertension All Other Systems: negative except mentioned in HPI Physical Exam Vital Signs Noted General Appearance: normal inspection, well appearing, no apparent distress, alert, GCS 15 Head: atraumatic ENT: normal ENT inspection, hearing grossly normal, normal voice Neck: normal inspection, full range of motion, supple, no bony tend Respiratory: normal inspection, lungs clear, normal breath sounds, no respiratory distress, no retraction, no wheezing Cardiovascular: regular rate, rhythm, HS1, HS2 normal, no edema Gastrointestinal: normal inspection, normal bowel sounds, non tender, soft, no guarding, no hernia Genitourinary: no CVA tenderness Musculoskeletal: normal inspection, back normal, normal range of motion Neurologic: alert, oriented x3, responsive, speech normal, normal inspection Impression: Fluid overload Elevated Troponin downtrending Pneumonia Chronic Kidney Disease Anemia Diabetes Hypertension Plan - Renal following - Plavix - Cardiology following - IV AB per ID - Monitor labs - Transfuse PRN - O2/Bipap PRN - PPX - GRINDER OUTSIDE DIAMETER Medications - Kayexalate PRN - TFN PRN - Protonix EKG: Normal sinus rhythm with a rate of [address] or T wave changes. There is no QRS widening noted. CXR: Mild cardiomegaly, interstitial and patchy infiltrates, small effusions LE Dupplex:Negative for DVT MRI foot: Acute osteomyelitis of the third toe with involvement of the middle and distal phalange and the distal aspect of the proximal phalange. Labs Noted Critical Care - Objective Last 24 Hour Vital Signs Date Time Temp Pulse Resp B/P (MAP) Pulse Ox O2 Delivery O2 Flow Rate FiO2 12/01/19 13:50 138/72 12/01/19 12:00 97.6 65 18 138/72 (94) 99 12/01/19 12:00 68 12/01/19 09:37 67 122/65 12/01/19 09:36 122/65 12/01/19 09:00 Room Air 12/01/19 08:00 97.5 62 18 133/65 (87) 100 12/01/19 08:00 71 12/01/19 07:03 72 18 98 Nasal Cannula 21 12/01/19 07:03 98 Room Air 21 12/01/19 06:05 122/65 12/01/19 04:00 98.0 61 20 118/61 (80) 94 12/01/19 04:00 67 12/01/19 00:00 98.8 70 18 122/67 (85) 95 11/30/19 22:33 73 11/30/19 22:12 126/63 11/30/19 21:27 97.9 11/30/19 21:00 76 11/30/19 21:00 Room Air 11/30/19 20:49 74 130/72 11/30/19 20:30 81 19 Nasal Cannula 11/30/19 20:30 97 Room Air 11/30/19 20:00 98.4 76 17 125/70 (88) 96 11/30/19 16:00 97.9 73 20 128/72 (90) 97 11/30/19 16:00 73 Accucheck: 126 Critical Care - Subjective ROS Limited/Unobtainable: No FI02: 21 Vent Support Mode: BiLevel Sputum Amount: None I&O: Intake and Output 11/30/19 12/01/19 19:00 07:00 Intake Total 120 ml 420 ml Balance 120 ml 420 ml Intake Oral 120 ml 420 ml # Voids 2 1 Miguel Hamm MD Dec 01, 2019 15:07
--- NOTE | 2019-12-01 15:22 | NUR ---
NURSE NOTES: per dr schneider, pt okay for discharge from his standpoint.
[2019-12-01 16:00] VITALS: BP 110/64
--- NOTE | 2019-12-01 19:35 | NUR ---
NURSE NOTES: Received report from Peter Velazquez RN. Pt in stable condition, alert, oriented x 4, denies pain at this time. Pt is SR, VS WNL. Will continue to monitor and plan of care.
[2019-12-01 20:00] VITALS: BP_SYST 127; BP_SYST 130; BP_DIAS 64; BP_DIAS 80
[2019-12-01] MEDS ORDERED: Lidocaine 1% Plain 30 ml INJ PRN (20:22)
[2019-12-01] MEDS ORDERED: Heparin1,000 units/500ml Premix(Conc:2 units/ml) IV PRN (20:23)
[2019-12-01] MEDS: Epoetin Alfa-EPBX (NON ESRD)10,000 unit/ml vial SUBQ SCH (20:56)
--- NOTE | 2019-12-01 21:18 | General Progress Note ---
Assessment/Plan Status: progressing, unchanged Assessment/Plan: Assessment - Anemia - OB (-) - Renal failure - NSTEMI - abnormal LFT - possibly due to WI, Hep serologies neg - DM - HTN Recommendations - Monitor CBC - check OB - neg - follow LFT - Check CPK - now normal - abdominal ultrasound - neg - Eventual EGD / Colon at later date - patient to arrange as outpatient Subjective Allergies: Coded Allergies: ASPIRIN (Verified Allergy, Unknown, 04/13/19) Subjective Above noted eating well no abdominal complaints Objective Last 24 Hour Vital Signs Date Time Temp Pulse Resp B/P (MAP) Pulse Ox O2 Delivery O2 Flow Rate FiO2 12/01/19 20:57 76 130/64 12/01/19 19:45 96 Room Air 21 12/01/19 16:00 97.8 84 18 110/64 (79) 95 12/01/19 16:00 68 12/01/19 13:50 138/72 12/01/19 12:00 97.6 65 18 138/72 (94) 99 12/01/19 12:00 68 12/01/19 09:37 67 122/65 12/01/19 09:36 122/65 12/01/19 09:00 Room Air 12/01/19 08:00 97.5 62 18 133/65 (87) 100 12/01/19 08:00 71 12/01/19 07:03 72 18 98 Nasal Cannula 21 12/01/19 07:03 98 Room Air 21 12/01/19 06:05 122/65 12/01/19 04:00 98.0 61 20 118/61 (80) 94 12/01/19 04:00 67 12/01/19 00:00 98.8 70 18 122/67 (85) 95 11/30/19 22:33 73 11/30/19 22:12 126/63 11/30/19 21:27 97.9 Intake and Output 11/30/19 12/01/19 19:00 07:00 Intake Total 120 ml 420 ml Balance 120 ml 420 ml Intake Oral 120 ml 420 ml # Voids 2 1 Laboratory Tests 12/01/19 07:00: Troponin I 0.079H, Random Vancomycin Level 21.7 Height (Feet): 5 Height (Inches): 3.00 Weight (Pounds): 140 Objective WDWN AA woman NCAT supple CTA RRR Abd soft NT ND no edema Kacie Butler MD Dec 01, 2019 21:18
--- NOTE | 2019-12-01 21:54 | General Progress Note ---
Assessment/Plan Problem List: (1) Non-STEMI (non-ST elevated myocardial infarction) ICD Codes: I21.4 - Non-ST elevation (NSTEMI) myocardial infarction SNOMED: 83050948 (2) Abnormal LFTs ICD Codes: R94.5 - Abnormal results of liver function studies SNOMED: 153558509 (3) Diabetic ulcer of toe ICD Codes: E11.621 - Type 2 diabetes mellitus with foot ulcer; L97.509 - Non- pressure chronic ulcer of other part of unspecified foot with unspecified severity SNOMED: 44060211, 150980152, 372075144 (4) Chronic renal disease ICD Codes: N18.9 - Chronic kidney disease, unspecified SNOMED: 833406243 (5) Nonadherence to medication ICD Codes: Z91.14 - Patient's other noncompliance with medication regimen SNOMED: 625050686 (6) Diabetes mellitus out of control ICD Codes: E11.65 - Type 2 diabetes mellitus with hyperglycemia SNOMED: 76838075, 258661465 (7) Diabetic nephropathy ICD Codes: E11.21 - Type 2 diabetes mellitus with diabetic nephropathy SNOMED: 528796864 (8) Renal failure (ARF), acute on chronic ICD Codes: N17.9 - Acute kidney failure, unspecified; N18.9 - Chronic kidney disease, unspecified SNOMED: 104203910 (9) Anemia in chronic kidney disease (CKD) ICD Codes: N18.9 - Chronic kidney disease, unspecified; D63.1 - Anemia in chronic kidney disease SNOMED: 983443316 Status: progressing, unchanged Assessment/Plan: not cleared 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 wants more days of iv so will dc w HH niddm htn nstemi no cp Subjective ROS Limited/Unobtainable: Yes Allergies: Coded Allergies: ASPIRIN (Verified Allergy, Unknown, 04/13/19) Objective Last 24 Hour Vital Signs Date Time Temp Pulse Resp B/P (MAP) Pulse Ox O2 Delivery O2 Flow Rate FiO2 12/01/19 20:57 76 130/64 12/01/19 19:45 96 Room Air 21 12/01/19 16:00 97.8 84 18 110/64 (79) 95 12/01/19 16:00 68 12/01/19 13:50 138/72 12/01/19 12:00 97.6 65 18 138/72 (94) 99 12/01/19 12:00 68 12/01/19 09:37 67 122/65 12/01/19 09:36 122/65 12/01/19 09:00 Room Air 12/01/19 08:00 97.5 62 18 133/65 (87) 100 12/01/19 08:00 71 12/01/19 07:03 72 18 98 Nasal Cannula 21 12/01/19 07:03 98 Room Air 21 12/01/19 06:05 122/65 12/01/19 04:00 98.0 61 20 118/61 (80) 94 12/01/19 04:00 67 12/01/19 00:00 98.8 70 18 122/67 (85) 95 11/30/19 22:33 73 11/30/19 22:12 126/63 Intake and Output 11/30/19 12/01/19 19:00 07:00 Intake Total 120 ml 420 ml Balance 120 ml 420 ml Intake Oral 120 ml 420 ml # Voids 2 1 Laboratory Tests 12/01/19 07:00: Troponin I 0.079H, Random Vancomycin Level 21.7 Height (Feet): 5 Height (Inches): 3.00 Weight (Pounds): 140 Cardiovascular: normal rate Respiratory/Chest: chest wall non-tender Partha Keene MD Dec 01, 2019 21:54
[2019-12-02] VITALS: BP_SYST 119; BP_SYST 124; BP_DIAS 56; BP_DIAS 80
[2019-12-02 04:00] VITALS: BP_SYST 138; BP_SYST 147; BP_DIAS 74; BP_DIAS 90
[2019-12-02] MEDS: NovoLOG Insulin Flexpen SUBQ SCH ×3 (05:58→16:30)
[2019-12-02] MEDS: HydrALAZINE 25mg tab ORAL SCH ×2 (06:00→14:31)
[2019-12-02] MEDS: sitaGLIPtin 25mg tab ORAL SCH (06:00)
--- NOTE | 2019-12-02 06:07 | General Progress Note ---
Assessment/Plan Problem List: (1) Diabetes mellitus out of control ICD Codes: E11.65 - Type 2 diabetes mellitus with hyperglycemia SNOMED: 50443568, 116632134 (2) Fluid overload ICD Codes: E87.70 - Fluid overload, unspecified SNOMED: 97263606 (3) Chronic renal disease ICD Codes: N18.9 - Chronic kidney disease, unspecified SNOMED: 639036377 (4) Nonadherence to medication ICD Codes: Z91.14 - Patient's other noncompliance with medication regimen SNOMED: 770689987 (5) Diabetic ulcer of toe ICD Codes: E11.621 - Type 2 diabetes mellitus with foot ulcer; L97.509 - Non- pressure chronic ulcer of other part of unspecified foot with unspecified severity SNOMED: 29702146, 822993934, 476183138 Status: progressing, unchanged Assessment/Plan: continue Januvia 25 mg daily continue NISS ac / hs hypoglycemia protocol in order Subjective Allergies: Coded Allergies: ASPIRIN (Verified Allergy, Unknown, 04/13/19) All Systems: reviewed and negative except above Subjective events noted glucose values are stable without hypoglycemia Item Value Date Time Bedside Blood Glucose 81 mg/dl 12/02/19 0558 Bedside Blood Glucose 125 mg/dl H 12/01/19 2100 Bedside Blood Glucose 118 mg/dl 12/01/19 1630 Bedside Blood Glucose 126 mg/dl H 12/01/19 1130 Objective Last 24 Hour Vital Signs Date Time Temp Pulse Resp B/P (MAP) Pulse Ox O2 Delivery O2 Flow Rate FiO2 12/02/19 06:00 130/64 12/02/19 04:00 97.7 67 16 138/74 (95) 100 12/02/19 03:53 66 12/02/19 00:00 68 12/02/19 00:00 97.2 66 20 119/56 (77) 96 12/01/19 23:07 134/72 12/01/19 21:00 Room Air 12/01/19 20:57 76 130/64 12/01/19 20:00 79 12/01/19 20:00 97.7 76 20 130/64 (86) 97 12/01/19 19:45 96 Room Air 21 12/01/19 16:00 97.8 84 18 110/64 (79) 95 12/01/19 16:00 68 12/01/19 13:50 138/72 12/01/19 12:00 97.6 65 18 138/72 (94) 99 12/01/19 12:00 68 12/01/19 09:37 67 122/65 12/01/19 09:36 122/65 12/01/19 09:00 Room Air 12/01/19 08:00 97.5 62 18 133/65 (87) 100 12/01/19 08:00 71 12/01/19 07:03 72 18 98 Nasal Cannula 21 12/01/19 07:03 98 Room Air 21 Intake and Output 12/01/19 12/02/19 19:00 07:00 Intake Total 240 ml Balance 240 ml Intake Oral 240 ml # Voids 2 Laboratory Tests 12/01/19 07:00: Troponin I 0.079H, Random Vancomycin Level 21.7 Height (Feet): 5 Height (Inches): 3.00 Weight (Pounds): 143 General Appearance: no apparent distress Neck: normal alignment Cardiovascular: normal rate Respiratory/Chest: lungs clear Abdomen: normal bowel sounds Objective Current Medications Medications (Trade) Dose Ordered Sig/Yeny Route PRN Reason Start Time Stop Time Status Last Admin Dose Admin Acetaminophen (Tylenol) 500 mg Q4H PRN ORAL Mild Pain/Temp > 100.5 11/28/19 21:30 12/26/19 13:29 12/01/19 14:05 Allopurinol (allopurinoL) 300 mg DAILY ORAL 11/29/19 09:00 12/27/19 08:59 12/01/19 09:36 Carvedilol (Coreg) 12.5 mg EVERY 12 HOURS ORAL 11/28/19 21:00 12/26/19 20:59 12/01/19 20:57 Ceftriaxone Sodium 1 gm/ Sodium Chloride 55 ml @ 110 mls/hr Q24H IVPB 12/01/19 11:00 12/02/19 11:29 12/01/19 11:00 Chlorhexidine Gluconate (Randi-Hex 2%) 1 applic DAILY@2000 TOPIC 12/02/19 20:00 01/01/20 19:59 Clopidogrel Bisulfate (Plavix) 75 mg DAILY ORAL 11/29/19 09:00 12/26/19 08:59 12/01/19 09:36 Dextrose (Dextrose 50%) 25 ml Q30M PRN IV Hypoglycemia 11/28/19 19:30 12/26/19 01:29 Dextrose (Dextrose 50%) 50 ml Q30M PRN IV Hypoglycemia 11/28/19 19:30 12/26/19 01:29 Docusate Sodium (Colace) 100 mg THREE TIMES A DAY ORAL 11/29/19 09:00 12/26/19 08:59 11/30/19 09:40 Epoetin Jensen (Epoetin Jensen-EPBX(NON ESRD)) 10,000 unit SUN-SUN-SUN SUBQ 11/28/19 21:00 12/26/19 20:59 12/01/19 20:56 Folic Acid (Folate) 3 mg DAILY ORAL 11/29/19 09:00 12/26/19 14:29 12/01/19 09:36 Heparin Sodium (Porcine) (Heparin 5000 units/ml) 5,000 units EVERY 12 HOURS SUBQ 11/28/19 21:00 12/26/19 08:59 12/01/19 20:58 Heparin Sodium/ Sodium Chloride (Heparin 1000 units/500ml Premix) 1,000 unit ONCE PRN IV PICC 12/01/19 20:23 12/02/19 23:59 Hydralazine HCl (Apresoline) 25 mg Q4H PRN ORAL bp over 160 syst 11/28/19 21:45 12/26/19 13:38 Hydralazine HCl (Apresoline) 25 mg Q8HR ORAL 11/29/19 14:00 12/26/19 17:59 12/02/19 06:00 Insulin Aspart (NovoLOG) BEFORE MEALS AND HS SUBQ 11/28/19 21:00 12/26/19 06:29 11/30/19 20:51 Isosorbide Mononitrate (Imdur) 30 mg DAILY ORAL 11/30/19 09:00 12/30/19 08:59 12/01/19 09:36 Lidocaine HCl (Xylocaine 1% 30ml) 30 ml ONCE PRN INJ PICC 12/01/19 20:22 12/02/19 23:59 Metolazone (Zaroxolyn) 5 mg DAILY ORAL 11/29/19 09:00 12/27/19 08:59 12/01/19 09:36 Pantoprazole (Protonix) 40 mg EVERY 12 HOURS ORAL 11/28/19 21:00 12/26/19 20:59 12/01/19 20:57 Sevelamer Carbonate (Renvela) 800 mg THREE TIMES A DAY ORAL 11/29/19 09:00 12/28/19 09:14 12/01/19 17:38 Sitagliptin Phosphate (Januvia) 25 mg ACBREAKFAST ORAL 11/29/19 06:30 12/27/19 06:29 12/02/19 06:00 Vancomycin HCl (Vanco rx to dose) 1 ea DAILY PRN MISC Per rx protocol 11/29/19 09:00 12/26/19 13:44 Vancomycin HCl 750 mg/Sodium Chloride 275 ml @ 183.333 mls/hr ONCE ONCE IVPB 12/02/19 12:00 12/02/19 13:29 Zolpidem Tartrate (Ambien) 5 mg HSPRN PRN ORAL Insomnia 11/29/19 13:30 12/03/19 13:29 12/02/19 03:43 Robert Pierce MD Dec 02, 2019 06:07
--- NOTE | 2019-12-02 06:59 | Hematology/Onc Progress Note ---
Assessment/Plan Assessment/Plan Assessment / recs: # Anemia of chronic disease due to underlying chronic medical issues, multifactorial v Gi bleed --> in this case likely kidney disease --> Anemia workup has been ordered, rule out gi bleed --> No evidence of hemolysis is noted, peripheral smear has been reviewed. --> Hgb goal >7. Transfuse prn. --> Low threshold for epogen as ferritin >1000, and severe kidney disease --> Medications have been reviewed --> started on epogen --> low threshold for gi evaluation in case has occult + --> bone marrow biopsy is not indicated given the other more likely causes --> hgb trend: 6.9-->9-->8.3 --> blood: 2 units prbc 11/27, # Anemia of folic acid deficiency --> started on folate as per renal --> trend h/h as needed # Leukocytosis likely reactive v infection --> monitor for improvement --> as per id --> trend 16-->14-->10.8 --> hold off flow --> abx: vanc # Fluid overload --> diuresis as per cards/renal --> echo 2d # ИВАН on CKD --> per renal # Noncompliance # Shortness of breath # Elevated troponin --> w/u as per cards DW Rn and appreciate consultation. Subjective Constitutional: Denies: no symptoms, chills, fever, malaise, weakness, other HEENT: Denies: no symptoms, eye pain, blurred vision, tearing, double vision, ear pain, ear discharge, nose pain, nose congestion, throat pain, throat swelling, mouth pain, mouth swelling, other Cardiovascular: Denies: no symptoms, chest pain, edema, irregular heart rate, lightheadedness, palpitations, syncope, other Respiratory: Denies: no symptoms, cough, shortness of breath, SOB with excertion, SOB at rest, sputum, wheezing, other Gastrointestinal/Abdominal: Denies: no symptoms, abdomen distended, abdominal pain, black stools, tarry stools, blood in stool, constipated, diarrhea, difficulty swallowing, nausea, poor appetite, poor fluid intake, rectal bleeding , vomiting, other Genitourinary: Denies: no symptoms, burning, discharge, frequency, flank pain, hematuria, incontinence, pain, urgency, other Neurologic/Psychiatric: Denies: no symptoms, anxiety, depressed, emotional problems, headache, numbness, paresthesia, pre-existing deficit, seizure, tingling, tremors, weakness, other Endocrine: Denies: no symptoms, excessive sweating, flushing, intolerance to cold, intolerance to heat, increased hunger, increased thirst, increased urine, unexplained weight gain, unexplained weight loss, other Allergies: Coded Allergies: ASPIRIN (Verified Allergy, Unknown, 04/13/19) Subjective 11/27: icu, s/p 2 units prbc, hgb improved to 9, on abx 11/28: complaining of back pain, with 3rd toe osteo, no bleeding or chills 11/30: on tele, no acute events, h/h stable, on vanc 12/01: no events, no bleeding, no f/c, on hd as per renal 12/02: no changes, labs noted, no bleeding, potential dc as per notes Objective Objective Current Medications Medications (Trade) Dose Ordered Sig/Yeny Route PRN Reason Start Time Stop Time Status Last Admin Dose Admin Acetaminophen (Tylenol) 500 mg Q4H PRN ORAL Mild Pain/Temp > 100.5 11/28/19 21:30 12/26/19 13:29 12/01/19 14:05 Allopurinol (allopurinoL) 300 mg DAILY ORAL 11/29/19 09:00 12/27/19 08:59 12/01/19 09:36 Carvedilol (Coreg) 12.5 mg EVERY 12 HOURS ORAL 11/28/19 21:00 12/26/19 20:59 12/01/19 20:57 Ceftriaxone Sodium 1 gm/ Sodium Chloride 55 ml @ 110 mls/hr Q24H IVPB 12/01/19 11:00 12/02/19 11:29 12/01/19 11:00 Chlorhexidine Gluconate (Randi-Hex 2%) 1 applic DAILY@2000 TOPIC 12/02/19 20:00 01/01/20 19:59 Clopidogrel Bisulfate (Plavix) 75 mg DAILY ORAL 11/29/19 09:00 12/26/19 08:59 12/01/19 09:36 Dextrose (Dextrose 50%) 25 ml Q30M PRN IV Hypoglycemia 11/28/19 19:30 12/26/19 01:29 Dextrose (Dextrose 50%) 50 ml Q30M PRN IV Hypoglycemia 11/28/19 19:30 12/26/19 01:29 Docusate Sodium (Colace) 100 mg THREE TIMES A DAY ORAL 11/29/19 09:00 12/26/19 08:59 11/30/19 09:40 Epoetin Jensen (Epoetin Jensen-EPBX(NON ESRD)) 10,000 unit SUN-SUN-SUN SUBQ 11/28/19 21:00 12/26/19 20:59 12/01/19 20:56 Folic Acid (Folate) 3 mg DAILY ORAL 11/29/19 09:00 12/26/19 14:29 12/01/19 09:36 Heparin Sodium (Porcine) (Heparin 5000 units/ml) 5,000 units EVERY 12 HOURS SUBQ 11/28/19 21:00 12/26/19 08:59 12/01/19 20:58 Heparin Sodium/ Sodium Chloride (Heparin 1000 units/500ml Premix) 1,000 unit ONCE PRN IV PICC 12/01/19 20:23 12/02/19 23:59 Hydralazine HCl (Apresoline) 25 mg Q4H PRN ORAL bp over 160 syst 11/28/19 21:45 12/26/19 13:38 Hydralazine HCl (Apresoline) 25 mg Q8HR ORAL 11/29/19 14:00 12/26/19 17:59 12/02/19 06:00 Insulin Aspart (NovoLOG) BEFORE MEALS AND HS SUBQ 11/28/19 21:00 12/26/19 06:29 11/30/19 20:51 Isosorbide Mononitrate (Imdur) 30 mg DAILY ORAL 11/30/19 09:00 12/30/19 08:59 12/01/19 09:36 Lidocaine HCl (Xylocaine 1% 30ml) 30 ml ONCE PRN INJ PICC 12/01/19 20:22 12/02/19 23:59 Metolazone (Zaroxolyn) 5 mg DAILY ORAL 11/29/19 09:00 12/27/19 08:59 12/01/19 09:36 Pantoprazole (Protonix) 40 mg EVERY 12 HOURS ORAL 11/28/19 21:00 12/26/19 20:59 12/01/19 20:57 Sevelamer Carbonate (Renvela) 800 mg THREE TIMES A DAY ORAL 11/29/19 09:00 12/28/19 09:14 12/01/19 17:38 Sitagliptin Phosphate (Januvia) 25 mg ACBREAKFAST ORAL 11/29/19 06:30 12/27/19 06:29 12/02/19 06:00 Vancomycin HCl (Vanco rx to dose) 1 ea DAILY PRN MISC Per rx protocol 11/29/19 09:00 12/26/19 13:44 Vancomycin HCl 750 mg/Sodium Chloride 275 ml @ 183.333 mls/hr ONCE ONCE IVPB 12/02/19 12:00 12/02/19 13:29 Zolpidem Tartrate (Ambien) 5 mg HSPRN PRN ORAL Insomnia 11/29/19 13:30 12/03/19 13:29 12/02/19 03:43 Last 24 Hour Vital Signs Date Time Temp Pulse Resp B/P (MAP) Pulse Ox O2 Delivery O2 Flow Rate FiO2 12/02/19 06:00 130/64 12/02/19 04:00 97.7 67 16 138/74 (95) 100 12/02/19 03:53 66 12/02/19 00:00 68 12/02/19 00:00 97.2 66 20 119/56 (77) 96 12/01/19 23:07 134/72 12/01/19 21:00 Room Air 12/01/19 20:57 76 130/64 12/01/19 20:00 79 12/01/19 20:00 97.7 76 20 130/64 (86) 97 12/01/19 19:45 96 Room Air 21 12/01/19 16:00 97.8 84 18 110/64 (79) 95 12/01/19 16:00 68 12/01/19 13:50 138/72 12/01/19 12:00 97.6 65 18 138/72 (94) 99 12/01/19 12:00 68 12/01/19 09:37 67 122/65 12/01/19 09:36 122/65 12/01/19 09:00 Room Air 12/01/19 08:00 97.5 62 18 133/65 (87) 100 12/01/19 08:00 71 12/01/19 07:03 72 18 98 Nasal Cannula 21 12/01/19 07:03 98 Room Air 21 12/01/19 06:05 122/65 12/01/19 04:00 98.0 61 20 118/61 (80) 94 12/01/19 04:00 67 12/01/19 00:00 98.8 70 18 122/67 (85) 95 11/30/19 22:33 73 11/30/19 22:12 126/63 11/30/19 21:27 97.9 11/30/19 21:00 76 11/30/19 21:00 Room Air 11/30/19 20:49 74 130/72 11/30/19 20:30 81 19 Nasal Cannula 21 11/30/19 20:30 97 Room Air 21 11/30/19 20:00 98.4 76 17 125/70 (88) 96 11/30/19 16:00 97.9 73 20 128/72 (90) 97 11/30/19 16:00 73 11/30/19 13:47 138/73 11/30/19 12:00 97.9 70 20 134/78 (96) 96 11/30/19 12:00 70 11/30/19 09:41 138/73 11/30/19 09:41 74 138/73 11/30/19 08:45 Room Air 11/30/19 08:00 97.5 75 20 137/71 (93) 96 11/30/19 08:00 75 Intake and Output 12/01/19 12/02/19 19:00 07:00 Intake Total 240 ml Balance 240 ml Intake Oral 240 ml # Voids 2 Labs Test 11/30/19 06:15 12/01/19 07:00 White Blood Count 8.8 K/UL (4.8-10.8) Red Blood Count 2.96 M/UL (4.20-5.40) Hemoglobin 8.3 G/DL (12.0-16.0) Hematocrit 25.0 % (37.0-47.0) Mean Corpuscular Volume 85 FL (80-99) Mean Corpuscular Hemoglobin 28.0 PG (27.0-31.0) Mean Corpuscular Hemoglobin Concent 33.1 G/DL (32.0-36.0) Red Cell Distribution Width 13.3 % (11.6-14.8) Platelet Count 234 K/UL (150-450) Mean Platelet Volume 7.4 FL (6.5-10.1) Neutrophils (%) (Auto) 57.9 % (45.0-75.0) Lymphocytes (%) (Auto) 26.6 % (20.0-45.0) Monocytes (%) (Auto) 11.8 % (1.0-10.0) Eosinophils (%) (Auto) 2.7 % (0.0-3.0) Basophils (%) (Auto) 1.0 % (0.0-2.0) Sodium Level 140 MMOL/L (136-145) Potassium Level 3.4 MMOL/L (3.5-5.1) Chloride Level 105 MMOL/L (98-107) Carbon Dioxide Level 24 MMOL/L (21-32) Anion Gap 11 mmol/L (5-15) Blood Urea Nitrogen 68 mg/dL (7-18) Creatinine 5.2 MG/DL (0.55-1.30) Estimat Glomerular Filtration Rate 10.3 mL/min (>60) Glucose Level 75 MG/DL (74-106) Uric Acid 7.8 MG/DL (2.6-7.2) Calcium Level 7.9 MG/DL (8.5-10.1) Phosphorus Level 4.2 MG/DL (2.5-4.9) Magnesium Level 1.9 MG/DL (1.8-2.4) Total Bilirubin 0.3 MG/DL (0.2-1.0) Aspartate Amino Transf (AST/SGOT) 17 U/L (15-37) Alanine Aminotransferase (ALT/SGPT) 69 U/L (12-78) Alkaline Phosphatase 78 U/L (46-116) C-Reactive Protein, Quantitative 9.0 mg/dL (0.00-0.90) Pro-B-Type Natriuretic Peptide > 37051 pg/mL (0-125) Total Protein 7.0 G/DL (6.4-8.2) Albumin 2.3 G/DL (3.4-5.0) Globulin 4.7 g/dL Albumin/Globulin Ratio 0.5 (1.0-2.7) Troponin I 0.079 ng/mL (0.000-0.056) Random Vancomycin Level 21.7 ug/mL Height (Feet): 5 Height (Inches): 3.00 Weight (Pounds): 143 Objective Vitals: reviewed General Appearance: NAD HEENT: normocephalic, atraumatic Neck: non-tender, normal alignment Respiratory/Chest: normal breath sounds bilaterally Cardiovascular/Chest: rrr, normal rate Abdomen: normal bowel sounds, soft, nontender Extremities: normal range of motion Barber Overton MD Dec 02, 2019 06:59
[2019-12-02] MEDS ORDERED: Heparin1,000 units/500ml Premix(Conc:2 units/ml) ONE (07:00)
[2019-12-02] MEDS ORDERED: Lidocaine 1% Plain 30 ml INJ ONE (07:00)
--- NOTE | 2019-12-02 07:18 | NUR ---
HAND-OFF: Report given to Sandy Rojas RN. Endorsed plan of care and close monitoring. Pt in stable condition at this time.
[2019-12-02 07:19] LABS: BASOPHILS % (AUTO) 1.4 % (0.0-2.0); EOSINOPHILS % (AUTO) 2.1 % (0.0-3.0); HEMATOCRIT 25.2 % (37.0-47.0); HEMOGLOBIN 8.5 G/DL (12.0-16.0); LYMPHOCYTES % (AUTO) 24.9 % (20.0-45.0); MEAN CORPUSCULAR VOLUME 85 FL (80-99); MONOCYTES % (AUTO) 10.2 % (1.0-10.0); NEUTROPHILS % (AUTO) 61.4 % (45.0-75.0); PLATELET COUNT 266 K/UL (150-450); RED BLOOD COUNT 2.97 M/UL (4.20-5.40); RED CELL DISTRIBUTION WIDTH 14.1 % (11.6-14.8); WHITE BLOOD COUNT 7.9 K/UL (4.8-10.8)
--- NOTE | 2019-12-02 07:30 | NUR ---
NURSE NOTES: Received report from BOLIVAR Oconnor. The patient is resting on the bed without acute distress or shortness of breath. The patient's bed in the lowest position, call light in reach, and fall and aspiration precaution reinforced. IV site intact and patent. Per night nurse, the patient is planning for PICC line placement prior to discharge with home health for antibiotics therapy. Will continue plan of care.
[2019-12-02 08:00] VITALS: BP 126/68
[2019-12-02 08:00] LABS: ALANINE AMINOTRANSFERASE 43 U/L (12-78); ALBUMIN 2.4 G/DL (3.4-5.0); ALBUMIN/GLOBULIN RATIO 0.5 (1.0-2.7); ALKALINE PHOSPHATASE 82 U/L (46-116); ANION GAP 12 mmol/L (5-15); ASPARTATE AMINO TRANSFERASE 16 U/L (15-37); BILIRUBIN,TOTAL 0.1 MG/DL (0.2-1.0); BLOOD UREA NITROGEN 63 mg/dL (7-18); CALCIUM 8.3 MG/DL (8.5-10.1); CARBON DIOXIDE 22 MMOL/L (21-32); CHLORIDE 105 MMOL/L (98-107); PHOSPHORUS 4.3 MG/DL (2.5-4.9); POTASSIUM 3.6 MMOL/L (3.5-5.1); SODIUM 139 MMOL/L (136-145)
[2019-12-02] MEDS: Docusate 100mg cap ORAL SCH ×3 (08:40→17:46)
[2019-12-02] MEDS: Imdur 30mg tab ORAL SCH (08:41)
[2019-12-02] MEDS: Carvedilol 12.5mg tab ORAL SCH (08:41)
[2019-12-02] MEDS: Heparin 5000 units/ml inj SUBQ SCH (08:42)
--- NOTE | 2019-12-02 09:00 | NUR ---
NURSE NOTES: Blood thinner on hold prior to PICC line placement. The patient is stable without acute distress or shortness of breath. Will continue plan of care.
--- NOTE | 2019-12-02 09:05 | Cardiac Electrophysiology PN ---
Assessment/Plan Assessment/Plan 1. NSTEMI with elevated troponin to 3.4 and lateral ischemia on the EKG and epigastric pain. Could be due to renal failure and creatinine of 6. Troponin is down to 1.8 and no CP. Continue aspirin, Coreg and statin. 2. Cardiomyopathy with CHF EF 40%. On Zaroxolyn 5 mg daily, Coreg 12.5 mg b.i.d., Hydralazine 25 tid and Imdur 30 daily Likely need hemodialysis under management of Dr. 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 Hypertension 4. End-stage renal disease, likely need hemodialysis. FU by Dr. Garcia. Cr down to 5.2 5. Diabetes. 6. Anemia. Getting PRBC. 7. Right 3rd toe Osteo. Awaiting PICC line for iv Abx at home DW RN Subjective Subjective Alert in NAD. No CP or SOB.In SR with no arrhythmias.Awaiting PICC placement and transfusion today before DC Objective Last 24 Hour Vital Signs Date Time Temp Pulse Resp B/P (MAP) Pulse Ox O2 Delivery O2 Flow Rate FiO2 12/02/19 08:41 126/68 12/02/19 08:41 80 126/68 12/02/19 06:00 130/64 12/02/19 04:00 97.7 67 16 138/74 (95) 100 12/02/19 03:53 66 12/02/19 00:00 68 12/02/19 00:00 97.2 66 20 119/56 (77) 96 12/01/19 23:07 134/72 12/01/19 21:00 Room Air 12/01/19 20:57 76 130/64 12/01/19 20:00 79 12/01/19 20:00 97.7 76 20 130/64 (86) 97 12/01/19 19:45 96 Room Air 21 12/01/19 16:00 97.8 84 18 110/64 (79) 95 12/01/19 16:00 68 12/01/19 13:50 138/72 12/01/19 12:00 97.6 65 18 138/72 (94) 99 12/01/19 12:00 68 12/01/19 09:37 67 122/65 12/01/19 09:36 122/65 Intake and Output 12/01/19 12/02/19 19:00 07:00 Intake Total 240 ml Balance 240 ml Intake Oral 240 ml # Voids 2 Laboratory Tests Test 12/02/19 06:38 White Blood Count 7.9 K/UL (4.8-10.8) Red Blood Count 2.97 M/UL (4.20-5.40) L Hemoglobin 8.5 G/DL (12.0-16.0) L Hematocrit 25.2 % (37.0-47.0) L Mean Corpuscular Volume 85 FL (80-99) Mean Corpuscular Hemoglobin 28.6 PG (27.0-31.0) Mean Corpuscular Hemoglobin Concent 33.8 G/DL (32.0-36.0) Red Cell Distribution Width 14.1 % (11.6-14.8) Platelet Count 266 K/UL (150-450) Mean Platelet Volume 7.0 FL (6.5-10.1) Neutrophils (%) (Auto) 61.4 % (45.0-75.0) Lymphocytes (%) (Auto) 24.9 % (20.0-45.0) Monocytes (%) (Auto) 10.2 % (1.0-10.0) H Eosinophils (%) (Auto) 2.1 % (0.0-3.0) Basophils (%) (Auto) 1.4 % (0.0-2.0) Sodium Level 139 MMOL/L (136-145) Potassium Level 3.6 MMOL/L (3.5-5.1) Chloride Level 105 MMOL/L (98-107) Carbon Dioxide Level 22 MMOL/L (21-32) Anion Gap 12 mmol/L (5-15) Blood Urea Nitrogen 63 mg/dL (7-18) H Creatinine 5.0 MG/DL (0.55-1.30) H Estimat Glomerular Filtration Rate 10.9 mL/min (>60) Glucose Level 121 MG/DL (74-106) H Calcium Level 8.3 MG/DL (8.5-10.1) L Phosphorus Level 4.3 MG/DL (2.5-4.9) Magnesium Level 1.8 MG/DL (1.8-2.4) Total Bilirubin 0.1 MG/DL (0.2-1.0) L Aspartate Amino Transf (AST/SGOT) 16 U/L (15-37) Alanine Aminotransferase (ALT/SGPT) 43 U/L (12-78) Alkaline Phosphatase 82 U/L (46-116) C-Reactive Protein, Quantitative 4.1 mg/dL (0.00-0.90) H Pro-B-Type Natriuretic Peptide 48233 pg/mL (0-125) H Total Protein 7.0 G/DL (6.4-8.2) Albumin 2.4 G/DL (3.4-5.0) L Globulin 4.6 g/dL Albumin/Globulin Ratio 0.5 (1.0-2.7) L Objective HEAD AND NECK: mild JVD. LUNGS: Decreased breath sounds. CARDIOVASCULAR: regular S1 and S2 with no gallop. ABDOMEN: Soft. EXTREMITIES: No pitting edema. Chronic right toe ulcer. Jeremiah Motley MD Dec 02, 2019 09:05
--- NOTE | 2019-12-02 09:10 | NUR ---
NURSE NOTES: Notified Dr. Overton regarding hemoglobin level of 8.5. Dr. Overton ordered 1 unit PRBC transfusion. Will carry out the order as soon as possible. Will continue plan of care.
--- NOTE | 2019-12-02 09:58 | Infectious Diseases Prog Note ---
Assessment/Plan Assessment/Plan IMPRESSION: Pneumonia treated third toe osteomyelitis; leukocytosis; severe anemia; acidosis; folate deficiency; chronic kidney disease, likely end-stage renal disease; Non ST elevation [place] elevated transaminase DM with hyperglycemia Hyperuricemia Hypokalemia RECOMMENDATION: Case was D/W stopper setter suggest antibiotic treatment PICC line placement Change ceftriaxone to Levaquin Continue Levaquin X 5 weeks Continue IV vancomycin X 5 weeks, likely 500mg IVPB 3 times weeks with dose adjustment by pharmacy Global Process Owner follow up in outpatient Case was D/W RN Subjective ROS Limited/Unobtainable: No Constitutional: Reports: no symptoms Respiratory: Reports: no symptoms Gastrointestinal/Abdominal: Reports: no symptoms Genitourinary: Reports: no symptoms Allergies: Coded Allergies: ASPIRIN (Verified Allergy, Unknown, 04/13/19) Objective Vital Signs Last 24 Hour Vital Signs Date Time Temp Pulse Resp B/P (MAP) Pulse Ox O2 Delivery O2 Flow Rate FiO2 12/02/19 09:13 97 Room Air 21 12/02/19 08:41 126/68 12/02/19 08:41 80 126/68 12/02/19 06:00 130/64 12/02/19 04:00 97.7 67 16 138/74 (95) 100 12/02/19 03:53 66 12/02/19 00:00 68 12/02/19 00:00 97.2 66 20 119/56 (77) 96 12/01/19 23:07 134/72 12/01/19 21:00 Room Air 12/01/19 20:57 76 130/64 12/01/19 20:00 79 12/01/19 20:00 97.7 76 20 130/64 (86) 97 12/01/19 19:45 96 Room Air 21 12/01/19 16:00 97.8 84 18 110/64 (79) 95 12/01/19 16:00 68 12/01/19 13:50 138/72 12/01/19 12:00 97.6 65 18 138/72 (94) 99 12/01/19 12:00 68 Height (Feet): 5 Height (Inches): 3.00 Weight (Pounds): 143 General Appearance: no acute distress HEENT: mucous membranes moist Respiratory/Chest: lungs clear Cardiovascular: normal rate Abdomen: soft, non tender Extremities: no edema Skin: ulcers, other - R third toe Neurologic/Psychiatric: alert, oriented x 3, responsive Laboratory Tests Test 12/02/19 06:38 White Blood Count 7.9 K/UL (4.8-10.8) Red Blood Count 2.97 M/UL (4.20-5.40) L Hemoglobin 8.5 G/DL (12.0-16.0) L Hematocrit 25.2 % (37.0-47.0) L Mean Corpuscular Volume 85 FL (80-99) Mean Corpuscular Hemoglobin 28.6 PG (27.0-31.0) Mean Corpuscular Hemoglobin Concent 33.8 G/DL (32.0-36.0) Red Cell Distribution Width 14.1 % (11.6-14.8) Platelet Count 266 K/UL (150-450) Mean Platelet Volume 7.0 FL (6.5-10.1) Neutrophils (%) (Auto) 61.4 % (45.0-75.0) Lymphocytes (%) (Auto) 24.9 % (20.0-45.0) Monocytes (%) (Auto) 10.2 % (1.0-10.0) H Eosinophils (%) (Auto) 2.1 % (0.0-3.0) Basophils (%) (Auto) 1.4 % (0.0-2.0) Sodium Level 139 MMOL/L (136-145) Potassium Level 3.6 MMOL/L (3.5-5.1) Chloride Level 105 MMOL/L (98-107) Carbon Dioxide Level 22 MMOL/L (21-32) Anion Gap 12 mmol/L (5-15) Blood Urea Nitrogen 63 mg/dL (7-18) H Creatinine 5.0 MG/DL (0.55-1.30) H Estimat Glomerular Filtration Rate 10.9 mL/min (>60) Glucose Level 121 MG/DL (74-106) H Calcium Level 8.3 MG/DL (8.5-10.1) L Phosphorus Level 4.3 MG/DL (2.5-4.9) Magnesium Level 1.8 MG/DL (1.8-2.4) Total Bilirubin 0.1 MG/DL (0.2-1.0) L Aspartate Amino Transf (AST/SGOT) 16 U/L (15-37) Alanine Aminotransferase (ALT/SGPT) 43 U/L (12-78) Alkaline Phosphatase 82 U/L (46-116) C-Reactive Protein, Quantitative 4.1 mg/dL (0.00-0.90) H Pro-B-Type Natriuretic Peptide 75318 pg/mL (0-125) H Total Protein 7.0 G/DL (6.4-8.2) Albumin 2.4 G/DL (3.4-5.0) L Globulin 4.6 g/dL Albumin/Globulin Ratio 0.5 (1.0-2.7) L Current Medications Medications (Trade) Dose Ordered Sig/Yeny Route PRN Reason Start Time Stop Time Status Last Admin Dose Admin Acetaminophen (Tylenol) 500 mg Q4H PRN ORAL Mild Pain/Temp > 100.5 11/28/19 21:30 12/26/19 13:29 12/01/19 14:05 Allopurinol (allopurinoL) 300 mg DAILY ORAL 11/29/19 09:00 12/27/19 08:59 12/02/19 08:40 Carvedilol (Coreg) 12.5 mg EVERY 12 HOURS ORAL 11/28/19 21:00 12/26/19 20:59 12/02/19 08:41 Ceftriaxone Sodium 1 gm/ Sodium Chloride 55 ml @ 110 mls/hr Q24H IVPB 12/01/19 11:00 12/02/19 11:29 12/01/19 11:00 Chlorhexidine Gluconate (Randi-Hex 2%) 1 applic DAILY@2000 TOPIC 12/02/19 20:00 01/01/20 19:59 Clopidogrel Bisulfate (Plavix) 75 mg DAILY ORAL 11/29/19 09:00 12/26/19 08:59 12/01/19 09:36 Dextrose (Dextrose 50%) 25 ml Q30M PRN IV Hypoglycemia 11/28/19 19:30 12/26/19 01:29 Dextrose (Dextrose 50%) 50 ml Q30M PRN IV Hypoglycemia 11/28/19 19:30 12/26/19 01:29 Docusate Sodium (Colace) 100 mg THREE TIMES A DAY ORAL 11/29/19 09:00 12/26/19 08:59 12/02/19 08:40 Epoetin Jensen (Epoetin Jensen-EPBX(NON ESRD)) 10,000 unit SUN-SUN-SUN SUBQ 11/28/19 21:00 12/26/19 20:59 12/01/19 20:56 Folic Acid (Folate) 3 mg DAILY ORAL 11/29/19 09:00 12/26/19 14:29 12/02/19 08:41 Heparin Sodium (Porcine) (Heparin 5000 units/ml) 5,000 units EVERY 12 HOURS SUBQ 11/28/19 21:00 12/26/19 08:59 12/01/19 20:58 Heparin Sodium/ Sodium Chloride (Heparin 1000 units/500ml Premix) 1,000 unit ONCE PRN IV PICC 12/01/19 20:23 12/02/19 23:59 Hydralazine HCl (Apresoline) 25 mg Q4H PRN ORAL bp over 160 syst 11/28/19 21:45 12/26/19 13:38 Hydralazine HCl (Apresoline) 25 mg Q8HR ORAL 11/29/19 14:00 12/26/19 17:59 12/02/19 06:00 Insulin Aspart (NovoLOG) BEFORE MEALS AND HS SUBQ 11/28/19 21:00 12/26/19 06:29 11/30/19 20:51 Isosorbide Mononitrate (Imdur) 30 mg DAILY ORAL 11/30/19 09:00 12/30/19 08:59 12/02/19 08:41 Lidocaine HCl (Xylocaine 1% 30ml) 30 ml ONCE PRN INJ PICC 12/01/19 20:22 12/02/19 23:59 Metolazone (Zaroxolyn) 5 mg DAILY ORAL 11/29/19 09:00 12/27/19 08:59 12/02/19 08:42 Pantoprazole (Protonix) 40 mg EVERY 12 HOURS ORAL 11/28/19 21:00 12/26/19 20:59 12/02/19 08:42 Sevelamer Carbonate (Renvela) 800 mg THREE TIMES A DAY ORAL 11/29/19 09:00 12/28/19 09:14 12/02/19 08:42 Sitagliptin Phosphate (Januvia) 25 mg ACBREAKFAST ORAL 11/29/19 06:30 12/27/19 06:29 12/02/19 06:00 Vancomycin HCl (Vanco rx to dose) 1 ea DAILY PRN MISC Per rx protocol 11/29/19 09:00 12/26/19 13:44 Vancomycin HCl 750 mg/Sodium Chloride 275 ml @ 183.333 mls/hr ONCE ONCE IVPB 12/02/19 12:00 12/02/19 13:29 Zolpidem Tartrate (Ambien) 5 mg HSPRN PRN ORAL Insomnia 11/29/19 13:30 12/03/19 13:29 12/02/19 03:43 Tip Ashford MD Dec 02, 2019 09:58
[2019-12-02] MEDS ORDERED: Levofloxacin 500mg tab ORAL SCH (11:00)
[2019-12-02 12:00] VITALS: BP 130/73
[2019-12-02] MEDS ORDERED: Vancomycin 750mg/NS 275ml IVPB ONE ×2 (12:00)
--- NOTE | 2019-12-02 12:00 | NUR ---
NURSE NOTES: The patient is stable without acute distress or shortness of breath. Pending for PICC Line placement. Will continue plan of care.
--- NOTE | 2019-12-02 13:03 | NUR ---
CASE MANAGEMENT:REVIEW 12/02/19 SI: NSTEMI. AC/CHR RENAL FAILURE ACUTE OSTEOMYELITIS OF 3RD TOE 97.7 80 16 126/68 97% ON RA H/H-8.5/25.2 BUN+63 CR+5.0 IS: IV VANCOMYCIN X1 LEVAQUIN PO QOD IMDUR PO QD HYDRALAZINE PO Q8HRS PLAVIX PO QD ZAROXOLYN PO QD COREG PO Q12 HEPARIN SQ Q12 : TELEMETRY STATUS PLAN: WAITING FOR PICC LINE PLACEMENT AFTER PICC LINE ~ PLAN TO TRANSFUSE 1 UNIT PRBC HEALTH PLAN HAS BEEN INFORMED OF HOME HEALTH AND IV ANTIBIOTIC NEEDS
--- NOTE | 2019-12-02 13:15 | Surgery Progress Note ---
Surgery Progress Note Subjective Additional Comments no acute events comfortable stable abx as per ID Objective Last 24 Hour Vital Signs Date Time Temp Pulse Resp B/P (MAP) Pulse Ox O2 Delivery O2 Flow Rate FiO2 12/02/19 09:13 97 Room Air 21 12/02/19 08:41 126/68 12/02/19 08:41 80 126/68 12/02/19 06:00 130/64 12/02/19 04:00 97.7 67 16 138/74 (95) 100 12/02/19 03:53 66 12/02/19 00:00 68 12/02/19 00:00 97.2 66 20 119/56 (77) 96 12/01/19 23:07 134/72 12/01/19 21:00 Room Air 12/01/19 20:57 76 130/64 12/01/19 20:00 79 12/01/19 20:00 97.7 76 20 130/64 (86) 97 12/01/19 19:45 96 Room Air 21 12/01/19 16:00 97.8 84 18 110/64 (79) 95 12/01/19 16:00 68 12/01/19 13:50 138/72 I&O Intake and Output 12/01/19 12/02/19 19:00 07:00 Intake Total 240 ml Balance 240 ml Intake Oral 240 ml # Voids 2 Dressing: dry Wound: clean Cardiovascular: RSR Respiratory: clear Abdomen: flat, non-tender, present bowel sounds Extremities: edema, no tenderness, no cyanosis, other Laboratory Tests Test 12/02/19 06:38 White Blood Count 7.9 K/UL (4.8-10.8) Red Blood Count 2.97 M/UL (4.20-5.40) L Hemoglobin 8.5 G/DL (12.0-16.0) L Hematocrit 25.2 % (37.0-47.0) L Mean Corpuscular Volume 85 FL (80-99) Mean Corpuscular Hemoglobin 28.6 PG (27.0-31.0) Mean Corpuscular Hemoglobin Concent 33.8 G/DL (32.0-36.0) Red Cell Distribution Width 14.1 % (11.6-14.8) Platelet Count 266 K/UL (150-450) Mean Platelet Volume 7.0 FL (6.5-10.1) Neutrophils (%) (Auto) 61.4 % (45.0-75.0) Lymphocytes (%) (Auto) 24.9 % (20.0-45.0) Monocytes (%) (Auto) 10.2 % (1.0-10.0) H Eosinophils (%) (Auto) 2.1 % (0.0-3.0) Basophils (%) (Auto) 1.4 % (0.0-2.0) Sodium Level 139 MMOL/L (136-145) Potassium Level 3.6 MMOL/L (3.5-5.1) Chloride Level 105 MMOL/L (98-107) Carbon Dioxide Level 22 MMOL/L (21-32) Anion Gap 12 mmol/L (5-15) Blood Urea Nitrogen 63 mg/dL (7-18) H Creatinine 5.0 MG/DL (0.55-1.30) H Estimat Glomerular Filtration Rate 10.9 mL/min (>60) Glucose Level 121 MG/DL (74-106) H Calcium Level 8.3 MG/DL (8.5-10.1) L Phosphorus Level 4.3 MG/DL (2.5-4.9) Magnesium Level 1.8 MG/DL (1.8-2.4) Total Bilirubin 0.1 MG/DL (0.2-1.0) L Aspartate Amino Transf (AST/SGOT) 16 U/L (15-37) Alanine Aminotransferase (ALT/SGPT) 43 U/L (12-78) Alkaline Phosphatase 82 U/L (46-116) C-Reactive Protein, Quantitative 4.1 mg/dL (0.00-0.90) H Pro-B-Type Natriuretic Peptide 01677 pg/mL (0-125) H Total Protein 7.0 G/DL (6.4-8.2) Albumin 2.4 G/DL (3.4-5.0) L Globulin 4.6 g/dL Albumin/Globulin Ratio 0.5 (1.0-2.7) L Plan Problems: (1) Diabetic ulcer of toe Assessment & Plan: Findings: 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 There is evidence of prior osteotomy of the fourth proximal and middle phalanges. There is evidence of prior amputation of the third distal phalanx. No acute fractures. No dislocations. No osseous erosions. The joint spaces are preserved. There is hammertoe deformity of the second through fifth digits. Impression: Postsurgical changes, as described No definite acute bony trauma graft no plain radiographic evidence of acute osseous myelitis. Note, however, limited sensitivity of plain radiographs for such. Consider MRI or bone scan for more sensitive characterization. Findings: On the right, Doppler waveforms are biphasic or triphasic with sharp systolic peaks at the level of the common femoral, profunda femoral, proximal superficial femoral arteries. In the proximal superficial femoral artery, there is sonographically visible atherosclerotic plaquing with flow velocity elevation up to 269 cm/s. There is slight dampening of the waveforms distal to this, although waveforms remain triphasic to the level of the proximal tibial vessels. The distal tibial vessel waveforms are monophasic at the level of the posterior tibial artery, but biphasic and the distal peroneal and dorsalis pedis arteries. On the left, Doppler waveforms are triphasic at all levels including distally. Systolic peaks are sharp and flow velocities are within normal limits. Impression: Borderline significant stenosis of the right proximal superficial femoral artery Negative for evidence of significant left lower extremity. Serial insufficiency. Findings: Bilaterally, grayscale and duplex images demonstrate no evidence of intraluminal thrombus. Normal phasic Doppler waveforms, demonstrating normal augmentation response and no evidence of valvular insufficiency. Greater saphenous veins and tibial veins are patent bilaterally. Normal compressibility Impression: Negative for evidence of lower extremity deep venous thrombosis vascular input appreciated podiatry input appreciated podiatry follow up IMPRESSION: Acute osteomyelitis of the third toe with involvement of the middle and distal phalange and the distal aspect of the proximal phalange. (2) SOB (shortness of breath) (3) Abnormal LFTs Assessment & Plan: 54-year-old female with leukocytosis, abnormalities, anemia , diabetic toe, elevated troponins. downgraded improving Trend labs No acute surgical invention planned We will monitor and follow with serial exams okay to d/c from surgical standpoint outpatient follow up with her steward racetrack who has been managing her care abx as per ID Thank you let me participate in his care will follow the recommendations Wilberto Jiménez Dec 02, 2019 13:15
--- NOTE | 2019-12-02 13:25 | Nephrology Progress Note ---
Assessment/Plan Problem List: (1) Renal failure (ARF), acute on chronic (2) Cardiomyopathy (3) Anemia in chronic kidney disease (CKD) (4) Non-STEMI (non-ST elevated myocardial infarction) (5) Diabetic nephropathy (6) Diabetes mellitus out of control Assessment underlying CKD ? Superimposed Acute Anemia of CKD Cardiomyopathy- 40% EjFx DM Low Folate elevated troponin- CAD Asa Allergy Plan OK to DC from renal stand AND FOLLOW UP WITH FLIGHT ENGINEER INSPECTOR OUT PATIENT WITHIN 3 DAYS previously: change diet transfuse PO folate Plavix Coreg- Norvasc- Hydralazine monitor renal parameters Subjective ROS Limited/Unobtainable: No Constitutional: Reports: other - feels good Objective Objective Last 24 Hour Vital Signs Date Time Temp Pulse Resp B/P (MAP) Pulse Ox O2 Delivery O2 Flow Rate FiO2 12/02/19 09:13 97 Room Air 21 12/02/19 08:41 126/68 12/02/19 08:41 80 126/68 12/02/19 06:00 130/64 12/02/19 04:00 97.7 67 16 138/74 (95) 100 12/02/19 03:53 66 12/02/19 00:00 68 12/02/19 00:00 97.2 66 20 119/56 (77) 96 12/01/19 23:07 134/72 12/01/19 21:00 Room Air 12/01/19 20:57 76 130/64 12/01/19 20:00 79 12/01/19 20:00 97.7 76 20 130/64 (86) 97 12/01/19 19:45 96 Room Air 21 12/01/19 16:00 97.8 84 18 110/64 (79) 95 12/01/19 16:00 68 12/01/19 13:50 138/72 Intake and Output 12/01/19 12/02/19 19:00 07:00 Intake Total 240 ml Balance 240 ml Intake Oral 240 ml # Voids 2 Current Medications Medications (Trade) Dose Ordered Sig/Yeny Route PRN Reason Start Time Stop Time Status Last Admin Dose Admin Acetaminophen (Tylenol) 500 mg Q4H PRN ORAL Mild Pain/Temp > 100.5 11/28/19 21:30 12/26/19 13:29 12/01/19 14:05 Allopurinol (allopurinoL) 300 mg DAILY ORAL 2/1/20 09:00 12/27/19 08:59 12/02/19 08:40 Carvedilol (Coreg) 12.5 mg EVERY 12 HOURS ORAL 11/28/19 21:00 12/26/19 20:59 12/02/19 08:41 Chlorhexidine Gluconate (Randi-Hex 2%) 1 applic DAILY@2000 TOPIC 12/02/19 20:00 01/01/20 19:59 Clopidogrel Bisulfate (Plavix) 75 mg DAILY ORAL 11/29/19 09:00 12/26/19 08:59 12/01/19 09:36 Dextrose (Dextrose 50%) 25 ml Q30M PRN IV Hypoglycemia 11/28/19 19:30 12/26/19 01:29 Dextrose (Dextrose 50%) 50 ml Q30M PRN IV Hypoglycemia 11/28/19 19:30 12/26/19 01:29 Docusate Sodium (Colace) 100 mg THREE TIMES A DAY ORAL 11/29/19 09:00 12/26/19 08:59 12/02/19 12:26 Epoetin Jensen (Epoetin Jensen-EPBX(NON ESRD)) 10,000 unit SUN-SUN-SUN SUBQ 11/28/19 21:00 12/26/19 20:59 12/01/19 20:56 Folic Acid (Folate) 3 mg DAILY ORAL 11/29/19 09:00 12/26/19 14:29 12/02/19 08:41 Heparin Sodium (Porcine) (Heparin 5000 units/ml) 5,000 units EVERY 12 HOURS SUBQ 11/28/19 21:00 12/26/19 08:59 12/01/19 20:58 Heparin Sodium/ Sodium Chloride (Heparin 1000 units/500ml Premix) 1,000 unit ONCE PRN IV PICC 12/01/19 20:23 12/02/19 23:59 Hydralazine HCl (Apresoline) 25 mg Q4H PRN ORAL bp over 160 syst 11/28/19 21:45 12/26/19 13:38 Hydralazine HCl (Apresoline) 25 mg Q8HR ORAL 11/29/19 14:00 12/26/19 17:59 12/02/19 06:00 Insulin Aspart (NovoLOG) BEFORE MEALS AND HS SUBQ 11/28/19 21:00 12/26/19 06:29 12/02/19 12:23 Isosorbide Mononitrate (Imdur) 30 mg DAILY ORAL 11/30/19 09:00 12/30/19 08:59 12/02/19 08:41 Levofloxacin (Levaquin) 500 mg QOD ORAL 12/02/19 11:00 12/09/19 10:59 12/02/19 10:46 Lidocaine HCl (Xylocaine 1% 30ml) 30 ml ONCE PRN INJ PICC 12/01/19 20:22 12/02/19 23:59 Metolazone (Zaroxolyn) 5 mg DAILY ORAL 11/29/19 09:00 12/27/19 08:59 12/02/19 08:42 Pantoprazole (Protonix) 40 mg EVERY 12 HOURS ORAL 11/28/19 21:00 12/26/19 20:59 12/02/19 08:42 Sevelamer Carbonate (Renvela) 800 mg THREE TIMES A DAY ORAL 11/29/19 09:00 12/28/19 09:14 12/02/19 12:26 Sitagliptin Phosphate (Januvia) 25 mg ACBREAKFAST ORAL 11/29/19 06:30 12/27/19 06:29 12/02/19 06:00 Vancomycin HCl (Vanco rx to dose) 1 ea DAILY PRN MISC Per rx protocol 11/29/19 09:00 12/26/19 13:44 Vancomycin HCl 750 mg/Sodium Chloride 275 ml @ 183.333 mls/hr ONCE ONCE IVPB 12/02/19 12:00 12/02/19 13:29 12/02/19 12:26 Zolpidem Tartrate (Ambien) 5 mg HSPRN PRN ORAL Insomnia 11/29/19 13:30 12/03/19 13:29 12/02/19 03:43 Laboratory Tests 12/02/19 06:38: White Blood Count 7.9, Red Blood Count 2.97L, Hemoglobin 8.5L, Hematocrit 25.2L , Mean Corpuscular Volume 85, Mean Corpuscular Hemoglobin 28.6, Mean Corpuscular Hemoglobin Concent 33.8, Red Cell Distribution Width 14.1, Platelet Count 266, Mean Platelet Volume 7.0, Neutrophils (%) (Auto) 61.4, Lymphocytes (% ) (Auto) 24.9, Monocytes (%) (Auto) 10.2H, Eosinophils (%) (Auto) 2.1, Basophils (%) (Auto) 1.4, Sodium Level 139, Potassium Level 3.6, Chloride Level 105, Carbon Dioxide Level 22, Anion Gap 12, Blood Urea Nitrogen 63H, Creatinine 5.0H, Estimat Glomerular Filtration Rate 10.9, Glucose Level 121H, Calcium Level 8.3L, Phosphorus Level 4.3, Magnesium Level 1.8, Total Bilirubin 0.1L, Aspartate Amino Transf (AST/SGOT) 16, Alanine Aminotransferase (ALT/SGPT) 43, Alkaline Phosphatase 82, C-Reactive Protein, Quantitative 4.1H, Pro-B-Type Natriuretic Peptide 22053N, Total Protein 7.0, Albumin 2.4L, Globulin 4.6, Albumin/Globulin Ratio 0.5L Height (Feet): 5 Height (Inches): 3.00 Weight (Pounds): 143 General Appearance: no apparent distress Cardiovascular: normal rate Respiratory/Chest: lungs clear Abdomen: soft Objective no change Joao Garcia MD Dec 02, 2019 13:25
--- NOTE | 2019-12-02 13:26 | NUR ---
DISCHARGE PLAN DISCHARGE ORDER NOTED 1) WAITING FOR PICC LINE PLACEMENT 2) PLAN TO TRANSFUSE 1 UNIT [facility] 3) HEALTH PLAN HAS BEEN INFORMED OF HOME HEALTH AND IV ANTIBIOTIC NEEDS ~ ORDERS FAXED THEY WILL ARRANGE [employer] GAVINO DAVIS (TIMBER MANAGEMENT PROFESSOR) ALE [id number] (DIRECTOR OF EDUCATION) T: [phone] [id number] ONCE ALL OF THE ABOVE HAVE BEEN ACCOMPLISHED, PATIENT CAN LEAVE THE HOSPITAL
--- NOTE | 2019-12-02 15:37 | NUR ---
RADIOLOGY NOTE: LEFT UPPER EXTREMITY PICC LINE PLACEMENT BY DR. JAROD HERNANDEZ AT 1345 HRS. FA
--- NOTE | 2019-12-02 15:50 | NUR ---
NURSE NOTES: Started 1 unit PRBC transfusion per Dr. Overton order. The patient's vital signs stable. Will continue plan of care.
[2019-12-02 16:00] VITALS: BP 129/80
--- NOTE | 2019-12-02 16:10 | NUR ---
NURSE NOTES: The PICC line placement is completed in a safe manner. The patient is stable without acute distress or shortness of breath. Will continue plan of care.
--- NOTE | 2019-12-02 16:11 | Diagnostic Imaging Report ---
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 The left upper extremity was prepped with alcohol. All elements of maximal sterile barrier technique were followed including usage of a cap, mask, sterile gown, sterile gloves, hand hygiene and a large sterile sheet. Sonographic evaluation of the upper extremity was performed demonstrating a patent and compressible basilic vein. Access was obtained under real-time ultrasound guidance (with utilization of sterile gel and sterile probe cover) and digital image was saved and archived. An .018 wire was introduced. Needle exchanged for a 5 [place] peel-away sheath. Measurements were obtained. A 5 [place] dual-lumen Power PICC line catheter was cut to 40 cm and introduced over the wire. Peel-away sheath and wire were removed.Catheter was secured to the skin using 2-0 Prolene suture. Both ports aspirate and flush easily. A single fluoroscopic image shows the distal tip in the superior vena cava. Total fluoroscopic time: 10.8 seconds. Impression: Successful placement of an upper extremity PICC line catheter
--- NOTE | 2019-12-02 18:55 | NUR ---
NURSE NOTES: Completed 1 unit PRBC transfusion in a safe manner. The patient's vital signs have been stable. Will closely monitor the patient.
--- NOTE | 2019-12-02 19:30 | NUR ---
NURSE NOTES: Received report from BOLIVAR Delgado. Patient is awake, sitting on bed. A/Ox4. Able to make needs known. Denies pain at this time. No signs of acute distress noted. Checked IV site and flushed. No erythema, bleeding or infiltration noted. Checked HITESH PICC line double lumen intact and patent. Bed at lowest position, brakes on, [id number]. Call light within reach. Will continue to monitor.
--- NOTE | 2019-12-02 19:30 | NUR ---
HAND-OFF: Report given to BOLIVAR Frank. The patient is resting on the bed without acute distress or shortness of breath after 1 unit PRBC transfusion. The patient's bed in the lowest position, call light in reach, and fall and aspiration precaution reinforced. Asked the night nurse to check the vital signs and physical condition after transfusion prior to discharge. Discharge packet ready and packed up her belongings. Discharge packet and ID physician's prescription handed to night nurse. Home health arranagement made by pillowcase turner Sariah and ready to be discharged. PICC line intact after placement. Dr. Keene ordered the patient to be discharged after PICC line placement and 1 unit PRBC transfusion as the arragement for home health already made. Cleared from ID standpoint per Dejon Koch and handed the prescription. Cleared from nephro standpoint per Dr. Garcia and asked to follow up with nephro in 3 days. Cleared from hospital medical biller standpoint, and continue antibiotics per Dejon Koch's order. Endorsed plan of care.
[2019-12-02 20:00] VITALS: BP 130/75
[2019-12-02] MEDS ORDERED: Dyna-Hex 2% Top Sol 2oz TOPIC SCH (20:00)
--- NOTE | 2019-12-02 20:00 | NUR ---
NURSE NOTES: Patient is in stable condition. Vital signs stable. No signs of acute distress noted. Called expedition supervisor for transportation.
[2019-12-02] MEDS ORDERED: VANCOMYCIN500 MG/100 IV (20:13)
[2019-12-02] MEDS ORDERED: LEVAQUIN500 MG ORAL (20:13)
--- NOTE | 2019-12-02 20:45 | NUR ---
NURSE NOTES: Removed IV site. Patient taken off tele box and tolerating well. Discharge packet, medication list, instructions and prescription given to patient. All belongings taken by patient.
--- NOTE | 2019-12-02 21:05 | NUR ---
NURSE NOTES: Patient was discharged to home with home health via wheelchair accompanied by RN to [facility]. Patient is in stable condition. No signs of pain or acute distress noted.
--- NOTE | 2019-12-02 21:26 | General Progress Note ---
Assessment/Plan Problem List: (1) Non-STEMI (non-ST elevated myocardial infarction) ICD Codes: I21.4 - Non-ST elevation (NSTEMI) myocardial infarction SNOMED: 17526051 (2) Abnormal LFTs ICD Codes: R94.5 - Abnormal results of liver function studies SNOMED: 147330149 (3) Diabetic ulcer of toe ICD Codes: E11.621 - Type 2 diabetes mellitus with foot ulcer; L97.509 - Non- pressure chronic ulcer of other part of unspecified foot with unspecified severity SNOMED: 26920439, 128455354, 494879096 (4) Chronic renal disease ICD Codes: N18.9 - Chronic kidney disease, unspecified SNOMED: 515572568 (5) Nonadherence to medication ICD Codes: Z91.14 - Patient's other noncompliance with medication regimen SNOMED: 121637401 (6) Diabetes mellitus out of control ICD Codes: E11.65 - Type 2 diabetes mellitus with hyperglycemia SNOMED: 86727524, 415527917 (7) Diabetic nephropathy ICD Codes: E11.21 - Type 2 diabetes mellitus with diabetic nephropathy SNOMED: 575600824 (8) Renal failure (ARF), acute on chronic ICD Codes: N17.9 - Acute kidney failure, unspecified; N18.9 - Chronic kidney disease, unspecified SNOMED: 299602030 (9) Anemia in chronic kidney disease (CKD) ICD Codes: N18.9 - Chronic kidney disease, unspecified; D63.1 - Anemia in chronic kidney disease SNOMED: 830450557 Status: progressing, unchanged Assessment/Plan: not cleared by podiatry home stager wants more days of iv so will dc w HH going home w hh iv abx per id and podiatry Subjective ROS Limited/Unobtainable: Yes Allergies: Coded Allergies: ASPIRIN (Verified Allergy, Unknown, 04/13/19) Objective Last 24 Hour Vital Signs Date Time Temp Pulse Resp B/P (MAP) Pulse Ox O2 Delivery O2 Flow Rate FiO2 12/02/19 16:00 69 12/02/19 16:00 97.5 70 18 129/80 (96) 98 12/02/19 14:31 130/73 12/02/19 12:00 65 12/02/19 12:00 97.0 63 18 130/73 (92) 99 12/02/19 09:13 97 Room Air 21 12/02/19 09:00 Room Air 12/02/19 08:41 126/68 12/02/19 08:41 80 126/68 12/02/19 08:00 71 12/02/19 08:00 97.8 80 18 126/68 (87) 98 12/02/19 06:00 130/64 12/02/19 04:00 97.7 67 16 138/74 (95) 100 12/02/19 03:53 66 12/02/19 00:00 68 12/02/19 00:00 97.2 66 20 119/56 (77) 96 12/01/19 23:07 134/72 Intake and Output 12/01/19 12/02/19 19:00 07:00 Intake Total 240 ml Balance 240 ml Intake Oral 240 ml # Voids 2 Laboratory Tests 12/02/19 06:38: White Blood Count 7.9, Red Blood Count 2.97L, Hemoglobin 8.5L, Hematocrit 25.2L , Mean Corpuscular Volume 85, Mean Corpuscular Hemoglobin 28.6, Mean Corpuscular Hemoglobin Concent 33.8, Red Cell Distribution Width 14.1, Platelet Count 266, Mean Platelet Volume 7.0, Neutrophils (%) (Auto) 61.4, Lymphocytes (% ) (Auto) 24.9, Monocytes (%) (Auto) 10.2H, Eosinophils (%) (Auto) 2.1, Basophils (%) (Auto) 1.4, Sodium Level 139, Potassium Level 3.6, Chloride Level 105, Carbon Dioxide Level 22, Anion Gap 12, Blood Urea Nitrogen 63H, Creatinine 5.0H, Estimat Glomerular Filtration Rate 10.9, Glucose Level 121H, Calcium Level 8.3L, Phosphorus Level 4.3, Magnesium Level 1.8, Total Bilirubin 0.1L, Aspartate Amino Transf (AST/SGOT) 16, Alanine Aminotransferase (ALT/SGPT) 43, Alkaline Phosphatase 82, C-Reactive Protein, Quantitative 4.1H, Pro-B-Type Natriuretic Peptide 66017O, Total Protein 7.0, Albumin 2.4L, Globulin 4.6, Albumin/Globulin Ratio 0.5L Height (Feet): 5 Height (Inches): 3.00 Weight (Pounds): 143 Cardiovascular: normal rate Respiratory/Chest: lungs clear Partha Keene MD Dec 02, 2019 21:26
--- NOTE | 2019-12-02 22:37 | Pulmonolgy Critical Care Note ---
Critical Care - Asmt/Plan Assessment/Plan: Pulmonary Critical Care Progress Note HPI Patient is a 54-year-old woman with previous history of Chronic Kidney Disease, Diabetes, Hypertension, admitted with increased difficulty with breathing. Noted to be fluid overloaded, increased Troponin. Not currently on dialysis. Denies any recent fever, chest pain. Anemia s/p Transfusion, Hb stable, Renal US negative for hydronephrosis No new complaints, on floor Toe osteomyelitis noted on MRI, hasPICC line Allergies: ASPIRIN Past Medical History: Chronic Kidney Disease, Diabetes, Hypertension All Other Systems: negative except mentioned in HPI Physical Exam Vital Signs Noted General Appearance: normal inspection, well appearing, no apparent distress, alert, GCS 15 Head: atraumatic ENT: normal ENT inspection, hearing grossly normal, normal voice Neck: normal inspection, full range of motion, supple, no bony tend Respiratory: normal inspection, lungs clear, normal breath sounds, no respiratory distress, no retraction, no wheezing Cardiovascular: regular rate, rhythm, HS1, HS2 normal, no edema Gastrointestinal: normal inspection, normal bowel sounds, non tender, soft, no guarding, no hernia Genitourinary: no CVA tenderness Musculoskeletal: normal inspection, back normal, normal range of motion Neurologic: alert, oriented x3, responsive, speech normal, normal inspection Impression: Fluid overload Elevated Troponin downtrending Pneumonia Chronic Kidney Disease Anemia Diabetes Hypertension Plan - Renal following - Plavix - Cardiology following - IV AB per ID - Monitor labs - Transfuse PRN - O2/Bipap PRN - PPX - LAPEL BASTER Medications - Kayexalate PRN - TFN PRN - Protonix EKG: Normal sinus rhythm with a rate of [address] or T wave changes. There is no QRS widening noted. CXR: Mild cardiomegaly, interstitial and patchy infiltrates, small effusions LE Dupplex:Negative for DVT MRI foot: Acute osteomyelitis of the third toe with involvement of the middle and distal phalange and the distal aspect of the proximal phalange. Labs Noted Critical Care - Objective Last 24 Hour Vital Signs Date Time Temp Pulse Resp B/P (MAP) Pulse Ox O2 Delivery O2 Flow Rate FiO2 12/02/19 22:06 96 Room Air 21 12/02/19 20:00 97.0 88 18 130/75 (93) 100 12/02/19 16:00 69 12/02/19 16:00 97.5 70 18 129/80 (96) 98 12/02/19 14:31 130/73 12/02/19 12:00 65 12/02/19 12:00 97.0 63 18 130/73 (92) 99 12/02/19 09:13 97 Room Air 21 12/02/19 09:00 Room Air 12/02/19 08:41 126/68 12/02/19 08:41 80 126/68 12/02/19 08:00 71 12/02/19 08:00 97.8 80 18 126/68 (87) 98 12/02/19 06:00 130/64 12/02/19 04:00 97.7 67 16 138/74 (95) 100 12/02/19 03:53 66 12/02/19 00:00 68 12/02/19 00:00 97.2 66 20 119/56 (77) 96 12/01/19 23:07 134/72 Accucheck: 133 Critical Care - Subjective ROS Limited/Unobtainable: No Condition: improving FI02: 21 Vent Support Mode: BiLevel Sputum Amount: None I&O: Intake and Output 12/01/19 12/02/19 19:00 07:00 Intake Total 240 ml Balance 240 ml Intake Oral 240 ml # Voids 2 Miguel Hamm MD Dec 02, 2019 22:37
--- NOTE | 2019-12-03 12:19 | NUR ---
DISCHARGE INFORMATION PATIENT WAS DISCHARGED YESTERDAY EVENING [facility] WILL PROVIDE HOME IV ANTIBIOTICS ~ CONFIRMED WITH [facility] WILL WORK WITH [facility] FOR MEDICATION ADMINISTRATION A1 [facility] WILL PROVIDE OT/PT SERVICES AT HOME ALL OF THE ABOVE HAS BEEN ARRANGED BY [facility] T: [phone] [facility] T:[phone] [facility] T: [phone]
--- NOTE | 2019-12-04 08:48 | Discharge Summary ---
Discharge Summary Discharge Summary _ DATE OF ADMISSION: 11/25/2019 DATE OF DISCHARGE: 12/02/2019 DISCHARGED BY: Dr. Keene REASON FOR ADMISSION: 54 years old female with past medical history of hypertension, renal failure, diabetes mellitus, presented with increased difficulty breathing. Patient reported missing diuretics. Patient was hypoxic and required supplemental oxygen, initially via BiPAP, then switched to venturi mask. Patient was tachycardic. Patient received Plavix since allergic to aspirin. Laboratory data revealed leukocytosis and anemia : WBC 16.8, hemoglobin 7.6, hematocrit 23.7. Potassium 5.9. BUN 77, creatinine 5.2. Glucose 239. AST 276, ALT 223 . Lipase 103 Troponin 2.011 , pro BNP > 35,000 EKG revealed sinus rhythm , no acute ischemic changes. Chest x-ray demonstrated bilateral interstitial airspace disease, most likely patchy pneumonia, pulmonary edema also was possible. Small bilateral pleural effusion. Patient received IV antibiotic for possible pneumonia. Patient also received diuretics for fluid overload . Patient subsequently admitted for elevated troponin , possible NSTEMI , chronic renal disease, fluid overload ,possible pneumonia ,nonadherence to medication. CONSULTANTS: blast setter Dr. Guthrie pulmonary Dr. Hamm ID specialist Dr. Ashford GI specialist Dr. Butler library clerical assistant Dr. Garcia medical referral coordinator/oncologist Dr. Overton vascular surgery dr Mitchell general surgeon Dr. Jiménez perfumer Dr. Pierce shift superintendent caustic cresylate Dr. Mendez HOSPITAL COURSE: Patient admitted to monitored floor. Geologist closely followed. Echocardiogram demonstrated mild global left ventricular hypokinesis with left ventricular ejection fraction estimated to be 40 to 45% and borderline mid left ventricular hypertrophy. Moderate tricuspid regurgitation, moderate mitral regurgitation . Moderately elevated left atrial pressure grade 2. Right ventricular systolic pressure of 55 consistent with a moderate pulmonary hypertension. Serial troponin initially increased to 3.47 and then started to trend down. EKG showed lateral ischemia. Troponin elevation could also possibly be related to patient's renal failure as per blast setter. Patient by himself denied chest pain. Patient was continued on Plavix , beta-idalia and statin. Blood pressure was managed with antihypertensive medication regimen , further optimized as per blast setter and library clerical assistant. Blood pressure was stable. Venous duplex bilateral lower extremity revealed no evidence of acute DVT. Supplemental oxygen provided and titrated to keep pulse oximetry above 92%. BiPAP was on board as needed. DVT prophylaxis provided. Antibiotic provided as per ID recommendation. Influenza swab was negative. Blood cultures were negative. Leukocytosis resolved. Patient completed treatment for pneumonia while in the hospital. Vascular surgeon seen and evaluated patient and recommended treatment of right toe necrosis and ulceration with antibiotics and noninvasive duplex imaging. Patient may need a cardiac catheterization along the way. Animated Cartoons Painter seen and evaluated patient . Patient clinically had evidence of osteomyelitis on the right third toe. Wound care provided as per shift superintendent caustic cresylate recommendation . Further diagnostic imaging was done. Arterial duplex revealed borderline significant stenosis of right proximal superficial femoral artery. Right foot x-ray revealed no definite acute bony trauma and no radiographic evidence of acute osseous myelitis. Patient subsequently undergone MRI of the right foot , which revealed acute osteomyelitis of the third toe with involvement of the middle and distal phalanx and distal aspect of the proximal phalanx. Antibiotics provided as per ID recommendation. PICC line was placed for long-term of antibiotics. Patient will require to continue Levaquin and vancomycin as outpatient with dose adjustment as by pharmacy to complete total of 6weeks treatment. Home health was arranged prior to discharge. Blood sugar was managed as per perfumer recommendation. Hemoglobin A1c 6.8 . Diabetic diet and diabetic teaching provided. atient was encouraged to comply with medication regimen and diet. Signal Circuit Designer followed. Patient had acute on chronic kidney disease along with anemia of chronic kidney disease. Patient still not on hemodialysis yet. Renal parameters and electrolytes were closely monitored. Electrolytes corrected as needed , and nephrotoxins were avoided. Renal ultrasound revealed no hydronephrosis. Slightly increased renal echogenicity noted , indicative of medical renal disease. Creatinine remained at baseline , prior to discharge 5.0. Patient will need to follow-up with library clerical assistant as outpatient within 3 days per hospital library clerical assistant recommendations . Hemoglobin and hematocrit were closely monitored with goal to keep hemoglobin above 7. Patient undergone transfusion of 3 units of packed red blood cells , while in the hospital. Stool for occult blood was negative x2. Anemia work-up revealed evidence of anemia of chronic disease. Patient was on Epogen. Prior to discharge hemoglobin 8.5 , hematocrit 25.2. Abdominal ultrasound revealed no acute findings. Suspected medical renal disease. Hepatitis panel was negative. LFT were closely monitored. Abnormal LFTs were possibly due to NSTEMI, trended down to normal prior to discharge. Total bilirubin remained stable. Supportive care provided. Pain management was addressed as needed. DVT and GI prophylaxis provided. Bowel regimen instituted. Patient clinically stabilized and was ready for discharge home with home health services for IV antibiotics. FINAL DIAGNOSES: NSTEMI Volume overload due to renal failure and congestive heart failure Cardiomyopathy /ejection fraction 40% Acute on chronic renal failure Right third toe acute osteomyelitis Diabetic ulcer of the third toe Hypertension Diabetes mellitus [id number] Diabetic nephropathy Pneumonia Anemia of chronic kidney disease Peripheral neuropathy Nonadherence to medication Abnormal LFT, resolved DISCHARGE MEDICATIONS: See Medication Reconciliation list. DISCHARGE INSTRUCTIONS: Patient was discharged home with home health services for IV antibiotics. Follow-up with the primary care provider in 1 week. I have been assigned to dictate discharge summary for this account. I was not involved in the patient's management. Lian Lewis NP Dec 04, 2019 08:48
--- NOTE | 2019-12-04 16:08 | NUR ---
*-* INSURANCE *-* DISCAHRGE SUMMARY HAS BEEN FAXED: [employer] REF# [id number] P: [phone] F: [phone]
== END 2019-12-02 21:05 | disposition home or self-care (01) | DRG 871 ==
LOC: EMR 16:00 → 2W 17:50 → EDBEDREQ 21:35 → ICU 11-26 12:49 → 2E 11-28 18:40
PROC: 5A09357 Assistance with Respiratory Ventilation, Less than 24 Consecutive Hours, Continuous Positive Airway Pressure (ICD-10-PCS; principal; 2019-11-25)
PROC: 30233N1 Transfusion of Nonautologous Red Blood Cells into Peripheral Vein, Percutaneous Approach (ICD-10-PCS; 2019-11-25)
DX: A41.9 Sepsis, unspecified organism (principal); I21.4 Non-ST elevation (NSTEMI) myocardial infarction; J18.9 Pneumonia, unspecified organism; N18.6 End stage renal disease; E11.52 Type 2 diabetes mellitus with diabetic peripheral angiopathy with gangrene; I96 Gangrene, not elsewhere classified; N17.9 Acute kidney failure, unspecified; I12.0 Hypertensive chronic kidney disease with stage 5 chronic kidney disease or end stage renal disease; M86.171 Other acute osteomyelitis, right ankle and foot; I42.9 Cardiomyopathy, unspecified; E11.621 Type 2 diabetes mellitus with foot ulcer; L97.519 Non-pressure chronic ulcer of other part of right foot with unspecified severity; Z88.6 Allergy status to analgesic agent; E78.5 Hyperlipidemia, unspecified; K21.9 Gastro-esophageal reflux disease without esophagitis; Z89.421 Acquired absence of other right toe(s); I36.1 Nonrheumatic tricuspid (valve) insufficiency; I34.0 Nonrheumatic mitral (valve) insufficiency; I27.20 Pulmonary hypertension, unspecified; E11.69 Type 2 diabetes mellitus with other specified complication; E11.65 Type 2 diabetes mellitus with hyperglycemia; E11.22 Type 2 diabetes mellitus with diabetic chronic kidney disease; I12.9 Hypertensive chronic kidney disease with stage 1 through stage 4 chronic kidney disease, or unspecified chronic kidney disease; Z91.14 Patient's other noncompliance with medication regimen; E11.42 Type 2 diabetes mellitus with diabetic polyneuropathy; E87.79 Other fluid overload; D63.1 Anemia in chronic kidney disease; E87.6 Hypokalemia; R94.5 Abnormal results of liver function studies
CPT/HCPCS: 36415; 36569; 71045; 76700; 76770; 76937; 80053; 80061; 80202; 82270; 82550; 82607; 82728; 82746; 82962; 83036; 83540; 83550; 83605; 83690; 83735; 83880; 84100; 84443; 84484; 84550; 85007; 85025; 86140; 86705; 86709; 86710; 86803; 86850; 86900; 86901; 86920; 87040; 87340; 89050; 93005; 93306; 93925; 93970; 94660; 94664; 96365; 96375; 99285; J1815; J8499